=== PATIENT | male | born 1945 | race Caucasian/White ===

== ENCOUNTER 2017-07-09 17:42 | Inpatient (IN) | payer MEDICARE, SELFPAY ==
[2017-07-09] VITALS (11 sets, daily range): BP systolic 90–140; BP diastolic 62–96; PULSE 75–99; RESP 16–24; TEMP 36.6–36.9; O2SAT 88–99; BMI 35.4; BMI 30.4
--- NOTE | 2017-07-09 17:51 | RAD_ITS ---
XR Chest 1 View INDICATION: chest painSOB COMPARISON: November 14, 2016 FINDINGS: The heart size and pulmonary vascularity are within normal limits. The lungs are hyperinflated with flat of the diaphragm. Hazy and patchy air space opacities is seen at the lung bases, right worse then left, improved compared to the prior study. RAD/Chest 1 View (Portable) IMPRESSION: COPD/emphysema. Bibasilar patchy air space opacities, right worse then left. Cannot exclude developing or resolving pneumonic infiltrate in the appropriate clinical setting. at [id number] Reported and signed by: Ashley Mckinnon MD Electronically Signed: Ashley Mckinnon MD at 17:53 EST Tel , Service support ,
--- NOTE | 2017-07-09 17:51 | EKG12_ITS ---
Test Reason : CP Blood Pressure : / mmHG Vent. Rate : 096 BPM Atrial Rate : 096 BPM P-R Int : 170 ms QRS Dur : 082 ms QT Int : 332 ms P-R-T Axes : 064 081 073 degrees QTc Int : 419 ms Normal sinus rhythm Low voltage QRS Nonspecific ST abnormality Abnormal ECG Confirmed by SEVERO SOTO, SREEKANTH ([id number]), non linear editor KAVIN KIRK ([id number] on 07/12/2017 10:37:20 AM Referred By: MITESH Confirmed By:SREEKANTH ELKINS MD
--- NOTE | 2017-07-09 18:15 | ED.DCSUM_ITS ---
- ER Visit Summary Date of Service: 07/09/17 Chief Complaint: [] Harsh cough left sided chest pain History of Present Illness: The patient is a 72 M [] COPD prior OK ?2 reports for a month or 2 he has had a runny nose and a harsh cough the coughing became worse and began having left-sided chest pain family brought him to the hospital. He indicates his cardiac status has been stable his COPD has been worsening as he is not been able to obtain his home O2 because his oxygen machine broke and no one will come and fix it. His cough is occasionally dry sometimes part of a white mucus he did not have a flu vaccination, occasional white mucus no abdominal pain bowel bladder habits have been normal he has chronic left lower extremity weakness that is unchanged Physical Examination: [] His pulse ox on room air is 94% he has a dry harsh cough here his nose seems slightly congested the neck is unremarkable the lungs are diminished bilaterally with wheezing the heart tones are unremarkable abdomen soft nontender he complains of pain to the left chest wall when he coughs this area shows no crepitus subcu air, the abdomen again is soft and nontender upper lower extremities unremarkable neurologically he is awake and alert Test Results: [] Emergency Department Course and Treatment: [] Given all the above comprehensive evaluations pursued, the patient's EKG and labs are generally unremarkable see those results, the x-ray shows what appears to be bibasilar infiltrates given his age the harsh coughing family's inability to manage him I have asked the hospital seen further management Treatment Plan: [] Disposition: [] Admit stable hospitalist evaluation underway Impression: [] Exacerbation of COPD, community-acquired pneumonia This note was generated with [employer] dictation software. It may contain incorrect words, spelling, and punctuation that were not noted in review of the chart prior to signing ED Disposition - Plan for ED Patient: Chief Complaint: Chest Pain Referrals: NOT,DEFINED [NON-STAFF] -
[2017-07-09] MEDS: Ipratropium/Albuterol Sulfate 3 ML AMPUL.NEB INHALATION ×2 (18:29→23:50)
[2017-07-09] MEDS: Aspirin 81 MG TAB.CHEW 324 MG PO (18:30)
[2017-07-09 18:43] LABS: Absolute Lymphocyte Count 1.65 X10^3/ul (0.83-4.51); Absolute Neutrophil Count 5.8 X10^3/uL (2.0-7.7); Basophil# 0.02 X10^3/uL; Basophil% 0.2 % (0-1); Eosinophil# 0.29 X10^3/uL; Eosinophils% 3.4 % (0-5); Hematocrit 43.6 % (40-54); Hemoglobin 13.6 g/dl (13.0-16.5); Lymphocyte # 1.65 X10^3/ul (4.0); Lymphocyte % 19.4 % (19-41); Mean Corp Hgb Conc 31.2 g/gl (32-36); Mean Corpuscular Hgb 29.8 pg (27.0-32.0); Mean Corpuscular Volume 95.4 fL (80-94); Mean Platelet Vol. 10.5 fl (6.2-12.0); Monocyte# 0.73 X10^3/uL; Monocyte% 8.6 % (0-10); Neutrophil # 5.81 X10^3/uL (2.7-7.7); Neutrophil % 68.3 % (47-70); POSITIVE COUNT NO; POSITIVE DIFFERENTIAL NO; POSITIVE MORPHOLOGY NO; Platelet Count 342 K/mm3 (150-450); RBC Distribution Width SD 48.4 fl (35.1-43.9); Red Blood Count 4.57 M/mm3 (4.6-6.2); White Blood Count 8.5 K/mm3 (4.4-11.0)
[2017-07-09 19:07] LABS: BNP,B-Type NATRIURETIC PEPTIDE 39.6 pg/mL (0-100)
[2017-07-09 19:17] LABS: Anion Gap 5 (5-15); BUN 15 mg/dL (7-18); BUN/Creat Ratio 21.4 RATIO (10-20); Chloride 95 mmol/L (98-107); EST Glomerular Filtration Rate 117 mL/min (>60); Est Glom Filt Rate - Afr Amer 142 mL/min (>60); Estimated Creatinine Clearance 65.79 ml/min; Glucose 99 mg/dL (70-110); Potassium 4.8 mmol/L (3.5-5.1); Sodium Level 135 mmol/L (136-145)
--- NOTE | 2017-07-09 20:55 | HP.PCM_ITS ---
Problem List (1) Acute and chronic respiratory failure Status: Acute Qualifiers: (2) COPD with acute exacerbation Status: Acute (3) Community acquired pneumonia Status: Acute Comment: Strep pneumoniae, July 2016 (4) Fecal incontinence Status: Acute (5) Fever and chills Status: Acute (6) Generalized weakness Status: Acute (7) Hilar mass Status: Acute History of Present Illness Date of Admission: 07/09/17 Chief Complaint: Acute on chronic COPD exacerbation The patient is a 72 y/o male w/ h/o COPD, pulmonary HTN, tricuspid regurgitation , and diastolic heart failure admitted for COPD exacerbation. He has been SOB x month. His oxygen tank has been broken for weeks and is in the process of being fixed. His cough has increased intensity and frequency in the last few days. Nothing appeared to make it better or worse. He also complained of left sided chest pain. Pain started last night. Nothing improved or worsened pain. Pain is nonexertional and constant. He went to the ED for further workup. 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 Diastolic CHF (Chronic) Foot drop, left (Chronic) Chronic respiratory failure (Chronic) with hypoxemima and hypercarbia Pulmonary HTN (Chronic) severe Diastolic dysfunction (Chronic) stage 1 Tricuspid regurgitation (Chronic) mild - moderate Decubitus ulcer of hip, stage 2 (Chronic) Decubitus ulcer of hip, stage 1 (Chronic) CAD (coronary artery disease) (Chronic) minimal and nnon-obstructive on cath 08/09/16 Allergies No Known Allergies Allergy (Verified 08/02/16 10:51) Home Medications: Ambulatory Orders Medication Instructions Recorded Finasteride [Proscar] 5 mg PO DAILY 11/10/16 Oxygen, Home [Home Oxygen] 3 lpm NASAL DAILY 11/10/16 Albuterol Inhaler [Ventolin Hfa] 2 puff INHALATION Q4H PRN PRN #1 11/17/16 inhaler Aspirin [Aspirin, Baby] 81 mg PO DAILY@0800 tab.chew 11/17/16 Atorvastatin Calcium [Lipitor] 10 mg PO QHS #30 tablet 11/17/16 Budesonide/Formoterol 160/4.5 2 puff INHALATION BID #1 inhaler 11/17/16 [Symbicort 160/4.5 Mcg Inhaler (SP)] Prednisone 10 mg PO DAILY #21 tablet 11/17/16 Tamsulosin HCl [Flomax] 0.8 mg PO DAILY@1730 #60 capsule 11/17/16 Surgical History: cataract Psychiatric History: No pertinent psych hx Smoking Status: Former smoker - *Family History Maternal History Items: No pertinent history, - - No COPD Paternal History Items: No pertinent history, - - No COPD Review of Systems Constitutional: Denies: Chills, Fever, Weight Change HEENT: Denies: Head Aches, Sinus Congestion, Sinus Drainage Cardiovascular: Denies: Chest Pain, Palpitations Respiratory: Reports: Cough, Shortness of Breath, Sputum production. Denies: Shortness of breath at rest Gastrointestinal: Denies: Abdominal Pain, Nausea, Vomiting Genitourinary: Denies: Dysuria Musculoskeletal: Denies: Joint Pain, Joint Tenderness Skin: Denies: Rash, Wounds Neurological: Denies: Numbness, Tingling, Focal weakness Psychiatric: Denies: Anxiety, Depression, Homicidal Ideations, Suicidal Ideations Hematologic/ Lymphatic: Denies: Easy Bruising, Easy Bleeding VTE Information - Inpt Only VTE Present on Admission: No VTE Mechan Device Prophylaxis: SCD's VTE Pharm Prophylaxis ordered?: Yes - Physical Exam General: Alert, Oriented x3, Cooperative HEENT: Atraumatic, PERRLA, EOMI, Normocephalic Neck: Supple, No JVD, Negative Carotid Bruits Lungs: Short of Breath, Wheezes Cardiovascular: Regular rate, No murmurs Abdomen: Bowel Sounds Present, Soft, Non Tender Extremities: No edema, Capillary Refill Less than 3 Seconds Skin: No rashes, No breakdown Musculoskeletal: No Tenderness to Palpation of Joints or Extremities Neurological: Cranial nerves II-XII grossly intact Psych/Mental Status: Normal Affect, Appropriate Vital Signs Temp Pulse Resp BP Pulse Ox 98.5 F 83 18 120/88 H 94 07/09/17 19:49 07/09/17 20:13 07/09/17 20:13 07/09/17 20:13 07/09/17 20:13 Oxygen Flow Rate 3 Oxygen Delivery Method Room Air Weight: 108.862 kg Body Mass Index (BMI) 35.4 Microbiology Past 72 Hours 07/09/17 19:00 Influenza Types A,B Direct FA (EMIL) - Final Mucosa - Nose Laboratory Tests Past 24 Hrs 07/09/17 07/09/17 07/09/17 18:32 18:32 18:32 WBC 8.5 RBC 4.57 L Hgb 13.6 Hct 43.6 MCV 95.4 H MCH 29.8 MCHC 31.2 L RDW 14.0 RDW Differential 48.4 H Plt Count 342 MPV 10.5 Immature Gran % (Auto) 0.100 Neut % (Auto) 68.3 Lymph % (Auto) 19.4 [place] % (Auto) 8.6 Eos % (Auto) 3.4 Baso % (Auto) 0.2 Absolute Neuts (auto) 5.8 Absolute Lymphs (auto) 1.65 Total Counted Not Reportable Sodium 135 L Potassium 4.8 Chloride 95 L Carbon Dioxide 35.0 H Anion Gap 5 BUN 15 Creatinine 0.70 Estim Creat Clear Calc 65.79 Est GFR (MDRD) Af Amer 142 Est GFR (MDRD) Non-Af 117 BUN/Creatinine Ratio 21.4 H Glucose 99 Calcium 9.0 Troponin I < 0.02 B-Natriuretic Peptide 39.6 Assessment/Plan 72 y/o male w/ h/o COPD, pulmonary HTN, tricuspid regurgitation, and diastolic heart failure admitted for COPD exacerbation. 1) Acute on chronic COPD exacerbation: Likely secondary to noncompliance. Chest xray disclosed bibasilar patchy air space opacities, right worse then left. Cannot exclude developing or resolving pneumonic infiltrate in the appropriate clinical setting. Will start steroid, bronchodilator, oxygen, and ceftriaxone / azithromycin. Will need home oxygen. Cultures pending. Monitor. 2) Chest pain: Appears pleuritic / related to cough. Will get serial trops. Monitor. 3) Chronic issues: Pulmonary HTN, chronic diastolic heart failure, and tricuspid regurgitation: resume home meds. Monitor. 4) Prophylaxis: Heparin
--- NOTE | 2017-07-09 22:06 | NURSING ---
PT DOES NOT HAVE HOME MED LIST, DOES NOT KNOW WHAT MEDS HE TAKES AND HIS DTR-IN-LAW IS ILLITERATE AND CANNOT PROVIDE INFORMATION FROM HIS BOTTLES OF MEDICATION. USES [facility] FOR PRESCRIPTIONS; THEY WILL NEED TO BE CALLED IN AM.
[2017-07-09] MEDS: guaiFENesin 600 MG Tablet PO (22:24)
[2017-07-09] MEDS: Atorvastatin Calcium 10 MG Tablet PO (22:24)
[2017-07-09] MEDS: 0.9% Normal Saline 1,000 ML 100 ML IV (22:27)
[2017-07-10] VITALS (9 sets, daily range): BP systolic 97–135; BP diastolic 67–97; PULSE 72–93; RESP 16–20; TEMP 36.4–36.9; O2SAT 94–98
[2017-07-10 00:44] LABS: Color, Urine Yellow (Yellow); Glucose, Dipstick Normal (Normal); Ketone-Dipstick Negative (Negative); Leukocyte Esterase-Dipstick Negative /ul (Negative); Nitrite-Dipstick Negative (Negative); Occult Blood-Urine 10 /ul (Negative); Protein-Dipstick Negative (Negative); Urine Bilirubin Dipstick Negative (Negative); Urine Clarity Clear (Clear); Urine Urobilinogen Normal (Normal); Urine pH 6.5 (5.0 - 8.0)
--- NOTE | 2017-07-10 05:55 | RAD_ITS ---
STUDY: X-RAY CHEST REASON FOR EXAM: Male, 72 years old. Shortness of breath. COPD. TECHNIQUE: PA and lateral views of the chest. COMPARISON: 07/09/2017 FINDINGS: There is hyperinflation of the lungs consistent with chronic obstructive lung disease (COPD). Again noted pneumonic infiltrates in the lung bases, minimally increased since the yesterday's exam. No substantial pleural effusion is demonstrated. Normal size heart. There is atherosclerotic tortuosity of the aortic arch and descending thoracic aorta. There is demineralization of the osseous structures. There is no demonstrated abnormality of the visualized soft tissue structures of the upper abdomen. RAD/Chest PA and Lateral IMPRESSION: 1. Pulmonary emphysema. 2. Bibasilar patchy infiltrates again demonstrated, minimally increased since the prior exam. Electronically Signed: Deborah Syed MD at 9:11 EST Tel , Service support ,
[2017-07-10] MEDS: Acetaminophen 325 MG Tablet 650 MG PO (06:23)
[2017-07-10 06:33] LABS: Absolute Lymphocyte Count 0.79 X10^3/ul (0.83-4.51); Absolute Neutrophil Count 5.9 X10^3/uL (2.0-7.7); Lymphocyte # 0.79 X10^3/ul (4.0); Lymphocyte % 11.7 % (19-41); Mean Corpuscular Hgb 29.6 pg (27.0-32.0); Mean Corpuscular Volume 95.7 fL (80-94); Monocyte# 0.07 X10^3/uL; Neutrophil # 5.87 X10^3/uL (2.7-7.7); Neutrophil % 87.2 % (47-70); Platelet Count 310 K/mm3 (150-450); RBC Distribution Width CV 13.7 % (11.6-14.6); RBC Distribution Width SD 45.9 fl (35.1-43.9); Red Blood Count 4.39 M/mm3 (4.6-6.2); White Blood Count 6.7 K/mm3 (4.4-11.0)
[2017-07-10 06:42] LABS: POSITIVE COUNT NO; POSITIVE DIFFERENTIAL NO; POSITIVE MORPHOLOGY NO
[2017-07-10 06:50] LABS: ALB/GLOB Ratio 0.7 RATIO (0.9-2.4); AST(SGOT) 10 U/L (15-37); Alanine Aminotransfer ALT/SGPT 14 U/L (12-78); Albumin, Serum 3.2 g/dL (3.4-5.0); Alkaline Phosphatase 81 U/L (45-117); Anion Gap 8 (5-15); BUN 14 mg/dL (7-18); BUN/Creat Ratio 21.1 RATIO (10-20); Calcium,Total 8.9 mg/dL (8.5-10.1); Chloride 100 mmol/L (98-107); Creatinine, Serum 0.66 mg/dL (0.70-1.30); EST Glomerular Filtration Rate 125 mL/min (>60); Est Glom Filt Rate - Afr Amer 151 mL/min (>60); Estimated Creatinine Clearance 65.79 ml/min; Globulin 4.6 g/dL (2.2-4.2); Glucose 136 mg/dL (70-110); Potassium 4.5 mmol/L (3.5-5.1); Protein, Total 7.8 g/dL (6.4-8.2); Sodium Level 139 mmol/L (136-145)
[2017-07-10] MEDS: Ipratropium/Albuterol Sulfate 3 ML AMPUL.NEB INHALATION ×3 (07:36→18:54)
[2017-07-10] MEDS: Aspirin 81 MG TAB.CHEW PO (09:16)
[2017-07-10] MEDS: 0.9% Normal Saline 1,000 ML 100 ML IV ×2 (09:16→20:24)
[2017-07-10] MEDS: Finasteride 5 MG Tablet PO (09:17)
[2017-07-10] MEDS: Ceftriaxone 1 GM/50 ML BAG IV (09:17)
[2017-07-10] MEDS: guaiFENesin 600 MG Tablet PO ×2 (09:17→22:12)
--- NOTE | 2017-07-10 11:45 | PCM.PROGNOTE ---
<Kale Jaimes - Last Filed: 07/10/17 11:45> Patient Problems: Active and Suspected Problems COPD with acute exacerbation (Acute) Subjective: SOB has improved. He continues to have a cough productive of white mucus. No fever or chills overnight. He reports is home concentrator isnt working correctly, it has an unusual smell and he has been fighting with his DME provider to get a new one. He uses 3lpm at all times normally. He is currently comfortable on 3 lpm O2. He continues to have lower midsternal chest pain when coughing. - Physical Exam General: Alert, Oriented x3, Cooperative HEENT: Atraumatic, PERRLA, EOMI, Normocephalic Neck: Supple, No JVD, Negative Carotid Bruits Lungs: Diminished - severely diminished throughout Cardiovascular: Regular rate, No murmurs Abdomen: Bowel Sounds Present, Soft, Non Tender Extremities: No edema, Capillary Refill Less than 3 Seconds Skin: No rashes, No breakdown Musculoskeletal: No Tenderness to Palpation of Joints or Extremities Neurological: Cranial nerves II-XII grossly intact Psych/Mental Status: Normal Affect, Appropriate, Alert and oriented to time, place, person, mood and affect Vital Signs Temp Pulse Resp BP Pulse Ox 98.1 F 84 16 97/67 94 07/10/17 11:06 07/10/17 11:06 07/10/17 11:06 07/10/17 11:10 07/10/17 11:06 Oxygen Flow Rate 3 Oxygen Delivery Method Nasal Cannula Weight: 93.7 kg Body Mass Index (BMI) 30.4 Intake and Output for Last 24 Hours 07/08/17 07/09/17 07/10/17 23:59 23:59 23:59 Intake Total 1984 Balance 1984 Microbiology Past 72 Hours 07/10/17 00:20 Gram Stain - Final Sputum, Expectorated/Coughed 07/09/17 23:45 Legionella Antigen - Final Interface Orders 07/09/17 23:45 Streptococcus pneumoniae Antigen (M - Final Interface Orders Laboratory Tests Past 24 Hrs 07/09/17 07/09/17 07/10/17 22:05 23:45 01:03 WBC RBC Hgb Hct MCV MCH MCHC RDW RDW Differential Plt Count MPV Immature Gran % (Auto) Neut % (Auto) Lymph % (Auto) [place] % (Auto) Eos % (Auto) Baso % (Auto) Absolute Neuts (auto) Absolute Lymphs (auto) Total Counted Sodium Potassium Chloride Carbon Dioxide Anion Gap BUN Creatinine Estim Creat Clear Calc Est GFR (MDRD) Af Amer Est GFR (MDRD) Non-Af BUN/Creatinine Ratio Glucose Calcium Total Bilirubin AST ALT Alkaline Phosphatase Troponin I < 0.02 < 0.02 Total Protein Albumin Globulin Albumin/Globulin Ratio Urine Color Yellow Urine Clarity Clear Urine pH 6.5 Ur Specific [place] 1.010 Urine Protein Negative Urine Glucose (UA) Normal Urine Ketones Negative Urine Occult Blood 10 H Urine Nitrite Negative Urine Bilirubin Negative Urine Urobilinogen Normal Ur Leukocyte Esterase Negative 07/10/17 07/10/17 07/10/17 06:10 06:10 11:00 WBC 6.7 RBC 4.39 L Hgb 13.0 Hct 42.0 MCV 95.7 H MCH 29.6 MCHC 31.0 L RDW 13.7 RDW Differential 45.9 H Plt Count 310 MPV 10.0 Immature Gran % (Auto) 0.100 Neut % (Auto) 87.2 H Lymph % (Auto) 11.7 L [place] % (Auto) 1.0 Eos % (Auto) 0.0 Baso % (Auto) 0.0 Absolute Neuts (auto) 5.9 Absolute Lymphs (auto) 0.79 L Total Counted Not Reportable Sodium 139 Potassium 4.5 Chloride 100 Carbon Dioxide 31.0 Anion Gap 8 BUN 14 Creatinine 0.66 L Estim Creat Clear Calc 65.79 Est GFR (MDRD) Af Amer 151 Est GFR (MDRD) Non-Af 125 BUN/Creatinine Ratio 21.1 H Glucose 136 H Calcium 8.9 Total Bilirubin 0.40 AST 10 L ALT 14 Alkaline Phosphatase 81 Troponin I < 0.02 Pending Total Protein 7.8 Albumin 3.2 L Globulin 4.6 H Albumin/Globulin Ratio 0.7 L Urine Color Urine Clarity Urine pH Ur Specific [place] Urine Protein Urine Glucose (UA) Urine Ketones Urine Occult Blood Urine Nitrite Urine Bilirubin Urine Urobilinogen Ur Leukocyte Esterase Assessment/Plan Active and Suspected Problems COPD with acute exacerbation (Acute) 1. Acute COPD exacerbation - continue aerosols, solumedrol, incentive spirometer. Improved. 2. Chronic hypoxic respiratory failure - stable at baseline 3 lpm. Needs new home concentrator 3. Questionable bilateral pneumonia - bilateral opacities on exam. productive cough with chest pain. No fever or white count. urine antigens negative. sputum culture poor sample but with no growth. Continue empiric rocephin/azithro. Mucinex, PEP therapy 5. Chest pain - likely 2/2 cough / pna. EKG and troponin negative. 6. Hx diastolic CHF - no sign of fluid overload, BNP negative. DVT ppx: heparin DC planning: likely home tomorrow, will attempt to get him a new concentrator This patient was seen by Kale Jaimes PA-C under the supervision of Doctor Taya. <Silvano Bain - Last Filed: 07/10/17 12:42> - Physical Exam General: Alert, Cooperative HEENT: Atraumatic, Normocephalic Lungs: Clear to auscultation, Diminished Cardiovascular: Regular rate Abdomen: Bowel Sounds Present, Soft, Non Tender Extremities: No edema, No Calf Tenderness Skin: No rashes, No breakdown Psych/Mental Status: Normal Affect, Appropriate Vital Signs Temp Pulse Resp BP Pulse Ox 36.7 C 84 16 97/67 94 07/10/17 11:06 07/10/17 11:06 07/10/17 11:06 07/10/17 11:10 07/10/17 11:06 Oxygen Flow Rate 3 Oxygen Delivery Method Nasal Cannula Weight: 93.7 kg Body Mass Index (BMI) 30.4 Intake and Output for Last 24 Hours 07/08/17 07/09/17 07/10/17 23:59 23:59 23:59 Intake Total 1984 Balance 1984 Microbiology Past 72 Hours 07/10/17 00:20 Gram Stain - Final Sputum, Expectorated/Coughed 07/09/17 23:45 Legionella Antigen - Final Interface Orders 07/09/17 23:45 Streptococcus pneumoniae Antigen (M - Final Interface Orders Laboratory Tests Past 24 Hrs 07/09/17 07/09/17 07/10/17 22:05 23:45 01:03 WBC RBC Hgb Hct MCV MCH MCHC RDW RDW Differential Plt Count MPV Immature Gran % (Auto) Neut % (Auto) Lymph % (Auto) [place] % (Auto) Eos % (Auto) Baso % (Auto) Absolute Neuts (auto) Absolute Lymphs (auto) Total Counted Sodium Potassium Chloride Carbon Dioxide Anion Gap BUN Creatinine Estim Creat Clear Calc Est GFR (MDRD) Af Amer Est GFR (MDRD) Non-Af BUN/Creatinine Ratio Glucose Calcium Total Bilirubin AST ALT Alkaline Phosphatase Troponin I < 0.02 < 0.02 Total Protein Albumin Globulin Albumin/Globulin Ratio Urine Color Yellow Urine Clarity Clear Urine pH 6.5 Ur Specific [place] 1.010 Urine Protein Negative Urine Glucose (UA) Normal Urine Ketones Negative Urine Occult Blood 10 H Urine Nitrite Negative Urine Bilirubin Negative Urine Urobilinogen Normal Ur Leukocyte Esterase Negative 07/10/17 07/10/17 07/10/17 06:10 06:10 11:00 WBC 6.7 RBC 4.39 L Hgb 13.0 Hct 42.0 MCV 95.7 H MCH 29.6 MCHC 31.0 L RDW 13.7 RDW Differential 45.9 H Plt Count 310 MPV 10.0 Immature Gran % (Auto) 0.100 Neut % (Auto) 87.2 H Lymph % (Auto) 11.7 L [place] % (Auto) 1.0 Eos % (Auto) 0.0 Baso % (Auto) 0.0 Absolute Neuts (auto) 5.9 Absolute Lymphs (auto) 0.79 L Total Counted Not Reportable Sodium 139 Potassium 4.5 Chloride 100 Carbon Dioxide 31.0 Anion Gap 8 BUN 14 Creatinine 0.66 L Estim Creat Clear Calc 65.79 Est GFR (MDRD) Af Amer 151 Est GFR (MDRD) Non-Af 125 BUN/Creatinine Ratio 21.1 H Glucose 136 H Calcium 8.9 Total Bilirubin 0.40 AST 10 L ALT 14 Alkaline Phosphatase 81 Troponin I < 0.02 < 0.02 Total Protein 7.8 Albumin 3.2 L Globulin 4.6 H Albumin/Globulin Ratio 0.7 L Urine Color Urine Clarity Urine pH Ur Specific [place] Urine Protein Urine Glucose (UA) Urine Ketones Urine Occult Blood Urine Nitrite Urine Bilirubin Urine Urobilinogen Ur Leukocyte Esterase Assessment/Plan Seen and examined in family. I agree with the above note by the physician internal medicine physician assistant. 1. Acute exacerbation of COPD. Likely combination of the fact that the patient has not had his oxygen for 3 weeks. Patient stated that he stop using his oxygen 3 weeks ago due to a smell. Patient states that he has called his insurance company and an unclear patient's called [employer] as well but the issue has not been resolved but patient is otherwise doing well on his same level oxygen he is at home and I really do not appreciate wheezing at this time. Patient will continue with steroids for now. What case management assist in regards to the patient is able to get another condenser because the patient frankly refuses to use what he has now. Unclear if if it has been contaminated was some organism or if it is just failing and possibly burning out but hopefully will build to obtain one for him prior to discharge. We will continue with empiric antibiotics patient does have some increasing infiltrate as compared to prior chest x-rays clinically though patient really does not have pneumonia but follow-up on sputum culture but remains negative would recommend no further antibiotic therapy. Code Visit Inpatient E&M: 19395 Subs Hosp L2
[2017-07-10] MEDS: Tamsulosin HCl 0.4 MG Capsule 0.8 MG PO (16:51)
[2017-07-10] MEDS: Atorvastatin Calcium 10 MG Tablet PO (22:13)
[2017-07-11] VITALS (12 sets, daily range): BP systolic 95–117; BP diastolic 64–75; PULSE 76–94; RESP 16–21; TEMP 36.3–37; O2SAT 89–97
[2017-07-11] MEDS: 0.9% Normal Saline 1,000 ML 100 ML IV (05:40)
--- NOTE | 2017-07-11 07:56 | PCM.PN.HOSP ---
Patient Problems: Active and Suspected Problems COPD with acute exacerbation (Acute) Subjective: Patient without any acute events overnight per self and RN report. He notes breathing with much greater ease but still difficult with any exertion. Patient amenable to possible discharge to home in AM if continued improvement. He denies having an nebulizer at home. Noted issues with oxygen smell which was why he was not using his oxygen as rx prior. Patient denies fevers, chills, nausea, emesis, abdominal pain, chest pain. Objective: Physical Examination: General: awake, alert, oriented x 3 and cooperative, seated upright in bedside chair, in no apparent distress. Skin: normal color, turgor, no icterus, cyanosis. HEENT: AT/NC, EOMI, PERRLA, improved MM. Lungs: Diminished BS diffusely, mildly rhonchorous, > bases, mild effort, occasional end expiratory wheezing, no rales. Heart: Regular rate and rhythm; no gallop, rub audible. Abdomen: soft, obese, NTTP, ND, normal BS. Extremities: no cyanosis, clubbing, or edema. Neurological: patient awake, alert, oriented x 3; cognitive function intact; pupils equally reactive to light and accomodation; cranial nerves II-XII grossly normal, moving all 4 extremities, no focal deficits, strength moderately to severely globally decreased secondary to acute pulmonary presentation. Psychiatric: affect appears mildly fatigued, no acute evidence of depressive or anxiety feelings. Vitals/I&O's: Vital Signs Temp Pulse Resp BP Pulse Ox 97.3 F L 79 20 H 117/74 96 07/11/17 03:00 07/11/17 03:00 07/11/17 03:00 07/11/17 03:00 07/11/17 03:00 Oxygen Flow Rate 3 Oxygen Delivery Method Nasal Cannula Weight: 206 lb 9.17 oz Body Mass Index (BMI) 30.4 Intake and Output for Last 24 Hours 07/09/17 07/10/17 07/11/17 23:59 23:59 23:59 Intake Total 4792 / 4792 894 / 894 Output Total 1500 / 1500 Balance 3292 / 3292 894 / 894 Microbiology Past 72 Hours 07/10/17 00:20 Sputum, Expectorated/Coughed Gram Stain - Final 07/09/17 23:45 Interface Orders Legionella Antigen - Final 07/09/17 23:45 Interface Orders Streptococcus pneumoniae Antigen (M - Final Laboratory Results 07/10/17 11:00: Troponin I < 0.02 Current Medications Acetaminophen (Tylenol) 650 mg PO Q4H PRN PRN PRN Reason: PAIN Last Admin: 07/10/17 06:23 Dose: 650 mg Albuterol Sulfate (Ventolin Aerosols) 2.5 mg INHALATION Q4H PRN PRN PRN Reason: SHORTNESS OF BREATH Albuterol Sulfate (Ventolin Aerosols) 2.5 mg INHALATION Q6HWA.RT GIGI Albuterol/Ipratropium (Duoneb) 3 ml INHALATION Q6H.RT [facility] Last Admin: 07/11/17 01:40 Dose: Not Given Aspirin (Aspirin, Baby) 81 mg PO DAILY@0800 [facility] Last Admin: 07/10/17 09:16 Dose: 81 mg Atorvastatin Calcium (Lipitor) 10 mg PO QHS [facility] Last Admin: 07/10/17 22:13 Dose: 10 mg Finasteride (Proscar) 5 mg PO DAILY [facility] Last Admin: 07/10/17 09:17 Dose: 5 mg Guaifenesin (Mucinex) 600 mg PO BID [facility] Last Admin: 07/10/17 22:12 Dose: 600 mg Heparin Sodium (Porcine) (Heparin Na) 5,000 unit SC Q8 [facility] Last Admin: 07/11/17 05:39 Dose: 5,000 u Sodium Chloride () 1,000 mls @ 0 mls/hr IV .Q0M GIGI PRN Reason: KVO Ceftriaxone Sodium (Rocephin) 1 gm in 50 mls @ 100 mls/hr IV Q24 [facility] Last Admin: 07/10/17 09:17 Dose: 100 mls/hr Sodium Chloride () 1,000 mls @ 100 mls/hr IV .Q10H [facility] Last Admin: 07/11/17 05:40 Dose: 100 mls/hr Azithromycin 500 mg/ Dextrose 255 mls @ 250 mls/hr IV Q24 [facility] Stop: 07/12/17 11:02 Last Admin: 07/10/17 11:00 Dose: 250 mls/hr Methylprednisolone (Solu-Medrol) 40 mg IV Q8 [facility] Last Admin: 07/11/17 05:39 Dose: 40 mg Sodium Chloride () 5 - 30 ml IV UD PRN PRN Reason: SALINE FLUSH Tamsulosin HCl (Flomax) 0.8 mg PO DAILY@1730 [facility] Last Admin: 07/10/17 16:51 Dose: 0.8 mg Assessment/Plan Active and Suspected Problems COPD with acute exacerbation (Acute) The patient is a 72 y/o M w/ PMHx: Chronic Hypoxic Respiratory Failure (3L NC) with Chronic COPD, Obesity, Diastolic CHF, Tobacco use, Pulmonary HTN, Chronic L Foot Drop, CAD, GERD, BPH who presents to the [facility] ED on 07/09/17 with progressively worsened dyspnea with history of not using his home oxygen for several weeks secondary to abnormal smell. (1) Acute on chronic COPD exacerbation w/ Chronic Hypoxic Respiratory Failure and Possible PNA, complicated by Pulmonary HTN Hx: CXR w/ pulmonary emphysema, bibasilar patchy infiltrates R>L, CBC on admission w/ WBC 8.5 without marked shift-->07/11/17 CBC w/ WBC 6.7 with shift, remains afebrile. Admitted to [place], maintain on home oxygen supplementation, continue ATC duonebs, PRN albuterol, IV methylprednisolone-->prednisone transition, HOB, IS parameters, IV Azithromcyin (last dose 07/11/17) and Rocephin (transition omnicef 300 mg BID x 7 days total, first day treatment 07/09/17) since admission given concern for possible PNA with pending sputum cultures, negative urine antigens, negative rapid influenza. Will plan discharge to home possibly in AM w/ continued home oxygen, possible need to increase to 4L NC and assure nebulizer in place for discharge. (2) Chest pain: Likely Pleuritic, secondary to COPD exacerbation and ? PNA, serial enzymes unremarkable, maintain on guaf regimen. (3) Diastolic CHF, Chronic: BNP normal upon ED presentation, maintain on asa, statin, BP low normal, not on BB or ACEI, defer given normal-low BP. (4) Hyperlipidemia: Continue home statin regimen. (5) Obesity: Weight loss and lifestyle changes encouraged. (6) BPH: Maintain on home regimen flomax. (7) CAD: Maintain on asa, statin, not on BB with low normal BP. (8) DVT Prophylaxis: SCDs, heparin. Code Visit Inpatient E&M: 46148 Subs Hosp L2
--- NOTE | 2017-07-11 08:06 | PN_ITS ---
Patient Problems: Active and Suspected Problems COPD with acute exacerbation (Acute) Subjective: Patient without any acute events overnight per self and RN report. He notes breathing with much greater ease but still difficult with any exertion. Patient amenable to possible discharge to home in AM if continued improvement. He denies having an nebulizer at home. Noted issues with oxygen smell which was why he was not using his oxygen as rx prior. Patient denies fevers, chills, nausea, emesis, abdominal pain, chest pain. Objective: Physical Examination: General: awake, alert, oriented x 3 and cooperative, seated upright in bedside chair, in no apparent distress. Skin: normal color, turgor, no icterus, cyanosis. HEENT: AT/NC, EOMI, PERRLA, improved MM. Lungs: Diminished BS diffusely, mildly rhonchorous, > bases, mild effort, occasional end expiratory wheezing, no rales. Heart: Regular rate and rhythm; no gallop, rub audible. Abdomen: soft, obese, NTTP, ND, normal BS. Extremities: no cyanosis, clubbing, or edema. Neurological: patient awake, alert, oriented x 3; cognitive function intact; pupils equally reactive to light and accomodation; cranial nerves II-XII grossly normal, moving all 4 extremities, no focal deficits, strength moderately to severely globally decreased secondary to acute pulmonary presentation. Psychiatric: affect appears mildly fatigued, no acute evidence of depressive or anxiety feelings. Vitals/I&O's: Vital Signs Temp Pulse Resp BP Pulse Ox 97.3 F L 79 20 H 117/74 96 07/11/17 03:00 07/11/17 03:00 07/11/17 03:00 07/11/17 03:00 07/11/17 03:00 Oxygen Flow Rate 3 Oxygen Delivery Method Nasal Cannula Weight: 206 lb 9.17 oz Body Mass Index (BMI) 30.4 Intake and Output for Last 24 Hours 07/09/17 07/10/17 07/11/17 23:59 23:59 23:59 Intake Total 4792 / 4792 894 / 894 Output Total 1500 / 1500 Balance 3292 / 3292 894 / 894 Microbiology Past 72 Hours 07/10/17 00:20 Sputum, Expectorated/Coughed Gram Stain - Final 07/09/17 23:45 Interface Orders Legionella Antigen - Final 07/09/17 23:45 Interface Orders Streptococcus pneumoniae Antigen (M - Final Laboratory Results 07/10/17 11:00: Troponin I < 0.02 Current Medications Acetaminophen (Tylenol) 650 mg PO Q4H PRN PRN PRN Reason: PAIN Last Admin: 07/10/17 06:23 Dose: 650 mg Albuterol Sulfate (Ventolin Aerosols) 2.5 mg INHALATION Q4H PRN PRN PRN Reason: SHORTNESS OF BREATH Albuterol Sulfate (Ventolin Aerosols) 2.5 mg INHALATION Q6HWA.RT GIGI Albuterol/Ipratropium (Duoneb) 3 ml INHALATION Q6H.RT [facility] Last Admin: 07/11/17 01:40 Dose: Not Given Aspirin (Aspirin, Baby) 81 mg PO DAILY@0800 [facility] Last Admin: 07/10/17 09:16 Dose: 81 mg Atorvastatin Calcium (Lipitor) 10 mg PO QHS [facility] Last Admin: 07/10/17 22:13 Dose: 10 mg Finasteride (Proscar) 5 mg PO DAILY [facility] Last Admin: 07/10/17 09:17 Dose: 5 mg Guaifenesin (Mucinex) 600 mg PO BID [facility] Last Admin: 07/10/17 22:12 Dose: 600 mg Heparin Sodium (Porcine) (Heparin Na) 5,000 unit SC Q8 [facility] Last Admin: 07/11/17 05:39 Dose: 5,000 u Sodium Chloride () 1,000 mls @ 0 mls/hr IV .Q0M GIGI PRN Reason: KVO Ceftriaxone Sodium (Rocephin) 1 gm in 50 mls @ 100 mls/hr IV Q24 [facility] Last Admin: 07/10/17 09:17 Dose: 100 mls/hr Sodium Chloride () 1,000 mls @ 100 mls/hr IV .Q10H [facility] Last Admin: 07/11/17 05:40 Dose: 100 mls/hr Azithromycin 500 mg/ Dextrose 255 mls @ 250 mls/hr IV Q24 [facility] Stop: 07/12/17 11:02 Last Admin: 07/10/17 11:00 Dose: 250 mls/hr Methylprednisolone (Solu-Medrol) 40 mg IV Q8 [facility] Last Admin: 07/11/17 05:39 Dose: 40 mg Sodium Chloride () 5 - 30 ml IV UD PRN PRN Reason: SALINE FLUSH Tamsulosin HCl (Flomax) 0.8 mg PO DAILY@1730 [facility] Last Admin: 07/10/17 16:51 Dose: 0.8 mg Assessment/Plan Active and Suspected Problems COPD with acute exacerbation (Acute) The patient is a 72 y/o M w/ PMHx: Chronic Hypoxic Respiratory Failure (3L NC) with Chronic COPD, Obesity, Diastolic CHF, Tobacco use, Pulmonary HTN, Chronic L Foot Drop, CAD, GERD, BPH who presents to the [facility] ED on 07/09/17 with progressively worsened dyspnea with history of not using his home oxygen for several weeks secondary to abnormal smell. (1) Acute on chronic COPD exacerbation w/ Chronic Hypoxic Respiratory Failure and Possible PNA, complicated by Pulmonary HTN Hx: CXR w/ pulmonary emphysema, bibasilar patchy infiltrates R>L, CBC on admission w/ WBC 8.5 without marked shift-->07/11/17 CBC w/ WBC 6.7 with shift, remains afebrile. Admitted to [place], maintain on home oxygen supplementation, continue ATC duonebs, PRN albuterol, IV methylprednisolone-->prednisone transition, HOB, IS parameters, IV Azithromcyin (last dose 07/11/17) and Rocephin (transition omnicef 300 mg BID x 7 days total, first day treatment 07/09/17) since admission given concern for possible PNA with pending sputum cultures, negative urine antigens, negative rapid influenza. Will plan discharge to home possibly in AM w/ continued home oxygen, possible need to increase to 4L NC and assure nebulizer in place for discharge. (2) Chest pain: Likely Pleuritic, secondary to COPD exacerbation and ? PNA, serial enzymes unremarkable, maintain on guaf regimen. (3) Diastolic CHF, Chronic: BNP normal upon ED presentation, maintain on asa, statin, BP low normal, not on BB or ACEI, defer given normal-low BP. (4) Hyperlipidemia: Continue home statin regimen. (5) Obesity: Weight loss and lifestyle changes encouraged. (6) BPH: Maintain on home regimen flomax. (7) CAD: Maintain on asa, statin, not on BB with low normal BP. (8) DVT Prophylaxis: SCDs, heparin. Code Visit Inpatient E&M: 14794 Subs Hosp L2
[2017-07-11] MEDS: Aspirin 81 MG TAB.CHEW PO (09:06)
[2017-07-11] MEDS: Finasteride 5 MG Tablet PO (09:07)
[2017-07-11] MEDS: Ceftriaxone 1 GM/50 ML BAG IV (09:07)
[2017-07-11] MEDS: guaiFENesin 600 MG Tablet PO ×2 (09:07→21:40)
--- NOTE | 2017-07-11 09:36 | CASEMGMT ---
DESTINEE BASSETT Face to Face with patient for initial transition planning/care coordination assessment. DESTINEE BASSETT introduced self and role at [facility]. Patient sitting in chair, alert and oriented. Patient willing to participate in assessment and is able to answer all questions appropriately. Care providers, pharmacy, and demographics verified. See link attached. Pt wishes to discharge home with possible HHC if needed. Patient states that his concentrator at home is making a smell when he uses it. Patient states he receives his oxygen supplies through [employer]. DESTINEE BASSETT called Katharine at [facility] who stated they would have someone come to patients home prior to discharge to service concentrator. DESTINEE BASSETT updated the patient. Patient states he has no further needs or concerns at this time. CM to follow for discharge planning needs that may arise. Disposition Plan: Patient to discharge with family support and follow-up plans in place. Will monitor for need for HHC at discharge.
[2017-07-11] MEDS: Ipratropium/Albuterol Sulfate 3 ML AMPUL.NEB INHALATION ×3 (10:43→19:10)
--- NOTE | 2017-07-11 11:14 | NURSING ---
left message for 's nursing requesting home med list.
[2017-07-11] MEDS: Cefdinir 300 MG Capsule PO ×2 (13:34→21:41)
[2017-07-11] MEDS: Azithromycin 250 MG Tablet PO (13:34)
[2017-07-11] MEDS: Tamsulosin HCl 0.4 MG Capsule 0.8 MG PO (17:44)
[2017-07-11] MEDS: Atorvastatin Calcium 10 MG Tablet PO (21:41)
[2017-07-11] MEDS: Acetaminophen 325 MG Tablet 650 MG PO (21:49)
[2017-07-12 03:15] VITALS: BP 119/79; PULSE 77; RESP 18; TEMP 36.7; O2SAT 95
[2017-07-12] MEDS: Acetaminophen 325 MG Tablet 650 MG PO ×2 (06:25→12:19)
[2017-07-12 07:01] LABS: Absolute Lymphocyte Count 1.54 X10^3/ul (0.83-4.51); Absolute Neutrophil Count 7.8 X10^3/uL (2.0-7.7); Basophil# 0.01 X10^3/uL; Basophil% 0.1 % (0-1); Hematocrit 38.2 % (40-54); Hemoglobin 11.8 g/dl (13.0-16.5); Lymphocyte # 1.54 X10^3/ul (4.0); Mean Corp Hgb Conc 30.9 g/gl (32-36); Mean Corpuscular Hgb 29.6 pg (27.0-32.0); Mean Platelet Vol. 10.3 fl (6.2-12.0); Monocyte# 0.87 X10^3/uL; Monocyte% 8.5 % (0-10); Neutrophil # 7.83 X10^3/uL (2.7-7.7); Neutrophil % 76.2 % (47-70); Platelet Count 282 K/mm3 (150-450); RBC Distribution Width CV 14.2 % (11.6-14.6); RBC Distribution Width SD 47.7 fl (35.1-43.9); Red Blood Count 3.98 M/mm3 (4.6-6.2); White Blood Count 10.3 K/mm3 (4.4-11.0)
[2017-07-12 07:09] LABS: POSITIVE COUNT NO; POSITIVE DIFFERENTIAL NO; POSITIVE MORPHOLOGY NO
[2017-07-12 07:21] VITALS: O2SAT 95
[2017-07-12 07:29] LABS: Anion Gap 4 (5-15); BUN 26 mg/dL (7-18); BUN/Creat Ratio 41.3 RATIO (10-20); Calcium,Total 8.5 mg/dL (8.5-10.1); Chloride 104 mmol/L (98-107); Creatinine, Serum 0.63 mg/dL (0.70-1.30); EST Glomerular Filtration Rate 133 mL/min (>60); Est Glom Filt Rate - Afr Amer 161 mL/min (>60); Estimated Creatinine Clearance 65.79 ml/min; Glucose 91 mg/dL (70-110); Potassium 4.1 mmol/L (3.5-5.1); Sodium Level 141 mmol/L (136-145)
[2017-07-12 09:44] VITALS: BP 138/95; PULSE 75; RESP 18; TEMP 37; O2SAT 97
[2017-07-12] MEDS: guaiFENesin 600 MG Tablet PO (09:55)
[2017-07-12] MEDS: Cefdinir 300 MG Capsule PO (09:55)
[2017-07-12] MEDS: Aspirin 81 MG TAB.CHEW PO (09:56)
[2017-07-12] MEDS: Finasteride 5 MG Tablet PO (09:58)
--- NOTE | 2017-07-12 10:09 | PCM.DC ---
- Discharge Diagnoses Current Active Problems: (1) Acute on chronic COPD exacerbation w/ Chronic Hypoxic Respiratory Failure and Possible PNA, complicated by Pulmonary HTN Hx (2) Chest pain, Likely Pleuritic, secondary to COPD exacerbation and ? PNA (3) Diastolic CHF, Chronic (4) Hyperlipidemia (5) Obesity (6) BPH (7) CAD You will use the following diet at home:: Cardiac Your food should be the consistency of: Regular Your liquids should be the consistency of: Regular/Thin Discharge Activity: - - Avoid aggressive activity until re-assessed per your primary care physician at follow-up. Avoid remaining in the cold weather or severe changes in temperatures as well as other COPD triggers. May resume sexual activity in: 10-14 days Weight Bearing Status: Weight bearing as tolerated Call your doctor if you observe: Fever of 101 or Higher, Inability to urinate, Inability to have a bowel movement, Shortness of breath, Dizziness, Fainting spells, Chest pain, Uncontrolled pain Instructions: What is COPD?, Chronic Lung Disease: Preventing Lung Infections, Airway Clearance: Coughing Techniques, Using a Nebulizer (Adult), Using Oxygen Safely, Using Oxygen at Home, Traveling with Oxygen, Caring for Your Inhaler, Using an Inhaler with a Spacer, Using an Inhaler Without a Spacer, What Is Pneumonia?, Preventing Pneumonia, Pneumonia Treatment Allergies/Adverse Reactions: Allergies No Known Allergies Allergy (Verified 08/02/16 10:51) Medications to take at Discharge Finasteride [Proscar] 5 mg PO DAILY 11/10/16 Oxygen, Home [Home Oxygen] 3 lpm NASAL DAILY 11/10/16 Albuterol Inhaler [Ventolin Hfa] 2 puff INHALATION Q4H PRN PRN #1 inhaler 11/17/16 Aspirin [Aspirin, Baby] 81 mg PO DAILY@0800 tab.chew 11/17/16 Atorvastatin Calcium [Lipitor] 10 mg PO QHS #30 tablet 11/17/16 Budesonide/Formoterol 160/4.5 [Symbicort 160/4.5 Mcg Inhaler (SP)] 2 puff INHALATION BID #1 inhaler 11/17/16 Tamsulosin HCl [Flomax] 0.8 mg PO DAILY@1730 #60 capsule 11/17/16 Albuterol Aerosols [Ventolin Aerosols] 2.5 mg INHALATION Q2H PRN PRN #1 box 07/12/17 Cefdinir [Omnicef [equiv]] 300 mg PO Q12 #10 cap 07/12/17 Guaifenesin [Mucinex] 600 mg PO BID #20 tab 07/12/17 Ipratropium/Albuterol Sulfate [Duoneb] 3 ml INHALATION Q4HWA.RT #1 box 07/12/17 The following prescriptions were given: Albuterol Aerosols [Ventolin Aerosols] 2.5 mg INHALATION Q2H PRN PRN #1 box PRN Reason: dyspnea, wheezing Ipratropium/Albuterol Sulfate [Duoneb] 3 ml INHALATION Q4HWA.RT #1 box Cefdinir [Omnicef [equiv]] 300 mg PO Q12 #10 cap Guaifenesin [Mucinex] 600 mg PO BID #20 tab Primary Care Physician: NOT,DEFINED [NON-STAFF] - Please follow up with your Primary Care Physician in: Please follow-up with PCP within 3-5 days to review admission. Please Follow Up With: Elieser Livingston MD When: Please follow-up to establish w/ Pulmonary Medicine. Proposed Discharge Date: 07/12/17
[2017-07-12] MEDS: Ipratropium/Albuterol Sulfate 3 ML AMPUL.NEB INHALATION (10:20)
[2017-07-12 10:26] VITALS: PULSE 82; RESP 18
--- NOTE | 2017-07-12 10:27 | CPS ---
patient does pep on his own
--- NOTE | 2017-07-12 11:35 | CASEMGMT ---
DESTINEE BASSETT obtained script for nebulizer for at home and faxed to [employer], patient's preferred DME company. DESTINEE BASSETT updated patient regarding script for nebulizer sent to [employer]. Patient is requesting [facility] for jail and has no preference for HHC company. List provided to patient, with first choice [facility] DESTINEE BASSETT sent referral to [facility] with acceptance. DESTINEE BASSETT updated patient and will continue to follow this patient and plan for a safe discharge.
[2017-07-12 12:09] VITALS: BP 98/64; PULSE 90; RESP 18; TEMP 36.7; O2SAT 92
--- NOTE | 2017-07-12 13:44 | PCM.DC.SUM ---
Discharge Date and Diagnosis Date of Admission: 07/09/17 Date of Discharge: 07/12/17 - Primary Discharge Diagnosis (1) Acute on chronic COPD exacerbation w/ Chronic Hypoxic Respiratory Failure and Possible PNA, complicated by Pulmonary HTN Hx (2) Chest pain, Pleuritic, secondary to COPD exacerbation and ? 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 Diastolic CHF (Chronic) Foot drop, left (Chronic) Chronic respiratory failure (Chronic) with hypoxemima and hypercarbia Pulmonary HTN (Chronic) severe Diastolic dysfunction (Chronic) stage 1 Tricuspid regurgitation (Chronic) mild - moderate Decubitus ulcer of hip, stage 2 (Chronic) Decubitus ulcer of hip, stage 1 (Chronic) CAD (coronary artery disease) (Chronic) minimal and nnon-obstructive on cath 08/09/16 Hospital Course and Treatment Operations: None Procedures: EKG Summary of Care Provided: The patient is a 72 y/o M w/ PMHx: Chronic Hypoxic Respiratory Failure (3L NC) with Chronic COPD, Obesity, Diastolic CHF, Tobacco use, Pulmonary HTN, Chronic L Foot Drop, CAD, GERD, BPH who presented to the [facility] ED on 07/09/17 with progressively worsened dyspnea with history of not using his home oxygen for several weeks secondary to abnormal smell. Upon presentation patient ED evaluation notable for Acute on chronic COPD exacerbation w/ Chronic Hypoxic Respiratory Failure and Possible PNA, complicated by Pulmonary HTN Hx w/ ED CXR w/ pulmonary emphysema, bibasilar patchy infiltrates R>L, CBC on admission w/ WBC 8.5 without marked shift-->07/11/17 CBC w/ WBC 6.7 with shift. Admitted to [place], maintained on home oxygen supplementation, continued ATC duonebs, PRN albuterol, IV methylprednisolone-->prednisone transition w/ taper upon discharge, HOB, IS parameters, IV Azithromcyin (last dose 07/11/17) and Rocephin (transitioned omnicef 300 mg BID x 7 days total upon discharge) with pending sputum cultures, negative urine antigens, negative rapid influenza. Patient discharged to home in stable condition with home health discussions w/ SW/CM to assure oxygen appropriate and smell change evaluated prior to discharge. Encouraged PCP and Pulmonary follow-up upon discharge. DAY OF DISCHARGE PROGRESS NOTE: Subjective: Patient without acute event overnight per self and nursing report except ongoing discomfort very focally to the lateral ribs on the L side, worse with coughing. Patient denies fever, chills, nausea, emesis, abdominal pain or worsened dyspnea. Patient agreeable to discharge to home. Patient will be discharged with follow-up with primary care physician within 3-5 days in addition to recommended Pulmonary physician establishment. Objective: T 98, heart rate 90, BP 138/95, respiratory rate 18, 97% on 3 L nasal cannula. Physical Examination: General: awake, alert, oriented x 3 and cooperative, seated upright in bedside chair, in no apparent distress. Skin: normal color, turgor, no icterus, cyanosis. HEENT: AT/NC, EOMI, PERRLA, improved MM. Lungs: Improved BS, still diminished bases, marked improvement in prior rhonchorous BS, improved moderate effort, no wheezing currently. Heart: Regular rate and rhythm; no gallop, rub audible. Abdomen: soft, obese, NTTP, ND, normal BS. Extremities: no cyanosis, clubbing, or edema. Neurological: patient awake, alert, oriented x 3; cognitive function intact; pupils equally reactive to light and accomodation; cranial nerves II-XII grossly normal, moving all 4 extremities, no focal deficits, strength improved, moderately globally decreased secondary to acute pulmonary presentation. Psychiatric: affect appears improved, normal, no acute evidence of depressive or anxiety feelings. Assessment and Plan: Please see hospital summary above. Discharge Activity: - - Avoid aggressive activity until re-assessed per your primary care physician at follow-up. Avoid remaining in the cold weather or severe changes in temperatures as well as other COPD triggers. May resume sexual activity in: 10-14 days Weight Bearing Status: Weight bearing as tolerated Call your doctor if you observe: Fever of 101 or Higher, Inability to urinate, Inability to have a bowel movement, Shortness of breath, Dizziness, Fainting spells, Chest pain, Uncontrolled pain Home Medications: Medications to take at Discharge Finasteride [Proscar] 5 mg PO DAILY 11/10/16 Oxygen, Home [Home Oxygen] 3 lpm NASAL DAILY 11/10/16 Albuterol Inhaler [Ventolin Hfa] 2 puff INHALATION Q4H PRN PRN #1 inhaler 11/17/16 Aspirin [Aspirin, Baby] 81 mg PO DAILY@0800 tab.chew 11/17/16 Atorvastatin Calcium [Lipitor] 10 mg PO QHS #30 tablet 11/17/16 Budesonide/Formoterol 160/4.5 [Symbicort 160/4.5 Mcg Inhaler (SP)] 2 puff INHALATION BID #1 inhaler 11/17/16 Tamsulosin HCl [Flomax] 0.8 mg PO DAILY@1730 #60 capsule 11/17/16 Albuterol Aerosols [Ventolin Aerosols] 2.5 mg INHALATION Q2H PRN PRN #1 box 07/12/17 Cefdinir [Omnicef [equiv]] 300 mg PO Q12 #10 cap 07/12/17 Guaifenesin [Mucinex] 600 mg PO BID #20 tab 07/12/17 Ipratropium/Albuterol Sulfate [Duoneb] 3 ml INHALATION Q4HWA.RT #1 box 07/12/17 Following Prescrptions Were Given to Patient: Albuterol Aerosols [Ventolin Aerosols] 2.5 mg INHALATION Q2H PRN PRN #1 box PRN Reason: dyspnea, wheezing Ipratropium/Albuterol Sulfate [Duoneb] 3 ml INHALATION Q4HWA.RT #1 box Cefdinir [Omnicef [equiv]] 300 mg PO Q12 #10 cap Guaifenesin [Mucinex] 600 mg PO BID #20 tab Primary Care Physician: NOT,DEFINED [NON-STAFF] - Please follow up with your Primary Care Physician in: Please follow-up with PCP within 3-5 days to review admission. Please Follow Up With: Elieser Livingston MD When: Please follow-up to establish w/ Pulmonary Medicine. Please Follow Up With: Donte Lea, DO Patient Instructions: What is COPD?, Chronic Lung Disease: Preventing Lung Infections, Airway Clearance: Coughing Techniques, Caring for Your Inhaler, Using an Inhaler with a Spacer, Using an Inhaler Without a Spacer, Traveling with Oxygen, Using Oxygen Safely, What Is Pneumonia?, Using Oxygen at Home, Preventing Pneumonia, Pneumonia Treatment, Using a Nebulizer (Adult) Disposition: Home with Home Health Minutes spent on discharge:: 35 Patient Condition:: Fair Meaningful Use Info Meaningful Use Diagnoses (Choose all that apply): None applicable Code Visit Inpatient E&M: 50367 Disch Hosp
--- NOTE | 2017-07-12 13:51 | DS.PCM_ITS ---
Discharge Date and Diagnosis Date of Admission: 07/09/17 Date of Discharge: 07/12/17 - Primary Discharge Diagnosis (1) Acute on chronic COPD exacerbation w/ Chronic Hypoxic Respiratory Failure and Possible PNA, complicated by Pulmonary HTN Hx (2) Chest pain, Pleuritic, secondary to COPD exacerbation and ? 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 Diastolic CHF (Chronic) Foot drop, left (Chronic) Chronic respiratory failure (Chronic) with hypoxemima and hypercarbia Pulmonary HTN (Chronic) severe Diastolic dysfunction (Chronic) stage 1 Tricuspid regurgitation (Chronic) mild - moderate Decubitus ulcer of hip, stage 2 (Chronic) Decubitus ulcer of hip, stage 1 (Chronic) CAD (coronary artery disease) (Chronic) minimal and nnon-obstructive on cath 08/09/16 Hospital Course and Treatment Operations: None Procedures: EKG Summary of Care Provided: The patient is a 72 y/o M w/ PMHx: Chronic Hypoxic Respiratory Failure (3L NC) with Chronic COPD, Obesity, Diastolic CHF, Tobacco use, Pulmonary HTN, Chronic L Foot Drop, CAD, GERD, BPH who presented to the [facility] ED on 07/09/17 with progressively worsened dyspnea with history of not using his home oxygen for several weeks secondary to abnormal smell. Upon presentation patient ED evaluation notable for Acute on chronic COPD exacerbation w/ Chronic Hypoxic Respiratory Failure and Possible PNA, complicated by Pulmonary HTN Hx w/ ED CXR w/ pulmonary emphysema, bibasilar patchy infiltrates R>L, CBC on admission w/ WBC 8.5 without marked shift-->07/11/17 CBC w/ WBC 6.7 with shift. Admitted to [place] , maintained on home oxygen supplementation, continued ATC duonebs, PRN albuterol, IV methylprednisolone-->prednisone transition w/ taper upon discharge , HOB, IS parameters, IV Azithromcyin (last dose 07/11/17) and Rocephin ( transitioned omnicef 300 mg BID x 7 days total upon discharge) with pending sputum cultures, negative urine antigens, negative rapid influenza. Patient discharged to home in stable condition with home health discussions w/ SW/CM to assure oxygen appropriate and smell change evaluated prior to discharge. Encouraged PCP and Pulmonary follow-up upon discharge. DAY OF DISCHARGE PROGRESS NOTE: Subjective: Patient without acute event overnight per self and nursing report except ongoing discomfort very focally to the lateral ribs on the L side, worse with coughing. Patient denies fever, chills, nausea, emesis, abdominal pain or worsened dyspnea. Patient agreeable to discharge to home. Patient will be discharged with follow-up with primary care physician within 3-5 days in addition to recommended Pulmonary physician establishment. Objective: T 98, heart rate 90, BP 138/95, respiratory rate 18, 97% on 3 L nasal cannula. Physical Examination: General: awake, alert, oriented x 3 and cooperative, seated upright in bedside chair, in no apparent distress. Skin: normal color, turgor, no icterus, cyanosis. HEENT: AT/NC, EOMI, PERRLA, improved MM. Lungs: Improved BS, still diminished bases, marked improvement in prior rhonchorous BS, improved moderate effort, no wheezing currently. Heart: Regular rate and rhythm; no gallop, rub audible. Abdomen: soft, obese, NTTP, ND, normal BS. Extremities: no cyanosis, clubbing, or edema. Neurological: patient awake, alert, oriented x 3; cognitive function intact; pupils equally reactive to light and accomodation; cranial nerves II-XII grossly normal, moving all 4 extremities, no focal deficits, strength improved, moderately globally decreased secondary to acute pulmonary presentation. Psychiatric: affect appears improved, normal, no acute evidence of depressive or anxiety feelings. Assessment and Plan: Please see hospital summary above. Discharge Activity: - - Avoid aggressive activity until re-assessed per your primary care physician at follow-up. Avoid remaining in the cold weather or severe changes in temperatures as well as other COPD triggers. May resume sexual activity in: 10-14 days Weight Bearing Status: Weight bearing as tolerated Call your doctor if you observe: Fever of 101 or Higher, Inability to urinate, Inability to have a bowel movement, Shortness of breath, Dizziness, Fainting spells, Chest pain, Uncontrolled pain Home Medications: Medications to take at Discharge Finasteride [Proscar] 5 mg PO DAILY 11/10/16 Oxygen, Home [Home Oxygen] 3 lpm NASAL DAILY 11/10/16 Albuterol Inhaler [Ventolin Hfa] 2 puff INHALATION Q4H PRN PRN #1 inhaler Aspirin [Aspirin, Baby] 81 mg PO DAILY@0800 tab.chew 11/17/16 Atorvastatin Calcium [Lipitor] 10 mg PO QHS #30 tablet 11/17/16 Budesonide/Formoterol 160/4.5 [Symbicort 160/4.5 Mcg Inhaler (SP)] 2 puff INHALATION BID #1 inhaler 11/17/16 Tamsulosin HCl [Flomax] 0.8 mg PO DAILY@1730 #60 capsule 11/17/16 Albuterol Aerosols [Ventolin Aerosols] 2.5 mg INHALATION Q2H PRN PRN #1 box Cefdinir [Omnicef [equiv]] 300 mg PO Q12 #10 cap 07/12/17 Guaifenesin [Mucinex] 600 mg PO BID #20 tab 07/12/17 Ipratropium/Albuterol Sulfate [Duoneb] 3 ml INHALATION Q4HWA.RT #1 box 07/12/17 Following Prescrptions Were Given to Patient: Albuterol Aerosols [Ventolin Aerosols] 2.5 mg INHALATION Q2H PRN PRN #1 box PRN Reason: dyspnea, wheezing Ipratropium/Albuterol Sulfate [Duoneb] 3 ml INHALATION Q4HWA.RT #1 box Cefdinir [Omnicef [equiv]] 300 mg PO Q12 #10 cap Guaifenesin [Mucinex] 600 mg PO BID #20 tab Primary Care Physician: NOT,DEFINED [NON-STAFF] - Please follow up with your Primary Care Physician in: Please follow-up with PCP within 3-5 days to review admission. Please Follow Up With: Elieser Livingston MD When: Please follow-up to establish w/ Pulmonary Medicine. Please Follow Up With: Donte Lea, DO Patient Instructions: What is COPD?, Chronic Lung Disease: Preventing Lung Infections, Airway Clearance: Coughing Techniques, Caring for Your Inhaler, Using an Inhaler with a Spacer, Using an Inhaler Without a Spacer, Traveling with Oxygen, Using Oxygen Safely, What Is Pneumonia?, Using Oxygen at Home, Preventing Pneumonia, Pneumonia Treatment, Using a Nebulizer (Adult) Disposition: Home with Home Health Minutes spent on discharge:: 35 Patient Condition:: Fair Meaningful Use Info Meaningful Use Diagnoses (Choose all that apply): None applicable Code Visit Inpatient E&M: 96664 Disch Hosp
== END 2017-07-12 13:30 | disposition home health service (06) | DRG 190 ==
LOC: ED 18:48 → MS3 21:13
PROVIDERS: Admitting Provider Internal Medicine; Emergency Provider Emergency Medicine; Family Provider Family Medicine; PCP Family Medicine; Visit Provider Family Medicine
DX: J44.0 Chronic obstructive pulmonary disease with (acute) lower respiratory infection (principal); J18.9 Pneumonia, unspecified organism; J96.11 Chronic respiratory failure with hypoxia; J96.12 Chronic respiratory failure with hypercapnia; I27.20 Pulmonary hypertension, unspecified; I50.32 Chronic diastolic (congestive) heart failure; Z99.81 Dependence on supplemental oxygen; J44.1 Chronic obstructive pulmonary disease with (acute) exacerbation; I25.10 Atherosclerotic heart disease of native coronary artery without angina pectoris; E78.5 Hyperlipidemia, unspecified; N40.0 Benign prostatic hyperplasia without lower urinary tract symptoms; R15.9 Full incontinence of feces; M21.372 Foot drop, left foot; K21.9 Gastro-esophageal reflux disease without esophagitis; E66.9 Obesity, unspecified; Z68.30 Body mass index [BMI] 30.0-30.9, adult; Z91.19 Patient's noncompliance with other medical treatment and regimen; I25.2 Old myocardial infarction; Z79.82 Long term (current) use of aspirin; Z79.899 Other long term (current) drug therapy; Z87.891 Personal history of nicotine dependence
CPT/HCPCS: 36415; 71045; 71046; 80048; 80053; 81002; 83880; 84484; 85025; 87040; 87070; 87205; 87449; 87804; 93005; 94640; 94668; 97162; 97165; 99285; J7030; A4216; J0696

== ENCOUNTER 2017-10-10 20:38 | Inpatient (IN) | payer MEDICARE, SELFPAY ==
[2017-10-10] VITALS (8 sets, daily range): BP systolic 93–98; BP diastolic 61–75; PULSE 102–119; RESP 20–27; TEMP 36.7–37.1; O2SAT 92–100; BMI 345.7
--- NOTE | 2017-10-10 21:08 | EKG12_ITS ---
Test Reason : SOB Blood Pressure : / mmHG Vent. Rate : 112 BPM Atrial Rate : 112 BPM P-R Int : 156 ms QRS Dur : 094 ms QT Int : 308 ms P-R-T Axes : 082 077 073 degrees QTc Int : 420 ms Sinus tachycardia Right atrial enlargement Borderline ECG Confirmed by COLLINS SOTO, JEANNINE ([id number]), technical writer and editor KAVIN KIRK ([id number] on 10/14/2017 3:16:12 PM Referred By: YOUSUF/RICHARD Confirmed By:JEANNINE GUADALUPE MD
--- NOTE | 2017-10-10 21:10 | RAD_ITS ---
STUDY: X-RAY CHEST REASON FOR EXAM: Male, 72 years old. Shortness of breath TECHNIQUE: Frontal views COMPARISON: July 10, 2017 FINDINGS: The lungs are expanded. There is multiple nodules up to 2.4 cm over the right hemithorax. Mild right basilar infiltrate/atelectasis. Normal size heart. Normal mediastinum and taran. Normal visualized pulmonary arteries. Normal visualized aortic arch and descending thoracic aorta. Degenerative changes of the thoracic spine. Normal visualized ribs, clavicles, and shoulders. There is no demonstrated abnormality of the visualized soft tissue structures of the upper abdomen. RAD/Chest 1 View (Portable) IMPRESSION: Nodular densities are noted over the right hemithorax, not seen on previous study. Mild right basilar infiltrate/atelectasis. Electronically Signed: Shankar Schmidt DO at 21:33 EDT Tel [phone], Service support ,
[2017-10-10] MEDS: Ipratropium/Albuterol Sulfate 3 ML AMPUL.NEB INHALATION (21:24)
[2017-10-10 21:34] LABS: Absolute Lymphocyte Count 2.13 X10^3/ul (0.83-4.51); Basophil# 0.02 X10^3/uL; Basophil% 0.2 % (0-1); Eosinophil# 0.02 X10^3/uL; Eosinophils% 0.2 % (0-5); Hematocrit 29.8 % (40-54); Hemoglobin 8.9 g/dl (13.0-16.5); Lymphocyte # 2.13 X10^3/ul (4.0); Lymphocyte % 21.1 % (19-41); Mean Corp Hgb Conc 29.9 g/gl (32-36); Mean Corpuscular Hgb 28.7 pg (27.0-32.0); Mean Corpuscular Volume 96.1 fL (80-94); Mean Platelet Vol. 10.2 fl (6.2-12.0); Monocyte# 0.95 X10^3/uL; Monocyte% 9.4 % (0-10); Neutrophil # 6.98 X10^3/uL (2.7-7.7); Platelet Count 506 K/mm3 (150-450); RBC Distribution Width CV 14.3 % (11.6-14.6); RBC Distribution Width SD 49.4 fl (35.1-43.9); White Blood Count 10.1 K/mm3 (4.4-11.0)
[2017-10-10 21:44] LABS: ALB/GLOB Ratio 0.6 RATIO (0.9-2.4); AST(SGOT) 34 U/L (15-37); Alanine Aminotransfer ALT/SGPT 30 U/L (16-61); Albumin, Serum 3.1 g/dL (3.2-5.0); Alkaline Phosphatase 153 U/L (45-117); Anion Gap 11 (5-15); BUN 29 mg/dL (7-18); BUN/Creat Ratio 27.1 RATIO (10-20); Calcium,Total 11.1 mg/dL (8.5-10.1); Chloride 101 mmol/L (98-107); Creatinine, Serum 1.07 mg/dL (0.70-1.30); EST Glomerular Filtration Rate 72 mL/min (>60); Est Glom Filt Rate - Afr Amer 87 mL/min (>60); Estimated Creatinine Clearance 63.49 ml/min; Globulin 4.8 g/dL (2.2-4.2); Glucose 164 mg/dL (74-106); Potassium 3.9 mmol/L (3.5-5.1); Protein, Total 7.9 g/dL (6.4-8.2); Sodium Level 138 mmol/L (136-145)
[2017-10-10 21:45] LABS: POSITIVE COUNT NO; POSITIVE DIFFERENTIAL NO; POSITIVE MORPHOLOGY NO
[2017-10-10 21:53] LABS: International Normalized Ratio 1.2; Partial Thromboplast Time 28.2 Seconds (24.1-36.2); Prothrombin Time (Protime)PT. 14.7 SECONDS (11.7-14.9)
[2017-10-10 22:44] LABS: CPK Total, Creatine Kinase 41 U/L (39-308)
[2017-10-10] MEDS: 0.9% Normal Saline 1,000 ML 999 ML IV (22:56)
[2017-10-10] MEDS: Piperacil/Tazobactam 3.375 GM/50 ML ML IV (23:14)
--- NOTE | 2017-10-10 23:59 | PCM.HP.STD ---
Problem List (1) HCAP (healthcare-associated pneumonia) Status: Acute (2) Acute and chronic respiratory failure Status: Acute Qualifiers: (3) Generalized weakness Status: Acute (4) Shortness of breath Status: Acute (5) CAD (coronary artery disease) Status: Chronic Comment: minimal and nnon-obstructive on cath 08/09/16 (6) Diastolic CHF Status: Chronic Qualifiers: (7) Pulmonary HTN Status: Chronic Comment: severe (8) Tobacco use Status: Chronic Comment: in remission - quit in May 2016 (9) Tricuspid regurgitation Status: Chronic Qualifiers: Comment: mild - moderate (10) PVD (peripheral vascular disease) Status: Ruled-out History of Present Illness Date of Admission: 10/11/17 Chief Complaint: shortness of breath, weakness The patient is a 72 year old male patient with a significant past medical history of COPD, CHF and know hilar mass presents to the ER with shortness of breath and weakness. He states he had been coughing up blood two weeks ago. He received medication from and urgent care and this went away about a week ago. He then felt short of breath today and was too weak to get himself up. CT scan done previously shows a hilar mass. Chest x-ray today shows right basilar infiltrates and multiple pulmonary nodules not previously seen on x-ray. Lactate is markedly elevated at 6.0 and hemoglobin is 8.9 that appears to be a chronic level. Blood pressure MAP is >65 but IV hydration has been done carefully due to history of diastolic dysfunction. Vancomycin and Zosyn have been initiated in the ER. He will be admitted to the icu for management of sepsis and HCAP. Past Medical History Past Medical History (Chronic Problems): Chronic Problems (Last Reviewed 08/10/17 @ 08:34 by Nicolette Parham NP-C) COPD (chronic obstructive pulmonary disease) (Chronic) 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 Diastolic CHF (Chronic) Foot drop, left (Chronic) Chronic respiratory failure (Chronic) with hypoxemima and hypercarbia Pulmonary HTN (Chronic) severe Diastolic dysfunction (Chronic) stage 1 Tricuspid regurgitation (Chronic) mild - moderate Decubitus ulcer of hip, stage 2 (Chronic) Decubitus ulcer of hip, stage 1 (Chronic) CAD (coronary artery disease) (Chronic) minimal and nnon-obstructive on cath 08/09/16 Allergies No Known Allergies Allergy (Verified 08/10/17 08:11) Home Medications: Ambulatory Orders Medication Instructions Recorded Oxygen, Home [Home Oxygen] 3 lpm NASAL DAILY 11/10/16 Albuterol Aerosols [Ventolin 2.5 mg INHALATION Q2H PRN PRN #1 07/12/17 Aerosols] box Guaifenesin [Mucinex] 600 mg PO BID #20 tab 07/12/17 Ipratropium/Albuterol Sulfate 3 ml INHALATION Q4HWA.RT #1 box 07/12/17 [Duoneb] budesonide-formoterol HFA 160 2 puff INHALATION BID #1 ea 08/10/17 mcg-4.5 mcg/actuation aerosol inhaler furosemide 20 mg tablet 20 mg PO QPM tab 08/10/17 furosemide 40 mg tablet 40 mg PO QDAY 08/10/17 prednisone 10 mg tablet 10 mg PO QDAY #30 tab 08/10/17 Surgical History: cataract Psychiatric History: No pertinent psych hx Smoking Status: Former smoker - *Family History Maternal History Items: No pertinent history, - - No COPD Paternal History Items: No pertinent history, - - No COPD Review of Systems Constitutional: Reports: Weakness, Fatigue. Denies: Chills, Fever, Weight Change HEENT: Denies: Head Aches, Sinus Congestion, Sinus Drainage Cardiovascular: Denies: Chest Pain, Palpitations Respiratory: Reports: Hemoptysis, Shortness of breath at rest. Denies: Cough, Sputum production Gastrointestinal: Denies: Abdominal Pain, Nausea, Vomiting Genitourinary: Denies: Dysuria Musculoskeletal: Denies: Joint Pain, Joint Tenderness Skin: Denies: Rash, Wounds Neurological: Denies: Numbness, Tingling, Focal weakness Psychiatric: Denies: Anxiety, Depression, Homicidal Ideations, Suicidal Ideations Hematologic/ Lymphatic: Denies: Easy Bruising, Easy Bleeding VTE Information - Inpt Only VTE Present on Admission: No VTE Mechan Device Prophylaxis: SCD's VTE Pharm Prophylaxis ordered?: No Reason prophylaxis not ordered:: Medical Contraindication - anemia Patient Problems: Active and Suspected Problems (Last Reviewed 08/10/17 @ 08:34 by Nicolette Parham NP-C) HCAP (healthcare-associated pneumonia) (Acute) - Physical Exam General: Alert, Oriented x3, Cooperative HEENT: Atraumatic, Normocephalic Neck: Supple Lungs: No wheeze, No rales, Diminished, Rhonchi Cardiovascular: Regular rate, Normal S1, Normal S2, No murmurs Abdomen: Bowel Sounds Present, Soft, Non Tender, Obese Extremities: No edema, Capillary Refill Less than 3 Seconds Skin: No rashes Musculoskeletal: No Tenderness to Palpation of Joints or Extremities Neurological: Cranial nerves II-XII grossly intact Psych/Mental Status: Normal Affect, Appropriate Vital Signs Temp Pulse Resp BP Pulse Ox 98.8 F 102 H 22 H 93/65 95 10/10/17 23:21 10/10/17 23:21 10/10/17 23:21 10/10/17 23:21 10/10/17 23:21 Oxygen Flow Rate (L/min) 3 Oxygen Delivery Method Nasal Cannula Weight: 2410 lb Body Mass Index (BMI) 345.7 Laboratory Tests Past 24 Hrs 10/10/17 10/10/17 10/10/17 20:50 20:50 20:50 WBC 10.1 RBC 3.10 L Hgb 8.9 L Hct 29.8 L MCV 96.1 H MCH 28.7 MCHC 29.9 L RDW 14.3 RDW Differential 49.4 H Plt Count 506 H MPV 10.2 Immature Gran % (Auto) 0.100 Neut % (Auto) 69.0 Lymph % (Auto) 21.1 Mccracken % (Auto) 9.4 Eos % (Auto) 0.2 Baso % (Auto) 0.2 Absolute Neuts (auto) 7.0 Absolute Lymphs (auto) 2.13 Total Counted Not Reportable PT 14.7 INR 1.2 APTT 28.2 Sodium 138 Potassium 3.9 Chloride 101 Carbon Dioxide 26.0 Anion Gap 11 BUN 29 H Creatinine 1.07 Estim Creat Clear Calc 63.49 Est GFR (MDRD) Af Amer 87 Est GFR (MDRD) Non-Af 72 BUN/Creatinine Ratio 27.1 H Glucose 164 H Lactic Acid Calcium 11.1 H Total Bilirubin 0.40 AST 34 ALT 30 Alkaline Phosphatase 153 H Total Creatine Kinase Troponin I < 0.02 B-Natriuretic Peptide Total Protein 7.9 Albumin 3.1 L Globulin 4.8 H Albumin/Globulin Ratio 0.6 L 10/10/17 10/10/17 10/10/17 20:50 20:50 20:50 WBC RBC Hgb Hct MCV MCH MCHC RDW RDW Differential Plt Count MPV Immature Gran % (Auto) Neut % (Auto) Lymph % (Auto) Mccracken % (Auto) Eos % (Auto) Baso % (Auto) Absolute Neuts (auto) Absolute Lymphs (auto) Total Counted PT INR APTT Sodium Potassium Chloride Carbon Dioxide Anion Gap BUN Creatinine Estim Creat Clear Calc Est GFR (MDRD) Af Amer Est GFR (MDRD) Non-Af BUN/Creatinine Ratio Glucose Lactic Acid Cancelled Calcium Total Bilirubin AST ALT Alkaline Phosphatase Total Creatine Kinase 41 Troponin I B-Natriuretic Peptide 50.0 Total Protein Albumin Globulin Albumin/Globulin Ratio 10/10/17 22:00 WBC RBC Hgb Hct MCV MCH MCHC RDW RDW Differential Plt Count MPV Immature Gran % (Auto) Neut % (Auto) Lymph % (Auto) Mccracken % (Auto) Eos % (Auto) Baso % (Auto) Absolute Neuts (auto) Absolute Lymphs (auto) Total Counted PT INR APTT Sodium Potassium Chloride Carbon Dioxide Anion Gap BUN Creatinine Estim Creat Clear Calc Est GFR (MDRD) Af Amer Est GFR (MDRD) Non-Af BUN/Creatinine Ratio Glucose Lactic Acid 6.0 H* Calcium Total Bilirubin AST ALT Alkaline Phosphatase Total Creatine Kinase Troponin I B-Natriuretic Peptide Total Protein Albumin Globulin Albumin/Globulin Ratio Assessment/Plan Active and Suspected Problems (Last Reviewed 08/10/17 @ 08:34 by Nicolette Parham, [employer] MOLDER-C) HCAP (healthcare-associated pneumonia) (Acute) Chronic Problems (Last Reviewed 08/10/17 @ 08:34 by Nicolette Parham, RAHUL-C) COPD (chronic obstructive pulmonary disease) (Chronic) 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 Diastolic CHF (Chronic) Foot drop, left (Chronic) Chronic respiratory failure (Chronic) with hypoxemima and hypercarbia Pulmonary HTN (Chronic) severe Diastolic dysfunction (Chronic) stage 1 Tricuspid regurgitation (Chronic) mild - moderate Decubitus ulcer of hip, stage 2 (Chronic) Decubitus ulcer of hip, stage 1 (Chronic) CAD (coronary artery disease) (Chronic) minimal and nnon-obstructive on cath 08/09/16 Plan - admit to ICU - continue Vancomycin and zosyn - continue IV hydration with normal saline at 125cc/ hr - CT scan of chest stat with contrast - solumedrol 40mg IV q 8hrs - duoneb INH q 4hrs - Oxygen per protocol - SCDs for DVT prophylaxis due to anemia - Continue routine home medications - Dr Livingston notified and consulted for ICU management - repeat cbc,bmp in am - sepsis protocol with modification of fluid rescucitiation due to stable MAP and history of CHF Code Visit Inpatient E&M: 64931 Init Hosp L3
[2017-10-11] VITALS (40 sets, daily range): BP systolic 82–117; BP diastolic 49–88; PULSE 61–97; RESP 15–69; TEMP 36.3–37.1; O2SAT 93–100; BMI 30.4
[2017-10-11] MEDS: 0.9% Normal Saline 1,000 ML 999 ML IV (00:50)
--- NOTE | 2017-10-11 00:50 | ED.RN ---
notified dr. john about pt's bp 86/49. dr. john ordered 1 L bolus of ns.
--- NOTE | 2017-10-11 01:11 | ED.VISSUMM ---
- ER Visit Summary Date of Service: 10/11/17 Chief Complaint: Shortness of breath History of Present Illness: The patient is a 72 M presenting for evaluation secondary to shortness of breath. Patient has an underlying history of coronary artery disease CHF COPD and peripheral vascular disease. He is on chronic home O2. Patient states that today he started to feel significantly short of breath. Associated with dyspnea on exertion and wheezing. He reports cough is productive of white sputum, intermittent chest discomfort with coughing and subjective fevers. Denies any nausea vomiting or diarrhea. Patient does state that he had a single episode of hemoptysis associated with this, it was small, and has not been repeated. Patient's most recent admission to the hospital was within the last 6 weeks. Physical Examination: Vital signs notable for heart rate of 109, blood pressure 96/75, patient was 93% on 3 L. Well-nourished male no acute distress. Dry mucous membranes noted. Heart was tachycardic and regular. Lung sounds showed evidence of both rales and rhonchi throughout the lungs. No respiratory distress noted. Abdomen soft. Extremities nontender. No skin rashes. Patient was alert and oriented. Test Results: Chest x-ray shows right lower lobe infiltrate. EKG shows sinus rate of [address] segments normal T waves. CBC shows hemoglobin of 8, chemistry unremarkable, lactic acid found to be elevated at 6. Emergency Department Course and Treatment: Patient presented for evaluation secondary shortness of breath. Patient's workup shows evidence of pneumonia with severe sepsis. Initially in the emergency department the patient had normal mean arterial pressures, despite his lactic acid of 6. He does have a history of congestive heart failure so judicious fluid resuscitation was performed. After initial 1 L, the patient's developed some worsening hypotension initially, he was given another liter and his blood pressure was found to be 101/54. Patient was given vancomycin and Zosyn. Patient will be admitted to intensive care Disposition: Admission Impression: 1. Severe sepsis 2. Healthcare associated pneumonia 3. Anemia Critical care time 45 minutes This note was generated with [employer] dictation software. It may contain incorrect words, spelling, and punctuation that were not noted in review of the chart prior to signing ED Disposition - Plan for ED Patient: Chief Complaint: Shortness of Breath
[2017-10-11 03:01] LABS: Lactic Acid 2.3 mmol/L (0.4-2.0)
[2017-10-11] MEDS: 0.9% NaCl IVPB Med Flush (250 mL) 15 ML IV (05:30)
[2017-10-11] MEDS: 0.9% NaCl Peripheral Flush Adult/Peds IV ×2 (05:30→21:37)
[2017-10-11 05:31] LABS: M R Staph aureus DNA By PCR Negative (Negative); Probe Check PASS; Specimen Processing Control PASS
[2017-10-11] MEDS: Piperacil/Tazobactam 3.375 GM/50 ML ML IV ×3 (05:32→21:37)
--- NOTE | 2017-10-11 05:47 | PCM.RX.CS ---
Consult Pharmacy has been consulted to manage selected antiobiotic: Vancomycin Type of Consult: New start Suspected Infection: Sepsis, Pneumonia Labs: Sodium 138 mmol/L (136-145) 10/10/17 20:50 Potassium 3.9 mmol/L (3.5-5.1) 10/10/17 20:50 Chloride 101 mmol/L (98-107) 10/10/17 20:50 Carbon Dioxide 26.0 mmol/L (21.0-32.0) 10/10/17 20:50 Anion Gap 11 (5-15) 10/10/17 20:50 BUN 29 mg/dL (7-18) H 10/10/17 20:50 Creatinine 1.07 mg/dL (0.70-1.30) 10/10/17 20:50 Est GFR (MDRD) Af Amer 87 mL/min (>60) 10/10/17 20:50 Est GFR (MDRD) Non-Af 72 mL/min (>60) 10/10/17 20:50 BUN/Creatinine Ratio 27.1 RATIO (10-20) H 10/10/17 20:50 Glucose 164 mg/dL (74-106) H 10/10/17 20:50 Estimated Creatinine Clearance: 63.49 Goal Trough: 15-20 mcg/mL Pharmacy Plan for Drug Dosing: Pharmacy Service will continue to monitor and adjust dosing as required. Medications Vancomycin HCl (Vancomycin) 1,000 mg in 200 mls @ 200 mls/hr IV Q12H GIGI Follow-Up Labs: Trough Vancomycin Labs to be done on [date and time ordered]: 10/12/17 @1200
[2017-10-11 05:52] LABS: Absolute Lymphocyte Count 0.86 X10^3/ul (0.83-4.51); Absolute Neutrophil Count 4.7 X10^3/uL (2.0-7.7); Basophil# 0.01 X10^3/uL; Basophil% 0.2 % (0-1); Hematocrit 22.9 % (40-54); Hemoglobin 6.8 g/dl (13.0-16.5); Lymphocyte # 0.86 X10^3/ul (4.0); Mean Corp Hgb Conc 29.7 g/gl (32-36); Mean Corpuscular Hgb 28.8 pg (27.0-32.0); Mean Platelet Vol. 9.8 fl (6.2-12.0); Monocyte# 0.61 X10^3/uL; Monocyte% 9.9 % (0-10); Neutrophil # 4.67 X10^3/uL (2.7-7.7); Neutrophil % 75.7 % (47-70); Platelet Count 319 K/mm3 (150-450); RBC Distribution Width CV 13.9 % (11.6-14.6); RBC Distribution Width SD 45.3 fl (35.1-43.9); Red Blood Count 2.36 M/mm3 (4.6-6.2); White Blood Count 6.2 K/mm3 (4.4-11.0)
[2017-10-11 06:06] LABS: POSITIVE COUNT NO; POSITIVE DIFFERENTIAL NO; POSITIVE MORPHOLOGY NO
[2017-10-11 06:16] LABS: Anion Gap 3 (5-15); BUN 25 mg/dL (7-18); BUN/Creat Ratio 39.9 RATIO (10-20); Calcium,Total 9.6 mg/dL (8.5-10.1); Chloride 105 mmol/L (98-107); Creatinine, Serum 0.63 mg/dL (0.70-1.30); EST Glomerular Filtration Rate 133 mL/min (>60); Est Glom Filt Rate - Afr Amer 161 mL/min (>60); Estimated Creatinine Clearance 65.79 ml/min; Glucose 101 mg/dL (74-106); Potassium 4.1 mmol/L (3.5-5.1); Sodium Level 141 mmol/L (136-145)
[2017-10-11 06:20] LABS: Reflex Lactate? Y
[2017-10-11] MEDS: 0.9% Normal Saline 1,000 ML 125 ML IV (06:44)
--- NOTE | 2017-10-11 06:53 | CT_ITS ---
STUDY: CT CHEST WITH CONTRAST REASON FOR EXAM: Male, 72 years old. Lung nodule RADIATION DOSAGE (If Supplied By Facility): CTDIvol = ( 16.00 ) mGy, DLP = ( 737.63 ) mGycm TECHNIQUE: Transaxial imaging was performed following intravenous administration of 100 ml of Isovue 300 contrast material. Individualized dose optimization techniques were used for this CT. COMPARISON: None. FINDINGS: There is a mass in the mass inferior to the right hilum measures approximately 4 x 2.9 cm consistent with neoplastic process. Multiple nodules are seen in both lungs the largest is in right lung upper lobe measuring 2.2 cm. These nodules are consistent with metastatic disease. There is no demonstrated pleural abnormality. Normal heart and pericardium. There is enlargement of the mediastinal lymph nodes largest lymph node is in the right paratracheal region measures approximately 3.5 x 2.9 cm are consistent with metastatic lesions. Normal hilar regions. Normal enhanced pulmonary arteries. Normal aorta arch and descending thoracic aorta. There is a lytic lesion in the posterior aspect of the left eighth rib consistent with metastatic lesion measuring 9.8 cm in greatest diameter. There is no demonstrated abnormality of the visualized upper abdomen. 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 Multiple metastatic lesions in both lungs largest measures 2.2 cm is in the right lung upper lobe. Metastatic lesion in the left eighth rib. Metastatic mediastinal lymphadenopathy. Electronically Signed: Gutierrez Curry MD at 9:23 EDT Tel , Service support ,
[2017-10-11] MEDS: Ipratropium/Albuterol Sulfate 3 ML AMPUL.NEB INHALATION ×3 (06:55→18:56)
--- NOTE | 2017-10-11 08:51 | CON.PCM_ITS ---
Problem List (1) HCAP (healthcare-associated pneumonia) Status: Acute (2) Cataracts, bilateral Status: Resolved (3) Hilar mass Status: Acute (4) COPD (chronic obstructive pulmonary disease) Status: Chronic Qualifiers: COPD type: unspecified COPD Qualified Code(s): J44.9 - Chronic obstructive pulmonary disease, unspecified (5) Tobacco use Status: Chronic Comment: in remission - quit in May 2016 (6) Diastolic CHF Status: Chronic Qualifiers: Heart failure chronicity: chronic Qualified Code(s): I50.32 - Chronic diastolic (congestive) heart failure (7) Shortness of breath Status: Acute (8) Generalized weakness Status: Acute (9) COPD with acute exacerbation Status: Acute (10) Foot drop, left Status: Chronic (11) Chronic respiratory failure Status: Chronic Qualifiers: Respiratory failure complication: hypoxia and hypercapnia Qualified Code(s) : J96.11 - Chronic respiratory failure with hypoxia; J96.12 - Chronic respiratory failure with hypercapnia Comment: with hypoxemima and hypercarbia (12) Acute and chronic respiratory failure Status: Acute Qualifiers: (13) PVD (peripheral vascular disease) Status: Ruled-out (14) Incontinence Status: Acute Qualifiers: Incontinence type: fecal (15) Pulmonary HTN Status: Chronic Comment: severe (16) Diastolic dysfunction Status: Chronic Comment: stage 1 (17) Tricuspid regurgitation Status: Chronic Qualifiers: Comment: mild - moderate (18) Decubitus ulcer of hip, stage 2 Status: Chronic Qualifiers: (19) Decubitus ulcer of hip, stage 1 Status: Chronic Qualifiers: (20) CAD (coronary artery disease) Status: Chronic Comment: minimal and nnon-obstructive on cath 08/09/16 Reason for Consult Date of Consultation: 10/11/17 Reason for Consultation: Hemoptysis History of Present Illness: The patient is a 72 year old M, with past medical history listed below and well- known to me from the outpatient office, who presented to [facility] on 10/11/2017 secondary to shortness of breath, weakness and hemoptysis. Patient reportedly had developed hemoptysis 2 weeks ago, but did not bother calling the office as he has an upcoming appointment. Patient reportedly with did go to the urgent care center approximately a week ago and was sent home with an unknown medication. Patient continued to feel short of breath and was too weak to ambulate, so came to the ER for evaluation. In the emergency room, patient was noted have right basilar infiltrates with possible multiple nodules not seen on previous x-ray. Lactate was significantly elevated. Patient did have a decreased hemoglobin of 8.9. Blood pressure was marginal, but IV hydration was attenuated secondary to patient's history of diastolic congestive heart failure. Patient was initiated on vancomycin and Zosyn and admitted to the intensive care unit with diagnosis of severe sepsis and healthcare associated pneumonia. Since being in the intensive care unit, patient reports significant improvement in overall condition. Patient continues to feel extremely weak, but states his breathing is much improved compared to previous. Patient denies any current chest pain, abdominal pain, nausea or vomiting. A CT scan of the chest was ordered for evaluation and does show multiple peripheral nodules. Patient was informed of these findings and states that he is interested in knowing what this is, but is not sure if he is going to proceed with chemo and radiation if indicated for cancer. Patient does report that he had a colonoscopy approximately 2 years ago with no polyps noted. Patient does not have regular prostate exams, but denies any hesitancy or urinary retention symptoms. Patient does have a long smoking history. Review of systems otherwise negative ?10 systems. Past Medical History Past Medical History (Chronic Problems): Chronic Problems (Last Reviewed 08/10/17 @ 08:34 by Nicolette Parham NP-C) COPD (chronic obstructive pulmonary disease) (Chronic) 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 Diastolic CHF (Chronic) Foot drop, left (Chronic) Chronic respiratory failure (Chronic) with hypoxemima and hypercarbia Pulmonary HTN (Chronic) severe Diastolic dysfunction (Chronic) stage 1 Tricuspid regurgitation (Chronic) mild - moderate Decubitus ulcer of hip, stage 2 (Chronic) Decubitus ulcer of hip, stage 1 (Chronic) CAD (coronary artery disease) (Chronic) minimal and nnon-obstructive on cath 08/09/16 Allergies No Known Allergies Allergy (Verified 10/11/17 02:20) Home Medications: Ambulatory Orders Medication Instructions Recorded Oxygen, Home [Home Oxygen] 3 lpm NASAL DAILY 11/10/16 Albuterol Aerosols [Ventolin 2.5 mg INHALATION Q2H PRN PRN #1 07/12/17 Aerosols] box Guaifenesin [Mucinex] 600 mg PO BID #20 tab 07/12/17 Ipratropium/Albuterol Sulfate 3 ml INHALATION Q4HWA.RT #1 box 07/12/17 [Duoneb] budesonide-formoterol HFA 160 2 puff INHALATION BID #1 ea 08/10/17 mcg-4.5 mcg/actuation aerosol inhaler furosemide 20 mg tablet 20 mg PO QPM tab 08/10/17 furosemide 40 mg tablet 40 mg PO QDAY 08/10/17 prednisone 10 mg tablet 10 mg PO QDAY #30 tab 08/10/17 Surgical History: cataract Psychiatric History: No pertinent psych hx Smoking Status: Former smoker - *Family History Maternal History Items: No pertinent history, - - No COPD Paternal History Items: No pertinent history, - - No COPD Review of Systems Comment: See HPI Patient Problems: Active and Suspected Problems (Last Reviewed 08/10/17 @ 08:34 by ROBERT Whitman) HCAP (healthcare-associated pneumonia) (Acute) Objective: Chest x-ray and CT scan of the chest were personally reviewed. CT scan of the chest does show mediastinal lymphadenopathy and multiple peripherally located nodules and masses. Some of these do abut the pleura. Some emphysematous changes are noted, but no infiltrates are appreciated. Formal reading of CT scan is still pending. - Physical Exam General: Alert, Oriented x3, Cooperative, No apparent distress, - - Appears pale and older than stated age. Obese. HEENT: Atraumatic, PERRLA, EOMI, Normocephalic, - - Pale conjunctivae. No scleral icterus or injection noted. Oral: Moist Mucosa, No Gingival or Mucosal Lesions/ Ulcerations Neck: Supple, No JVD, No Nodes, Trachea Midline Lungs: No rhonchi, No wheeze, No rales, Diminished Cardiovascular: Regular rate, Regular Rhythm, Normal S1, Normal S2, No murmurs, No rub noted, No Gallop Abdomen: Bowel Sounds Present, Soft, Non Tender, Non-Distended, Obese Extremities: No cyanosis, No edema, Capillary Refill Less than 3 Seconds, Clubbing Skin: No rashes, No breakdown Musculoskeletal: No Tenderness to Palpation of Joints or Extremities Lymphatic: No Cervical, Supraclavicular, or Inguinal Adenopathy Neurological: Cranial nerves II-XII grossly intact, Neuro grossly intact, Motor Exam 5/5 strength throughout Psych/Mental Status: Alert and oriented to time, place, person, mood and affect Vital Signs Temp Pulse Resp BP Pulse Ox 36.8 C 78 16 82/55 L 100 10/11/17 04:00 10/11/17 06:55 10/11/17 06:55 10/11/17 06:00 10/11/17 06:55 Oxygen Flow Rate (L/min) 3 Oxygen Delivery Method Nasal Cannula Weight: 93.4 kg Body Mass Index (BMI) 30.4 Intake and Output for Last 24 Hours 10/09/17 10/10/17 10/11/17 23:59 23:59 23:59 Intake Total 870 / 870 Balance 870 / 870 Microbiology Past 72 Hours 10/11/17 07:10 Streptococcus pneumoniae Antigen (M - Final Urine, Clean Catch 10/11/17 07:10 Legionella Antigen - Final Urine, Clean Catch Laboratory Tests Past 24 Hrs 10/11/17 10/11/17 10/11/17 02:10 02:15 05:30 WBC RBC Hgb Hct MCV MCH MCHC RDW RDW Differential Plt Count MPV Immature Gran % (Auto) Neut % (Auto) Lymph % (Auto) [place] % (Auto) Eos % (Auto) Baso % (Auto) Absolute Neuts (auto) Absolute Lymphs (auto) Total Counted Sodium Potassium Chloride Carbon Dioxide Anion Gap BUN Creatinine Estim Creat Clear Calc Est GFR (MDRD) Af Amer Est GFR (MDRD) Non-Af BUN/Creatinine Ratio Glucose Lactic Acid 2.3 H 1.0 Calcium MRSA (PCR) Negative Blood Type Antibody Screen Crossmatch 10/11/17 10/11/17 10/11/17 05:30 05:30 06:20 WBC 6.2 RBC 2.36 L Hgb 6.8 L Hct 22.9 L MCV 97.0 H MCH 28.8 MCHC 29.7 L RDW 13.9 RDW Differential 45.3 H Plt Count 319 MPV 9.8 Immature Gran % (Auto) 0.200 Neut % (Auto) 75.7 H Lymph % (Auto) 14.0 L [place] % (Auto) 9.9 Eos % (Auto) 0.0 Baso % (Auto) 0.2 Absolute Neuts (auto) 4.7 Absolute Lymphs (auto) 0.86 Total Counted Not Reportable Sodium 141 Potassium 4.1 Chloride 105 Carbon Dioxide 33.0 H Anion Gap 3 L BUN 25 H Creatinine 0.63 L Estim Creat Clear Calc 65.79 Est GFR (MDRD) Af Amer 161 Est GFR (MDRD) Non-Af 133 BUN/Creatinine Ratio 39.9 H Glucose 101 Lactic Acid Calcium 9.6 MRSA (PCR) Blood Type A POSITIVE Antibody Screen NEGATIVE Crossmatch See Detail Clinical Impression(s) from Imaging Studies Chest X-Ray 10/10/17 21:10 IMPRESSION: Nodular densities are noted over the right hemithorax, not seen on previous study. Mild right basilar infiltrate/atelectasis. Electronically Signed: Shankar Schmidt DO at 21:33 EDT Tel [phone], Service support , Assessment/Plan Active and Suspected Problems (Last Reviewed 08/10/17 @ 08:34 by Nicolette Parham NP-Ravinder) HCAP (healthcare-associated pneumonia) (Acute) RECOMMENDATIONS: 1. Continue empiric antibiotics, discontinue vancomycin 2. Transfuse 2 units of packed red blood cells 3. Probable CT-guided biopsy 4. Possible transition to prednisone therapy with 5 day burst if improves with transfusions IMPRESSIONS: 1. Fatigue secondary to probable anemia Unclear etiology. Patient may have bone marrow suppression secondary to malignancy. Patient has not report hemoptysis significant enough to lead to this level of anemia. Patient may also have a paraneoplastic type syndrome. Patient has had difficulty in the past secondary to finances, so B12/folate would be a consideration given MCV is elevated. 2. Multiple lung masses She has had multiple admissions with infectious etiologies. Peripherally located location could be consistent with septic emboli versus metastatic cancer. Patient does have a long smoking history, but quit smoking in May 2016. Previous mediastinal lymphadenopathy was associated with an acute infiltrate, but no infiltrates are appreciated on my review of the CT scan indicating that this mediastinal lymphadenopathy is likely not reactive to acute infection. This is further supported by a normal white blood cell count. 3. Chronic diastolic congestive heart failure Patient does not appear to be in acute exacerbation at this time. Likely okay to continue with baseline medications. Patient should not be placed on any blood thinners as he will likely require a CT-guided biopsy versus bronchoscopy with EBUS support as an outpatient. 4. Chronic combined respiratory failure secondary to COPD/pulmonary hypertension/peripheral vascular disease She appears to be at his baseline from a respiratory standpoint. CT scan of the chest does show mediastinal lymphadenopathy and peripherally located masses. Clinical suspicion for shortness of breath and fatigue secondary to anemia with probable cancer. Cannot exclude infectious etiology, but patient does not have a significant leukocytosis. Likely transition to prednisone therapy tomorrow to complete a 5 day course. Continue with bronchodilators. Patient will likely need a walking oximetry prior to discharge. Code Visit Inpatient E&M: 51983 Init Hosp L3
[2017-10-11] MEDS: guaiFENesin 600 MG Tablet PO ×2 (09:30→21:37)
--- NOTE | 2017-10-11 09:30 | PN_ITS ---
Patient Problems: Active and Suspected Problems (Last Reviewed 08/10/17 @ 08:34 by ROBERT Whitman) HCAP (healthcare-associated pneumonia) (Acute) Subjective: CC: Shortness of breath Objective: The patient is a 72 M tented to the emergency room due to an shortness of breath. He was diagnosed with pneumonia and possible sepsis and admitted to the ICU. Today he is much improved, he is alert and oriented to time place and person. He does not appear to be in any distress. Vitals/I&O's: Vital Signs Temp Pulse Resp BP Pulse Ox 97.3 F L 80 23 H 90/55 L 100 10/11/17 09:23 10/11/17 09:23 10/11/17 09:23 10/11/17 09:23 10/11/17 09:23 Oxygen Flow Rate (L/min) 3 Oxygen Delivery Method Nasal Cannula Weight: 93.4 kg Body Mass Index (BMI) 30.4 Intake and Output for Last 24 Hours 10/09/17 10/10/17 10/11/17 23:59 23:59 23:59 Intake Total 870 / 870 Balance 870 / 870 General: Alert, Oriented x3 HEENT: Atraumatic Oral: Moist Mucosa Neck: Supple Lungs: Rales, Rhonchi, Wheezes Cardiovascular: Regular rate, Normal S1, Normal S2 Abdomen: Bowel Sounds Present, Soft, Non Tender Extremities: No edema Neurological: Motor Exam 5/5 strength throughout Microbiology Past 72 Hours 10/11/17 07:10 Urine, Clean Catch Streptococcus pneumoniae Antigen (M - Final 10/11/17 07:10 Urine, Clean Catch Legionella Antigen - Final Laboratory Results 10/11/17 02:10: MRSA (PCR) Negative 10/11/17 02:15: Lactic Acid 2.3 H 10/11/17 05:30: Lactic Acid 1.0 10/11/17 05:30: WBC 6.2, RBC 2.36 L, Hgb 6.8 L, Hct 22.9 L, MCV 97.0 H, MCH 28.8 , MCHC 29.7 L, RDW 13.9, RDW Differential 45.3 H, Plt Count 319, MPV 9.8, Immature Gran % (Auto) 0.200, Neut % (Auto) 75.7 H, Lymph % (Auto) 14.0 L, Angelina % (Auto) 9.9, Eos % (Auto) 0.0, Baso % (Auto) 0.2, Absolute Neuts (auto) 4.7, Absolute Lymphs (auto) 0.86, Total Counted Not Reportable 10/11/17 05:30: Sodium 141, Potassium 4.1, Chloride 105, Carbon Dioxide 33.0 H, Anion Gap 3 L, BUN 25 H, Creatinine 0.63 L, Estim Creat Clear Calc 65.79, Est GFR (MDRD) Af Amer 161, Est GFR (MDRD) Non-Af 133, BUN/Creatinine Ratio 39.9 H, Glucose 101, Calcium 9.6 10/11/17 06:20: Blood Type A POSITIVE, Antibody Screen NEGATIVE, Crossmatch See Detail Current Medications Albuterol/Ipratropium (Duoneb) 3 ml INHALATION Q6H.RT GIGI Guaifenesin (Mucinex) 600 mg PO BID [facility] Piperacillin Sod/Tazobactam Sod (Zosyn) 3.375 gm in 50 mls @ 12.5 mls/hr IV Q8 [facility] Last Admin: 10/11/17 05:32 Dose: 12.5 mls/hr Sodium Chloride () 250 mls @ 15 mls/hr IV .[id number] PRN PRN Reason: SALINE FLUSH Last Admin: 10/11/17 05:30 Dose: 15 mls/hr Magnesium Hydroxide (Milk Of Magnesia) 30 ml PO DAILY PRN PRN PRN Reason: Constipation Methylprednisolone (Solu-Medrol) 40 mg IV Q8 [facility] Last Admin: 10/11/17 05:31 Dose: 40 mg Nutritional Formula (Lactose Free) (Ensure Enlive) 120 ml PO 4X/DAY [facility] Sodium Chloride () 5 - 30 ml IV UD PRN PRN Reason: SALINE FLUSH Last Admin: 10/11/17 05:30 Dose: 10 ml Medical Necessity - Tobacco Use Smoking Status: Former smoker Assessment/Plan Active and Suspected Problems (Last Reviewed 08/10/17 @ 08:34 by Nicolette Parham NP-C) HCAP (healthcare-associated pneumonia) (Acute) 1. Acute on chronic respiratory failure due to pneumonia; he is on supplemental oxygen. 2. Healthcare associated pneumonia; will continue on current antibiotic therapy. 3. Multiple Lung Masses; he has long standing history of smoking, malignancy is considered and pulmonary consulted. 4. Acute COPD exacerbation; will continue on bronchodilators and IV steroids. 5. Anemia With macrocytic indices; will obtain B12 and folate level, will monitor hemoglobin and transfuse if need be. 6. CAD; he reports no symptoms of angina or heart failure at this time. Code Visit Inpatient E&M: 51430 Subs Hosp L2
[2017-10-11 11:12] LABS: Vitamin B12 689 pg/mL (211-911)
--- NOTE | 2017-10-11 12:39 | CASEMGMT ---
See RN CM Assessment Link. DC PLAN: home -Pt has home oxygen/nebulizer through [employer]. -Declines needing assistance @ home. PT/OT not ordered yet. Will read recommendations when PT/OT is ordered. Aleshia FOOTEN RN ACM
[2017-10-11] MEDS: CHLORHEXIDINE GLUC 2% CLOTH 1 EACH TOWELETTE TOPICAL (16:30)
[2017-10-12] VITALS (22 sets, daily range): BP systolic 88–118; BP diastolic 55–72; PULSE 60–103; RESP 15–26; TEMP 36.4–36.8; O2SAT 96–100
--- NOTE | 2017-10-12 | IMM_PTH ---
PATIENT: KATELYNN BALL LOC: MS3 U#:[id number] AGE/SX: 72/M ROOM: [facility] [place] RE10/11/[address]: Dr. Radha Neri MD : 1945 BED: 1 DIS: 10/15/2017 SPEC #: [id number] RECD: 10/13/17 10:28 STATUS: SOUT REQ #: [id number] CHRYSTAL: 10/12/17 00:[address]: Elieser Livingston DEPT: IMMUNOHISTOCHEMISTRY RECD BY: Yuki Noyola ENTERED: 10/13/17 10:30 SP TYPE: IMMUNO OTHR DR: MD Dr. Donte Capps DO Kombian Gbaruk, MD Dr. Paul Nielsen, MD Tissues: Lung, NOS Procedures: RCC (add) NAPSIN A (add) CK20 (add) CK5-6 (add) CK8 (add) HEP PAR (add) PSA (add) TTF1 (add) P40 (add) CK7 (initial) Comments: @ Ordering doctor for CK7 edited from to @ by RGOOD at 10/13/17 1030 @ Ordering doctor for RCC. edited from to @ by RGOOD at 10/13/17 1030 @ Ordering doctor for NAP. edited from to @ by RGOOD at 10/13/17 1030 @ Ordering doctor for CK20. edited from to @ by RGOOD at 10/13/17 1030 @ Ordering doctor for CK5-6. edited from to @ by RGOOD at 10/13/17 1030 @ Ordering doctor for CK8. edited from to DR.BARTHU Charles by RGOOD at 10/13/17 1030 @ Ordering doctor for HEPPAR. edited from to DR.BARTHU Charles by RGOOD at 10/13/17 1030 @ Ordering doctor for PSA. edited from to DR.BARTHU Charles by RGOOD at 10/13/17 1030 @ Ordering doctor for TTF1. edited from to DR.BARTHU Charles by RGOOD at 10/13/17 1030 @ Ordering doctor for P40. edited from to DR.BARTHU Charles by RGOOD at 10/13/17 1030 @ Submitting doctor edited from to @ by RGOOD at 10/13/17 1030 PHYSICIAN & [place] [id number] SPECIMEN INFORMATION: Tissue Source: Right lung Clinical Info: Lung mass Specimen Number: [id number] CPT code: 96161, 29297 x9 METHODOLOGY: Deparaffinized sections of prefer/formalin-fixed tissue or PAP/DQ stained slides are incubated with monoclonal/polyclonal antibodies/oligonucleotide probes. Localization is made via biotin free immunoperoxidase method. Appropriate controls are performed and reacted as expected. Results on target cell population are indicated in the following table: RESULTS: ANTIBODY / CLONE RESULT CK7 (OV-TL12/30) negative CK8 (36mkanI26) positive, weak CK20 (KS20.8) negative TTF-1 (8G7G3/1) negative Napsin A (Rabbit Polyclonal) negative HepPar (OCh1E5) negative RCC (PN-15) negative PSA (ER-PR8) negative CK5-6 (D5 & 1684) positive P40 (BC28) positive These tests were developed and their performance characteristics determined by [facility]. They may not have been cleared or approved by the U.S. Food and Drug Administration. The FDA has determined that such clearance or approval is not necessary. INTERPRETATION: Right lung, CT-guided biopsy: Non-small cell carcinoma, favor squamous cell carcinoma. SJ:[email or web address] 10/13/17
--- NOTE | 2017-10-12 | LUNG_PTH ---
PATIENT: KATELYNN BALL LOC: MS3 U#:[id number] AGE/SX: 72/M ROOM: [facility] [place] RE10/11/[address]: Dr. Radha Neri MD : 1945 BED: 1 DIS: 10/15/2017 SPEC #: [id number] RECD: 10/12/17 11:20 STATUS: KIANA REQ #: [id number] CHRYSTAL: 10/12/17 00:[address]: Elieser Livingston DEPT: SURGICAL PATHOLOGY RECD BY: Juancarlos Painting ENTERED: 10/12/17 11:21 SP TYPE: LUNG BX OTHR DR: MD Dr. Donte Capps DO Kombian Gbaruk, MD Dr. Paul Nielsen, MD Tissues: Lung, NOS Procedures: Surgery Specimen Level IV Comments: @ Ordering doctor for SUIV edited from to @ by RGOOD at 10/12/17 1352 @ Submitting doctor edited from to @ by RGOOD at 10/12/17 1352 HEADER OPERATION: CT-guided right lung biopsy PRE-OP DIAGNOSIS: Mass TISSUE SUBMITTED: Right lung 18 gauge core x5 MICROSCOPIC DIAGNOSIS Right lung, CT-guided core biopsy: Non-small cell carcinoma, favor squamous cell carcinoma. See comment. ZENA:[email or web address] 10/13/17 COMMENT Immunohistochemistry ([id number]) supports the above diagnosis. A fragment of cartilage is also noted in the submitted specimen. MICROSCOPIC DESCRIPTION Slides are reviewed. GROSS DESCRIPTION Received is one container labeled with the patient's name and not further designated. The specimen consists of multiple irregular fragments of light petersen soft tissue that in aggregate measure 2 x 0.2 x 0.1 cm. The specimen is totally submitted in one cassette. / ZENA:[email or web address] 10/12/17 TC:0 CPT: 75081
[2017-10-12] MEDS: Ipratropium/Albuterol Sulfate 3 ML AMPUL.NEB INHALATION ×4 (01:14→18:30)
[2017-10-12 04:41] LABS: Absolute Lymphocyte Count 0.22 X10^3/ul (0.83-4.51); Absolute Neutrophil Count 6.4 X10^3/uL (2.0-7.7); Hematocrit 27.8 % (40-54); Hemoglobin 8.7 g/dl (13.0-16.5); Lymphocyte # 0.22 X10^3/ul (4.0); Lymphocyte % 3.3 % (19-41); Mean Corp Hgb Conc 31.3 g/gl (32-36); Mean Corpuscular Volume 92.7 fL (80-94); Mean Platelet Vol. 9.3 fl (6.2-12.0); Monocyte# 0.09 X10^3/uL; Monocyte% 1.3 % (0-10); Neutrophil # 6.39 X10^3/uL (2.7-7.7); Neutrophil % 95.3 % (47-70); Platelet Count 322 K/mm3 (150-450); RBC Distribution Width CV 15.2 % (11.6-14.6); RBC Distribution Width SD 51.1 fl (35.1-43.9); White Blood Count 6.7 K/mm3 (4.4-11.0)
[2017-10-12 04:42] LABS: Differential Indicated SCAN CRITERIA MET; POSITIVE COUNT NO; POSITIVE DIFFERENTIAL YES; POSITIVE MORPHOLOGY NO
[2017-10-12 04:54] LABS: Anion Gap 4 (5-15); BUN 22 mg/dL (7-18); BUN/Creat Ratio 33.2 RATIO (10-20); Chloride 104 mmol/L (98-107); Creatinine, Serum 0.66 mg/dL (0.70-1.30); EST Glomerular Filtration Rate 125 mL/min (>60); Est Glom Filt Rate - Afr Amer 151 mL/min (>60); Estimated Creatinine Clearance 65.79 ml/min; Glucose 162 mg/dL (74-106); Potassium 4.3 mmol/L (3.5-5.1); Sodium Level 141 mmol/L (136-145)
[2017-10-12 05:25] LABS: Anisocytosis 2+; Differential Comment SCANNED; Hypochromasia 2+
[2017-10-12] MEDS: Piperacil/Tazobactam 3.375 GM/50 ML ML IV (06:01)
[2017-10-12] MEDS: 0.9% NaCl Peripheral Flush Adult/Peds IV (06:02)
--- NOTE | 2017-10-12 06:24 | CT_ITS ---
PROCEDURE: CT-guided core biopsy of lung mass Individualized dose optimization techniques were used for this CT. INDICATION: Male, 72 years old. Right lower lobe lung mass. CT guidance RADIATION DOSAGE (If Supplied By Facility): CTDIvol = ( ) mGy, DLP = ( ) mGycm CONSENT: The risks, benefits and alternatives to the procedure were explained to the patient, and the patient agreed to the procedure and signed the consent. SEDATION: Intermittent the intravenous and demonstration of Versed and fentanyl by nursing staff under continuous cardiopulmonary monitoring. Sedation less than approximately 30 minutes STERILE BARRIER TECHNIQUE: The following sterile barrier precautions were used during the procedure: hand hygiene; use of 2% chlorhexidine aseptic; use of a cap, mask, sterile gown, sterile gloves, sterile full body drape, and a large sterile sheet. PROCEDURE/TECHNIQUE: The risks, benefits, and alternatives to the procedure were explained to patient, and the patient agreed to the procedure and signed a consent form for the procedure. A timeout was performed to confirm the patient's identity, the type of procedure, to be performed and the site of entry. Patient was positioned lateral decubitus on the CT scan table. Under CT guidance using sterile technique and after infiltration of the skin and subcutaneous soft tissues with 40 mL of lidocaine 1% an 18-gauge core biopsy was introduced in the lung mass previously described.Multiple core samples were obtained and were placed with in formalin solution and sent to the lab for evaluation. FINDINGS: Successful CT-guided core biopsy of lung mass. 5% pneumothorax is noted at the end of the procedure on the right side. CT/Biopsy/Inj or Needle Placement IMPRESSION: Successful CT-guided core biopsy of lung mass. 5% pneumothorax is noted at the end of the procedure on the right side. Electronically Signed: Gutierrez Curry MD at 15:15 EDT Tel , Service support ,
--- NOTE | 2017-10-12 06:30 | PCM.PN.INT ---
Subjective: Patient did well overnight. No acute issues were reported. Patient received 2 units of packed red blood cells with subjective improvement in overall condition. Microbiology has called and said that blood cultures are preliminary positive for gram-negative rods. Patient denies any hemoptysis. General: Alert, Oriented x3, Cooperative, No apparent distress, - - Speaking in full sentences. HEENT: Atraumatic, PERRLA, EOMI, Normocephalic, - - No scleral icterus or injection noted. Oral: Moist Mucosa, No Gingival or Mucosal Lesions/ Ulcerations Neck: Supple, No JVD, No Nodes, Trachea Midline Lungs: No rhonchi, No rales, Diminished, Wheezes - Sporadic end expiratory, - - Symmetric expansion. No dullness to percussion. Cardiovascular: Regular rate, Regular Rhythm, Normal S1, Normal S2, No murmurs, No rub noted, No Gallop Abdomen: Bowel Sounds Present, Soft, Non Tender, Non-Distended, Obese Extremities: No cyanosis, Capillary Refill Less than 3 Seconds, Clubbing, Edema - Trace lower extremity Skin: No rashes, No breakdown Musculoskeletal: No Tenderness to Palpation of Joints or Extremities, No Muscle Wasting Lymphatic: No Cervical, Supraclavicular, or Inguinal Adenopathy Neurological: Cranial nerves II-XII grossly intact, Neuro grossly intact, Motor Exam 5/5 strength throughout Psych/Mental Status: Alert and oriented to time, place, person, mood and affect Vital Signs Temp Pulse Resp BP Pulse Ox 36.7 C 82 15 115/64 100 10/12/17 04:00 10/12/17 06:00 10/12/17 06:00 10/12/17 06:00 10/12/17 06:00 Oxygen Flow Rate (L/min) 3 Oxygen Delivery Method Nasal Cannula Weight: 96.8 kg Body Mass Index (BMI) 30.4 Intake and Output for Last 24 Hours 10/10/17 10/11/17 10/12/17 23:59 23:59 23:59 Intake Total 3268 / 3268 68 / 68 Output Total 1100 / 1100 400 / 400 Balance 2168 / 2168 -332 / -332 Labs (Last 48 Hours) 10/11/17 10/11/17 10/11/17 02:10 02:15 05:30 WBC RBC Hgb Hct MCV MCH MCHC RDW RDW Differential Plt Count MPV Immature Gran % (Auto) Neut % (Auto) Lymph % (Auto) [place] % (Auto) Eos % (Auto) Baso % (Auto) Absolute Neuts (auto) Absolute Lymphs (auto) Total Counted Differential Comment Hypochromasia Anisocytosis Sodium Potassium Chloride Carbon Dioxide Anion Gap BUN Creatinine Estim Creat Clear Calc Est GFR (MDRD) Af Amer Est GFR (MDRD) Non-Af BUN/Creatinine Ratio Glucose Lactic Acid 2.3 H 1.0 Calcium Vitamin B12 Folate MRSA (PCR) Negative Blood Type Antibody Screen Crossmatch 10/11/17 10/11/17 10/11/17 05:30 05:30 05:30 WBC 6.2 RBC 2.36 L Hgb 6.8 L Hct 22.9 L MCV 97.0 H MCH 28.8 MCHC 29.7 L RDW 13.9 RDW Differential 45.3 H Plt Count 319 MPV 9.8 Immature Gran % (Auto) 0.200 Neut % (Auto) 75.7 H Lymph % (Auto) 14.0 L [place] % (Auto) 9.9 Eos % (Auto) 0.0 Baso % (Auto) 0.2 Absolute Neuts (auto) 4.7 Absolute Lymphs (auto) 0.86 Total Counted Not Reportable Differential Comment Hypochromasia Anisocytosis Sodium 141 Potassium 4.1 Chloride 105 Carbon Dioxide 33.0 H Anion Gap 3 L BUN 25 H Creatinine 0.63 L Estim Creat Clear Calc 65.79 Est GFR (MDRD) Af Amer 161 Est GFR (MDRD) Non-Af 133 BUN/Creatinine Ratio 39.9 H Glucose 101 Lactic Acid Calcium 9.6 Vitamin B12 Folate 9.30 MRSA (PCR) Blood Type Antibody Screen Crossmatch 10/11/17 10/11/17 10/12/17 06:20 10:15 04:20 WBC 6.7 RBC 3.00 L Hgb 8.7 L Hct 27.8 L MCV 92.7 MCH 29.0 MCHC 31.3 L RDW 15.2 H RDW Differential 51.1 H Plt Count 322 MPV 9.3 Immature Gran % (Auto) 0.100 Neut % (Auto) 95.3 H Lymph % (Auto) 3.3 L [place] % (Auto) 1.3 Eos % (Auto) 0.0 Baso % (Auto) 0.0 Absolute Neuts (auto) 6.4 Absolute Lymphs (auto) 0.22 L Total Counted Not Reportable Differential Comment SCANNED Hypochromasia 2+ Anisocytosis 2+ Sodium Potassium Chloride Carbon Dioxide Anion Gap BUN Creatinine Estim Creat Clear Calc Est GFR (MDRD) Af Amer Est GFR (MDRD) Non-Af BUN/Creatinine Ratio Glucose Lactic Acid Calcium Vitamin B12 689 Folate MRSA (PCR) Blood Type A POSITIVE Antibody Screen NEGATIVE Crossmatch See Detail 10/12/17 04:20 WBC RBC Hgb Hct MCV MCH MCHC RDW RDW Differential Plt Count MPV Immature Gran % (Auto) Neut % (Auto) Lymph % (Auto) [place] % (Auto) Eos % (Auto) Baso % (Auto) Absolute Neuts (auto) Absolute Lymphs (auto) Total Counted Differential Comment Hypochromasia Anisocytosis Sodium 141 Potassium 4.3 Chloride 104 Carbon Dioxide 33.0 H Anion Gap 4 L BUN 22 H Creatinine 0.66 L Estim Creat Clear Calc 65.79 Est GFR (MDRD) Af Amer 151 Est GFR (MDRD) Non-Af 125 BUN/Creatinine Ratio 33.2 H Glucose 162 H Lactic Acid Calcium 10.0 Vitamin B12 Folate MRSA (PCR) Blood Type Antibody Screen Crossmatch Microbiology 10/11/17 07:10 Urine, Clean Catch Streptococcus pneumoniae Antigen (M - Final 10/11/17 07:10 Urine, Clean Catch Legionella Antigen - Final Clinical Impression(s) from Imaging Studies Chest CT 10/11/17 06:53 IMPRESSION: Right lower lobe mass inferior to the right hilum measures 4 x 2.9 cm 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 Multiple metastatic lesions in both lungs largest measures 2.2 cm is in the right lung upper lobe. Metastatic lesion in the left eighth rib. Metastatic mediastinal lymphadenopathy. Electronically Signed: Gutierrez Curry MD at 9:23 EDT Tel , Service support , ADDENDUM: 10/11/17 1009 Medical Necessity - Tobacco Use Smoking Status: Former smoker Assessment/Plan Active and Suspected Problems (Last Reviewed 08/10/17 @ 08:34 by ROBERT Whitman) HCAP (healthcare-associated pneumonia) (Acute) RECOMMENDATIONS: 1. Continue empiric antibiotics pending blood culture 2. Recheck CBC tomorrow 3. CT-guided biopsy later today 4. Transition to prednisone therapy tomorrow once procedure completed 5. Okay to leave the intensive care unit from my perspective IMPRESSIONS: 1. Fatigue secondary to probable anemia/gram-negative sepsis Patient has responded appropriately to transfusions with subjective improvement. Low clinical suspicion for acute COPD exacerbation. Patient reportedly has gram-negative growing in the blood. We will continue with antibiotics until species and sensitivities are available. 2. Multiple lung masses Patient has avoided previous procedures looking for biopsy. Patient has been arranged for an EBU S3 times previously and has canceled his procedure. After discussion, patient has agreed to a CT-guided biopsy. Given patient's avoidance as an outpatient, will obtain biopsy as an inpatient. Coagulation studies were normal on presentation. 3. Chronic diastolic congestive heart failure Patient does not appear to be in acute exacerbation at this time. Likely okay to continue with baseline medications. Patient should not be placed on any blood thinners as he will likely require a CT-guided biopsy. 4. Chronic combined respiratory failure secondary to COPD/pulmonary hypertension/peripheral vascular disease Patient appears to be at his baseline from a respiratory standpoint. CT scan of the chest does show mediastinal lymphadenopathy and peripherally located masses. Clinical suspicion for shortness of breath and fatigue secondary to anemia with probable cancer. Likely transition to prednisone therapy tomorrow to complete a 5 day course. Continue with bronchodilators. Patient will likely need a walking oximetry prior to discharge. Code Visit Inpatient E&M: [id number] [facility] Hosp L3
--- NOTE | 2017-10-12 08:48 | PCA ---
called and got a medlist from [facility]
[2017-10-12] MEDS: CHLORHEXIDINE GLUC 2% CLOTH 1 EACH TOWELETTE TOPICAL (09:00)
--- NOTE | 2017-10-12 09:26 | CASEMGMT ---
Referral received from CM for support regarding diagnosis, RN at bedside also asked SW to see pt regarding additional help at home as pt is having difficulty with bathing. SW spoke w/pt initially about diagnosis. Pt explains was told it's cancer, but states he does not know anything else. Pt states he is going for a biopsy today, and states does not understand why this was not done on prior admissions. SW explained that is a good question to ask the doctor, offered support to pt. Pt did then go on to say that Dr. Cabrera wanted to put a tube down his throat to look at his lungs and he refused this. Pt then went on to talk about wanting to switch his PCP to one in [place] from [place], and the SW from [facility] Rober was going to help him w/this. SW offered to assist, pt declined, then states he wants to stay w/his PCP. Pt also states [facility] and needs to make an appointment by December or he will lose his benefits. SW then asked pt about his personal care. Pt states he does not need any help with this, his family can help him. Pt states he stays on the bottom floor and he has a tub on that floor, can get himself cleaned up. SW asked about home health, pt is not interested at this time. SW asked about [facility] benefits, pt has not looked into getting extra assist at home through the [facility], and declined to have SW call the [facility] to look into services for him at home. SW at this time declining any referrals to assist w/personal care at home, stating he does not need the help, he can do it or family can help. SW will continue to follow for support to family, and to offer assist in the home again should pt decide this may be beneficial for him. OLAMIDE Lopez, COOLER ROOM WORKER
--- NOTE | 2017-10-12 09:55 | NURSING ---
to radiology w/ RN in attendance
--- NOTE | 2017-10-12 11:45 | NURSING ---
return from radiology.
--- NOTE | 2017-10-12 12:15 | RAD_ITS ---
STUDY: X-RAY CHEST REASON FOR EXAM: Male, 72 years old. POST LUNG BIOPSY TECHNIQUE: Single AP portable view of the chest. COMPARISON: None. FINDINGS: There is 10% pneumothorax on the right side. Bilateral lung nodules are again noted. Normal size heart. Normal mediastinum and taran. Normal visualized pulmonary arteries. Normal visualized aortic arch and descending thoracic aorta. Normal visualized thoracic spine. Normal visualized ribs, clavicles, and shoulders. There is no demonstrated abnormality of the visualized soft tissue structures of the upper abdomen. RAD/Chest 1 View (Portable) IMPRESSION: 10% pneumothorax on the right side. Follow-up x-ray is recommended at 2:00 PM Electronically Signed: Gutierrez Curry MD at 13:22 EDT Tel , Service support ,
[2017-10-12] MEDS: Cefepime HCl 2 GM in 0.9% NS 100 ML Minibag Q12 IV ×2 (13:31→21:02)
[2017-10-12] MEDS: 0.9% NaCl IVPB Med Flush (250 mL) 15 ML IV (13:44)
--- NOTE | 2017-10-12 14:15 | RAD_ITS ---
STUDY: X-RAY CHEST REASON FOR EXAM: Male, 72 years old. Pneumothorax. TECHNIQUE: Single AP portable view of the chest. COMPARISON: October 12, 2017. FINDINGS: Telemetry wires overlie the chest. The lungs are hyperexpanded. There is persistent density in the right hilum and cardiophrenic angle which appears unchanged from the prior study. There are stable nodular densities within the lungs. There is a stable right apical pneumothorax. There is no demonstrated pleural abnormality. Normal size heart. Normal mediastinum and taran. Normal visualized pulmonary arteries. Normal visualized aortic arch and descending thoracic aorta. The thoracic spine is obscured by the mediastinum. Normal visualized ribs, clavicles, and shoulders. There is no demonstrated abnormality of the visualized soft tissue structures of the upper abdomen. RAD/Chest 1 View (Portable) IMPRESSION: 1. Stable right apical pneumothorax. 2. No interval change. Electronically Signed: Jaquan Martinez DO at 14:50 EDT Tel [phone], Service support ,
--- NOTE | 2017-10-12 15:30 | NURSING ---
to [id number] per chair, ICU staff in attendance
--- NOTE | 2017-10-12 15:31 | NURSING ---
report called to MS 3 RNChing
--- NOTE | 2017-10-12 17:04 | PN_ITS ---
Patient Problems: Active and Suspected Problems (Last Reviewed 08/10/17 @ 08:34 by ROBERT Whitman) HCAP (healthcare-associated pneumonia) (Acute) Subjective: CC: Shortness of breath Objective: The patient presented with shortness of breath and found to pneumonia he is also found to have multiple lung mass and underwent successful CT-guided core biopsy of lung mass. He developed ~5% pneumothorax is noted at the end of the procedure on the right side , he is comfortable and is not in distress. Vitals/I&O's: Vital Signs Temp Pulse Resp BP Pulse Ox 98.0 F 100 20 H 102/71 98 10/12/17 15:00 10/12/17 15:00 10/12/17 15:00 10/12/17 15:00 10/12/17 15:00 Oxygen Flow Rate (L/min) 5 Oxygen Delivery Method Nasal Cannula Weight: 96.8 kg Body Mass Index (BMI) 30.4 Intake and Output for Last 24 Hours 10/10/17 10/11/17 10/12/17 23:59 23:59 23:59 Intake Total 3268 / 3268 238 / 238 Output Total 1100 / 1100 1050 / 1050 Balance 2168 / 2168 -812 / -812 General: Alert, Oriented x3 HEENT: Atraumatic Oral: Moist Mucosa Lungs: Clear to auscultation, No rhonchi Cardiovascular: Regular rate, Regular Rhythm, Normal S1, Normal S2 Abdomen: Bowel Sounds Present, Soft, Non Tender Extremities: No clubbing Neurological: Cranial nerves II-XII grossly intact, Motor Exam 5/5 strength throughout Microbiology Past 72 Hours 10/11/17 07:10 Urine, Clean Catch Urine Culture - Preliminary Culture exhibits no growth. 10/11/17 07:10 Urine, Clean Catch Streptococcus pneumoniae Antigen (M - Final 10/11/17 07:10 Urine, Clean Catch Legionella Antigen - Final Laboratory Results 10/12/17 04:20: WBC 6.7, RBC 3.00 L, Hgb 8.7 L, Hct 27.8 L, MCV 92.7, MCH 29.0, MCHC 31.3 L, RDW 15.2 H, RDW Differential 51.1 H, Plt Count 322, MPV 9.3, Immature Gran % (Auto) 0.100, Neut % (Auto) 95.3 H, Lymph % (Auto) 3.3 L, [place] % (Auto) 1.3, Eos % (Auto) 0.0, Baso % (Auto) 0.0, Absolute Neuts (auto) 6.4, Absolute Lymphs (auto) 0.22 L, Total Counted Not Reportable, Differential Comment SCANNED, Hypochromasia 2+, Anisocytosis 2+ 10/12/17 04:20: Sodium 141, Potassium 4.3, Chloride 104, Carbon Dioxide 33.0 H, Anion Gap 4 L, BUN 22 H, Creatinine 0.66 L, Estim Creat Clear Calc 65.79, Est GFR (MDRD) Af Amer 151, Est GFR (MDRD) Non-Af 125, BUN/Creatinine Ratio 33.2 H, Glucose 162 H, Calcium 10.0 Current Medications Albuterol/Ipratropium (Duoneb) 3 ml INHALATION Q6H.RT [facility] Last Admin: 10/12/17 13:20 Dose: 3 ml Sodium Chloride () 250 mls @ 15 mls/hr IV .[id number] PRN PRN Reason: SALINE FLUSH Last Admin: 10/12/17 13:44 Dose: 15 mls/hr Cefepime HCl 2 gm/ Sodium (Chloride) 100 mls @ 200 mls/hr IV Q12 [facility] Last Admin: 10/12/17 13:31 Dose: 200 mls/hr Magnesium Hydroxide (Milk Of Magnesia) 30 ml PO DAILY PRN PRN PRN Reason: Constipation Nutritional Formula (Lactose Free) (Ensure Enlive) 120 ml PO 4X/DAY [facility] Last Admin: 10/12/17 13:45 Dose: 120 ml Prednisone () 40 mg PO DAILYCM GIIG Sodium Chloride () 5 - 30 ml IV UD PRN PRN Reason: SALINE FLUSH Last Admin: 10/12/17 06:02 Dose: 10 ml Medical Necessity - Tobacco Use Smoking Status: Former smoker Assessment/Plan Active and Suspected Problems (Last Reviewed 08/10/17 @ 08:34 by ROBERT Whitman) HCAP (healthcare-associated pneumonia) (Acute) 1. Acute on chronic respiratory failure due to pneumonia; he is on supplemental oxygen. 2. Healthcare associated pneumonia; will continue on current antibiotic therapy. 3. Multiple Lung Masses; he is status post CT guided biopsy 4. Acute COPD exacerbation; will continue on bronchodilators and IV steroids. 5. Anemia With macrocytic indices; will obtain B12 and folate level, will monitor hemoglobin and transfuse if need be. 6. CAD; he reports no symptoms of angina or heart failure at this time. 7. ~5% pneumothorax on the R following biopsy; we will continue supplemental oxygen and repeat chest x-ray in a.m. Code Visit Inpatient E&M: [id number] Subs Hosp L2
[2017-10-13] VITALS (14 sets, daily range): BP systolic 96–161; BP diastolic 54–72; PULSE 72–111; RESP 17–20; TEMP 36.3–36.9; O2SAT 92–100
--- NOTE | 2017-10-13 02:25 | NURSING ---
pt awake c/o sob. pt has audible wheezes. resp notified for breathing tx. pt given IS and was able to do it 6 times. pt then c/o dodge. notified tylenol given. 02 remains on at 5lnc.
[2017-10-13] MEDS: Ipratropium/Albuterol Sulfate 3 ML AMPUL.NEB INHALATION ×4 (02:31→18:49)
[2017-10-13] MEDS: Acetaminophen 325 MG Tablet 650 MG PO (02:43)
--- NOTE | 2017-10-13 03:10 | NURSING ---
pt resting at time. no distress noted. o2 at 5lnc. cont po 99%
--- NOTE | 2017-10-13 05:00 | RAD_ITS ---
STUDY: X-RAY CHEST REASON FOR EXAM: Male, 72 years old. Pneumothorax. Follow-up. TECHNIQUE: Single AP portable view of the chest. COMPARISON: None. FINDINGS: Bilateral lung nodules are noted. There is 30% pneumothorax on the right side. Normal size heart. Normal mediastinum and taran. Normal visualized pulmonary arteries. Normal visualized aortic arch and descending thoracic aorta. Normal visualized thoracic spine. There is a lytic lesion in the left eighth rib. There is no demonstrated abnormality of the visualized soft tissue structures of the upper abdomen. RAD/Chest 1 View (Portable) IMPRESSION: Right pneumothorax estimated at 30%. N.B. : The above information has been verbally conveyed by Gutierrez Curry MD to Elieser Livingston on 10/13/2017 09:46:06 (ET). Electronically Signed: Gutierrez Curry MD at 10:01 EDT Tel , Service support , N.B. : The above information has been verbally conveyed by Gutierrez Curry MD to Elieser Livingston on 10/13/2017 09:46:06 (ET).
[2017-10-13 07:04] LABS: Absolute Lymphocyte Count 0.24 X10^3/ul (0.83-4.51); Absolute Neutrophil Count 10.5 X10^3/uL (2.0-7.7); Hematocrit 30.9 % (40-54); Hemoglobin 9.3 g/dl (13.0-16.5); Lymphocyte # 0.24 X10^3/ul (4.0); Lymphocyte % 2.2 % (19-41); Mean Corp Hgb Conc 30.1 g/gl (32-36); Mean Corpuscular Hgb 29.3 pg (27.0-32.0); Mean Corpuscular Volume 97.5 fL (80-94); Mean Platelet Vol. 9.8 fl (6.2-12.0); Monocyte# 0.27 X10^3/uL; Monocyte% 2.4 % (0-10); Neutrophil # 10.51 X10^3/uL (2.7-7.7); Neutrophil % 95.3 % (47-70); Platelet Count 374 K/mm3 (150-450); RBC Distribution Width CV 15.2 % (11.6-14.6); Red Blood Count 3.17 M/mm3 (4.6-6.2)
[2017-10-13 07:07] LABS: Differential Indicated SCAN CRITERIA MET; POSITIVE COUNT NO; POSITIVE DIFFERENTIAL YES; POSITIVE MORPHOLOGY NO
[2017-10-13 07:13] LABS: Anion Gap 3 (5-15); BUN 26 mg/dL (7-18); BUN/Creat Ratio 53.5 RATIO (10-20); Calcium,Total 10.1 mg/dL (8.5-10.1); Chloride 102 mmol/L (98-107); Creatinine, Serum 0.49 mg/dL (0.70-1.30); EST Glomerular Filtration Rate 179 mL/min (>60); Est Glom Filt Rate - Afr Amer 216 mL/min (>60); Estimated Creatinine Clearance 65.79 ml/min; Glucose 116 mg/dL (74-106); Sodium Level 141 mmol/L (136-145)
[2017-10-13] MEDS: predniSONE 20 MG Tablet 40 MG PO (08:10)
--- NOTE | 2017-10-13 08:23 | CT_ITS ---
STUDY: CT ABDOMEN AND PELVIS WITH CONTRAST REASON FOR EXAM: Male, 72 years old. Groin pain. COPD. Coronary artery calcifications. Peripheral vascular disease. RADIATION DOSAGE (If Supplied By Facility): CTDIvol = ( 16.61 ) mGy, DLP = ( 1204.95 ) mGycm TECHNIQUE: Transaxial images were obtained from the dome of the diaphragm to the symphysis pubis without oral contrast. 100CC ml of Isovue 300 contrast was administered. Sagittal and coronal images were reconstructed. Individualized dose optimization techniques were used for this CT. COMPARISON: CT of the chest, October 11, 2017. Chest, October 13, 2017 and October 12, 2017.. FINDINGS: There is a large right pneumothorax which appears to have increased from the previous day's study.. There is a large area consolidation in the medial right lung base thought to contain the mass seen in this area on the prior CT multiple other smaller pulmonary masses are noted. The visualized portions of the heart are within normal limits. The liver is normal in size. There are multiple hypodense foci throughout the liver consistent with diffuse metastatic disease. The largest is best seen on image 26 of series 2 and measures approximately 3.1 x 2.9 x 3.4 cm. There is no intrahepatic biliary ductal dilatation. Normal gallbladder and extrahepatic biliary system. Normal spleen. Normal pancreas. There is mild enlargement of the right adrenal gland which appears to enhance similar to the liver suspicious for metastatic disease. Normal left adrenal gland. Normal right kidney. There is a large left upper pole cyst which extends into the upper hilum. 2 other smaller cortical this are seen in the mid kidney and at the lower pole. There is a small type I hiatal hernia. The stomach is otherwise unremarkable. Normal small intestine. There is descending and sigmoid diverticulosis without acute inflammatory change. The appendix is visualized and appears normal. Normal abdominal aorta. There is venous distention of the inferior vena cava (IVC). Normal retroperitoneum. Normal urinary bladder. Normal prostate. There is no pelvic lymphadenopathy. No free air or free fluid is seen within the peritoneal cavity. There is an umbilical artery of omental fat. There are bilateral inguinal hernias of omental fat. The abdominal wall is otherwise unremarkable. There are degenerative changes of the lumbar spine and hips. No lytic or blastic lesions are noted. CT/Abdomen/Pelvis W IV Cont ONLY IMPRESSION: 1. Large right pneumothorax. This appears increased from the previous day's plain film. 2. Multiple pulmonary masses. 3. Diffuse hepatic metastases. 4. Question right adrenal metastasis. 5. Left renal cysts. 6. Sigmoid diverticulosis. 7. Degenerative changes of the lumbar spine and hips. N.B. : The above information has been verbally conveyed by Jaquan Martinez DO to Dr Rashid, Covering Physician, on 10/13/2017 11:31:10 (ET). Electronically Signed: Jaquan Martinez DO at 11:08 EDT Tel [phone], Service support , N.B. : The above information has been verbally conveyed by Jaquan Martinez DO to Dr Rashid, Covering Physician, on 10/13/2017 11:31:10 (ET).
[2017-10-13 08:55] LABS: Hematocrit 30.9 % (40-54); Hemoglobin 9.4 g/dl (13.0-16.5)
--- NOTE | 2017-10-13 09:51 | CT_ITS ---
PROCEDURE: CT-GUIDED CHEST TUBE PLACEMENT ON THE RIGHT SIDE Individualized dose optimization techniques were used for this CT. INDICATION: Male, 72 years old. 30% right Pneumothorax RADIATION DOSAGE (If Supplied By Facility): CTDIvol = ( ) mGy, DLP = ( ) mGycm CONSENT: The risks, benefits and alternatives to the procedure were explained to the patient, and the patient agreed to the procedure and signed the consent. SEDATION: Local anesthesia. STERILE BARRIER TECHNIQUE: The following sterile barrier precautions were used during the procedure: hand hygiene; use of 2% chlorhexidine aseptic; use of a cap, mask, sterile gown, sterile gloves, sterile full body drape, and a large sterile sheet. PROCEDURE/TECHNIQUE: The risks, benefits, and alternatives to the procedure were explained to patient, and the patient agreed to the procedure and signed a consent form for the procedure. A timeout was performed to confirm the patient's identity, the type of procedure, to be performed and the site of entry. Patient was positioned supine position on the CT scan table. Under CT guidance using sterile technique and after infiltration of the skin and subcutaneous soft tissues with 40 mL of lidocaine 1% 20-gauge needle was introduced in the right hemothorax and then 0.018 guidewire was advanced and the needle the needle was removed and a 4 Mos[place]o sheath was advanced over the guidewire then the existing guidewire is removed and a new 0.035 J-tip guidewire was advanced in the 4 Mosotho dilator then the 4 Mosotho guide is removed and the tract is serially dilated up to 14 Mosotho. A 14 Mosotho catheter is advanced over the guidewire and is coiled within the lower part of right hemithorax. The 14 Mosotho catheter is secured to the skin using an adhesive device and is attached to a bag for continuous drainage. There was no immediate complication. FINDINGS: Right hemothorax was successfully drained with an [address]/Abscess/Fistula/Sinus Tract IMPRESSION: Successful right chest tube placement under CT guidance. Electronically Signed: Gutierrez Curry MD at 11:25 EDT Tel , Service support ,
[2017-10-13] MEDS: Cefepime HCl 2 GM in 0.9% NS 100 ML Minibag Q12 IV ×2 (11:24→21:35)
--- NOTE | 2017-10-13 14:47 | CASEMGMT ---
Social Work Note SW met with pt to follow up with pt. OLAMIDE Weiner met with pt yesterday to confirm discharge plans. SW introduced self and role at [facility]. Pt alert and orientated x4. Pt states that he was previously involved with [facility] but states that he is no longer involved as the SW there made him angry. Pt states that the SW at [facility] told him that he was going to get something in 5 weeks and he never got it. This worker utilized active listening skills and listened to pt's concerns and offered support. Pt states that he has supportive family at home to assist him when needed and feels like he can take care of himself at home. Pt denied additional needs or concerns at this time. SW will continue to follow along to assist with discharge planning. Plan: Return home at discharge Kirti Mcghee MANAGER LAW, CORPORATE COUNSEL
--- NOTE | 2017-10-13 14:48 | PCM.PN.INT ---
Subjective: Patient transferred out of the intensive care unit yesterday. CT-guided biopsy was complicated by pneumothorax. Patient reported significant wheezing overnight and morning chest x-ray showed worsening pneumothorax, so a chest tube was replaced. Patient reports subjective improvement in overall condition. General: Alert, Oriented x3, Cooperative, No apparent distress, - - Than stated age. Speaking in full sentences. HEENT: Atraumatic, PERRLA, EOMI, Normocephalic, - - No icterus or injection noted. Oral: Moist Mucosa, No Gingival or Mucosal Lesions/ Ulcerations Neck: Supple, No JVD, No Nodes, Trachea Midline Lungs: No rhonchi, No wheeze, No rales, Diminished, - - Dimension. No dullness to percussion. Cardiovascular: Regular rate, Regular Rhythm, Normal S1, Normal S2, No murmurs, No rub noted, No Gallop Abdomen: Bowel Sounds Present, Soft, Non Tender, Non-Distended Extremities: No cyanosis, No edema, Capillary Refill Less than 3 Seconds, Clubbing Skin: No rashes, No breakdown Musculoskeletal: No Tenderness to Palpation of Joints or Extremities Lymphatic: No Cervical, Supraclavicular, or Inguinal Adenopathy Neurological: Cranial nerves II-XII grossly intact, Neuro grossly intact, Motor Exam 5/5 strength throughout Psych/Mental Status: Alert and oriented to time, place, person, mood and affect Vital Signs Temp Pulse Resp BP Pulse Ox 36.8 C 92 18 106/72 100 10/13/17 11:22 10/13/17 13:30 10/13/17 13:30 10/13/17 11:22 10/13/17 13:30 Oxygen Flow Rate (L/min) 3 Oxygen Delivery Method Nasal Cannula Weight: 96.4 kg Body Mass Index (BMI) 30.4 Intake and Output for Last 24 Hours 10/11/17 10/12/17 10/13/17 23:59 23:59 23:59 Intake Total 3268 / 3268 1103 / 1103 120 / 120 Output Total 1100 / 1100 1500 / 1500 500 / 500 Balance 2168 / 2168 -397 / -397 -380 / -380 Labs (Last 48 Hours) 10/11/17 10/12/17 10/12/17 06:20 04:20 04:20 WBC 6.7 RBC 3.00 L Hgb 8.7 L Hct 27.8 L MCV 92.7 MCH 29.0 MCHC 31.3 L RDW 15.2 H RDW Differential 51.1 H Plt Count 322 MPV 9.3 Immature Gran % (Auto) 0.100 Neut % (Auto) 95.3 H Lymph % (Auto) 3.3 L [place] % (Auto) 1.3 Eos % (Auto) 0.0 Baso % (Auto) 0.0 Absolute Neuts (auto) 6.4 Absolute Lymphs (auto) 0.22 L Total Counted Not Reportable Differential Comment SCANNED Hypochromasia 2+ Anisocytosis 2+ Sodium 141 Potassium 4.3 Chloride 104 Carbon Dioxide 33.0 H Anion Gap 4 L BUN 22 H Creatinine 0.66 L Estim Creat Clear Calc 65.79 Est GFR (MDRD) Af Amer 151 Est GFR (MDRD) Non-Af 125 BUN/Creatinine Ratio 33.2 H Glucose 162 H Calcium 10.0 Carcinoembryonic Ag Crossmatch See Detail 10/13/17 10/13/17 10/13/17 06:50 06:50 08:45 WBC 11.0 RBC 3.17 L Hgb 9.3 L Hct 30.9 L MCV 97.5 H MCH 29.3 MCHC 30.1 L RDW 15.2 H RDW Differential 51.0 H Plt Count 374 MPV 9.8 Immature Gran % (Auto) 0.100 Neut % (Auto) 95.3 H Lymph % (Auto) 2.2 L [place] % (Auto) 2.4 Eos % (Auto) 0.0 Baso % (Auto) 0.0 Absolute Neuts (auto) 10.5 H Absolute Lymphs (auto) 0.24 L Total Counted Not Reportable Differential Comment Hypochromasia Anisocytosis Sodium 141 Potassium 5.0 Chloride 102 Carbon Dioxide 36.0 H Anion Gap 3 L BUN 26 H Creatinine 0.49 L Estim Creat Clear Calc 65.79 Est GFR (MDRD) Af Amer 216 Est GFR (MDRD) Non-Af 179 BUN/Creatinine Ratio 53.5 H Glucose 116 H Calcium 10.1 Carcinoembryonic Ag Pending Crossmatch 10/13/17 08:45 WBC RBC Hgb 9.4 L Hct 30.9 L MCV MCH MCHC RDW RDW Differential Plt Count MPV Immature Gran % (Auto) Neut % (Auto) Lymph % (Auto) [place] % (Auto) Eos % (Auto) Baso % (Auto) Absolute Neuts (auto) Absolute Lymphs (auto) Total Counted Differential Comment Hypochromasia Anisocytosis Sodium Potassium Chloride Carbon Dioxide Anion Gap BUN Creatinine Estim Creat Clear Calc Est GFR (MDRD) Af Amer Est GFR (MDRD) Non-Af BUN/Creatinine Ratio Glucose Calcium Carcinoembryonic Ag Crossmatch Microbiology 10/11/17 07:10 Urine, Clean Catch Urine Culture - Final Culture exhibits no growth. Clinical Impression(s) from Imaging Studies Biopsy CT 10/12/17 06:24 IMPRESSION: Successful CT-guided core biopsy of lung mass. 5% pneumothorax is noted at the end of the procedure on the right side. Electronically Signed: Gutierrez Curry MD at 15:15 EDT Tel , Service support , Chest X-Ray 10/12/17 14:15 IMPRESSION: 1. Stable right apical pneumothorax. 2. No interval change. Electronically Signed: Jaquan Martinez DO at 14:50 EDT Tel [phone], Service support , Chest X-Ray 10/13/17 05:00 IMPRESSION: Right pneumothorax estimated at 30%. N.B. : The above information has been verbally conveyed by Gutierrez Curry MD to Elieser Livingston on 10/13/2017 09:46:06 (ET). Electronically Signed: Gutierrez Curry MD at 10:01 EDT Tel , Service support , N.B. : The above information has been verbally conveyed by Gutierrez Curry MD to Elieser Livingston on 10/13/2017 09:46:06 (ET). Abdomen/Pelvis CT 10/13/17 08:23 IMPRESSION: 1. Large right pneumothorax. This appears increased from the previous day's plain film. 2. Multiple pulmonary masses. 3. Diffuse hepatic metastases. 4. Question right adrenal metastasis. 5. Left renal cysts. 6. Sigmoid diverticulosis. 7. Degenerative changes of the lumbar spine and hips. N.B. : The above information has been verbally conveyed by Jaquan Martinez DO to Dr Rashid, Covering Physician, on 10/13/2017 11:31:10 (ET). Electronically Signed: Jaquan Martinez DO at 11:08 EDT Tel [phone], Service support , N.B. : The above information has been verbally conveyed by Jaquan Martinez DO to Dr Rashid, Covering Physician, on 10/13/2017 11:31:10 (ET). Abscess Drainage 10/13/17 09:51 IMPRESSION: Successful right chest tube placement under CT guidance. Electronically Signed: Gutierrez Curry MD at 11:25 EDT Tel , Service support , Medical Necessity - Tobacco Use Smoking Status: Former smoker Assessment/Plan Active and Suspected Problems (Last Reviewed 08/10/17 @ 08:34 by Nicolette Parham NP-Ravinder) HCAP (healthcare-associated pneumonia) (Acute) RECOMMENDATIONS: 1. Continue empiric antibiotics pending blood culture 2. Continue chest tube with daily chest x-rays 3. Likely okay to transition to prednisone therapy 4. Await biopsy results 5. Repeat blood cultures IMPRESSIONS: 1. Fatigue secondary to probable anemia/gram-negative sepsis Patient has responded appropriately to transfusions with subjective improvement. Low clinical suspicion for acute COPD exacerbation. Patient reportedly has gram-negative growing in the blood. We will continue with antibiotics until species and sensitivities are available. 2. Multiple lung masses/iatrogenic pneumothorax Patient has avoided previous procedures looking for biopsy. Patient has been arranged for an EBU S3 times previously and has canceled his procedure. Chest tube in place. Good subjective response to therapy. Anticipate chest tube for the next 48-72 hours. Await results of biopsy. 3. Chronic diastolic congestive heart failure Patient does not appear to be in acute exacerbation at this time. Likely okay to continue with baseline medications. Patient should not be placed on any blood thinners as he will likely require a CT-guided biopsy. 4. Chronic combined respiratory failure secondary to COPD/pulmonary hypertension/peripheral vascular disease Patient appears to be at his baseline from a respiratory standpoint. CT scan of the chest does show mediastinal lymphadenopathy and peripherally located masses. Clinical suspicion for shortness of breath and fatigue secondary to anemia with probable cancer. Likely transition to prednisone therapy tomorrow to complete a 5 day course. Continue with bronchodilators. Patient will likely need a walking oximetry prior to discharge. Code Visit Inpatient E&M: 29098 Subs Hosp L3
--- NOTE | 2017-10-13 14:56 | PN_ITS ---
Subjective: Patient transferred out of the intensive care unit yesterday. CT-guided biopsy was complicated by pneumothorax. Patient reported significant wheezing overnight and morning chest x-ray showed worsening pneumothorax, so a chest tube was replaced. Patient reports subjective improvement in overall condition. General: Alert, Oriented x3, Cooperative, No apparent distress, - - Than stated age. Speaking in full sentences. HEENT: Atraumatic, PERRLA, EOMI, Normocephalic, - - No icterus or injection noted. Oral: Moist Mucosa, No Gingival or Mucosal Lesions/ Ulcerations Neck: Supple, No JVD, No Nodes, Trachea Midline Lungs: No rhonchi, No wheeze, No rales, Diminished, - - Dimension. No dullness to percussion. Cardiovascular: Regular rate, Regular Rhythm, Normal S1, Normal S2, No murmurs, No rub noted, No Gallop Abdomen: Bowel Sounds Present, Soft, Non Tender, Non-Distended Extremities: No cyanosis, No edema, Capillary Refill Less than 3 Seconds, Clubbing Skin: No rashes, No breakdown Musculoskeletal: No Tenderness to Palpation of Joints or Extremities Lymphatic: No Cervical, Supraclavicular, or Inguinal Adenopathy Neurological: Cranial nerves II-XII grossly intact, Neuro grossly intact, Motor Exam 5/5 strength throughout Psych/Mental Status: Alert and oriented to time, place, person, mood and affect Vital Signs Temp Pulse Resp BP Pulse Ox 36.8 C 92 18 106/72 100 10/13/17 11:22 10/13/17 13:30 10/13/17 13:30 10/13/17 11:22 10/13/17 13:30 Oxygen Flow Rate (L/min) 3 Oxygen Delivery Method Nasal Cannula Weight: 96.4 kg Body Mass Index (BMI) 30.4 Intake and Output for Last 24 Hours 10/11/17 10/12/17 10/13/17 23:59 23:59 23:59 Intake Total 3268 / 3268 1103 / 1103 120 / 120 Output Total 1100 / 1100 1500 / 1500 500 / 500 Balance 2168 / 2168 -397 / -397 -380 / -380 Labs (Last 48 Hours) 10/11/17 10/12/17 10/12/17 06:20 04:20 04:20 WBC 6.7 RBC 3.00 L Hgb 8.7 L Hct 27.8 L MCV 92.7 MCH 29.0 MCHC 31.3 L RDW 15.2 H RDW Differential 51.1 H Plt Count 322 MPV 9.3 Immature Gran % (Auto) 0.100 Neut % (Auto) 95.3 H Lymph % (Auto) 3.3 L [place] % (Auto) 1.3 Eos % (Auto) 0.0 Baso % (Auto) 0.0 Absolute Neuts (auto) 6.4 Absolute Lymphs (auto) 0.22 L Total Counted Not Reportable Differential Comment SCANNED Hypochromasia 2+ Anisocytosis 2+ Sodium 141 Potassium 4.3 Chloride 104 Carbon Dioxide 33.0 H Anion Gap 4 L BUN 22 H Creatinine 0.66 L Estim Creat Clear Calc 65.79 Est GFR (MDRD) Af Amer 151 Est GFR (MDRD) Non-Af 125 BUN/Creatinine Ratio 33.2 H Glucose 162 H Calcium 10.0 Carcinoembryonic Ag Crossmatch See Detail 10/13/17 10/13/17 10/13/17 06:50 06:50 08:45 WBC 11.0 RBC 3.17 L Hgb 9.3 L Hct 30.9 L MCV 97.5 H MCH 29.3 MCHC 30.1 L RDW 15.2 H RDW Differential 51.0 H Plt Count 374 MPV 9.8 Immature Gran % (Auto) 0.100 Neut % (Auto) 95.3 H Lymph % (Auto) 2.2 L [place] % (Auto) 2.4 Eos % (Auto) 0.0 Baso % (Auto) 0.0 Absolute Neuts (auto) 10.5 H Absolute Lymphs (auto) 0.24 L Total Counted Not Reportable Differential Comment Hypochromasia Anisocytosis Sodium 141 Potassium 5.0 Chloride 102 Carbon Dioxide 36.0 H Anion Gap 3 L BUN 26 H Creatinine 0.49 L Estim Creat Clear Calc 65.79 Est GFR (MDRD) Af Amer 216 Est GFR (MDRD) Non-Af 179 BUN/Creatinine Ratio 53.5 H Glucose 116 H Calcium 10.1 Carcinoembryonic Ag Pending Crossmatch 10/13/17 08:45 WBC RBC Hgb 9.4 L Hct 30.9 L MCV MCH MCHC RDW RDW Differential Plt Count MPV Immature Gran % (Auto) Neut % (Auto) Lymph % (Auto) [place] % (Auto) Eos % (Auto) Baso % (Auto) Absolute Neuts (auto) Absolute Lymphs (auto) Total Counted Differential Comment Hypochromasia Anisocytosis Sodium Potassium Chloride Carbon Dioxide Anion Gap BUN Creatinine Estim Creat Clear Calc Est GFR (MDRD) Af Amer Est GFR (MDRD) Non-Af BUN/Creatinine Ratio Glucose Calcium Carcinoembryonic Ag Crossmatch Microbiology 10/11/17 07:10 Urine, Clean Catch Urine Culture - Final Culture exhibits no growth. Clinical Impression(s) from Imaging Studies Biopsy CT 10/12/17 06:24 IMPRESSION: Successful CT-guided core biopsy of lung mass. 5% pneumothorax is noted at the end of the procedure on the right side. Electronically Signed: Gutierrez Curry MD at 15:15 EDT Tel , Service support , Chest X-Ray 10/12/17 14:15 IMPRESSION: 1. Stable right apical pneumothorax. 2. No interval change. Electronically Signed: Jaquan Martinez DO at 14:50 EDT Tel [phone], Service support , Chest X-Ray 10/13/17 05:00 IMPRESSION: Right pneumothorax estimated at 30%. N.B. : The above information has been verbally conveyed by Gutierrez Curry MD to Elieser Livingston on 10/13/2017 09:46:06 (ET). Electronically Signed: Gutierrez Curry MD at 10:01 EDT Tel , Service support , N.B. : The above information has been verbally conveyed by Gutierrez Curry MD to Elieser Livingston on 10/13/2017 09:46:06 (ET). Abdomen/Pelvis CT 10/13/17 08:23 IMPRESSION: 1. Large right pneumothorax. This appears increased from the previous day's plain film. 2. Multiple pulmonary masses. 3. Diffuse hepatic metastases. 4. Question right adrenal metastasis. 5. Left renal cysts. 6. Sigmoid diverticulosis. 7. Degenerative changes of the lumbar spine and hips. N.B. : The above information has been verbally conveyed by Jaquan Martinez DO to Dr Rashid, Covering Physician, on 10/13/2017 11:31:10 (ET). Electronically Signed: Jaquan Martinez DO at 11:08 EDT Tel [phone], Service support , N.B. : The above information has been verbally conveyed by Jaquan Martinez DO to Dr Rashid, Covering Physician, on 10/13/2017 11:31:10 (ET). Abscess Drainage 10/13/17 09:51 IMPRESSION: Successful right chest tube placement under CT guidance. Electronically Signed: Gutierrez Curry MD at 11:25 EDT Tel , Service support , Medical Necessity - Tobacco Use Smoking Status: Former smoker Assessment/Plan Active and Suspected Problems (Last Reviewed 08/10/17 @ 08:34 by Nicolette Parham NP-Ravinder) HCAP (healthcare-associated pneumonia) (Acute) RECOMMENDATIONS: 1. Continue empiric antibiotics pending blood culture 2. Continue chest tube with daily chest x-rays 3. Likely okay to transition to prednisone therapy 4. Await biopsy results 5. Repeat blood cultures IMPRESSIONS: 1. Fatigue secondary to probable anemia/gram-negative sepsis Patient has responded appropriately to transfusions with subjective improvement. Low clinical suspicion for acute COPD exacerbation. Patient reportedly has gram-negative growing in the blood. We will continue with antibiotics until species and sensitivities are available. 2. Multiple lung masses/iatrogenic pneumothorax Patient has avoided previous procedures looking for biopsy. Patient has been arranged for an EBU S3 times previously and has canceled his procedure. Chest tube in place. Good subjective response to therapy. Anticipate chest tube for the next 48-72 hours. Await results of biopsy. 3. Chronic diastolic congestive heart failure Patient does not appear to be in acute exacerbation at this time. Likely okay to continue with baseline medications. Patient should not be placed on any blood thinners as he will likely require a CT-guided biopsy. 4. Chronic combined respiratory failure secondary to COPD/pulmonary hypertension/peripheral vascular disease Patient appears to be at his baseline from a respiratory standpoint. CT scan of the chest does show mediastinal lymphadenopathy and peripherally located masses. Clinical suspicion for shortness of breath and fatigue secondary to anemia with probable cancer. Likely transition to prednisone therapy tomorrow to complete a 5 day course. Continue with bronchodilators. Patient will likely need a walking oximetry prior to discharge. Code Visit Inpatient E&M: 16682 Subs Hosp L3
--- NOTE | 2017-10-13 16:40 | PCM.PN.HOSP ---
Patient Problems: Active and Suspected Problems (Last Reviewed 08/10/17 @ 08:34 by ROBERT Whitman) HCAP (healthcare-associated pneumonia) (Acute) Subjective: CC: Shortness of breath Objective: The patient developed onset of wheezing and shortness of breath last night after his lung biopsy and repeat chest x-ray revealed expanding pneumothorax, he is status post chest tube placement, he appears comfortable. The patient also had an episode of an acute GI lower GI bleed this morning and a CT scan of the abdomen reveals diverticulosis and metastatic disease to the liver. Vitals/I&O's: Vital Signs Temp Pulse Resp BP Pulse Ox 98.3 F 92 18 106/72 100 10/13/17 11:22 10/13/17 13:30 10/13/17 13:30 10/13/17 11:22 10/13/17 13:30 Oxygen Flow Rate (L/min) 3 Oxygen Delivery Method Nasal Cannula Weight: 96.4 kg Body Mass Index (BMI) 30.4 Intake and Output for Last 24 Hours 10/11/17 10/12/17 10/13/17 23:59 23:59 23:59 Intake Total 3268 / 3268 1103 / 1103 570 / 570 Output Total 1100 / 1100 1500 / 1500 700 / 700 Balance 2168 / 2168 -397 / -397 -130 / -130 General: Alert, Oriented x3 HEENT: Atraumatic Oral: Moist Mucosa Neck: Supple, No JVD Lungs: Clear to auscultation Cardiovascular: Regular rate, Normal S1, Normal S2 Abdomen: Bowel Sounds Present, Soft, Non Tender Extremities: No clubbing, No edema Microbiology Past 72 Hours 10/11/17 07:10 Urine, Clean Catch Urine Culture - Final Culture exhibits no growth. 10/11/17 07:10 Urine, Clean Catch Streptococcus pneumoniae Antigen (M - Final 10/11/17 07:10 Urine, Clean Catch Legionella Antigen - Final Laboratory Results 10/13/17 06:50: WBC 11.0, RBC 3.17 L, Hgb 9.3 L, Hct 30.9 L, MCV 97.5 H, MCH 29.3, MCHC 30.1 L, RDW 15.2 H, RDW Differential 51.0 H, Plt Count 374, MPV 9.8, Immature Gran % (Auto) 0.100, Neut % (Auto) 95.3 H, Lymph % (Auto) 2.2 L, [place] % (Auto) 2.4, Eos % (Auto) 0.0, Baso % (Auto) 0.0, Absolute Neuts (auto) 10.5 H, Absolute Lymphs (auto) 0.24 L, Total Counted Not Reportable 10/13/17 06:50: Sodium 141, Potassium 5.0, Chloride 102, Carbon Dioxide 36.0 H, Anion Gap 3 L, BUN 26 H, Creatinine 0.49 L, Estim Creat Clear Calc 65.79, Est GFR (MDRD) Af Amer 216, Est GFR (MDRD) Non-Af 179, BUN/Creatinine Ratio 53.5 H, Glucose 116 H, Calcium 10.1 10/13/17 08:45: Carcinoembryonic Ag Pending 10/13/17 08:45: Hgb 9.4 L, Hct 30.9 L Current Medications Acetaminophen (Tylenol) 650 mg PO Q6H PRN PRN PRN Reason: PAIN Last Admin: 10/13/17 02:43 Dose: 650 mg Albuterol/Ipratropium (Duoneb) 3 ml INHALATION Q6H.RT [facility] Last Admin: 10/13/17 13:32 Dose: 3 ml Sodium Chloride () 250 mls @ 15 mls/hr IV .[id number] PRN PRN Reason: SALINE FLUSH Last Admin: 10/12/17 13:44 Dose: 15 mls/hr Cefepime HCl 2 gm/ Sodium (Chloride) 100 mls @ 200 mls/hr IV Q12 [facility] Last Admin: 10/13/17 11:24 Dose: 200 mls/hr Pantoprazole Sodium 40 mg/ (Sodium Chloride) 110 mls @ 330 mls/hr IV Q12 [facility] Last Admin: 10/13/17 12:05 Dose: 330 mls/hr Magnesium Hydroxide (Milk Of Magnesia) 30 ml PO DAILY PRN PRN PRN Reason: Constipation Nutritional Formula (Lactose Free) (Ensure Enlive) 120 ml PO 4X/DAY [facility] Last Admin: 10/13/17 14:57 Dose: 120 ml Prednisone () 40 mg PO DAILYCM [facility] Last Admin: 10/13/17 08:10 Dose: 40 mg Sodium Chloride () 5 - 30 ml IV UD PRN PRN Reason: SALINE FLUSH Last Admin: 10/12/17 06:02 Dose: 10 ml Medical Necessity - Tobacco Use Smoking Status: Former smoker Assessment/Plan Active and Suspected Problems (Last Reviewed 08/10/17 @ 08:34 by ROBERT Whitman) HCAP (healthcare-associated pneumonia) (Acute) 1. Acute on chronic respiratory failure; continue him on supplemental oxygen.. 2. Iatrogenic pneumothorax on the R , following guided lung biopsy; chest tube placed , we will repeat CT scan of the chest in a.m. 3. Healthcare associated pneumonia; we will continue on current antibiotic therapy. 4. Multiple Lung Masses; he is status post CT guided biopsy lung biopsy. 4. Acute COPD exacerbation; will continue on bronchodilators and IV steroids. 5. Acute Blood loss anemia; will monitor hemoglobin and transfuse as needed. 6. Multiple pulmonary masses associated with diffuse hepatic metastases; status post biopsy, pathology pending, will consult oncologist 7. Questionable right adrenal metastasis noted on CT abdomen. 8. Acute GI bleed; abdominal CT scan showed sigmoid diverticulosis, this may be due source of GI bleed. He denies recent colonoscopy, will check a CEA level 9. CAD; he reports no symptoms of angina or heart failure at this time.
--- NOTE | 2017-10-13 16:43 | PN_ITS ---
Patient Problems: Active and Suspected Problems (Last Reviewed 08/10/17 @ 08:34 by ROBERT Whitman) HCAP (healthcare-associated pneumonia) (Acute) Subjective: CC: Shortness of breath Objective: The patient developed onset of wheezing and shortness of breath last night after his lung biopsy and repeat chest x-ray revealed expanding pneumothorax, he is status post chest tube placement, he appears comfortable. The patient also had an episode of an acute GI lower GI bleed this morning and a CT scan of the abdomen reveals diverticulosis and metastatic disease to the liver. Vitals/I&O's: Vital Signs Temp Pulse Resp BP Pulse Ox 98.3 F 92 18 106/72 100 10/13/17 11:22 10/13/17 13:30 10/13/17 13:30 10/13/17 11:22 10/13/17 13:30 Oxygen Flow Rate (L/min) 3 Oxygen Delivery Method Nasal Cannula Weight: 96.4 kg Body Mass Index (BMI) 30.4 Intake and Output for Last 24 Hours 10/11/17 10/12/17 10/13/17 23:59 23:59 23:59 Intake Total 3268 / 3268 1103 / 1103 570 / 570 Output Total 1100 / 1100 1500 / 1500 700 / 700 Balance 2168 / 2168 -397 / -397 -130 / -130 General: Alert, Oriented x3 HEENT: Atraumatic Oral: Moist Mucosa Neck: Supple, No JVD Lungs: Clear to auscultation Cardiovascular: Regular rate, Normal S1, Normal S2 Abdomen: Bowel Sounds Present, Soft, Non Tender Extremities: No clubbing, No edema Microbiology Past 72 Hours 10/11/17 07:10 Urine, Clean Catch Urine Culture - Final Culture exhibits no growth. 10/11/17 07:10 Urine, Clean Catch Streptococcus pneumoniae Antigen (M - Final 10/11/17 07:10 Urine, Clean Catch Legionella Antigen - Final Laboratory Results 10/13/17 06:50: WBC 11.0, RBC 3.17 L, Hgb 9.3 L, Hct 30.9 L, MCV 97.5 H, MCH 29.3, MCHC 30.1 L, RDW 15.2 H, RDW Differential 51.0 H, Plt Count 374, MPV 9.8, Immature Gran % (Auto) 0.100, Neut % (Auto) 95.3 H, Lymph % (Auto) 2.2 L, Alexander % (Auto) 2.4, Eos % (Auto) 0.0, Baso % (Auto) 0.0, Absolute Neuts (auto) 10.5 H , Absolute Lymphs (auto) 0.24 L, Total Counted Not Reportable 10/13/17 06:50: Sodium 141, Potassium 5.0, Chloride 102, Carbon Dioxide 36.0 H, Anion Gap 3 L, BUN 26 H, Creatinine 0.49 L, Estim Creat Clear Calc 65.79, Est GFR (MDRD) Af Amer 216, Est GFR (MDRD) Non-Af 179, BUN/Creatinine Ratio 53.5 H, Glucose 116 H, Calcium 10.1 10/13/17 08:45: Carcinoembryonic Ag Pending 10/13/17 08:45: Hgb 9.4 L, Hct 30.9 L Current Medications Acetaminophen (Tylenol) 650 mg PO Q6H PRN PRN PRN Reason: PAIN Last Admin: 10/13/17 02:43 Dose: 650 mg Albuterol/Ipratropium (Duoneb) 3 ml INHALATION Q6H.RT [facility] Last Admin: 10/13/17 13:32 Dose: 3 ml Sodium Chloride () 250 mls @ 15 mls/hr IV .[id number] PRN PRN Reason: SALINE FLUSH Last Admin: 10/12/17 13:44 Dose: 15 mls/hr Cefepime HCl 2 gm/ Sodium (Chloride) 100 mls @ 200 mls/hr IV Q12 [facility] Last Admin: 10/13/17 11:24 Dose: 200 mls/hr Pantoprazole Sodium 40 mg/ (Sodium Chloride) 110 mls @ 330 mls/hr IV Q12 [facility] Last Admin: 10/13/17 12:05 Dose: 330 mls/hr Magnesium Hydroxide (Milk Of Magnesia) 30 ml PO DAILY PRN PRN PRN Reason: Constipation Nutritional Formula (Lactose Free) (Ensure Enlive) 120 ml PO 4X/DAY [facility] Last Admin: 10/13/17 14:57 Dose: 120 ml Prednisone () 40 mg PO DAILYCM [facility] Last Admin: 10/13/17 08:10 Dose: 40 mg Sodium Chloride () 5 - 30 ml IV UD PRN PRN Reason: SALINE FLUSH Last Admin: 10/12/17 06:02 Dose: 10 ml Medical Necessity - Tobacco Use Smoking Status: Former smoker Assessment/Plan Active and Suspected Problems (Last Reviewed 08/10/17 @ 08:34 by ROBERT Whitman) HCAP (healthcare-associated pneumonia) (Acute) 1. Acute on chronic respiratory failure; continue him on supplemental oxygen.. 2. Iatrogenic pneumothorax on the R , following guided lung biopsy; chest tube placed , we will repeat CT scan of the chest in a.m. 3. Healthcare associated pneumonia; we will continue on current antibiotic therapy. 4. Multiple Lung Masses; he is status post CT guided biopsy lung biopsy. 4. Acute COPD exacerbation; will continue on bronchodilators and IV steroids. 5. Acute Blood loss anemia; will monitor hemoglobin and transfuse as needed. 6. Multiple pulmonary masses associated with diffuse hepatic metastases; status post biopsy, pathology pending, will consult oncologist 7. Questionable right adrenal metastasis noted on CT abdomen. 8. Acute GI bleed; abdominal CT scan showed sigmoid diverticulosis, this may be due source of GI bleed. He denies recent colonoscopy, will check a CEA level 9. CAD; he reports no symptoms of angina or heart failure at this time.
[2017-10-13 21:03] LABS: Hematocrit 28.3 % (40-54); Hemoglobin 8.6 g/dl (13.0-16.5)
--- NOTE | 2017-10-13 21:47 | NURSING ---
SPO2 100% ON 3L NC. PT HAS COPD. O2 DECREASED TO 2L.
[2017-10-14] VITALS (8 sets, daily range): BP systolic 91–105; BP diastolic 56–64; PULSE 79–105; RESP 16–20; TEMP 36.5–36.7; O2SAT 94–98
--- NOTE | 2017-10-14 05:44 | RAD_ITS ---
STUDY: X-RAY CHEST REASON FOR EXAM: Male, 72 years old. Follow-up of pneumothorax. TECHNIQUE: Frontal and lateral views of the chest. COMPARISON: Oct 13 2017 5:36am FINDINGS: Right chest tube is seen in good position. Bilateral lung nodules are noted. The right pneumothorax have resolved. Normal size heart. Normal mediastinum and taran. Normal visualized pulmonary arteries. Normal visualized aortic arch and descending thoracic aorta. Normal visualized thoracic spine. There is a lytic lesion in the left eighth rib. There is no demonstrated abnormality of the visualized soft tissue structures of the upper abdomen. RAD/Chest PA and Lateral IMPRESSION: Resolved pneumothorax. Chest tube in good position. Electronically Signed: Gutierrez Curry MD at 10:24 EDT Tel , Service support ,
[2017-10-14] MEDS: Ipratropium/Albuterol Sulfate 3 ML AMPUL.NEB INHALATION ×2 (07:08→13:22)
[2017-10-14] MEDS: predniSONE 20 MG Tablet 40 MG PO (08:17)
--- NOTE | 2017-10-14 08:48 | PCM.PROGNOTE ---
Patient Problems: Active and Suspected Problems (Last Reviewed 08/10/17 @ 08:34 by ROBERT Whitman) HCAP (healthcare-associated pneumonia) (Acute) Subjective: The patient was seen and examined. He is up in the chair, does not appear to be in any acute distress. Only complaint is fatigue, denies any shortness of breath, significant wheezing or cough, or sputum production. Does have a little bit of pain in his bilateral chest with a cough or sneeze. Chest tube remains intact. Objective: Recent lab and culture data reviewed. Imaging reviewed, including repeat chest x-ray today. Patient remains afebrile and hemodynamically stable. Blood cultures from 10/10 showing gram-negative bacteroides ovatus. Urine culture and strep/Legionella antigens were negative. Repeat blood cultures from 10/13 are pending. - Physical Exam General: Alert, Oriented x3, Cooperative, No apparent distress, - - no conversational dyspnea HEENT: Atraumatic, Normocephalic Oral: Moist Mucosa, No Gingival or Mucosal Lesions/ Ulcerations Neck: Supple, No Nodes, Trachea Midline Lungs: No rhonchi, No wheeze, No rales, Diminished, - - No dullness to percussion. No crepitus or SC emphysema noted. Chest tube R intact Cardiovascular: Regular rate, Regular Rhythm, Normal S1, Normal S2, No murmurs, No rub noted, No Gallop Abdomen: Bowel Sounds Present, Soft, Non Tender, Non-Distended Extremities: No cyanosis, No edema, Clubbing, Peripheral Pulses Normal Skin: No rashes, - - dressing R chest tube C/D/I Musculoskeletal: No Tenderness to Palpation of Joints or Extremities Lymphatic: No Cervical, Supraclavicular, or Inguinal Adenopathy Neurological: Cranial nerves II-XII grossly intact, Neuro grossly intact, Motor Exam 5/5 strength throughout Psych/Mental Status: Alert and oriented to time, place, person, mood and affect Vital Signs Temp Pulse Resp BP Pulse Ox 97.4 F L 90 20 H 98/64 98 10/13/17 21:46 10/14/17 07:09 10/14/17 07:09 10/13/17 21:46 10/14/17 07:09 Oxygen Flow Rate (L/min) 2 Oxygen Delivery Method Nasal Cannula Weight: 212 lb 8.41 oz Body Mass Index (BMI) 30.4 Intake and Output for Last 24 Hours 10/12/17 10/13/17 10/14/17 23:59 23:59 23:59 Intake Total 1103 / 1103 1130 / 1130 1316 / 1316 Output Total 1500 / 1500 1200 / 1200 1000 / 1000 Balance -397 / -397 -70 / -70 316 / 316 Microbiology Past 72 Hours 10/11/17 07:10 Urine Culture - Final Urine, Clean Catch Culture exhibits no growth. 10/11/17 07:10 Streptococcus pneumoniae Antigen (M - Final Urine, Clean Catch 10/11/17 07:10 Legionella Antigen - Final Urine, Clean Catch Laboratory Tests Past 24 Hrs 10/13/17 10/13/17 10/13/17 08:45 08:45 20:45 Hgb 9.4 L 8.6 L Hct 30.9 L 28.3 L Carcinoembryonic Ag Pending Medical Necessity - Tobacco Use Smoking Status: Former smoker Assessment/Plan Active and Suspected Problems (Last Reviewed 08/10/17 @ 08:34 by Nicolette Parham NP-C) HCAP (healthcare-associated pneumonia) (Acute) RECOMMENDATIONS: 1. Continue empiric antibiotics pending blood cultures 2. Continue chest tube with daily chest x-rays 3. Continue prednisone 4. Await biopsy results 5. Await repeat blood cultures IMPRESSIONS: 1. Fatigue secondary to probable anemia/gram-negative sepsis Patient has responded appropriately to transfusions with subjective improvement. Low clinical suspicion for acute COPD exacerbation. Patient reportedly has gram-negative growing in the blood. We will continue with antibiotics until species and sensitivities are available. 2. Multiple lung masses/iatrogenic pneumothorax Patient has avoided previous procedures looking for biopsy. Patient has been arranged for an EBUS 3 times previously and has canceled his procedure, citing fear as reason. Chest tube in place. Good subjective response to therapy. Anticipate chest tube for the next 24-48 hours. Await results of biopsy. Repeat chest x-ray 10/14 shows resolution of pneumothorax, will leave in CT and reassess in a.m. No ongoing high-flow oxygen supplementation secondary to h/o CO2 retention and COPD. 3. Chronic diastolic congestive heart failure Patient does not appear to be in acute exacerbation at this time. Likely okay to continue with baseline medications. Patient should not be placed on any blood thinners as he will likely require a CT-guided biopsy. 4. Chronic combined respiratory failure secondary to COPD/pulmonary hypertension/peripheral vascular disease Patient appears to be at his baseline from a respiratory standpoint. CT scan of the chest does show mediastinal lymphadenopathy and peripherally located masses. Clinical suspicion for shortness of breath and fatigue secondary to anemia with probable cancer. Continue prednisone to complete a 5 day course. Continue with bronchodilators. Perform a walking oximetry prior to discharge. This note was generated with [facility] dictation software. It may contain incorrect words, spelling, and punctuation that were not noted in checking the note before signing.
[2017-10-14] MEDS: Cefepime HCl 2 GM in 0.9% NS 100 ML Minibag Q12 IV ×2 (10:01→22:33)
[2017-10-14] MEDS: Acetaminophen 325 MG Tablet 650 MG PO ×2 (10:04→16:24)
--- NOTE | 2017-10-14 11:52 | PN_ITS ---
Patient Problems: Active and Suspected Problems (Last Reviewed 08/10/17 @ 08:34 by ROBERT Whitman) HCAP (healthcare-associated pneumonia) (Acute) Subjective: CC: Shortness of breath Objective: This is a 72-year-old male who presented with progressive shortness of breath. Imaging in the emergency room showed possible pneumonia and multiple pulmonary masses. She was admitted to the ICU for about 24 hours and transferred to the floor. He underwent CT guided biopsy of the pulmonary mass and developed a small pneumothorax, imaging the next day showed expansion of the PTX> 30% requiring a chest tube placement. The patient remains clinically stable at this time. He also had an episode of rectal bleed yesterday hemoglobin remains stable. He reports no new symptoms today. Vitals/I&O's: Vital Signs Temp Pulse Resp BP Pulse Ox 98.1 F 88 20 H 105/56 L 94 10/14/17 10:00 10/14/17 10:00 10/14/17 10:00 10/14/17 10:00 10/14/17 10:00 Oxygen Flow Rate (L/min) 3 Oxygen Delivery Method Nasal Cannula Weight: 96.4 kg Body Mass Index (BMI) 30.4 Intake and Output for Last 24 Hours 10/12/17 10/13/17 10/14/17 23:59 23:59 23:59 Intake Total 1103 / 1103 1130 / 1130 1316 / 1316 Output Total 1500 / 1500 1200 / 1200 1000 / 1000 Balance -397 / -397 -70 / -70 316 / 316 General: Alert, Oriented x3 Oral: Moist Mucosa Neck: Supple, No JVD Lungs: Clear to auscultation, No wheeze, No rales Cardiovascular: Regular Rhythm, Normal S1, Normal S2 Abdomen: Bowel Sounds Present, Soft, Non Tender, Non-Distended Extremities: No edema Microbiology Past 72 Hours 10/11/17 07:10 Urine, Clean Catch Urine Culture - Final Culture exhibits no growth. 10/11/17 07:10 Urine, Clean Catch Streptococcus pneumoniae Antigen (M - Final 10/11/17 07:10 Urine, Clean Catch Legionella Antigen - Final Laboratory Results 10/13/17 20:45: Hgb 8.6 L, Hct 28.3 L Current Medications Acetaminophen (Tylenol) 650 mg PO Q6H PRN PRN PRN Reason: PAIN Last Admin: 10/14/17 10:04 Dose: 650 mg Albuterol/Ipratropium (Duoneb) 3 ml INHALATION Q6H.RT [facility] [place] Last Admin: 10/14/17 07:08 Dose: 3 ml Sodium Chloride () 250 mls @ 15 mls/hr IV .[id number] PRN PRN Reason: SALINE FLUSH Last Admin: 10/12/17 13:44 Dose: 15 mls/hr Cefepime HCl 2 gm/ Sodium (Chloride) 100 mls @ 200 mls/hr IV Q12 [facility] [place] Last Admin: 10/14/17 10:01 Dose: 200 mls/hr Pantoprazole Sodium 40 mg/ (Sodium Chloride) 110 mls @ 330 mls/hr IV Q12 [facility] [place] Last Admin: 10/14/17 11:12 Dose: 330 mls/hr Magnesium Hydroxide (Milk Of Magnesia) 30 ml PO DAILY PRN PRN PRN Reason: Constipation Prednisone () 40 mg PO DAILYCM [facility] [place] Last Admin: 10/14/17 08:17 Dose: 40 mg Sodium Chloride () 5 - 30 ml IV UD PRN PRN Reason: SALINE FLUSH Last Admin: 10/12/17 06:02 Dose: 10 ml Medical Necessity - Tobacco Use Smoking Status: Former smoker Assessment/Plan Active and Suspected Problems (Last Reviewed 08/10/17 @ 08:34 by Nicolette Parham NP-Ravinder) HCAP (healthcare-associated pneumonia) (Acute) 1. Acute on chronic respiratory failure; continue him on supplemental oxygen.. 2. Iatrogenic pneumothorax on the R following CT guided lung biopsy; chest tube placed , pulmonary medicine managing chest. 3. Healthcare associated pneumonia; we will continue on current antibiotic therapy. 4. Multiple Lung Masses; he is status post CT guided biopsy lung biopsy, pathology report pending 4. Acute COPD exacerbation; will continue on bronchodilators and steroids. 5. Acute Blood loss anemia; will monitor hemoglobin and transfuse as needed. 6. Multiple pulmonary masses associated with diffuse hepatic metastases; status post biopsy, pathology pending, will consult oncologist 7. Questionable right adrenal metastasis noted on CT abdomen. 8. Acute GI bleed; abdominal CT scan showed sigmoid diverticulosis, this may be due source of GI bleed. He denies recent colonoscopy, he will need colonoscopy at some point soon CEA level pending. 9. CAD; he reports no symptoms of angina or heart failure at this time. Code Visit Inpatient E&M: 56115 Subs Hosp L2
[2017-10-14 12:09] LABS: Carcinoembryonic Antigen 25.6 ng/mL (0.0-4.7)
[2017-10-14 12:30] LABS: Hematocrit 32.3 % (40-54); Hemoglobin 9.6 g/dl (13.0-16.5); Mean Corp Hgb Conc 29.7 g/gl (32-36); Mean Corpuscular Hgb 28.6 pg (27.0-32.0); Mean Corpuscular Volume 96.1 fL (80-94); Mean Platelet Vol. 9.7 fl (6.2-12.0); Platelet Count 389 K/mm3 (150-450); RBC Distribution Width CV 15.3 % (11.6-14.6); RBC Distribution Width SD 52.8 fl (35.1-43.9); Red Blood Count 3.36 M/mm3 (4.6-6.2); White Blood Count 11.2 K/mm3 (4.4-11.0)
[2017-10-14 12:35] LABS: Scan Indicated on CBC? Y/N NO
--- NOTE | 2017-10-14 16:37 | ONC.CONS.INP ---
Consult Referring Physician: Dr. Tammy Rashid. Consult Results: NSCLC Subjective Date of Service:: 10/14/17 Chief Complaint: SOB and lung cancer. History of Present Illness: 72-year-old male who presented with progressive shortness of breath. Imaging in the emergency room showed possible pneumonia and multiple bilateral pulmonary masses. He was admitted to the ICU for about 24 hours and transferred to the floor. He underwent CT guided biopsy of the pulmonary mass and developed a small right pneumothorax, imaging the next day showed expansion of the PTX> 30% requiring a chest tube placement. The patient remains clinically stable at this time. He also had an episode of rectal bleed yesterday hemoglobin remains stable. He feels better now with chest tube in place. Past Medical History: Chronic Problems (Last Reviewed 08/10/17 @ 08:34 by ROBERT Whitman) Non-small cell carcinoma of right lung, stage 4 (Chronic) COPD (chronic obstructive pulmonary disease) (Chronic) 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 Diastolic CHF (Chronic) Foot drop, left (Chronic) Chronic respiratory failure (Chronic) with hypoxemima and hypercarbia Pulmonary HTN (Chronic) severe Diastolic dysfunction (Chronic) stage 1 Tricuspid regurgitation (Chronic) mild - moderate Decubitus ulcer of hip, stage 2 (Chronic) Decubitus ulcer of hip, stage 1 (Chronic) CAD (coronary artery disease) (Chronic) minimal and nnon-obstructive on cath 08/09/16 Past Medical/Surgical History: Past Medical History - Most Recent Inpatient Visit Past Medical History Start: 10/11/17 02:07 Text: Status: Complete Freq: ONCE Protocol: Document 10/11/17 02:07 AW (Rec: 10/11/17 02:18 AW [id number]) BMI Required to complete PMH What is Patient's BMI 30.4 Neurologic Medical History Hx Stroke/TIA Yes Hx Dementia/Alzheimer's No Hx Parkinson's Disease No Hx Seizures No Hx Multiple Sclerosis No Hx Migraines No Cardiac Medical History VTE Present on Admission No Hx of Deep Vein Thrombosis/VTE/PE No Hx Hypertension No Hx Chest Pain/Angina Yes Hx Heart Attack Yes Hx Cardiac Surgery/Stents/Etc. Yes: X1 Hx Heart Failure Yes Hx Pacemaker/AICD No Hx Irregular Heartbeat and/or Afib No Hx Anticoagulant Therapy No Query Text:(Coumadin, Aspirin, Plavix, Xarelto, etc.) Hx Pain in Legs when Walking/Leg Cramps No Respiratory Medical History Hx COPD Yes: SUPPOSED TO BE ON HOME O2 Hx Emphysema Yes Hx Smoking Yes Smoking Status Former smoker Hx Smoking Cessation Counseling Yes Hx Smoking Exposure Yes Hx Tobacco Use in last 12 months No Hx of Pipe Smoking No Hx Sleep Apnea Yes CPAP No BIPAP No STOP Results Positive GI Medical History Hx Ulcer No Hx Hepatitis No Hx Cirrhosis No Hx GI Bleed No Hx Unplanned Weight Loss No Genitourinary Medical History Indwelling Catheter in Place on Arrival/ No Admission Hx Renal Disease No Hx Dialysis No Musculoskeletal History Hx Arthritis Yes: BACK Hx Rheumatoid Arthritis No Endocrine Medical History Hx Diabetes No Hx Thyroid Disease No Hematologic Medical History Hx of Blood Transfusion No Hx of Transfusion in last 3 Months No Ever experience any problems with No transfusion(s)? Hx of Preganancy in last 3 Months N/A Nurse Filling Out Transfusion & AWIERZBIC Questions: Date: 10/11/17 Time: 02:18 Psycho/Social Medical History Hx Depression No Hx Anxiety No Hx Behavior Disorder No Hx Alcohol Use No Hx Substance Use No Other Medical History Hx Blood Disorders No Hx Anemia No Hx Cancer No Hx Drug Resistant Organism No Wound/Pressure Injury Present on Arrival Yes /Admission Query Text:If yes, chart assessment in Shift/Clinical Findings Central Line/PICC/VAD Present on Arrival No /Admission Antibiotics within last 7 days? No Methicillin Resistant Staphylococcus aureus Screening Active MRSA No Risk for Readmission Number of Risk Factors 3 At Risk for Readmission Patient is At Risk For Readmission Patient is eligible for Call Back Y Past Medical History (Last Reviewed 08/10/17 @ 08:34 by Nicolette Parham, HUMAN RESOURCES OFFICER-C) Hilar mass (Acute) COPD (chronic obstructive pulmonary disease) (Chronic) Tobacco use (Chronic) Diastolic CHF (Chronic) Shortness of breath (Acute) Generalized weakness (Acute) Pneumonia (Acute) Hypoxia (Acute) COPD with acute exacerbation (Acute) Foot drop, left (Chronic) Chronic respiratory failure (Chronic) Acute and chronic respiratory failure (Acute) PVD (peripheral vascular disease) (Ruled-out) Incontinence (Acute) Pulmonary HTN (Chronic) Diastolic dysfunction (Chronic) Tricuspid regurgitation (Chronic) Decubitus ulcer of hip, stage 2 (Chronic) Decubitus ulcer of hip, stage 1 (Chronic) Influenza A (Acute) NSTEMI (non-ST elevated myocardial infarction) (Acute) Community acquired pneumonia (Acute) CAD (coronary artery disease) (Chronic) Pneumococcal bronchitis (Acute) Fecal incontinence (Acute) Past Surgical History (Last Reviewed 08/10/17 @ 08:34 by ROBERT Whitman) Cataracts, bilateral (Resolved) Maternal Family History: No pertinent history, - - No COPD Paternal Family History: No pertinent history, - - No COPD - Social History Smoking Status: Former smoker Allergies/Adverse Reactions: Allergy/AdvReac Type Severity Reaction Status Date / Time No Known Allergies Allergy Verified 10/11/17 02:20 Home Medications Medication Instructions Recorded Albuterol Inhaler 2 puff INHALATION PRN PRN 10/12/17 Atorvastatin Calcium [Lipitor] 10 mg PO QHS 10/12/17 Budesonide/Formoterol 160/4.5 2 puff INHALATION BID 10/12/17 [Symbicort 160/4.5 Mcg Inhaler (SP)] Finasteride [Proscar] 5 mg PO DAILY 10/12/17 Furosemide [Lasix] 20 mg PO QHS 10/12/17 Furosemide [Lasix] 40 mg PO BREAKFAST 10/12/17 Tamsulosin HCl [Flomax] 2 capsule PO DAILY 10/12/17 Tiotropium [place] [Spiriva 18 MCG] 2 puff INHALATION DAILY 10/12/17 Review of Systems Constitutional:: Denies: Fever, Sweats, Weight loss, Appetite change, Chills Cardiovascular:: Denies: Chest pain, Palpitations, Dyspnea on exertion, Orthopnea, PND, Shortness of breath Respiratory: Denies: Cough, Hemoptysis, Shortness of Breath, Wheezing Gastrointestinal:: Denies: Abdominal pain, Nausea, Vomiting, Diarrhea, Constipation, Hematochezia Genitourinary: Denies: Dysuria, Hematuria, 15, Flank pain Musculoskeletal:: Denies: Back pain, Myalgia, Arthralgia Skin: Denies: Rash, Skin Changes, Wounds Neurological:: Denies: Headache, Dizziness, Visual changes, Tinnitus, Hearing loss Psychiatric: Denies: Anxiety, Depression, Homicidal Ideations, Suicidal Ideations Vital Signs Height 5 ft 9 in Weight: 96.4 kg Weight in Pounds 212.5 lbs Pulse Ox 95 Temperature 97.7 F Pulse Rate 91 Respiratory Rate 16 Blood Pressure [BP] 106/72 Blood Pressure 100/64 Blood Pressure Position [BP] Semi-Fowlers Blood Pressure Position Sitting - Physical Exam General: Alert, Oriented x3, No apparent distress HEENT: Atraumatic, PERRLA, EOMI, Normocephalic Oropharynx:: - - edentulous Neck:: Supple, Trachea midline. Negative for: JVD, bilateral Cardiac:: Regular rate, Regular rhythm, Normal S1, Normal S2. Negative for: Murmur Lungs: Clear to auscultation, Excusion symmetrical. Negative for: Rhonchi, Wheezes Abdomen:: Bowel sounds x 4, Soft, Non-tender, Non-distended. Negative for: Hepatosplenomegaly Extremities:: Negative for: Cyanosis, Edema Neurological: Neuro grossly intact Skin:: Negative for: Lesions, Rash, Petechiae, Ecchymosis Psychiatric:: Appropriate affect, Euthymic Lymphatics:: Negative for: Cervical lymphadenopathy, Supraclavicular lymphadenopathy, Axillary lymphadenopathy Laboratory Data: Microbiology 10/11/17 07:10 Urine Culture - Final Urine, Clean Catch Culture exhibits no growth. Laboratory Tests 10/14/17 10/13/17 10/13/17 Range/Units 12:15 20:45 08:45 WBC 11.2 H (4.4-11.0) K/mm3 RBC 3.36 L (4.6-6.2) M/mm3 Hgb 9.6 L 8.6 L (13.0-16.5) g/dl Hct 32.3 L 28.3 L (40-54) % MCV 96.1 H (80-94) fL MCH 28.6 (27.0-32.0) pg MCHC 29.7 L (32-36) g/gl RDW 15.3 H (11.6-14.6) % RDW Differential 52.8 H (35.1-43.9) fl Plt Count 389 (150-450) K/mm3 MPV 9.7 (6.2-12.0) fl Carcinoembryonic Ag 25.6 H (0.0-4.7) ng/mL Diagnostic Data: Diagnostic Data Chest CT 10/11/17 06:53 IMPRESSION: Right lower lobe mass inferior to the right hilum measures 4 x 2.9 cm 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 Multiple metastatic lesions in both lungs largest measures 2.2 cm is in the right lung upper lobe. Metastatic lesion in the left eighth rib. Metastatic mediastinal lymphadenopathy. Electronically Signed: Gutierrez Curry MD at 9:23 EDT Tel , Service support , ADDENDUM: 10/11/[address] 10/12/17 06:24 IMPRESSION: Successful CT-guided core biopsy of lung mass. 5% pneumothorax is noted at the end of the procedure on the right side. Electronically Signed: Gutierrez Curry MD at 15:15 EDT Tel , Service support , Abdomen/Pelvis CT 10/13/17 08:23 IMPRESSION: 1. Large right pneumothorax. This appears increased from the previous day's plain film. 2. Multiple pulmonary masses. 3. Diffuse hepatic metastases. 4. Question right adrenal metastasis. 5. Left renal cysts. 6. Sigmoid diverticulosis. 7. Degenerative changes of the lumbar spine and hips. N.B. : The above information has been verbally conveyed by Jaquan Martinez DO to Dr Rashid, Covering Physician, on 10/13/2017 11:31:10 (ET). Electronically Signed: Jaquan Martinez DO at 11:08 EDT Tel [phone], Service support , N.B. : The above information has been verbally conveyed by Jaquan Martinez DO to Dr Rashid, Covering Physician, on 10/13/2017 11:31:10 (ET). Abscess Drainage 10/13/17 09:51 IMPRESSION: Successful right chest tube placement under CT guidance. Electronically Signed: Gutierrez Curry MD at 11:25 EDT Tel , Service support , Chest X-Ray 10/14/17 05:44 IMPRESSION: Resolved pneumothorax. Chest tube in good position. Electronically Signed: Gutierrez Curry MD at 10:24 EDT Tel , Service support , Pathology Data: 10/12/2017 CT guided R lung biopsy report reviewed, shows NSCLC favor squamous cell lung cancer. Assessment and Plan NSCLC squamous cell type, stage IV(T2 N3 M1) dominant mass R lower lobe, mediastinal nodes, bilateral lung nodules, liver masses, Right adrenal mass. Asymptomatic. Developed Pneumothorax after CT guided bx requiring a chest tube. Discussed disease status with pt, needs PET/CT, MRI brain to complete staging work up then decide on therapy. Suggestion is to continue pneumothorax mgmt. Obtain MRI brain to rule out brain metastases. Will obtain PET/CT as outpatient. If stable and discharged, he should follow up in [facility] for further mgmt. Thank you very much. Medications: Prescriptions This Visit Medication Instructions Recorded Albuterol Inhaler 2 puff INHALATION PRN PRN 10/12/17 Atorvastatin Calcium [Lipitor] 10 mg PO QHS 10/12/17 Budesonide/Formoterol 160/4.5 2 puff INHALATION BID 10/12/17 [Symbicort 160/4.5 Mcg Inhaler (SP)] Finasteride [Proscar] 5 mg PO DAILY 10/12/17 Furosemide [Lasix] 20 mg PO QHS 10/12/17 Furosemide [Lasix] 40 mg PO BREAKFAST 10/12/17 Tamsulosin HCl [Flomax] 2 capsule PO DAILY 10/12/17 Tiotropium [place] [Spiriva 18 MCG] 2 puff INHALATION DAILY 10/12/17 Primary Care Provider: Donte Lea DO Referring Provider: - Problem List (1) Non-small cell carcinoma of right lung, stage 4 Status: Chronic Code Visit Office Visits / Consults: [id number] IP Consult L5
--- NOTE | 2017-10-14 16:48 | CON.PCM_ITS ---
Consult Referring Physician: Dr. Tammy Rashid. Consult Results: NSCLC Subjective Date of Service:: 10/14/17 Chief Complaint: SOB and lung cancer. History of Present Illness: 72-year-old male who presented with progressive shortness of breath. Imaging in the emergency room showed possible pneumonia and multiple bilateral pulmonary masses. He was admitted to the ICU for about 24 hours and transferred to the floor. He underwent CT guided biopsy of the pulmonary mass and developed a small right pneumothorax, imaging the next day showed expansion of the PTX> 30% requiring a chest tube placement. The patient remains clinically stable at this time. He also had an episode of rectal bleed yesterday hemoglobin remains stable. He feels better now with chest tube in place. Past Medical History: Chronic Problems (Last Reviewed 08/10/17 @ 08:34 by ROBERT Whitman) Non-small cell carcinoma of right lung, stage 4 (Chronic) COPD (chronic obstructive pulmonary disease) (Chronic) 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 Diastolic CHF (Chronic) Foot drop, left (Chronic) Chronic respiratory failure (Chronic) with hypoxemima and hypercarbia Pulmonary HTN (Chronic) severe Diastolic dysfunction (Chronic) stage 1 Tricuspid regurgitation (Chronic) mild - moderate Decubitus ulcer of hip, stage 2 (Chronic) Decubitus ulcer of hip, stage 1 (Chronic) CAD (coronary artery disease) (Chronic) minimal and nnon-obstructive on cath 08/09/16 Past Medical/Surgical History: Past Medical History - Most Recent Inpatient Visit Past Medical History Start: 10/11/17 02: 07 Text: Status: Complete Freq: ONCE Protocol: Document 10/11/17 02:07 AW (Rec: 10/11/17 02:18 AW [id number]) BMI Required to complete PMH What is Patient's BMI 30.4 Neurologic Medical History Hx Stroke/TIA Yes Hx Dementia/Alzheimer's No Hx Parkinson's Disease No Hx Seizures No Hx Multiple Sclerosis No Hx Migraines No Cardiac Medical History VTE Present on Admission No Hx of Deep Vein Thrombosis/VTE/PE No Hx Hypertension No Hx Chest Pain/Angina Yes Hx Heart Attack Yes Hx Cardiac Surgery/Stents/Etc. Yes: X1 Hx Heart Failure Yes Hx Pacemaker/AICD No Hx Irregular Heartbeat and/or Afib No Hx Anticoagulant Therapy No Query Text:(Coumadin, Aspirin, Plavix, Xarelto, etc.) Hx Pain in Legs when Walking/Leg Cramps No Respiratory Medical History Hx COPD Yes: SUPPOSED TO BE ON HOME O2 Hx Emphysema Yes Hx Smoking Yes Smoking Status Former smoker Hx Smoking Cessation Counseling Yes Hx Smoking Exposure Yes Hx Tobacco Use in last 12 months No Hx of Pipe Smoking No Hx Sleep Apnea Yes CPAP No BIPAP No STOP Results Positive GI Medical History Hx Ulcer No Hx Hepatitis No Hx Cirrhosis No Hx GI Bleed No Hx Unplanned Weight Loss No Genitourinary Medical History Indwelling Catheter in Place on Arrival/ No Admission Hx Renal Disease No Hx Dialysis No Musculoskeletal History Hx Arthritis Yes: BACK Hx Rheumatoid Arthritis No Endocrine Medical History Hx Diabetes No Hx Thyroid Disease No Hematologic Medical History Hx of Blood Transfusion No Hx of Transfusion in last 3 Months No Ever experience any problems with No transfusion(s)? Hx of Preganancy in last 3 Months N/A Nurse Filling Out Transfusion & AWIERZBIC Questions: Date: 10/11/17 Time: 02:18 Psycho/Social Medical History Hx Depression No Hx Anxiety No Hx Behavior Disorder No Hx Alcohol Use No Hx Substance Use No Other Medical History Hx Blood Disorders No Hx Anemia No Hx Cancer No Hx Drug Resistant Organism No Wound/Pressure Injury Present on Arrival Yes /Admission Query Text:If yes, chart assessment in Shift/Clinical Findings Central Line/PICC/VAD Present on Arrival No /Admission Antibiotics within last 7 days? No Methicillin Resistant Staphylococcus aureus Screening Active MRSA No Risk for Readmission Number of Risk Factors 3 At Risk for Readmission Patient is At Risk For Readmission Patient is eligible for Call Back Y Past Medical History (Last Reviewed 08/10/17 @ 08:34 by Nicolette Parham, HISTORIC SITES SUPERVISOR-C) Hilar mass (Acute) COPD (chronic obstructive pulmonary disease) (Chronic) Tobacco use (Chronic) Diastolic CHF (Chronic) Shortness of breath (Acute) Generalized weakness (Acute) Pneumonia (Acute) Hypoxia (Acute) COPD with acute exacerbation (Acute) Foot drop, left (Chronic) Chronic respiratory failure (Chronic) Acute and chronic respiratory failure (Acute) PVD (peripheral vascular disease) (Ruled-out) Incontinence (Acute) Pulmonary HTN (Chronic) Diastolic dysfunction (Chronic) Tricuspid regurgitation (Chronic) Decubitus ulcer of hip, stage 2 (Chronic) Decubitus ulcer of hip, stage 1 (Chronic) Influenza A (Acute) NSTEMI (non-ST elevated myocardial infarction) (Acute) Community acquired pneumonia (Acute) CAD (coronary artery disease) (Chronic) Pneumococcal bronchitis (Acute) Fecal incontinence (Acute) Past Surgical History (Last Reviewed 08/10/17 @ 08:34 by ROBERT Whitman) Cataracts, bilateral (Resolved) Maternal Family History: No pertinent history, - - No COPD Paternal Family History: No pertinent history, - - No COPD - Social History Smoking Status: Former smoker Allergies/Adverse Reactions: Allergy/AdvReac Type Severity Reaction Status Date / Time No Known Allergies Allergy Verified 10/11/17 02:20 Home Medications Medication Instructions Recorded Albuterol Inhaler 2 puff INHALATION PRN PRN 10/12/17 Atorvastatin Calcium [Lipitor] 10 mg PO QHS 10/12/17 Budesonide/Formoterol 160/4.5 2 puff INHALATION BID 10/12/17 [Symbicort 160/4.5 Mcg Inhaler (SP)] Finasteride [Proscar] 5 mg PO DAILY 10/12/17 Furosemide [Lasix] 20 mg PO QHS 10/12/17 Furosemide [Lasix] 40 mg PO BREAKFAST 10/12/17 Tamsulosin HCl [Flomax] 2 capsule PO DAILY 10/12/17 Tiotropium [place] [Spiriva 18 MCG] 2 puff INHALATION DAILY 10/12/17 Review of Systems Constitutional:: Denies: Fever, Sweats, Weight loss, Appetite change, Chills Cardiovascular:: Denies: Chest pain, Palpitations, Dyspnea on exertion, Orthopnea, PND, Shortness of breath Respiratory: Denies: Cough, Hemoptysis, Shortness of Breath, Wheezing Gastrointestinal:: Denies: Abdominal pain, Nausea, Vomiting, Diarrhea, Constipation, Hematochezia Genitourinary: Denies: Dysuria, Hematuria, 15, Flank pain Musculoskeletal:: Denies: Back pain, Myalgia, Arthralgia Skin: Denies: Rash, Skin Changes, Wounds Neurological:: Denies: Headache, Dizziness, Visual changes, Tinnitus, Hearing loss Psychiatric: Denies: Anxiety, Depression, Homicidal Ideations, Suicidal Ideations Vital Signs Height 5 ft 9 in Weight: 96.4 kg Weight in Pounds 212.5 lbs Pulse Ox 95 Temperature 97.7 F Pulse Rate 91 Respiratory Rate 16 Blood Pressure [BP] 106/72 Blood Pressure 100/64 Blood Pressure Position [BP] Semi-Fowlers Blood Pressure Position Sitting - Physical Exam General: Alert, Oriented x3, No apparent distress HEENT: Atraumatic, PERRLA, EOMI, Normocephalic Oropharynx:: - - edentulous Neck:: Supple, Trachea midline. Negative for: JVD, bilateral Cardiac:: Regular rate, Regular rhythm, Normal S1, Normal S2. Negative for: Murmur Lungs: Clear to auscultation, Excusion symmetrical. Negative for: Rhonchi, Wheezes Abdomen:: Bowel sounds x 4, Soft, Non-tender, Non-distended. Negative for: Hepatosplenomegaly Extremities:: Negative for: Cyanosis, Edema Neurological: Neuro grossly intact Skin:: Negative for: Lesions, Rash, Petechiae, Ecchymosis Psychiatric:: Appropriate affect, Euthymic Lymphatics:: Negative for: Cervical lymphadenopathy, Supraclavicular lymphadenopathy, Axillary lymphadenopathy Laboratory Data: Microbiology 10/11/17 07:10 Urine Culture - Final Urine, Clean Catch Culture exhibits no growth. Laboratory Tests 3 10/14/17 10/13/17 10/13/17 Range/Units 12:15 20:45 08:45 WBC 11.2 H (4.4-11.0) K/mm3 RBC 3.36 L (4.6-6.2) M/mm3 Hgb 9.6 L 8.6 L (13.0-16.5) g/dl Hct 32.3 L 28.3 L (40-54) % MCV 96.1 H (80-94) fL MCH 28.6 (27.0-32.0) pg MCHC 29.7 L (32-36) g/gl RDW 15.3 H (11.6-14.6) % RDW Differential 52.8 H (35.1-43.9) fl Plt Count 389 (150-450) K/mm3 MPV 9.7 (6.2-12.0) fl Carcinoembryonic Ag 25.6 H (0.0-4.7) ng/mL Diagnostic Data: Diagnostic Data Chest CT 10/11/17 06:53 IMPRESSION: Right lower lobe mass inferior to the right hilum measures 4 x 2.9 cm 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 Multiple metastatic lesions in both lungs largest measures 2.2 cm is in the right lung upper lobe. Metastatic lesion in the left eighth rib. Metastatic mediastinal lymphadenopathy. Electronically Signed: Gutierrez Curry MD at 9:23 EDT Tel , Service support , ADDENDUM: 10/11/[address] 10/12/17 06:24 IMPRESSION: Successful CT-guided core biopsy of lung mass. 5% pneumothorax is noted at the end of the procedure on the right side. Electronically Signed: Gutierrze Curry MD at 15:15 EDT Tel , Service support , Abdomen/Pelvis CT 10/13/17 08:23 IMPRESSION: 1. Large right pneumothorax. This appears increased from the previous day's plain film. 2. Multiple pulmonary masses. 3. Diffuse hepatic metastases. 4. Question right adrenal metastasis. 5. Left renal cysts. 6. Sigmoid diverticulosis. 7. Degenerative changes of the lumbar spine and hips. N.B. : The above information has been verbally conveyed by Jaquan Martinez DO to Dr Rashid, Covering Physician, on 10/13/2017 11:31:10 (ET). Electronically Signed: Jaquan Martinez DO at 11:08 EDT Tel [phone], Service support , N.B. : The above information has been verbally conveyed by Jaquan Martinez DO to Dr Rashid, Covering Physician, on 10/13/2017 11:31:10 (ET). Abscess Drainage 10/13/17 09:51 IMPRESSION: Successful right chest tube placement under CT guidance. Electronically Signed: Gutierrez Curry MD at 11:25 EDT Tel , Service support , Chest X-Ray 10/14/17 05:44 IMPRESSION: Resolved pneumothorax. Chest tube in good position. Electronically Signed: Gutierrez Curry MD at 10:24 EDT Tel , Service support , Pathology Data: 10/12/2017 CT guided R lung biopsy report reviewed, shows NSCLC favor squamous cell lung cancer. Assessment and Plan NSCLC squamous cell type, stage IV(T2 N3 M1) dominant mass R lower lobe, mediastinal nodes, bilateral lung nodules, liver masses, Right adrenal mass. Asymptomatic. Developed Pneumothorax after CT guided bx requiring a chest tube. Discussed disease status with pt, needs PET/CT, MRI brain to complete staging work up then decide on therapy. Suggestion is to continue pneumothorax mgmt. Obtain MRI brain to rule out brain metastases. Will obtain PET/CT as outpatient. If stable and discharged, he should follow up in [facility] for further mgmt. Thank you very much. Medications: Prescriptions This Visit Medication Instructions Recorded Albuterol Inhaler 2 puff INHALATION PRN PRN 10/12/17 Atorvastatin Calcium [Lipitor] 10 mg PO QHS 10/12/17 Budesonide/Formoterol 160/4.5 2 puff INHALATION BID 10/12/17 [Symbicort 160/4.5 Mcg Inhaler (SP)] Finasteride [Proscar] 5 mg PO DAILY 10/12/17 Furosemide [Lasix] 20 mg PO QHS 10/12/17 Furosemide [Lasix] 40 mg PO BREAKFAST 10/12/17 Tamsulosin HCl [Flomax] 2 capsule PO DAILY 10/12/17 Tiotropium [place] [Spiriva 18 MCG] 2 puff INHALATION DAILY 10/12/17 Primary Care Provider: Donte Lea DO Referring Provider: - Problem List (1) Non-small cell carcinoma of right lung, stage 4 Status: Chronic Code Visit Office Visits / Consults: [id number] IP Consult L5
--- NOTE | 2017-10-14 16:50 | MRI_ITS ---
STUDY: MRI BRAIN WITH AND WITHOUT CONTRAST REASON FOR EXAM: Male, 72 years old. Lung cancer TECHNIQUE: Standardized multiplanar fat and water weighted pulse sequences were obtained. 10 ml of Gadavist contrast material was administered intravenously for the contrast portion of the examination. COMPARISON: None. FINDINGS: Atrophy and periventricular white matter ischemic changes without mass effect or restricted diffusion. There is a thick-walled rim-enhancing multiloculated mass in the right cerebellar hemisphere demonstrating hemorrhage measuring 2.2 x 2 x 2.5 cm with associated edema consistent with metastatic disease. There is a smaller homogeneously enhancing nodule in left cerebellar hemisphere measuring 4.5 mm. There are multiple rim-enhancing and homogeneously enhancing nodules in the right parietal lobe and tiny homogeneously enhancing nodules in the left frontal parietal region. There is enhancing lesion in splenium of corpus callosum on the right . There are lesions within the posterior thalamus bilaterally demonstrating both methemoglobin and hemosiderin consistent with hemorrhage. There are similar findings seen within the basal ganglia bilaterally. There is no extra-axial fluid accumulation. Normal flow voids within the major intracranial circulation suggesting patency by spin echo criteria. Normal venous enhancement. Normal sella turcica, pituitary gland, infundibular stalk, optic chiasm and hypothalamus. Normal tectal plate and pineal gland. Normal midbrain, amy and medulla. . Normal basal cisterns. Normal bilateral temporal bones. Normal bilateral internal auditory canals. There are postsurgical changes of the orbits.. Normal visualized paranasal sinuses. Normal calvarium and skull base. Normal visualized soft tissue structures. Normal visualized upper cervical spine. MRI/Brain W/WO Contrast IMPRESSION: Multiple bilateral supratentorial and bilateral cerebellar enhancing lesions consistent with metastatic disease. There is hemorrhage within the right cerebellar lesion.. Also noted are lesions within the basal ganglia and posterior thalamic nuclei bilaterally demonstrating signal intensity suggesting foci of hemorrhage. Would recommend CT for further assessment Electronically Signed: Abel Temple MD at 20:20 EDT , Service support ,
--- NOTE | 2017-10-14 21:30 | NURSING ---
buckle wire inserter made aware of MRI results and notification of doctor
[2017-10-14] MEDS: 0.9% NaCl Peripheral Flush Adult/Peds IV ×3 (22:06→22:52)
--- NOTE | 2017-10-14 23:24 | NURSING ---
Dr. Gong came to see pt earlier and pt has been informed of his mri results. Pt has chosen to pursue further treatment at a tertiary care center. [facility] has accepted the pt for transfer. auditor internal aware. [facility] will call when bed is available if [facility] call the number is [phone]. Pt declined having his family called by . pt states to wait until morning. auditor internal sent message to to confirm if pt to remain on ms3 while waiting on [facility] bed. Pt resting quietly in bed denies needs.
--- NOTE | 2017-10-15 01:47 | PCM.PN.BLA ---
Progress Note Last night, the nurse called because the MRI resulted in revealed multiple bilateral supratentorial and bilateral cerebellar enhancing lesions consistent with metastatic disease with a right cerebellar hemorrhage as well as small foci of hemorrhage in the basal ganglia and posterior thalamic nuclei bilaterally. 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 Oncology consulted and recommended MRI brain and CT scan of the abdomen and pelvis for staging. CT scan abdomen and pelvis revealed diffuse hepatic metastasis with questionable metastasis to the right and the. MRI brain revealed findings mentioned above. I spoke with the patient on multiple occasions last night about this new findings of the right cerebellar hemorrhage and brain metastasis. I explained to the patient that he has acute bleeding in his brain and because of his new diagnosis of metastatic lung cancer, his prognosis is not that great. I informed the patient that if he wants to proceed for treatment of this cerebellar bleeding, we need to transfer him to a tertiary care center. He agreed to this. I explained to him again that the risk for any type of brain surgery is high and in his case, it is higher and all over prognosis is not favorable because of the new diagnosis of metastatic lung cancer. I called [facility] and requested transfer for evaluation by neurosurgery for right cerebellar hemorrhage. MRI report faxed to [facility] and reportedly by the transfer team at the [facility], stated that the patient is not a candidate for such brain surgery because of his new diagnosis of metastatic lung cancer and poor all over prognosis. I went back and I spoke with the patient again and I tried to explain to him the situation and all over the prognosis of his condition at this time and I offered him to try to transfer him to another hospital and he agreed. Again, I informed the patient that [facility] neurosurgery recommended that this type of surgery would be risky for him. I stressed out to the patient that if he has any questions or if anything is not clear to him so I can clarify that to him and he mentioned that he do understand what is going on and what is the situation at this time. 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
--- NOTE | 2017-10-15 01:55 | PN_ITS ---
Progress Note Last night, the nurse called because the MRI resulted in revealed multiple bilateral supratentorial and bilateral cerebellar enhancing lesions consistent with metastatic disease with a right cerebellar hemorrhage as well as small foci of hemorrhage in the basal ganglia and posterior thalamic nuclei bilaterally. 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 Oncology consulted and recommended MRI brain and CT scan of the abdomen and pelvis for staging. CT scan abdomen and pelvis revealed diffuse hepatic metastasis with questionable metastasis to the right and the. MRI brain revealed findings mentioned above. I spoke with the patient on multiple occasions last night about this new findings of the right cerebellar hemorrhage and brain metastasis. I explained to the patient that he has acute bleeding in his brain and because of his new diagnosis of metastatic lung cancer , his prognosis is not that great. I informed the patient that if he wants to proceed for treatment of this cerebellar bleeding, we need to transfer him to a tertiary care center. He agreed to this. I explained to him again that the risk for any type of brain surgery is high and in his case, it is higher and all over prognosis is not favorable because of the new diagnosis of metastatic lung cancer. I called [facility] and requested transfer for evaluation by neurosurgery for right cerebellar hemorrhage. MRI report faxed to [facility] and reportedly by the transfer team at the [facility], stated that the patient is not a candidate for such brain surgery because of his new diagnosis of metastatic lung cancer and poor all over prognosis. I went back and I spoke with the patient again and I tried to explain to him the situation and all over the prognosis of his condition at this time and I offered him to try to transfer him to another hospital and he agreed. Again, I informed the patient that [facility] neurosurgery recommended that this type of surgery would be risky for him. I stressed out to the patient that if he has any questions or if anything is not clear to him so I can clarify that to him and he mentioned that he do understand what is going on and what is the situation at this time. 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
--- NOTE | 2017-10-15 03:24 | NURSING ---
SONI FROM [facility]ED [facility]NA[facility] CALLED STATES A BED MAY BE AVAILABLE IN THE AM FOR PT & TO CALL IF PT HAS ANY CHANGES. SHANK BREAKER AWARE
[2017-10-15 04:13] VITALS: BP 97/62; PULSE 84; RESP 16; TEMP 36.6; O2SAT 98
--- NOTE | 2017-10-15 06:13 | NURSING ---
KATELYNN FROM TRANSFER CENTER AT [facility] CALLED TO UPDATE ON BED STATUS, NO BED AT THIS TIME BUT POSSIBLY LATER THIS AM. IF CONDITION CHANGES CALL [facility] [phone]. RIBBON SWEATBAND OPERATOR AWARE.
[2017-10-15 06:39] VITALS: PULSE 91; RESP 18; O2SAT 98
[2017-10-15] MEDS: Ipratropium/Albuterol Sulfate 3 ML AMPUL.NEB INHALATION ×2 (06:39→12:46)
--- NOTE | 2017-10-15 07:20 | NURSING ---
PT ASKED THIS RN TO SPEAK WITH HIS EXWIFE REGARDING HIS TRANSFER TO [facility]. PT GAVE PERMISSION FOR EXWIFE TO HAVE MEDICAL INFORMATION. EXPLAINED TO HER WHAT THE DR HAD GONE OVER WITH PT REGARDING HIS MRI FINDINGS & THAT PT IS WAITING ON BED FOR [facility]. EX IS COMING TO SEE PT.
--- NOTE | 2017-10-15 07:48 | NURSING ---
Pt provided number fro son Irving, - stated that he spoken with him regarding his current medical condition, pt stated that his son had some further questions he was unable to answer and asked if nursing could call and update. Pt also stated it was ok to give his medical informations to Irving's Nancy, Both parties notified
[2017-10-15 08:07] LABS: Absolute Neutrophil Count 7.3 X10^3/uL (2.0-7.7); Hematocrit 30.8 % (40-54); Hemoglobin 9.2 g/dl (13.0-16.5); Lymphocyte % 7.3 % (19-41); Mean Corp Hgb Conc 29.9 g/gl (32-36); Mean Corpuscular Volume 97.2 fL (80-94); Mean Platelet Vol. 10.2 fl (6.2-12.0); Monocyte# 0.31 X10^3/uL; Monocyte% 3.8 % (0-10); Neutrophil # 7.32 X10^3/uL (2.7-7.7); Neutrophil % 88.8 % (47-70); Platelet Count 404 K/mm3 (150-450); RBC Distribution Width SD 50.4 fl (35.1-43.9); Red Blood Count 3.17 M/mm3 (4.6-6.2); White Blood Count 8.2 K/mm3 (4.4-11.0)
[2017-10-15 08:08] LABS: POSITIVE COUNT NO; POSITIVE DIFFERENTIAL YES; POSITIVE MORPHOLOGY NO
[2017-10-15 08:09] LABS: Differential Indicated SCAN CRITERIA MET
[2017-10-15 09:23] VITALS: BP 95/58; PULSE 89; RESP 18; TEMP 37; O2SAT 98
--- NOTE | 2017-10-15 09:30 | PCM.PN.HOSP ---
Patient Problems: Active and Suspected Problems (Last Updated 10/14/17 @ 22:27 by Mal Gong MD) HCAP (healthcare-associated pneumonia) (Acute) Subjective: Patient is a 72-year-old male who was admitted with a complaint of shortness of breath. CT scan done in the ED showed possible pneumonia and multiple pulmonary masses and subsequent CT-guided biopsy of the pulmonary mass showed non-small cell lung cancer. CT-guided biopsy of the pulmonary mass was completed by a small pneumothorax which subsequently enlarged to about 30% and he had a chest tube placement for this. Oncology was consulted and MRI of the brain showed multiple metastasis. CT of the abdomen also showed metastasis to the liver. He has had a one one episode of small rectal bleeding but has remained stable. Patient was transferred to [facility] for further workup and management. We are awaiting a bed Pateint seen and examined this morning. He feels very well and has no complaints whatsoever. He expresses surprise that he has been told he has cancer with metastasis because he feels very well. He denies any shortness of breath, any fever or chills, any abdominal pain, any diarrhea vomiting. Review of systems otherwise negative. Vitals/I&O's: Vital Signs Temp Pulse Resp BP Pulse Ox 98.6 F 89 18 95/58 L 98 10/15/17 09:23 10/15/17 09:23 10/15/17 09:23 10/15/17 09:23 10/15/17 09:23 Oxygen Flow Rate (L/min) 2 Oxygen Delivery Method Nasal Cannula Weight: 212 lb 8.41 oz Body Mass Index (BMI) 30.4 Intake and Output for Last 24 Hours 10/13/17 10/14/17 10/15/17 23:59 23:59 23:59 Intake Total 1130 / 1130 2156 / 2156 454 / 454 Output Total 1200 / 1200 1800 / 1800 1050 / 1050 Balance -70 / -70 356 / 356 -596 / -596 General: Alert, Oriented x3, Cooperative, No apparent distress HEENT: Atraumatic, PERRLA, EOMI, Normocephalic Oral: Moist Mucosa Neck: Supple, No JVD, Negative Carotid Bruits, - Lungs: - - Has bilateral rhonchi in all lung li. No crackles or wheezing auscultated. Cardiovascular: Regular rate, Regular Rhythm, Normal S1, Normal S2, No murmurs Abdomen: Bowel Sounds Present, Soft, Non Tender, Non-Distended, No Hepato-splenomegaly Extremities: No clubbing, No cyanosis, No edema, Capillary Refill Less than 3 Seconds Skin: No rashes, No breakdown Musculoskeletal: No Tenderness to Palpation of Joints or Extremities Lymphatic: No Cervical, Supraclavicular, or Inguinal Adenopathy Neurological: Cranial nerves II-XII grossly intact, Motor Exam 5/5 strength throughout Psych/Mental Status: Normal Affect, Appropriate, Alert and oriented to time, place, person, mood and affect Microbiology Past 72 Hours 10/13/17 11:30 Blood Culture (Wb) - Anticubital Right Blood Culture - Preliminary No growth in 48 hours. 10/13/17 11:20 Blood Culture (Wb) - Anticubital Left Blood Culture - Preliminary No growth in 48 hours. 10/11/17 07:10 Urine, Clean Catch Urine Culture - Final Culture exhibits no growth. Laboratory Results 10/13/17 08:45: Carcinoembryonic Ag 25.6 H 10/14/17 12:15: WBC 11.2 H, RBC 3.36 L, Hgb 9.6 L, Hct 32.3 L, MCV 96.1 H, MCH 28.6, MCHC 29.7 L, RDW 15.3 H, RDW Differential 52.8 H, Plt Count 389, MPV 9.7 10/15/17 07:06: Sodium Pending, Potassium Pending, Chloride Pending, Carbon Dioxide Pending, Anion Gap Pending, BUN Pending, Creatinine Pending, Est GFR (MDRD) Af Amer Pending, Est GFR (MDRD) Non-Af Pending, BUN/Creatinine Ratio Pending, Glucose Pending, Calcium Pending 10/15/17 07:26: WBC 8.2, RBC 3.17 L, Hgb 9.2 L, Hct 30.8 L, MCV 97.2 H, MCH 29.0, MCHC 29.9 L, RDW 15.0 H, RDW Differential 50.4 H, Plt Count 404, MPV 10.2, Immature Gran % (Auto) 0.100, Neut % (Auto) 88.8 H, Lymph % (Auto) 7.3 L, King % (Auto) 3.8, Eos % (Auto) 0.0, Baso % (Auto) 0.0, Absolute Neuts (auto) 7.3, Absolute Lymphs (auto) 0.60 L, Total Counted Not Reportable Diagnostic Data Chest CT 10/11/17 06:53 IMPRESSION: Right lower lobe mass inferior to the right hilum measures 4 x 2.9 cm 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 Multiple metastatic lesions in both lungs largest measures 2.2 cm is in the right lung upper lobe. Metastatic lesion in the left eighth rib. Metastatic mediastinal lymphadenopathy. Electronically Signed: Gutierrez Curry MD at 9:23 EDT Tel , Service support , ADDENDUM: 10/11/[address] 10/12/17 06:24 IMPRESSION: Successful CT-guided core biopsy of lung mass. 5% pneumothorax is noted at the end of the procedure on the right side. Electronically Signed: Gutierrez Curry MD at 15:15 EDT Tel , Service support , Abdomen/Pelvis CT 10/13/17 08:23 IMPRESSION: 1. Large right pneumothorax. This appears increased from the previous day's plain film. 2. Multiple pulmonary masses. 3. Diffuse hepatic metastases. 4. Question right adrenal metastasis. 5. Left renal cysts. 6. Sigmoid diverticulosis. 7. Degenerative changes of the lumbar spine and hips. N.B. : The above information has been verbally conveyed by Jaquan Martinez DO to Dr Rashid, Covering Physician, on 10/13/2017 11:31:10 (ET). Electronically Signed: Jaquan Martinez DO at 11:08 EDT Tel [phone], Service support , N.B. : The above information has been verbally conveyed by Jaquan Martinez DO to Dr Rashid, Covering Physician, on 10/13/2017 11:31:10 (ET). Abscess Drainage 10/13/17 09:51 IMPRESSION: Successful right chest tube placement under CT guidance. Electronically Signed: Gutierrez Curry MD at 11:25 EDT Tel , Service support , Chest X-Ray 10/14/17 05:44 IMPRESSION: Resolved pneumothorax. Chest tube in good position. Electronically Signed: Gutierrez Curry MD at 10:24 EDT Tel , Service support , Brain MRI 10/14/17 16:50 IMPRESSION: Multiple bilateral supratentorial and bilateral cerebellar enhancing lesions consistent with metastatic disease. There is hemorrhage within the right cerebellar lesion.. Also noted are lesions within the basal ganglia and posterior thalamic nuclei bilaterally demonstrating signal intensity suggesting foci of hemorrhage. Would recommend CT for further assessment Electronically Signed: Abel Temple MD at 20:20 EDT , Service support , Current Medications Acetaminophen (Tylenol) 650 mg PO Q6H PRN PRN PRN Reason: PAIN Last Admin: 10/14/17 16:24 Dose: 650 mg Albuterol/Ipratropium (Duoneb) 3 ml INHALATION Q6H.RT GIGI Last Admin: 10/15/17 06:39 Dose: 3 ml Dexamethasone Sodium Phosphate (Decadron) 4 mg IV Q6 GIGI Last Admin: 10/15/17 05:59 Dose: 4 mg Sodium Chloride () 250 mls @ 15 mls/hr IV .[id number] PRN PRN Reason: SALINE FLUSH Last Admin: 10/12/17 13:44 Dose: 15 mls/hr Cefepime HCl 2 gm/ Sodium (Chloride) 100 mls @ 200 mls/hr IV Q12 GIGI Last Admin: 10/14/17 22:33 Dose: 200 mls/hr Pantoprazole Sodium 40 mg/ (Sodium Chloride) 110 mls @ 330 mls/hr IV Q12 GIGI Last Admin: 10/14/17 22:06 Dose: 330 mls/hr Magnesium Hydroxide (Milk Of Magnesia) 30 ml PO DAILY PRN PRN PRN Reason: Constipation Sodium Chloride () 5 - 30 ml IV UD PRN PRN Reason: SALINE FLUSH Last Admin: 10/14/17 22:52 Dose: 10 ml Medical Necessity - Tobacco Use Smoking Status: Former smoker Assessment/Plan Active and Suspected Problems (Last Updated 10/14/17 @ 22:27 by Mal Gong MD) HCAP (healthcare-associated pneumonia) (Acute) 72-year-old male who presented with complaint of shortness of breath. He has been newly diagnosed with non-small cell lung cancer after CT of the chest picked up multiple pulmonary nodules and subsequent CT-guided biopsy of the nodules revealed non-small cell lung cancer. Biopsy was complicated by small pneumothorax for which she had a right chest tube placed. 1. Newly diagnosed lung cancer (NSCLC- squamous type) with metastases to liver and brain Has metastatic disease with CT of the abdomen showing evidence of liver metastasis and right adrenal mass and brain MRI also shows supratentorial and cerebellar lesions suspicious for brain metastasis. Kirti Lozano lesions also had a small hemorrhage. Patient was counseled about possible hospice after [facility] refused to accept him as transfer. However patient wants to be transferred to [facility] for further management. [facility] contacted and are willing to accept patient. Currently awaiting bed. started on IV decadrone. WIll continue 2. Health associated pneumonia No shortness of breath. Chest CT showed evidence of bilateral pneumonia as well as the lung mass as described above. Currently stable. Continue current antibiotics. 3. Iatrogenic pneumothorax as a complication of CT-guided lung biopsy Stable. Has right chest tube in place. Pulmonary following. Chest x-ray done on 10/14/2017 showed he had largely resolved. 4. Acute COPD exacerbation: Stable. On bronchodilators and steroids. Will continue. 5. Acute on chronic respiratory failure: stable. on 2L of oxygen by nasal canula. Bicarb is 36. This is likely compensatory due to possible chronic hypercapnia from COPD. Will defer ABG for now as patient is totally stable. Will continue monitoring. 6. GI bleed had one episode of rectal bleeding during admission, which hasnt recurred. Abdominal CT scan showed sigmoid diverticulosis, which may be the cause of bleed. CEA level was 25.6. No history of recent colonoscopy. may benefit from colonoscopy, but it may be futile in light of diagnosis of metastatic lung cancer Hb has remained stable at around 9; is 9.2 today 7. CAD: stable. Disposition: Awaiting transfer to [facility]. This note was generated with [employer]OK[employer] dictation software. It may contain incorrect words, spelling, and punctuation that were not noted in checking the note before signing. Code Visit Inpatient E&M: 51173 Subs Hosp L3
[2017-10-15] MEDS: Cefepime HCl 2 GM in 0.9% NS 100 ML Minibag Q12 IV (09:31)
[2017-10-15 09:38] LABS: Anion Gap 5 (5-15); BUN 20 mg/dL (7-18); BUN/Creat Ratio 38.1 RATIO (10-20); Calcium,Total 9.8 mg/dL (8.5-10.1); Chloride 100 mmol/L (98-107); Creatinine, Serum 0.52 mg/dL (0.70-1.30); EST Glomerular Filtration Rate 163 mL/min (>60); Est Glom Filt Rate - Afr Amer 198 mL/min (>60); Estimated Creatinine Clearance 65.79 ml/min; Glucose 109 mg/dL (74-106); Potassium 4.3 mmol/L (3.5-5.1); Sodium Level 140 mmol/L (136-145)
--- NOTE | 2017-10-15 09:43 | PN_ITS ---
Patient Problems: Active and Suspected Problems (Last Updated 10/14/17 @ 22:27 by Mal Gong MD) HCAP (healthcare-associated pneumonia) (Acute) Subjective: Patient is a 72-year-old male who was admitted with a complaint of shortness of breath. CT scan done in the ED showed possible pneumonia and multiple pulmonary masses and subsequent CT-guided biopsy of the pulmonary mass showed non-small cell lung cancer. CT-guided biopsy of the pulmonary mass was completed by a small pneumothorax which subsequently enlarged to about 30% and he had a chest tube placement for this. Oncology was consulted and MRI of the brain showed multiple metastasis. CT of the abdomen also showed metastasis to the liver. He has had a one one episode of small rectal bleeding but has remained stable. Patient was transferred to [facility] for further workup and management. We are awaiting a bed Pateint seen and examined this morning. He feels very well and has no complaints whatsoever. He expresses surprise that he has been told he has cancer with metastasis because he feels very well. He denies any shortness of breath, any fever or chills, any abdominal pain, any diarrhea vomiting. Review of systems otherwise negative. Vitals/I&O's: Vital Signs Temp Pulse Resp BP Pulse Ox 98.6 F 89 18 95/58 L 98 10/15/17 09:23 10/15/17 09:23 10/15/17 09:23 10/15/17 09:23 10/15/17 09:23 Oxygen Flow Rate (L/min) 2 Oxygen Delivery Method Nasal Cannula Weight: 212 lb 8.41 oz Body Mass Index (BMI) 30.4 Intake and Output for Last 24 Hours 10/13/17 10/14/17 10/15/17 23:59 23:59 23:59 Intake Total 1130 / 1130 2156 / 2156 454 / 454 Output Total 1200 / 1200 1800 / 1800 1050 / 1050 Balance -70 / -70 356 / 356 -596 / -596 General: Alert, Oriented x3, Cooperative, No apparent distress HEENT: Atraumatic, PERRLA, EOMI, Normocephalic Oral: Moist Mucosa Neck: Supple, No JVD, Negative Carotid Bruits, - Lungs: - - Has bilateral rhonchi in all lung li. No crackles or wheezing auscultated. Cardiovascular: Regular rate, Regular Rhythm, Normal S1, Normal S2, No murmurs Abdomen: Bowel Sounds Present, Soft, Non Tender, Non-Distended, No Hepato- splenomegaly Extremities: No clubbing, No cyanosis, No edema, Capillary Refill Less than 3 Seconds Skin: No rashes, No breakdown Musculoskeletal: No Tenderness to Palpation of Joints or Extremities Lymphatic: No Cervical, Supraclavicular, or Inguinal Adenopathy Neurological: Cranial nerves II-XII grossly intact, Motor Exam 5/5 strength throughout Psych/Mental Status: Normal Affect, Appropriate, Alert and oriented to time, place, person, mood and affect Microbiology Past 72 Hours 10/13/17 11:30 Blood Culture (Wb) - Anticubital Right Blood Culture - Preliminary No growth in 48 hours. 10/13/17 11:20 Blood Culture (Wb) - Anticubital Left Blood Culture - Preliminary No growth in 48 hours. 10/11/17 07:10 Urine, Clean Catch Urine Culture - Final Culture exhibits no growth. Laboratory Results 10/13/17 08:45: Carcinoembryonic Ag 25.6 H 10/14/17 12:15: WBC 11.2 H, RBC 3.36 L, Hgb 9.6 L, Hct 32.3 L, MCV 96.1 H, MCH 28.6, MCHC 29.7 L, RDW 15.3 H, RDW Differential 52.8 H, Plt Count 389, MPV 9.7 10/15/17 07:06: Sodium Pending, Potassium Pending, Chloride Pending, Carbon Dioxide Pending, Anion Gap Pending, BUN Pending, Creatinine Pending, Est GFR ( MDRD) Af Amer Pending, Est GFR (MDRD) Non-Af Pending, BUN/Creatinine Ratio Pending, Glucose Pending, Calcium Pending 10/15/17 07:26: WBC 8.2, RBC 3.17 L, Hgb 9.2 L, Hct 30.8 L, MCV 97.2 H, MCH 29.0 , MCHC 29.9 L, RDW 15.0 H, RDW Differential 50.4 H, Plt Count 404, MPV 10.2, Immature Gran % (Auto) 0.100, Neut % (Auto) 88.8 H, Lymph % (Auto) 7.3 L, [place] % (Auto) 3.8, Eos % (Auto) 0.0, Baso % (Auto) 0.0, Absolute Neuts (auto) 7.3, Absolute Lymphs (auto) 0.60 L, Total Counted Not Reportable Diagnostic Data Chest CT 10/11/17 06:53 IMPRESSION: Right lower lobe mass inferior to the right hilum measures 4 x 2.9 cm 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 Multiple metastatic lesions in both lungs largest measures 2.2 cm is in the right lung upper lobe. Metastatic lesion in the left eighth rib. Metastatic mediastinal lymphadenopathy. Electronically Signed: Gutierrez Curry MD at 9:23 EDT Tel , Service support , ADDENDUM: 10/11/[address] 10/12/17 06:24 IMPRESSION: Successful CT-guided core biopsy of lung mass. 5% pneumothorax is noted at the end of the procedure on the right side. Electronically Signed: Gutierrez Curry MD at 15:15 EDT Tel , Service support , Abdomen/Pelvis CT 10/13/17 08:23 IMPRESSION: 1. Large right pneumothorax. This appears increased from the previous day's plain film. 2. Multiple pulmonary masses. 3. Diffuse hepatic metastases. 4. Question right adrenal metastasis. 5. Left renal cysts. 6. Sigmoid diverticulosis. 7. Degenerative changes of the lumbar spine and hips. N.B. : The above information has been verbally conveyed by Jaquan Martinez DO to Dr Rashid, Covering Physician, on 10/13/2017 11:31:10 (ET). Electronically Signed: Jaquan Martinez DO at 11:08 EDT Tel [phone], Service support , N.B. : The above information has been verbally conveyed by Jaquan Martinez DO to Dr Rashid, Covering Physician, on 10/13/2017 11:31:10 (ET). Abscess Drainage 10/13/17 09:51 IMPRESSION: Successful right chest tube placement under CT guidance. Electronically Signed: Gutierrez Curry MD at 11:25 EDT Tel , Service support , Chest X-Ray 10/14/17 05:44 IMPRESSION: Resolved pneumothorax. Chest tube in good position. Electronically Signed: Gutierrez Curry MD at 10:24 EDT Tel , Service support , Brain MRI 10/14/17 16:50 IMPRESSION: Multiple bilateral supratentorial and bilateral cerebellar enhancing lesions consistent with metastatic disease. There is hemorrhage within the right cerebellar lesion.. Also noted are lesions within the basal ganglia and posterior thalamic nuclei bilaterally demonstrating signal intensity suggesting foci of hemorrhage. Would recommend CT for further assessment Electronically Signed: Abel Temple MD at 20:20 EDT , Service support , Current Medications Acetaminophen (Tylenol) 650 mg PO Q6H PRN PRN PRN Reason: PAIN Last Admin: 10/14/17 16:24 Dose: 650 mg Albuterol/Ipratropium (Duoneb) 3 ml INHALATION Q6H.RT GIGI Last Admin: 10/15/17 06:39 Dose: 3 ml Dexamethasone Sodium Phosphate (Decadron) 4 mg IV Q6 GIGI Last Admin: 10/15/17 05:59 Dose: 4 mg Sodium Chloride () 250 mls @ 15 mls/hr IV .[id number] PRN PRN Reason: SALINE FLUSH Last Admin: 10/12/17 13:44 Dose: 15 mls/hr Cefepime HCl 2 gm/ Sodium (Chloride) 100 mls @ 200 mls/hr IV Q12 GIGI Last Admin: 10/14/17 22:33 Dose: 200 mls/hr Pantoprazole Sodium 40 mg/ (Sodium Chloride) 110 mls @ 330 mls/hr IV Q12 GIGI Last Admin: 10/14/17 22:06 Dose: 330 mls/hr Magnesium Hydroxide (Milk Of Magnesia) 30 ml PO DAILY PRN PRN PRN Reason: Constipation Sodium Chloride () 5 - 30 ml IV UD PRN PRN Reason: SALINE FLUSH Last Admin: 10/14/17 22:52 Dose: 10 ml Medical Necessity - Tobacco Use Smoking Status: Former smoker Assessment/Plan Active and Suspected Problems (Last Updated 10/14/17 @ 22:27 by Mal Gong MD) HCAP (healthcare-associated pneumonia) (Acute) 72-year-old male who presented with complaint of shortness of breath. He has been newly diagnosed with non-small cell lung cancer after CT of the chest picked up multiple pulmonary nodules and subsequent CT-guided biopsy of the nodules revealed non-small cell lung cancer. Biopsy was complicated by small pneumothorax for which she had a right chest tube placed. 1. 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 Kirti Lozano lesions also had a small hemorrhage. * Patient was counseled about possible hospice after [facility] refused to accept him as transfer. However patient wants to be transferred to [facility] for further management. * [facility] contacted and are willing to accept patient. Currently awaiting bed. * started on IV decadrone. WIll continue * 2. Health associated pneumonia * No shortness of breath. Chest CT showed evidence of bilateral pneumonia as well as the lung mass as described above. * Currently stable. Continue current antibiotics. * 3. Iatrogenic pneumothorax as a complication of CT-guided lung biopsy * Stable. Has right chest tube in place. Pulmonary following. Chest x-ray done on 10/14/2017 showed he had largely resolved. * 4. Acute COPD exacerbation: Stable. On bronchodilators and steroids. Will continue. 5. Acute on chronic respiratory failure: stable. on 2L of oxygen by nasal canula. Bicarb is 36. This is likely compensatory due to possible chronic hypercapnia from COPD. Will defer ABG for now as patient is totally stable. Will continue monitoring. 6. GI bleed * had one episode of rectal bleeding during admission, which hasnt recurred. * Abdominal CT scan showed sigmoid diverticulosis, which may be the cause of bleed. CEA level was 25.6. No history of recent colonoscopy. * may benefit from colonoscopy, but it may be futile in light of diagnosis of metastatic lung cancer * Hb has remained stable at around 9; is 9.2 today * 7. CAD: stable. Disposition: Awaiting transfer to [facility]. This note was generated with [employer] dictation software. It may contain incorrect words, spelling, and punctuation that were not noted in checking the note before signing. Code Visit Inpatient E&M: 62963 Subs Hosp L3
[2017-10-15 12:46] VITALS: PULSE 94; RESP 18
--- NOTE | 2017-10-15 14:35 | PCM.DC ---
- Discharge Diagnoses Current Active Problems: Current Active and Chronic Problems (Last Updated 10/14/17 @ 22:27 by Mal Gong MD) HCAP (healthcare-associated pneumonia) (Acute) Non-small cell carcinoma of right lung, stage 4 (Chronic) You will use the following diet at home:: Cardiac Your food should be the consistency of: Regular Your liquids should be the consistency of: Regular/Thin Discharge Activity: Return to Normal Activity May resume sexual activity in: No Restrictions Weight Bearing Status: Weight bearing as tolerated Instructions: What Is Lung Cancer?, Discharge Instructions for Cancer of the Lung, Lung Cancer: Planning for the Future, Living with Lung Cancer Allergies/Adverse Reactions: Allergies No Known Allergies Allergy (Verified 10/11/17 02:20) Medications to take at Discharge Albuterol Inhaler 2 puff INHALATION PRN PRN 10/12/17 Atorvastatin Calcium [Lipitor] 10 mg PO QHS 10/12/17 Budesonide/Formoterol 160/4.5 [Symbicort 160/4.5 Mcg Inhaler (SP)] 2 puff INHALATION BID 10/12/17 Finasteride [Proscar] 5 mg PO DAILY 10/12/17 Furosemide [Lasix] 20 mg PO QHS 10/12/17 Furosemide [Lasix] 40 mg PO BREAKFAST 10/12/17 Tamsulosin HCl [Flomax] 2 capsule PO DAILY 10/12/17 Tiotropium [place] [Spiriva 18 MCG] 2 puff INHALATION DAILY 10/12/17 Please follow up with your Primary Care Physician in: 2 weeks Proposed Discharge Date: 10/15/17 - Transfer to [facility]
[2017-10-15 14:36] VITALS: BP 113/73; PULSE 99; RESP 18; TEMP 36.2; O2SAT 98
--- NOTE | 2017-10-15 14:40 | PCM.DC.SUM ---
Discharge Date and Diagnosis - Problem List Patient Problems: Active and Suspected Problems (Last Updated 10/14/17 @ 22:27 by Mal Gong MD) HCAP (healthcare-associated pneumonia) (Acute) Date of Admission: 10/11/17 Date of Discharge: 10/15/17 - Primary Discharge Diagnosis Active and Suspected Problems (Last Updated 10/14/17 @ 22:27 by Mal Gong MD) HCAP (healthcare-associated pneumonia) (Acute) Newly diagnosed NSCLC - Secondary Discharge Diagnosis Chronic Problems (Last Updated 10/14/17 @ 22:27 by Mal Gong MD) Non-small cell carcinoma of right lung, stage 4 (Chronic) COPD (chronic obstructive pulmonary disease) (Chronic) 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 Diastolic CHF (Chronic) Foot drop, left (Chronic) Chronic respiratory failure (Chronic) with hypoxemima and hypercarbia Pulmonary HTN (Chronic) severe Diastolic dysfunction (Chronic) stage 1 Tricuspid regurgitation (Chronic) mild - moderate Decubitus ulcer of hip, stage 2 (Chronic) Decubitus ulcer of hip, stage 1 (Chronic) NSTEMI (non-ST elevated myocardial infarction) (Chronic) CAD (coronary artery disease) (Chronic) minimal and nnon-obstructive on cath 08/09/16 Hospital Course and Treatment Imaging Results: Diagnostic Data Chest CT 10/11/17 06:53 IMPRESSION: Right lower lobe mass inferior to the right hilum measures 4 x 2.9 cm 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 Multiple metastatic lesions in both lungs largest measures 2.2 cm is in the right lung upper lobe. Metastatic lesion in the left eighth rib. Metastatic mediastinal lymphadenopathy. Electronically Signed: Gutierrez Curry MD at 9:23 EDT Tel , Service support , ADDENDUM: 10/11/[address] 10/12/17 06:24 IMPRESSION: Successful CT-guided core biopsy of lung mass. 5% pneumothorax is noted at the end of the procedure on the right side. Electronically Signed: Gutierrez Curry MD at 15:15 EDT Tel , Service support , Abdomen/Pelvis CT 10/13/17 08:23 IMPRESSION: 1. Large right pneumothorax. This appears increased from the previous day's plain film. 2. Multiple pulmonary masses. 3. Diffuse hepatic metastases. 4. Question right adrenal metastasis. 5. Left renal cysts. 6. Sigmoid diverticulosis. 7. Degenerative changes of the lumbar spine and hips. N.B. : The above information has been verbally conveyed by Jaquan Martinez DO to Dr Rashid, Covering Physician, on 10/13/2017 11:31:10 (ET). Electronically Signed: Jaquan Martinez DO at 11:08 EDT Tel [phone], Service support , N.B. : The above information has been verbally conveyed by Jaquan Martinez DO to Dr Rashid, Covering Physician, on 10/13/2017 11:31:10 (ET). Abscess Drainage 10/13/17 09:51 IMPRESSION: Successful right chest tube placement under CT guidance. Electronically Signed: Gutierrez Curry MD at 11:25 EDT Tel , Service support , Chest X-Ray 10/14/17 05:44 IMPRESSION: Resolved pneumothorax. Chest tube in good position. Electronically Signed: Gutierrez Curry MD at 10:24 EDT Tel , Service support , Brain MRI 10/14/17 16:50 IMPRESSION: Multiple bilateral supratentorial and bilateral cerebellar enhancing lesions consistent with metastatic disease. There is hemorrhage within the right cerebellar lesion.. Also noted are lesions within the basal ganglia and posterior thalamic nuclei bilaterally demonstrating signal intensity suggesting foci of hemorrhage. Would recommend CT for further assessment Electronically Signed: Abel Temple MD at 20:20 EDT , Service support , oncology, pulmonology Operations: None Procedures: - - CT guided right lung biopsy, right chest tube placement Summary of Care Provided: Patient is a 72-year-old male who was admitted with a complaint of shortness of breath. CT scan done in the ED showed possible pneumonia and multiple pulmonary masses (right lower lobe infrahilar mass, and multiple metastatic lesions in both lungs) and subsequent CT-guided biopsy of the pulmonary mass showed non-small cell lung cancer. CT-guided biopsy of the pulmonary mass was completed by a small pneumothorax which subsequently enlarged to about 30% and he had a right chest tube placement for this. Oncology was consulted and MRI of the brain showed multiple bilateral supratentorial and cerebellar enhancing lesions, consistent with metastases, as well as hemorrhage in the right cerebellar lesion and possible foci of hemorrhage in the basal ganglia and posterior thalamic nuclei. CT of the abdomen also showed diffuse metastasis to the liver and questionable right adrenal metastases. He has had one episode of a small rectal bleeding but has remained stable. Patient was counseled extensively about the poor prognosis of the disease, and hospice and palliative care was recommended. Patient however wanted to be transferred to a tertiary center for further management. Patient was therefore transferred to [facility] for further workup and management. Discharge Diet: Low fat/ Low Cholesterol Discharge Activity: Return to Normal Activity May resume sexual activity in: No Restrictions Weight Bearing Status: Weight bearing as tolerated Home Medications: Medications to take at Discharge Albuterol Inhaler 2 puff INHALATION PRN PRN 10/12/17 Atorvastatin Calcium [Lipitor] 10 mg PO QHS 10/12/17 Budesonide/Formoterol 160/4.5 [Symbicort 160/4.5 Mcg Inhaler (SP)] 2 puff INHALATION BID 10/12/17 Finasteride [Proscar] 5 mg PO DAILY 10/12/17 Furosemide [Lasix] 20 mg PO QHS 10/12/17 Furosemide [Lasix] 40 mg PO BREAKFAST 10/12/17 Tamsulosin HCl [Flomax] 2 capsule PO DAILY 10/12/17 Tiotropium [place] [Spiriva 18 MCG] 2 puff INHALATION DAILY 10/12/17 Please follow up with your Primary Care Physician in: 2 weeks Patient Instructions: What Is Lung Cancer?, Discharge Instructions for Cancer of the Lung, Lung Cancer: Planning for the Future, Living with Lung Cancer Disposition: [facility] Minutes spent on discharge:: 40 Patient Condition:: Good Medical Necessity - Tobacco Use Smoking Status: Former smoker Meaningful Use Info Meaningful Use Diagnoses (Choose all that apply): None applicable Code Visit Inpatient E&M: 53943 Disch Hosp
--- NOTE | 2017-10-15 14:50 | DS.PCM_ITS ---
Discharge Date and Diagnosis - Problem List Patient Problems: Active and Suspected Problems (Last Updated 10/14/17 @ 22:27 by Mal Gong MD) HCAP (healthcare-associated pneumonia) (Acute) Date of Admission: 10/11/17 Date of Discharge: 10/15/17 - Primary Discharge Diagnosis Active and Suspected Problems (Last Updated 10/14/17 @ 22:27 by Mal Gong MD) HCAP (healthcare-associated pneumonia) (Acute) Newly diagnosed NSCLC - Secondary Discharge Diagnosis Chronic Problems (Last Updated 10/14/17 @ 22:27 by Mal Gong MD) Non-small cell carcinoma of right lung, stage 4 (Chronic) COPD (chronic obstructive pulmonary disease) (Chronic) 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 Diastolic CHF (Chronic) Foot drop, left (Chronic) Chronic respiratory failure (Chronic) with hypoxemima and hypercarbia Pulmonary HTN (Chronic) severe Diastolic dysfunction (Chronic) stage 1 Tricuspid regurgitation (Chronic) mild - moderate Decubitus ulcer of hip, stage 2 (Chronic) Decubitus ulcer of hip, stage 1 (Chronic) NSTEMI (non-ST elevated myocardial infarction) (Chronic) CAD (coronary artery disease) (Chronic) minimal and nnon-obstructive on cath 08/09/16 Hospital Course and Treatment Imaging Results: Diagnostic Data Chest CT 10/11/17 06:53 IMPRESSION: Right lower lobe mass inferior to the right hilum measures 4 x 2.9 cm 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 Multiple metastatic lesions in both lungs largest measures 2.2 cm is in the right lung upper lobe. Metastatic lesion in the left eighth rib. Metastatic mediastinal lymphadenopathy. Electronically Signed: Gutierrez Curry MD at 9:23 EDT Tel , Service support , ADDENDUM: 10/11/[address] 10/12/17 06:24 IMPRESSION: Successful CT-guided core biopsy of lung mass. 5% pneumothorax is noted at the end of the procedure on the right side. Electronically Signed: Gutierrez Curry MD at 15:15 EDT Tel , Service support , Abdomen/Pelvis CT 10/13/17 08:23 IMPRESSION: 1. Large right pneumothorax. This appears increased from the previous day's plain film. 2. Multiple pulmonary masses. 3. Diffuse hepatic metastases. 4. Question right adrenal metastasis. 5. Left renal cysts. 6. Sigmoid diverticulosis. 7. Degenerative changes of the lumbar spine and hips. N.B. : The above information has been verbally conveyed by Jaquan Martinez DO to Dr Rashid, Covering Physician, on 10/13/2017 11:31:10 (ET). Electronically Signed: Jaquan Martinez DO at 11:08 EDT Tel [phone], Service support , N.B. : The above information has been verbally conveyed by Jaquan Martinez DO to Dr Rashid, Covering Physician, on 10/13/2017 11:31:10 (ET). Abscess Drainage 10/13/17 09:51 IMPRESSION: Successful right chest tube placement under CT guidance. Electronically Signed: Gutierrez Curry MD at 11:25 EDT Tel , Service support , Chest X-Ray 10/14/17 05:44 IMPRESSION: Resolved pneumothorax. Chest tube in good position. Electronically Signed: Gutierrez Curry MD at 10:24 EDT Tel , Service support , Brain MRI 10/14/17 16:50 IMPRESSION: Multiple bilateral supratentorial and bilateral cerebellar enhancing lesions consistent with metastatic disease. There is hemorrhage within the right cerebellar lesion.. Also noted are lesions within the basal ganglia and posterior thalamic nuclei bilaterally demonstrating signal intensity suggesting foci of hemorrhage. Would recommend CT for further assessment Electronically Signed: Abel Temple MD at 20:20 EDT , Service support , oncology, pulmonology Operations: None Procedures: - - CT guided right lung biopsy, right chest tube placement Summary of Care Provided: Patient is a 72-year-old male who was admitted with a complaint of shortness of breath. CT scan done in the ED showed possible pneumonia and multiple pulmonary masses (right lower lobe infrahilar mass, and multiple metastatic lesions in both lungs) and subsequent CT-guided biopsy of the pulmonary mass showed non-small cell lung cancer. CT-guided biopsy of the pulmonary mass was completed by a small pneumothorax which subsequently enlarged to about 30% and he had a right chest tube placement for this. Oncology was consulted and MRI of the brain showed multiple bilateral supratentorial and cerebellar enhancing lesions, consistent with metastases, as well as hemorrhage in the right cerebellar lesion and possible foci of hemorrhage in the basal ganglia and posterior thalamic nuclei. CT of the abdomen also showed diffuse metastasis to the liver and questionable right adrenal metastases. He has had one episode of a small rectal bleeding but has remained stable. Patient was counseled extensively about the poor prognosis of the disease, and hospice and palliative care was recommended. Patient however wanted to be transferred to a tertiary center for further management. Patient was therefore transferred to [facility] for further workup and management. Discharge Diet: Low fat/ Low Cholesterol Discharge Activity: Return to Normal Activity May resume sexual activity in: No Restrictions Weight Bearing Status: Weight bearing as tolerated Home Medications: Medications to take at Discharge Albuterol Inhaler 2 puff INHALATION PRN PRN 10/12/17 Atorvastatin Calcium [Lipitor] 10 mg PO QHS 10/12/17 Budesonide/Formoterol 160/4.5 [Symbicort 160/4.5 Mcg Inhaler (SP)] 2 puff INHALATION BID 10/12/17 Finasteride [Proscar] 5 mg PO DAILY 10/12/17 Furosemide [Lasix] 20 mg PO QHS 10/12/17 Furosemide [Lasix] 40 mg PO BREAKFAST 10/12/17 Tamsulosin HCl [Flomax] 2 capsule PO DAILY 10/12/17 Tiotropium [place] [Spiriva 18 MCG] 2 puff INHALATION DAILY 10/12/17 Please follow up with your Primary Care Physician in: 2 weeks Patient Instructions: What Is Lung Cancer?, Discharge Instructions for Cancer of the Lung, Lung Cancer: Planning for the Future, Living with Lung Cancer Disposition: [facility] Minutes spent on discharge:: 40 Patient Condition:: Good Medical Necessity - Tobacco Use Smoking Status: Former smoker Meaningful Use Info Meaningful Use Diagnoses (Choose all that apply): None applicable Code Visit Inpatient E&M: 43215 Disch Hosp
--- NOTE | 2017-10-15 14:57 | NURSING ---
call placed to [facility]- report given to DESTINEE Lomas
== END 2017-10-15 15:48 | disposition short-term general hospital (02) | DRG 871 ==
LOC: ED 21:30 → ICU 10-11 00:37 → MS3 10-13 10:44
PROVIDERS: Internal Medicine; Internal Medicine Critical Care Medicine; Admitting Provider Family Medicine; Emergency Provider Emergency Medicine; Family Provider Family Medicine; PCP Family Medicine; Visit Provider Student in an Organized Health Care Education/Training Program
DX: A41.9 Sepsis, unspecified organism (principal); J96.21 Acute and chronic respiratory failure with hypoxia; J96.22 Acute and chronic respiratory failure with hypercapnia; K57.31 Diverticulosis of large intestine without perforation or abscess with bleeding; I61.4 Nontraumatic intracerebral hemorrhage in cerebellum; J18.9 Pneumonia, unspecified organism; J44.0 Chronic obstructive pulmonary disease with (acute) lower respiratory infection; I50.32 Chronic diastolic (congestive) heart failure; J95.811 Postprocedural pneumothorax; C78.7 Secondary malignant neoplasm of liver and intrahepatic bile duct; D62 Acute posthemorrhagic anemia; C79.71 Secondary malignant neoplasm of right adrenal gland; C34.91 Malignant neoplasm of unspecified part of right bronchus or lung; C79.31 Secondary malignant neoplasm of brain; R04.2 Hemoptysis; C34.92 Malignant neoplasm of unspecified part of left bronchus or lung; Y95 Nosocomial condition; I25.10 Atherosclerotic heart disease of native coronary artery without angina pectoris; D64.9 Anemia, unspecified; I27.20 Pulmonary hypertension, unspecified; M21.372 Foot drop, left foot; R15.9 Full incontinence of feces; Y84.8 Other medical procedures as the cause of abnormal reaction of the patient, or of later complication, without mention of misadventure at the time of the procedure; Z99.81 Dependence on supplemental oxygen; Z79.899 Other long term (current) drug therapy; Z87.891 Personal history of nicotine dependence
CPT/HCPCS: 20501; 36415; 70553; 71045; 71046; 71260; 74177; 77012; 80048; 80053; 82378; 82550; 82607; 82746; 83605; 83880; 84484; 85014; 85018; 85025; 85027; 85610; 85730; 86850; 86900; 86920; 86922; 87040; 87077; 87086; 87449; 87641; 88305; 88341; 88342; 93005; 94640; 97110; 97162; 97165; 97530; 97535; 97802; 99156; 99157; 99285; A9585; J7030; J7040; J7050; P9016; Q9967; A4216

== ENCOUNTER 2017-10-20 15:03 | Inpatient (IN) | payer MEDICARE, SELFPAY ==
[2017-10-20] VITALS (15 sets, daily range): BP systolic 87–152; BP diastolic 53–88; PULSE 84–115; RESP 14–26; TEMP 36.9–37.1; O2SAT 90–99; BMI 32.8; BMI 31.0
--- NOTE | 2017-10-20 15:20 | EKG12_ITS ---
Test Reason : CP Blood Pressure : / mmHG Vent. Rate : 108 BPM Atrial Rate : 108 BPM P-R Int : 144 ms QRS Dur : 090 ms QT Int : 322 ms P-R-T Axes : 082 079 078 degrees QTc Int : 431 ms Sinus tachycardia with Premature atrial complexes Otherwise normal ECG Confirmed by COLLINS SOTO, JEANNINE ([id number]), editorial director KAVIN KIRK ([id number]) on 10/25/2017 1:55:45 PM Referred By: Confirmed By:JEANNINE GUADALUPE MD
--- NOTE | 2017-10-20 15:21 | RAD_ITS ---
STUDY: X-RAY CHEST REASON FOR EXAM: Male, 72 years old. Chest pain and dizziness TECHNIQUE: PA and lateral COMPARISON: October 14, 2017 FINDINGS: There is generalized hyperinflation. There is elevation right hemidiaphragm and mild basilar atelectasis. Bilateral noncalcified nodules are again demonstrated.. There is no demonstrated pleural abnormality. Normal size heart. Normal mediastinum and taran. Normal visualized pulmonary arteries. Normal visualized aortic arch and descending thoracic aorta. Dorsal spine demonstrates moderate spondylosis. Normal visualized ribs, clavicles, and shoulders. There is no demonstrated abnormality of the visualized soft tissue structures of the upper abdomen. There is improved aeration at the right lung base since prior study. Previously noted right chest tube has been removed and there is no evidence for pneumothorax at this time RAD/Chest PA and Lateral IMPRESSION: COPD with mild basilar atelectasis but improved aeration since prior study. Bilateral pulmonary nodules Electronically Signed: Abel Temple MD at 16:19 EDT , Service support ,
[2017-10-20] MEDS: 0.9% Normal Saline 1,000 ML 1000 ML IV (15:26)
[2017-10-20 15:37] LABS: Absolute Lymphocyte Count 0.53 X10^3/ul (0.83-4.51); Absolute Neutrophil Count 12.2 X10^3/uL (2.0-7.7); Basophil# 0.01 X10^3/uL; Basophil% 0.1 % (0-1); Eosinophil# 0.01 X10^3/uL; Eosinophils% 0.1 % (0-5); Hematocrit 30.4 % (40-54); Hemoglobin 9.4 g/dl (13.0-16.5); Lymphocyte # 0.53 X10^3/ul (4.0); Lymphocyte % 3.6 % (19-41); Mean Corp Hgb Conc 30.9 g/gl (32-36); Mean Corpuscular Hgb 29.6 pg (27.0-32.0); Mean Corpuscular Volume 95.6 fL (80-94); Mean Platelet Vol. 9.8 fl (6.2-12.0); Monocyte# 2.18 X10^3/uL; Monocyte% 14.6 % (0-10); Neutrophil # 12.15 X10^3/uL (2.7-7.7); Neutrophil % 81.3 % (47-70); Platelet Count 495 K/mm3 (150-450); RBC Distribution Width CV 15.5 % (11.6-14.6); RBC Distribution Width SD 51.4 fl (35.1-43.9); Red Blood Count 3.18 M/mm3 (4.6-6.2); White Blood Count 14.9 K/mm3 (4.4-11.0)
[2017-10-20 15:41] LABS: Anion Gap 7 (5-15); BUN 35 mg/dL (7-18); BUN/Creat Ratio 33.3 RATIO (10-20); Calcium,Total 9.9 mg/dL (8.5-10.1); Chloride 96 mmol/L (98-107); Creatinine, Serum 1.05 mg/dL (0.70-1.30); EST Glomerular Filtration Rate 73 mL/min (>60); Est Glom Filt Rate - Afr Amer 89 mL/min (>60); Estimated Creatinine Clearance 62.66 ml/min; Glucose 106 mg/dL (74-106); Potassium 4.2 mmol/L (3.5-5.1); Sodium Level 134 mmol/L (136-145)
[2017-10-20 15:45] LABS: Differential Indicated SCAN CRITERIA MET; POSITIVE COUNT NO; POSITIVE DIFFERENTIAL YES; POSITIVE MORPHOLOGY NO
[2017-10-20 15:56] LABS: Platelet Estimate SLT INC (ADEQ)
[2017-10-20 16:12] LABS: Lactic Acid 1.7 mmol/L (0.4-2.0)
[2017-10-20 17:25] LABS: Mucous, Urine 0 SEEN /hpf (<or=2+)
[2017-10-20 17:30] LABS: Color, Urine Yellow (Yellow); Glucose, Dipstick Normal (Normal); Ketone-Dipstick 5 mg/dl (Negative); Leukocyte Esterase-Dipstick 25 /ul (Negative); Nitrite-Dipstick Positive (Negative); Occult Blood-Urine 25 /ul (Negative); Protein-Dipstick 30 mg/dl (Negative); Urine Clarity Sl. Cloudy (Clear); Urine Urobilinogen Normal (Normal); Urine pH 6.5 (5.0 - 8.0)
[2017-10-20 17:43] LABS: Urine Bilirubin Dipstick 3 mg/dL (Negative)
[2017-10-20 17:48] LABS: Red Blood Cells-Urine 0-5 SEEN /hpf (0-5); Squamous Epithelial Cells - UA 0-5 SEEN /hpf (0-5); White Blood Cells 0-5 SEEN /hpf (0-5)
[2017-10-20 17:49] LABS: Bacteria RARE /hpf (None Seen)
--- NOTE | 2017-10-20 19:07 | PCM.HP.STD ---
Problem List (1) Non-small cell carcinoma of right lung, stage 4 Status: Chronic (2) COPD (chronic obstructive pulmonary disease) Status: Chronic Qualifiers: COPD type: unspecified COPD Qualified Code(s): J44.9 - Chronic obstructive pulmonary disease, unspecified (3) Tobacco use Status: Chronic Comment: in remission - quit in May 2016 (4) Diastolic CHF Status: Chronic Qualifiers: Heart failure chronicity: chronic Qualified Code(s): I50.32 - Chronic diastolic (congestive) heart failure (5) Foot drop, left Status: Chronic (6) Chronic respiratory failure Status: Chronic Qualifiers: Respiratory failure complication: hypoxia and hypercapnia Qualified Code(s): J96.11 - Chronic respiratory failure with hypoxia; J96.12 - Chronic respiratory failure with hypercapnia Comment: with hypoxemima and hypercarbia (7) Pulmonary HTN Status: Chronic Comment: severe (8) Diastolic dysfunction Status: Chronic Comment: stage 1 (9) Tricuspid regurgitation Status: Chronic Qualifiers: Cardiac valve disease etiology: nonrheumatic Qualified Code(s): I36.1 - Nonrheumatic tricuspid (valve) insufficiency Comment: mild - moderate (10) Decubitus ulcer of hip, stage 2 Status: Chronic Qualifiers: Laterality: left Qualified Code(s): L89.222 - Pressure ulcer of left hip, stage 2 (11) CAD (coronary artery disease) Status: Chronic Qualifiers: Coronary Disease-Associated Artery/Lesion type: unspecified vessel or lesion type [place] vs. transplanted heart: unspecified whether [place] or transplanted heart Associated angina: angina presence unspecified Qualified Code(s): I25.10 - Atherosclerotic heart disease of [place] coronary artery without angina pectoris Comment: minimal and non-obstructive on cath 08/09/16 (12) Syncope and collapse Status: Acute (13) Hypotension Status: Acute Qualifiers: Hypotension type: unspecified hypotension type Qualified Code(s): I95.9 - Hypotension, unspecified History of Present Illness Date of Admission: 10/20/17 Chief Complaint: Dizziness, hypotension The patient is a 72 y/o M w/ PMHx: Chronic Hypoxic Respiratory Failure (3L NC) with Chronic COPD, Obesity, Diastolic CHF, Tobacco use, Pulmonary HTN, Chronic L Foot Drop, CAD, GERD, BPH who was recently discharged following 10/11/17-10/15/17 admission for HCAP and newly diagnosed NSCL CA w/ CT scan demonstrating possible pneumonia and multiple pulmonary masses (right lower lobe infrahilar mass, and multiple metastatic lesions in both lungs) and subsequent CT-guided biopsy of the pulmonary mass showed non-small cell lung cancer w/ resultant small pneumothorax which subsequently enlarged to about 30% w/ R Chest Tube placement w/ Onc consultation w/ follow-up MRI Brain w/ multiple bilateral supratentorial and cerebellar enhancing lesions consistent with metastases as well as hemorrhage in the right cerebellar lesion and possible foci of hemorrhage in the basal ganglia and posterior thalamic nuclei as well as CT of the abdomen w/ diffuse metastasis to the liver and questionable right adrenal metastases who now re-presents to the [facility] ED on 10/20/17 with dizziness, lightheadedness w/ syncopal event while at the physicians office with no LOC with initial BP at Clinic SBP 70s, initial ED BP 89/64. He notes he has been taking adequate po but admits to mild water intake. He notes that he was discharged from [facility] with intention for radiation and chemotherapy. Also unclear if patient taking home medications including Decadron therapy. In the ED work-up included afebrile, heart rate 94, BP 102/88, respiratory rate 23, 96% on 2 L, CBC with WBC 14.9, hemoglobin 9.4, platelet 495 with left shift, BMP with sodium 134, chloride 96, BUN/creatinine 35/1.05, lactic acid 1.7, troponin less than 0.015, urinalysis with positive nitrite, leukocyte esterase 25, no WBCs or RBCs nor urine bacteria with pending blood culture ?2 per ED. In the ED patient administered normal saline. 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 Diastolic CHF (Chronic) Foot drop, left (Chronic) Chronic respiratory failure (Chronic) with hypoxemima and hypercarbia Pulmonary HTN (Chronic) severe Diastolic dysfunction (Chronic) stage 1 Tricuspid regurgitation (Chronic) mild - moderate Decubitus ulcer of hip, stage 2 (Chronic) Decubitus ulcer of hip, stage 1 (Chronic) NSTEMI (non-ST elevated myocardial infarction) (Chronic) CAD (coronary artery disease) (Chronic) minimal and non-obstructive on cath 08/09/16 Allergies No Known Allergies Allergy (Verified 10/20/17 15:08) Home Medications: Ambulatory Orders Medication Instructions Recorded Albuterol IH (ProAir) [Proair Hfa 2 puff INHALATION Q4H PRN PRN #0 10/12/17 (SP)Vent Pts] Furosemide [Lasix] 40 mg PO DAILY 10/12/17 Tiotropium Panther [Spiriva 18 MCG] 1 puff INHALATION DAILY 10/12/17 Dexamethasone 4 mg PO BID 10/20/17 Fluticasone/Salmeterol [Advair 1 each IH BID 10/20/17 250-50 Diskus] Magnesium Oxide [Magnesium] 400 mg PO DAILY 10/20/17 Metronidazole [Flagyl] 500 mg PO Q8H 10/20/17 Nicotine [Nicotine Patch] 1 each TD DAILY 10/20/17 Pantoprazole Sodium [Protonix] 40 mg PO DAILY 10/20/17 Potassium Chloride 20 meq PO DAILY 10/20/17 Sulfamethoxazole/Trimethoprim 1 each PO QWEEK 10/20/17 [Sulfamethoxazole-Tmp Ds Tablet] Surgical History: cataract Psychiatric History: No pertinent psych hx Lives: Alone Smoking Status: Former smoker Tobacco Use: Non-smoker Alcohol: None Drugs: None - *Family History Maternal History Items: No pertinent history - Denies any marked paternal or maternal family history of HD, DM, Lung Disease. Paternal History Items: No pertinent history - Denies any marked paternal or maternal family history of HD, DM, Lung Disease. Review of Systems Constitutional: Reports: Anorexia, Malaise, Weakness, Fatigue. Denies: Chills, Fever, Weight Change HEENT: Denies: Head Aches, Sinus Congestion, Sinus Drainage Cardiovascular: Reports: Syncope. Denies: Chest Pain, Palpitations Respiratory: Reports: Shortness of breath upon exertion. Denies: Cough, Shortness of breath at rest, Sputum production Gastrointestinal: Denies: Abdominal Pain, Nausea, Vomiting Genitourinary: Denies: Dysuria Musculoskeletal: Reports: Back Pain. Denies: Joint Pain, Joint Tenderness Skin: Denies: Rash, Wounds Neurological: Reports: Confusion. Denies: Focal weakness, Numbness, Tingling Psychiatric: Denies: Anxiety, Depression, Homicidal Ideations, Suicidal Ideations Hematologic/ Lymphatic: Reports: Anemia. Denies: Easy Bruising, Easy Bleeding VTE Information - Inpt Only VTE Present on Admission: No VTE Mechan Device Prophylaxis: SCD's VTE Pharm Prophylaxis ordered?: No Reason prophylaxis not ordered:: Medical Contraindication Patient Problems: Active and Suspected Problems (Last Updated 10/14/17 @ 22:27 by Mal Gong MD) Syncope and collapse (Acute) Hypotension (Acute) Subjective: Seated upright in the ED bed, fatigued appearance, NAD, asking for meal. Objective: Physical Examination: General: awake, alert, oriented to self, place, some recent events, does seem occasional confused, cooperative, seated upright in the ED bed in no apparent distress. Skin: normal color, turgor, no icterus, cyanosis. HEENT: AT/NC, EOMI, PERRLA, mildly dry MM, no carotid bruits or JVD noted. Lungs: Diminished BL, > bases, occasional expiratory wheezing, mildly coarse, resolved w/ harsh cough. Heart: Regular rate and rhythm; no gallop, rub audible. Abdomen: soft, obese, NTTP, ND, normal BS, no HSM. Extremities: no cyanosis, clubbing, BL LE chronic edema. Neurological: patient awake, alert, oriented as noted; cognitive function not baseline intact, suspect secondary to metastatic brain disease; pupils equally reactive to light and accomodation; cranial nerves II-XII grossly normal, moving all 4 extremities, no focal deficits, strength moderately globally decreased. Psychiatric: affect appears normal, no acute evidence of depressive or anxiety feelings. - Physical Exam Vital Signs Temp Pulse Resp BP Pulse Ox 98.4 F 86 20 H 152/69 H 96 10/20/17 15:05 10/20/17 18:45 10/20/17 18:45 10/20/17 18:45 10/20/17 18:45 Oxygen Flow Rate (L/min) 2 Oxygen Delivery Method Nasal Cannula Weight: 222 lb 3.615 oz Body Mass Index (BMI) 32.8 Laboratory Tests Past 24 Hrs 10/20/17 10/20/17 10/20/17 15:15 15:15 15:33 WBC 14.9 H RBC 3.18 L Hgb 9.4 L Hct 30.4 L MCV 95.6 H MCH 29.6 MCHC 30.9 L RDW 15.5 H RDW Differential 51.4 H Plt Count 495 H MPV 9.8 Immature Gran % (Auto) 0.300 Neut % (Auto) 81.3 H Lymph % (Auto) 3.6 L [place] % (Auto) 14.6 H Eos % (Auto) 0.1 Baso % (Auto) 0.1 Absolute Neuts (auto) 12.2 H Absolute Lymphs (auto) 0.53 L Total Counted Not Reportable Differential Comment Diff Path Review May foll Platelet Estimate SLT INC Sodium 134 L Potassium 4.2 Chloride 96 L Carbon Dioxide 31.0 Anion Gap 7 BUN 35 H Creatinine 1.05 Estim Creat Clear Calc 62.66 Est GFR (MDRD) Af Amer 89 Est GFR (MDRD) Non-Af 73 BUN/Creatinine Ratio 33.3 H Glucose 106 Lactic Acid 1.7 Calcium 9.9 Troponin I < 0.015 Urine Color Urine Clarity Urine pH Ur Specific [place] Urine Protein Urine Glucose (UA) Urine Ketones Urine Occult Blood Urine Nitrite Urine Bilirubin Urine Urobilinogen Ur Leukocyte Esterase Urine RBC Urine WBC Ur Squamous Epith Cells Urine Bacteria Urine Mucus 10/20/17 17:19 WBC RBC Hgb Hct MCV MCH MCHC RDW RDW Differential Plt Count MPV Immature Gran % (Auto) Neut % (Auto) Lymph % (Auto) [place] % (Auto) Eos % (Auto) Baso % (Auto) Absolute Neuts (auto) Absolute Lymphs (auto) Total Counted Differential Comment Diff Path Review Platelet Estimate Sodium Potassium Chloride Carbon Dioxide Anion Gap BUN Creatinine Estim Creat Clear Calc Est GFR (MDRD) Af Amer Est GFR (MDRD) Non-Af BUN/Creatinine Ratio Glucose Lactic Acid Calcium Troponin I Urine Color Yellow Urine Clarity Sl. Cloudy Urine pH 6.5 Ur Specific [place] 1.010 Urine Protein 30 H Urine Glucose (UA) Normal Urine Ketones 5 H Urine Occult Blood 25 H Urine Nitrite Positive H Urine Bilirubin 3 H Urine Urobilinogen Normal Ur Leukocyte Esterase 25 H Urine RBC 0-5 SEEN Urine WBC 0-5 SEEN Ur Squamous Epith Cells 0-5 SEEN Urine Bacteria RARE Urine Mucus 0 SEEN Assessment/Plan Active and Suspected Problems (Last Updated 10/14/17 @ 22:27 by Mal Gong MD) Syncope and collapse (Acute) Hypotension (Acute) The patient is a 72 y/o M w/ PMHx: Chronic Hypoxic Respiratory Failure (3L NC) with Chronic COPD, Obesity, Diastolic CHF, Tobacco use, Pulmonary HTN, Chronic L Foot Drop, CAD, GERD, BPH, recently Dx Metastatic including brain NSCL CA who presents to the [facility] ED on 10/20/17 with dizziness, lightheadedness w/ syncopal event while at the physicians office with no LOC with initial BP at Clinic SBP 70s, initial ED BP 89/64. (1) Syncopal Event: Unclear etiology, possible secondary to incorrect medication intake and poor oral intake w/ hypotension, EKG in ED w/ sinus rhythm without evidence of acute ischemia, CXR w/ no acute cardiopulmonary findings w/ chronic changes, initial trop normal. Will admit to PCU, place on a monitored bed to assure no acute myocardial infarction with serial cardiac enzymes and EKGs. Will maintain on fall precautions, obtain admission orthostatic and AM orthostatic VS and increase hydration if appropriate. Will obtain ECHO. PT/OT consultation to ascertain stability and discharge needs. Given recent MRI findings will obtain CT Brain. (2) Metastatic lung carcinoma, non-small cell: Patient with recent hemolytic evaluation following transfer to [facility] with no plan for gamma knife by neurosurgery with planned radical junk arranged outpatient radiation therapy with continued Decadron 4 mg p.o. every 6 hours. (3) Chronic Hypoxic Respiratory Failure (3L NC) with Chronic COPD: Will maintain on home oxygen supplementation, continue ATC duonebs, PRN albuterol, HOB, IS parameters. (4) Chronic Macrocytic Anemia: Admission Hgb 9.4, baseline 8-9, stable, trend. (5) Diastolic CHF: Not on asa as noted, not on statin, holding BP regimen. (6) Tobacco Abuse: Encouraged continued cessation, inpatient consultation per RT, NR if desired. (7) CAD: No longer on ASA secondary to recent findings, hold lasix given possible dehydration, not on statin. (8) GERD: Maintain on home PPI regimen. (9) BPH: Not on regimen, add flomax if necessary. (10) Obesity: Weight loss and lifestyle changes encouraged. (11) DVT Prophylaxis: SCDs, defer chemoprophylaxis given recently noted hemorrhagic findings. (12) CODE status: Discussed CODE status at length including difference between FULL code, DNR-CCA and DNR-CC status. Following discussions about the differences in these status, requested continuation DNR-CCA, no intubation status, notes LW in place. Advanced Care Planning Face to Face Time: 18 minutes. Code Visit OBSV E&M: 48634 Initial observation care L3 Procedures: 50991 Advncd Care Plan 30 Min
--- NOTE | 2017-10-20 19:17 | HP.PCM_ITS ---
Problem List (1) Non-small cell carcinoma of right lung, stage 4 Status: Chronic (2) COPD (chronic obstructive pulmonary disease) Status: Chronic Qualifiers: COPD type: unspecified COPD Qualified Code(s): J44.9 - Chronic obstructive pulmonary disease, unspecified (3) Tobacco use Status: Chronic Comment: in remission - quit in May 2016 (4) Diastolic CHF Status: Chronic Qualifiers: Heart failure chronicity: chronic Qualified Code(s): I50.32 - Chronic diastolic (congestive) heart failure (5) Foot drop, left Status: Chronic (6) Chronic respiratory failure Status: Chronic Qualifiers: Respiratory failure complication: hypoxia and hypercapnia Qualified Code(s) : J96.11 - Chronic respiratory failure with hypoxia; J96.12 - Chronic respiratory failure with hypercapnia Comment: with hypoxemima and hypercarbia (7) Pulmonary HTN Status: Chronic Comment: severe (8) Diastolic dysfunction Status: Chronic Comment: stage 1 (9) Tricuspid regurgitation Status: Chronic Qualifiers: Cardiac valve disease etiology: nonrheumatic Qualified Code(s): I36.1 - Nonrheumatic tricuspid (valve) insufficiency Comment: mild - moderate (10) Decubitus ulcer of hip, stage 2 Status: Chronic Qualifiers: Laterality: left Qualified Code(s): L89.222 - Pressure ulcer of left hip, stage 2 (11) CAD (coronary artery disease) Status: Chronic Qualifiers: Coronary Disease-Associated Artery/Lesion type: unspecified vessel or lesion type [place] vs. transplanted heart: unspecified whether [place] or transplanted heart Associated angina: angina presence unspecified Qualified Code(s): I25.10 - Atherosclerotic heart disease of [place] coronary artery without angina pectoris Comment: minimal and non-obstructive on cath 08/09/16 (12) Syncope and collapse Status: Acute (13) Hypotension Status: Acute Qualifiers: Hypotension type: unspecified hypotension type Qualified Code(s): I95.9 - Hypotension, unspecified History of Present Illness Date of Admission: 10/20/17 Chief Complaint: Dizziness, hypotension The patient is a 72 y/o M w/ PMHx: Chronic Hypoxic Respiratory Failure (3L NC) with Chronic COPD, Obesity, Diastolic CHF, Tobacco use, Pulmonary HTN, Chronic L Foot Drop, CAD, GERD, BPH who was recently discharged following 10/11/17-10/15/17 admission for HCAP and newly diagnosed NSCL CA w/ CT scan demonstrating possible pneumonia and multiple pulmonary masses (right lower lobe infrahilar mass, and multiple metastatic lesions in both lungs) and subsequent CT-guided biopsy of the pulmonary mass showed non-small cell lung cancer w/ resultant small pneumothorax which subsequently enlarged to about 30% w/ R Chest Tube placement w/ Onc consultation w/ follow-up MRI Brain w/ multiple bilateral supratentorial and cerebellar enhancing lesions consistent with metastases as well as hemorrhage in the right cerebellar lesion and possible foci of hemorrhage in the basal ganglia and posterior thalamic nuclei as well as CT of the abdomen w/ diffuse metastasis to the liver and questionable right adrenal metastases who now re-presents to the [facility] ED on 10/20/17 with dizziness, lightheadedness w/ syncopal event while at the physicians office with no LOC with initial BP at Clinic SBP 70s, initial ED BP 89/64. He notes he has been taking adequate po but admits to mild water intake. He notes that he was discharged from [facility] with intention for radiation and chemotherapy. Also unclear if patient taking home medications including Decadron therapy. In the ED work-up included afebrile, heart rate 94, BP 102/88, respiratory rate 23, 96 % on 2 L, CBC with WBC 14.9, hemoglobin 9.4, platelet 495 with left shift, BMP with sodium 134, chloride 96, BUN/creatinine 35/1.05, lactic acid 1.7, troponin less than 0.015, urinalysis with positive nitrite, leukocyte esterase 25, no WBCs or RBCs nor urine bacteria with pending blood culture ?2 per ED. In the ED patient administered normal saline. 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 Diastolic CHF (Chronic) Foot drop, left (Chronic) Chronic respiratory failure (Chronic) with hypoxemima and hypercarbia Pulmonary HTN (Chronic) severe Diastolic dysfunction (Chronic) stage 1 Tricuspid regurgitation (Chronic) mild - moderate Decubitus ulcer of hip, stage 2 (Chronic) Decubitus ulcer of hip, stage 1 (Chronic) NSTEMI (non-ST elevated myocardial infarction) (Chronic) CAD (coronary artery disease) (Chronic) minimal and non-obstructive on cath 08/09/16 Allergies No Known Allergies Allergy (Verified 10/20/17 15:08) Home Medications: Ambulatory Orders Medication Instructions Recorded Albuterol IH (ProAir) [Proair Hfa 2 puff INHALATION Q4H PRN PRN #0 10/12/17 (SP)Vent Pts] Furosemide [Lasix] 40 mg PO DAILY 10/12/17 Tiotropium [place] [Spiriva 18 MCG] 1 puff INHALATION DAILY 10/12/17 Dexamethasone 4 mg PO BID 10/20/17 Fluticasone/Salmeterol [Advair 1 each IH BID 10/20/17 250-50 Diskus] Magnesium Oxide [Magnesium] 400 mg PO DAILY 10/20/17 Metronidazole [Flagyl] 500 mg PO Q8H 10/20/17 Nicotine [Nicotine Patch] 1 each TD DAILY 10/20/17 Pantoprazole Sodium [Protonix] 40 mg PO DAILY 10/20/17 Potassium Chloride 20 meq PO DAILY 10/20/17 Sulfamethoxazole/Trimethoprim 1 each PO QWEEK 10/20/17 [Sulfamethoxazole-Tmp Ds Tablet] Surgical History: cataract Psychiatric History: No pertinent psych hx Lives: Alone Smoking Status: Former smoker Tobacco Use: Non-smoker Alcohol: None Drugs: None - *Family History Maternal History Items: No pertinent history - Denies any marked paternal or maternal family history of HD, DM, Lung Disease. Paternal History Items: No pertinent history - Denies any marked paternal or maternal family history of HD, DM, Lung Disease. Review of Systems Constitutional: Reports: Anorexia, Malaise, Weakness, Fatigue. Denies: Chills, Fever, Weight Change HEENT: Denies: Head Aches, Sinus Congestion, Sinus Drainage Cardiovascular: Reports: Syncope. Denies: Chest Pain, Palpitations Respiratory: Reports: Shortness of breath upon exertion. Denies: Cough, Shortness of breath at rest, Sputum production Gastrointestinal: Denies: Abdominal Pain, Nausea, Vomiting Genitourinary: Denies: Dysuria Musculoskeletal: Reports: Back Pain. Denies: Joint Pain, Joint Tenderness Skin: Denies: Rash, Wounds Neurological: Reports: Confusion. Denies: Focal weakness, Numbness, Tingling Psychiatric: Denies: Anxiety, Depression, Homicidal Ideations, Suicidal Ideations Hematologic/ Lymphatic: Reports: Anemia. Denies: Easy Bruising, Easy Bleeding VTE Information - Inpt Only VTE Present on Admission: No VTE Mechan Device Prophylaxis: SCD's VTE Pharm Prophylaxis ordered?: No Reason prophylaxis not ordered:: Medical Contraindication Patient Problems: Active and Suspected Problems (Last Updated 10/14/17 @ 22:27 by Mal Gong MD) Syncope and collapse (Acute) Hypotension (Acute) Subjective: Seated upright in the ED bed, fatigued appearance, NAD, asking for meal. Objective: Physical Examination: General: awake, alert, oriented to self, place, some recent events, does seem occasional confused, cooperative, seated upright in the ED bed in no apparent distress. Skin: normal color, turgor, no icterus, cyanosis. HEENT: AT/NC, EOMI, PERRLA, mildly dry MM, no carotid bruits or JVD noted. Lungs: Diminished BL, > bases, occasional expiratory wheezing, mildly coarse, resolved w/ harsh cough. Heart: Regular rate and rhythm; no gallop, rub audible. Abdomen: soft, obese, NTTP, ND, normal BS, no HSM. Extremities: no cyanosis, clubbing, BL LE chronic edema. Neurological: patient awake, alert, oriented as noted; cognitive function not baseline intact, suspect secondary to metastatic brain disease; pupils equally reactive to light and accomodation; cranial nerves II-XII grossly normal, moving all 4 extremities, no focal deficits, strength moderately globally decreased. Psychiatric: affect appears normal, no acute evidence of depressive or anxiety feelings. - Physical Exam Vital Signs Temp Pulse Resp BP Pulse Ox 98.4 F 86 20 H 152/69 H 96 10/20/17 15:05 10/20/17 18:45 10/20/17 18:45 10/20/17 18:45 10/20/17 18:45 Oxygen Flow Rate (L/min) 2 Oxygen Delivery Method Nasal Cannula Weight: 222 lb 3.615 oz Body Mass Index (BMI) 32.8 Laboratory Tests Past 24 Hrs 10/20/17 10/20/17 10/20/17 15:15 15:15 15:33 WBC 14.9 H RBC 3.18 L Hgb 9.4 L Hct 30.4 L MCV 95.6 H MCH 29.6 MCHC 30.9 L RDW 15.5 H RDW Differential 51.4 H Plt Count 495 H MPV 9.8 Immature Gran % (Auto) 0.300 Neut % (Auto) 81.3 H Lymph % (Auto) 3.6 L [place] % (Auto) 14.6 H Eos % (Auto) 0.1 Baso % (Auto) 0.1 Absolute Neuts (auto) 12.2 H Absolute Lymphs (auto) 0.53 L Total Counted Not Reportable Differential Comment Diff Path Review May foll Platelet Estimate SLT INC Sodium 134 L Potassium 4.2 Chloride 96 L Carbon Dioxide 31.0 Anion Gap 7 BUN 35 H Creatinine 1.05 Estim Creat Clear Calc 62.66 Est GFR (MDRD) Af Amer 89 Est GFR (MDRD) Non-Af 73 BUN/Creatinine Ratio 33.3 H Glucose 106 Lactic Acid 1.7 Calcium 9.9 Troponin I < 0.015 Urine Color Urine Clarity Urine pH Ur Specific [place] Urine Protein Urine Glucose (UA) Urine Ketones Urine Occult Blood Urine Nitrite Urine Bilirubin Urine Urobilinogen Ur Leukocyte Esterase Urine RBC Urine WBC Ur Squamous Epith Cells Urine Bacteria Urine Mucus 10/20/17 17:19 WBC RBC Hgb Hct MCV MCH MCHC RDW RDW Differential Plt Count MPV Immature Gran % (Auto) Neut % (Auto) Lymph % (Auto) [place] % (Auto) Eos % (Auto) Baso % (Auto) Absolute Neuts (auto) Absolute Lymphs (auto) Total Counted Differential Comment Diff Path Review Platelet Estimate Sodium Potassium Chloride Carbon Dioxide Anion Gap BUN Creatinine Estim Creat Clear Calc Est GFR (MDRD) Af Amer Est GFR (MDRD) Non-Af BUN/Creatinine Ratio Glucose Lactic Acid Calcium Troponin I Urine Color Yellow Urine Clarity Sl. Cloudy Urine pH 6.5 Ur Specific [place] 1.010 Urine Protein 30 H Urine Glucose (UA) Normal Urine Ketones 5 H Urine Occult Blood 25 H Urine Nitrite Positive H Urine Bilirubin 3 H Urine Urobilinogen Normal Ur Leukocyte Esterase 25 H Urine RBC 0-5 SEEN Urine WBC 0-5 SEEN Ur Squamous Epith Cells 0-5 SEEN Urine Bacteria RARE Urine Mucus 0 SEEN Assessment/Plan Active and Suspected Problems (Last Updated 10/14/17 @ 22:27 by Mal Gong MD) Syncope and collapse (Acute) Hypotension (Acute) The patient is a 72 y/o M w/ PMHx: Chronic Hypoxic Respiratory Failure (3L NC) with Chronic COPD, Obesity, Diastolic CHF, Tobacco use, Pulmonary HTN, Chronic L Foot Drop, CAD, GERD, BPH, recently Dx Metastatic including brain NSCL CA who presents to the [facility] ED on 10/20/17 with dizziness, lightheadedness w/ syncopal event while at the physicians office with no LOC with initial BP at Clinic SBP 70s, initial ED BP 89/64. (1) Syncopal Event: Unclear etiology, possible secondary to incorrect medication intake and poor oral intake w/ hypotension, EKG in ED w/ sinus rhythm without evidence of acute ischemia, CXR w/ no acute cardiopulmonary findings w/ chronic changes, initial trop normal. Will admit to PCU, place on a monitored bed to assure no acute myocardial infarction with serial cardiac enzymes and EKGs. Will maintain on fall precautions, obtain admission orthostatic and AM orthostatic VS and increase hydration if appropriate. Will obtain ECHO. PT/OT consultation to ascertain stability and discharge needs. Given recent MRI findings will obtain CT Brain. (2) Metastatic lung carcinoma, non-small cell: Patient with recent hemolytic evaluation following transfer to [facility] with no plan for gamma knife by neurosurgery with planned radical junk arranged outpatient radiation therapy with continued Decadron 4 mg p.o. every 6 hours. (3) Chronic Hypoxic Respiratory Failure (3L NC) with Chronic COPD: Will maintain on home oxygen supplementation, continue ATC duonebs, PRN albuterol, HOB, IS parameters. (4) Chronic Macrocytic Anemia: Admission Hgb 9.4, baseline 8-9, stable, trend. (5) Diastolic CHF: Not on asa as noted, not on statin, holding BP regimen. (6) Tobacco Abuse: Encouraged continued cessation, inpatient consultation per RT , NR if desired. (7) CAD: No longer on ASA secondary to recent findings, hold lasix given possible dehydration, not on statin. (8) GERD: Maintain on home PPI regimen. (9) BPH: Not on regimen, add flomax if necessary. (10) Obesity: Weight loss and lifestyle changes encouraged. (11) DVT Prophylaxis: SCDs, defer chemoprophylaxis given recently noted hemorrhagic findings. (12) CODE status: Discussed CODE status at length including difference between FULL code, DNR-CCA and DNR-CC status. Following discussions about the differences in these status, requested continuation DNR-CCA, no intubation status, notes LW in place. Advanced Care Planning Face to Face Time: 18 minutes. Code Visit OBSV E&M: 73844 Initial observation care L3 Procedures: 73708 Advncd Care Plan 30 Min
--- NOTE | 2017-10-20 19:42 | ED.RN ---
CALLED [facility], SPOKE TO FER IN THE TRANSFER CENTER, TO ADVISE OF THE NEED TO ADMIT THIS PT, SHE STATED THEY WILL FOLLOW UP TOMORROW
--- NOTE | 2017-10-20 20:01 | ED.RN ---
pt unsure of last dose of meds
--- NOTE | 2017-10-20 20:16 | CT_ITS ---
STUDY: CT BRAIN WITHOUT CONTRAST REASON FOR EXAM: Male, 72 years old. Metastasis RADIATION DOSAGE (If Supplied By Facility): CTDIvol = ( 44.99 ) mGy, DLP = ( 818.61 ) mGycm TECHNIQUE: Transaxial CT imaging of the brain was performed without administration of intravenous contrast material. Individualized dose optimization techniques were used for this CT. COMPARISON: MRI of the brain FINDINGS: Normal soft tissue structures. Normal calvarium. Mild age-appropriate atrophy is noted. 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 . This also could be due to other metabolic disorders related to calcium or phosphate metabolism however clinical correlation is recommended Normal brainstem. There is no intracranial hemorrhage. There are no findings of an acute ischemic infarction. There are postsurgical changes of the orbits Normal visualized paranasal sinuses. Correlation with prior MRI of the brain reveals that the lesions thought to represent hemorrhagic lesions on the gradient echo weighted imaging sequence actually represent densely calcified lesions which have a similar appearance.. 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 No definitive evidence for acute bleed or focal mass Electronically Signed: Abel Temple MD at 22:43 EDT , Service support ,
--- NOTE | 2017-10-20 20:16 | ECHOD_ITS ---
Reason For Study: CHF Procedure This was a 2D Doppler, Color Flow transthoracic echocardiogram. The study was technically limited. The exam was of poor technical quality due to poor acoustic windows / lung disease. Exam performed portable in patient room. Left Ventricle Normal size and thickness. The estimated ejection fraction is 65 %. No regional wall motion abnormalities noted. Right Ventricle Severely dilated right ventricle. Mild global right ventricular systolic dysfunction. Atria Normal left atrium. Normal right atrium. Mitral Valve The mitral valve is structurally normal. No prolapse or stenosis seen. Tricuspid Valve Normal tricuspid valve. Trivial tricuspid valve insufficiency. Right ventricular systolic pressure estimated to be 38 mmHg. Aortic Valve Normal aortic valve. Trisinus/trileaflet aortic valve. Pulmonic Valve The pulmonic valve is not well visualized. Great Vessels Normal aortic root. Normal arch. Normal inferior vena cava. Inferior vena cava collapse with sniff. Pericardium/Pleural No pericardial effusion. MMode/2D Measurements & Calculations LVIDd: 4.5 cm IVSd: 0.83 cm LVIDs: 2.8 cm LVPWd: 0.96 cm FS: 37.6 % Interpretation Summary The estimated ejection fraction is 65 %. Severely dilated right ventricle. Trivial tricuspid valve insufficiency. Right ventricular systolic pressure estimated to be 38 mmHg. Compared to echo report dated 08/09/2016, LV function has normalized,. Pt had severe RVE at that time. RVSP has decreased from 68 to 38 mm Hg, but may be underestimated due to poor and limitied echo windows. The study was technically limited. The study was technically difficult. Ordering Physician: Gabriella Artis Referring Physician: LANDON ALFARO DO Performed By: Hiral Moreland, BIJUCS, RVT
[2017-10-20 21:17] LABS: Magnesium 2.1 mg/dL (1.6-2.6)
[2017-10-20] MEDS: 0.9% Normal Saline 1,000 ML 125 ML IV (21:26)
[2017-10-20] MEDS: metroNIDAZOLE 500 MG Tablet PO (21:30)
[2017-10-20] MEDS: Ipratropium/Albuterol Sulfate 3 ML AMPUL.NEB INHALATION (21:56)
[2017-10-21] VITALS (18 sets, daily range): BP systolic 82–110; BP diastolic 45–69; PULSE 63–116; RESP 16–22; TEMP 36.6–37.3; O2SAT 93–98
[2017-10-21 02:12] LABS: Absolute Lymphocyte Count 1.04 X10^3/ul (0.83-4.51); Absolute Neutrophil Count 8.2 X10^3/uL (2.0-7.7); Eosinophil# 0.02 X10^3/uL; Eosinophils% 0.2 % (0-5); Hematocrit 27.8 % (40-54); Hemoglobin 8.6 g/dl (13.0-16.5); Lymphocyte # 1.04 X10^3/ul (4.0); Lymphocyte % 10.1 % (19-41); Mean Corp Hgb Conc 30.9 g/gl (32-36); Mean Corpuscular Hgb 29.5 pg (27.0-32.0); Mean Corpuscular Volume 95.2 fL (80-94); Mean Platelet Vol. 9.7 fl (6.2-12.0); Monocyte# 1.04 X10^3/uL; Monocyte% 10.1 % (0-10); Neutrophil # 8.18 X10^3/uL (2.7-7.7); Neutrophil % 79.4 % (47-70); Platelet Count 414 K/mm3 (150-450); RBC Distribution Width CV 15.5 % (11.6-14.6); RBC Distribution Width SD 50.8 fl (35.1-43.9); Red Blood Count 2.92 M/mm3 (4.6-6.2); White Blood Count 10.3 K/mm3 (4.4-11.0)
[2017-10-21 02:13] LABS: POSITIVE COUNT NO; POSITIVE DIFFERENTIAL NO; POSITIVE MORPHOLOGY NO
[2017-10-21 03:38] LABS: ALB/GLOB Ratio 0.6 RATIO (0.9-2.4); AST(SGOT) 39 U/L (15-37); Alanine Aminotransfer ALT/SGPT 60 U/L (16-61); Albumin, Serum 2.3 g/dL (3.2-5.0); Alkaline Phosphatase 224 U/L (45-117); Anion Gap 6 (5-15); BUN 26 mg/dL (7-18); BUN/Creat Ratio 34.7 RATIO (10-20); Calcium,Total 9.3 mg/dL (8.5-10.1); Chloride 102 mmol/L (98-107); Creatinine, Serum 0.75 mg/dL (0.70-1.30); EST Glomerular Filtration Rate 108 mL/min (>60); Est Glom Filt Rate - Afr Amer 131 mL/min (>60); Estimated Creatinine Clearance 65.79 ml/min; Globulin 3.6 g/dL (2.2-4.2); Glucose 116 mg/dL (74-106); Potassium 4.2 mmol/L (3.5-5.1); Protein, Total 5.9 g/dL (6.4-8.2); Sodium Level 138 mmol/L (136-145)
[2017-10-21] MEDS: metroNIDAZOLE 500 MG Tablet PO ×3 (05:13→21:26)
[2017-10-21] MEDS: 0.9% Normal Saline 1,000 ML 125 ML IV ×3 (05:13→21:22)
[2017-10-21 09:51] LABS: Pathologist Review Reviewed
[2017-10-21] MEDS: Magnesium Oxide 400 MG Tablet PO (10:22)
[2017-10-21] MEDS: Pantoprazole Sodium 40 MG Tablet PO (10:22)
[2017-10-21] MEDS: Ipratropium/Albuterol Sulfate 3 ML AMPUL.NEB INHALATION ×2 (10:30→18:45)
--- NOTE | 2017-10-21 12:27 | PN_ITS ---
Patient Problems: Active and Suspected Problems (Last Updated 10/14/17 @ 22:27 by Mal Gong MD) Syncope and collapse (Acute) Hypotension (Acute) Subjective: Patient seen and examined. States he had a very bad night. Complains of headache overnight and dizziness. Dizziness increased with any movement. Denies changes in vision. Denies chest pain, shortness of breath. Denies other current complaints. - Physical Exam General: Alert, Oriented x3, Cooperative, No apparent distress HEENT: Atraumatic, PERRLA, EOMI, Normocephalic Neck: Supple, No JVD, Negative Carotid Bruits Lungs: Diminished, Rhonchi, Wheezes Cardiovascular: Regular rate, No murmurs Abdomen: Bowel Sounds Present, Soft, Non Tender, Non-Distended Extremities: No clubbing, No cyanosis, No edema, Capillary Refill Less than 3 Seconds Skin: No rashes, No breakdown Musculoskeletal: No Tenderness to Palpation of Joints or Extremities Neurological: Cranial nerves II-XII grossly intact, Neuro grossly intact Psych/Mental Status: Normal Affect, Appropriate Vital Signs Temp Pulse Resp BP Pulse Ox 98.0 F 81 19 H 105/59 L 96 10/21/17 10:00 10/21/17 10:50 10/21/17 10:50 10/21/17 10:12 10/21/17 10:00 Oxygen Flow Rate (L/min) 2 Oxygen Delivery Method Nasal Cannula Weight: 95.4 kg Body Mass Index (BMI) 31.0 Orthostatic Vital Signs Start: 10/20/17 21:16 Freq: q24h Status: Active Protocol: Activity Type Activity Date Activity User E-Sign Co-Sign Detail Recorded Client Recorded Date Recorded By Document 10/21/17 10:12 AEL [id number] 10/21/17 10:19 AEL 10/21/17 10:12 Orthostatic Vitals Standing -Blood Pressure (90/60-120/80) 91/45 L -Extremity Use Left Arm -Pulse Rate (60-100) 116 H Sitting -Blood Pressure (90/60-120/80) 95/47 L -Extremity Use Left Arm -Pulse Rate (60-100) 100 Lying -Blood Pressure (90/60-120/80) 105/59 L -Extremity Use Left Arm -Pulse Rate (60-100) 97 Intake and Output for Last 24 Hours 10/19/17 10/20/17 10/21/17 23:59 23:59 23:59 Intake Total 276 / 276 695 / 695 Output Total 975 / 975 Balance 276 / 276 -280 / -280 Laboratory Tests Past 24 Hrs 10/20/17 10/20/17 10/21/17 20:34 23:01 01:55 WBC 10.3 RBC 2.92 L Hgb 8.6 L Hct 27.8 L MCV 95.2 H MCH 29.5 MCHC 30.9 L RDW 15.5 H RDW Differential 50.8 H Plt Count 414 MPV 9.7 Immature Gran % (Auto) 0.200 Neut % (Auto) 79.4 H Lymph % (Auto) 10.1 L [place] % (Auto) 10.1 H Eos % (Auto) 0.2 Baso % (Auto) 0.0 Absolute Neuts (auto) 8.2 H Absolute Lymphs (auto) 1.04 Total Counted Not Reportable Sodium Potassium Chloride Carbon Dioxide Anion Gap BUN Creatinine Estim Creat Clear Calc Est GFR (MDRD) Af Amer Est GFR (MDRD) Non-Af BUN/Creatinine Ratio Glucose Calcium Magnesium 2.1 Total Bilirubin AST ALT Alkaline Phosphatase Troponin I < 0.015 < 0.015 Total Protein Albumin Globulin Albumin/Globulin Ratio Cortisol 10/21/17 10/21/17 10/21/17 01:55 01:55 08:22 WBC RBC Hgb Hct MCV MCH MCHC RDW RDW Differential Plt Count MPV Immature Gran % (Auto) Neut % (Auto) Lymph % (Auto) [place] % (Auto) Eos % (Auto) Baso % (Auto) Absolute Neuts (auto) Absolute Lymphs (auto) Total Counted Sodium 138 Potassium 4.2 Chloride 102 Carbon Dioxide 30.0 Anion Gap 6 BUN 26 H Creatinine 0.75 Estim Creat Clear Calc 65.79 Est GFR (MDRD) Af Amer 131 Est GFR (MDRD) Non-Af 108 BUN/Creatinine Ratio 34.7 H Glucose 116 H Calcium 9.3 Magnesium Total Bilirubin 0.30 AST 39 H ALT 60 Alkaline Phosphatase 224 H Troponin I < 0.015 Total Protein 5.9 L Albumin 2.3 L Globulin 3.6 Albumin/Globulin Ratio 0.6 L Cortisol 15.60 Medical Necessity - Tobacco Use Smoking Status: Former smoker Tobacco Use: Non-smoker Assessment/Plan Active and Suspected Problems (Last Updated 10/14/17 @ 22:27 by Mal Gong MD) Syncope and collapse (Acute) Hypotension (Acute) Patient is a 72-year-old male admitted 10/20/2017 due to dizziness, hypotension. He has a past medical history of chronic hypoxic respiratory failure, chronic COPD, obesity, diastolic CHF, tobacco dependence, pulmonary hypertension, chronic left foot drop, CAD, GERD, BPH. Recent diagnosis non-small cell lung cancer with metastasis. 1. Syncopal event, ongoing dizziness-suspect secondary to orthostatic hypotension. Orthostatic vitals positive. Continue gentle IV fluids. Repeat ortho in a.m. Echocardiogram shows an EF of 65%, severely dilated right ventricle, RVSP estimated to be 38 mmHg. Troponin negative. Cortisol 15. Brain CT showed no acute bleed or focal mass. Patient had recent MRI 10/14/17 which showed multiple bilateral supratentorial and bilateral cerebral enhancing lesions consistent with metastatic disease. Hemorrhage within the right cerebral lesion. Also noted are lesions within the basal ganglia and posterior thalamic nuclei bilateral. Urinalysis with 25 leukocytes, positive nitrites. Urine culture pending. 2. Non-small cell metastatic lung cancer-recently diagnosed. Following with oncology. To undergo outpatient radiation therapy. Continue home Decadron regimen. 3. Chronic hypoxic respiratory failure with chronic COPD-on baseline oxygen. Continue albuterol DuoNeb aerosols. 4. Chronic macrocytic anemia-stable, monitor CBC. 5. Chronic diastolic CHF-no acute exacerbation. Home Lasix regimen on hold secondary to dehydration. 6. CAD-not on aspirin, statin. 7. GERD-continue PPI. 8. BPH-not on home regimen. 9. Obesity-encouraged diet and lifestyle modifications. DVT prophylaxis-SCDs. Pharmacologic prophylaxis contraindicated given recent hemorrhagic finding. This patient was seen by ROBERT Cameron under the supervision of Dr. Pope.
--- NOTE | 2017-10-21 12:32 | CHAPLAIN ---
Type of Pastoral Visit _x__ Initial Visit ___ Follow-up Visit ___ On-call Visit ___ General Patient Visit ___ Spiritual Assessment ___ Family Conference ___ Bereavement ___ Rapid Response ___ Code Blue ___ Other (describe below) Pastoral Care Referral From _x__ Patient ___ Family ___ Nurse ___ Physician ___ Tender Coordinator ___ Purifying Plant Operator ___ Other (describe below) Sacrament/Intervention _x__ Active listening ___ Anointing ___ Mormon ___ Bereavement ___ Communion _x__ Naomi exploration ___ ___ Life review _x__ Prayer ___ Reconciliation ___ Sacrament of Sick ___ Supportive presence ___ Wedding ___ Other (describe below) Pastoral Comments patient says that when the Lord above decides it is my time, there is nothing anyone can do about it; pt takes this attitude about his future and his healthcare needs; pt says his goal is that he will not have to suffer; pt says he has turned his decisions over to his Ex ; pt says his son is in intermediate
--- NOTE | 2017-10-21 12:56 | CASEMGMT ---
Jackie at the [place] transfer center updated on pt via phone at this time, voices understanding. Jackie voices no further questions/concerns/needs at this time. Rafia FELIPE CM
[2017-10-22] VITALS (20 sets, daily range): BP systolic 84–104; BP diastolic 53–72; PULSE 62–91; RESP 17–20; TEMP 36.5–36.9; O2SAT 95–98
[2017-10-22] MEDS: 0.9% Normal Saline 1,000 ML 125 ML IV ×3 (03:08→23:40)
[2017-10-22] MEDS: metroNIDAZOLE 500 MG Tablet PO ×3 (05:24→21:54)
[2017-10-22 05:57] LABS: Hematocrit 25.7 % (40-54); Hemoglobin 7.8 g/dl (13.0-16.5); Mean Corp Hgb Conc 30.4 g/gl (32-36); Mean Corpuscular Hgb 29.7 pg (27.0-32.0); Mean Corpuscular Volume 97.7 fL (80-94); Mean Platelet Vol. 9.9 fl (6.2-12.0); Platelet Count 350 K/mm3 (150-450); RBC Distribution Width CV 15.7 % (11.6-14.6); RBC Distribution Width SD 53.4 fl (35.1-43.9); Red Blood Count 2.63 M/mm3 (4.6-6.2); White Blood Count 8.3 K/mm3 (4.4-11.0)
[2017-10-22 06:12] LABS: Scan Indicated on CBC? Y/N NO
[2017-10-22 06:15] LABS: Anion Gap 5 (5-15); BUN 18 mg/dL (7-18); BUN/Creat Ratio 37.6 RATIO (10-20); Chloride 106 mmol/L (98-107); Creatinine, Serum 0.48 mg/dL (0.70-1.30); EST Glomerular Filtration Rate 182 mL/min (>60); Est Glom Filt Rate - Afr Amer 220 mL/min (>60); Estimated Creatinine Clearance 65.79 ml/min; Glucose 141 mg/dL (74-106); Potassium 4.9 mmol/L (3.5-5.1); Sodium Level 141 mmol/L (136-145)
[2017-10-22] MEDS: Acetaminophen 325 MG Tablet 650 MG PO (08:53)
[2017-10-22] MEDS: Magnesium Oxide 400 MG Tablet PO (08:54)
[2017-10-22] MEDS: Pantoprazole Sodium 40 MG Tablet PO (08:54)
[2017-10-22] MEDS: Midodrine HCl 5 MG Tablet 10 MG PO ×2 (13:12→21:54)
--- NOTE | 2017-10-22 13:15 | PCM.PROGNOTE ---
<Carlotta Rodrigez - Last Filed: 10/22/17 13:27> Patient Problems: Active and Suspected Problems (Last Updated 10/14/17 @ 22:27 by Mal Gong MD) Syncope and collapse (Acute) Hypotension (Acute) Subjective: Patient seen and examined. Continues to complain of dizziness with movement and intermittent headache. Denies other current complaints. - Physical Exam General: Alert, Oriented x3, Cooperative, No apparent distress HEENT: Atraumatic, PERRLA, EOMI, Normocephalic Neck: Supple, No JVD, Negative Carotid Bruits Lungs: Diminished, Rhonchi Cardiovascular: Regular rate, Regular Rhythm, Normal S1, Normal S2, No murmurs Abdomen: Bowel Sounds Present, Soft, Non Tender, Non-Distended Extremities: No clubbing, No cyanosis, No edema, Capillary Refill Less than 3 Seconds Skin: No rashes, No breakdown Musculoskeletal: No Tenderness to Palpation of Joints or Extremities Neurological: Cranial nerves II-XII grossly intact, Neuro grossly intact Psych/Mental Status: Normal Affect, Appropriate Vital Signs Temp Pulse Resp BP Pulse Ox 97.9 F 66 18 91/57 L 96 10/22/17 08:51 10/22/17 11:12 10/22/17 08:51 10/22/17 08:51 10/22/17 08:51 Oxygen Flow Rate (L/min) 2 Oxygen Delivery Method Nasal Cannula Weight: 95.4 kg Body Mass Index (BMI) 31.0 Orthostatic Vital Signs Start: 10/20/17 21:16 Freq: q24h Status: Active Protocol: Activity Type Activity Date Activity User E-Sign Co-Sign Detail Recorded Client Recorded Date Recorded By Document 10/22/17 05:17 [facility] [id number] 10/22/17 05:17 BAM 10/22/17 05:17 Orthostatic Vitals Standing -Blood Pressure (90/60-120/80) 84/58 L -Extremity Use Left Arm -Pulse Rate (60-100) 85 Sitting -Blood Pressure (90/60-120/80) 99/53 L -Extremity Use Left Arm -Pulse Rate (60-100) 79 Lying -Blood Pressure (90/60-120/80) 95/65 -Extremity Use Left Arm -Pulse Rate (60-100) 70 Intake and Output for Last 24 Hours 0510/21/17 10/22/17 23:59 23:59 23:59 Intake Total 276 / 276 3849 / 3849 1823 / 1823 Output Total 2315 / 2315 1650 / 1650 Balance 276 / 276 1534 / 1534 173 / 173 Microbiology Past 72 Hours 10/21/17 04:10 Urine Culture - Preliminary Urine, Clean Catch Culture exhibits no growth. Laboratory Tests Past 24 Hrs 10/22/17 10/22/17 10/22/17 05:10 05:10 12:05 WBC 8.3 RBC 2.63 L Hgb 7.8 L Hct 25.7 L MCV 97.7 H MCH 29.7 MCHC 30.4 L RDW 15.7 H RDW Differential 53.4 H Plt Count 350 MPV 9.9 Sodium 141 Potassium 4.9 Chloride 106 Carbon Dioxide 30.0 Anion Gap 5 BUN 18 Creatinine 0.48 L Estim Creat Clear Calc 65.79 Est GFR (MDRD) Af Amer 220 Est GFR (MDRD) Non-Af 182 BUN/Creatinine Ratio 37.6 H Glucose 141 H Calcium 9.0 Blood Type Pending Antibody Screen Pending Crossmatch See Detail Medical Necessity - Tobacco Use Smoking Status: Former smoker Tobacco Use: Non-smoker Assessment/Plan Active and Suspected Problems (Last Updated 10/14/17 @ 22:27 by Mal Gong MD) Syncope and collapse (Acute) Hypotension (Acute) Patient is a 72-year-old male admitted 10/20/2017 due to dizziness, hypotension. He has a past medical history of chronic hypoxic respiratory failure, chronic COPD, obesity, diastolic CHF, tobacco dependence, pulmonary hypertension, chronic left foot drop, CAD, GERD, BPH. Recent diagnosis non-small cell lung cancer with metastasis. 1. Syncopal event, ongoing dizziness-suspect secondary to orthostatic hypotension. Continue gentle IV fluids. Repeat orthos this morning negative. Repeat ortho in a.m. Echocardiogram shows an EF of 65%, severely dilated right ventricle, RVSP estimated to be 38 mmHg. Troponin negative. Cortisol 15. Brain CT showed no acute bleed or focal mass. Patient had recent MRI 10/14/17 which showed multiple bilateral supratentorial and bilateral cerebral enhancing lesions consistent with metastatic disease. Hemorrhage within the right cerebral lesion. Also noted are lesions within the basal ganglia and posterior thalamic nuclei bilateral. Urinalysis with 25 leukocytes, positive nitrites. Urine culture shows no growth. Add midodrine 10 mg 3 times daily for hypotension. 2. Non-small cell metastatic lung cancer-recently diagnosed. Following with oncology. To undergo outpatient radiation therapy. Continue home Decadron regimen. 3. Chronic hypoxic respiratory failure with chronic COPD-on baseline oxygen. Continue albuterol DuoNeb aerosols. 4. Acute on chronic macrocytic anemia-hemoglobin dropped to 7.8. Transfuse 1 unit packed red blood cell. 5. Chronic diastolic CHF-no acute exacerbation. Home Lasix regimen on hold secondary to dehydration. 6. CAD-not on aspirin, statin. 7. GERD-continue PPI. 8. BPH-not on home regimen. 9. Obesity-encouraged diet and lifestyle modifications. DVT prophylaxis-SCDs. Pharmacologic prophylaxis contraindicated given recent hemorrhagic finding. This patient was seen by ROBERT Cameron under the supervision of Dr. Gong. <Mal Gong E - Last Filed: 10/22/17 14:00> - Physical Exam Vital Signs Temp Pulse Resp BP Pulse Ox 97.9 F 78 20 H 91/57 L 96 10/22/17 08:51 10/22/17 13:44 10/22/17 13:44 10/22/17 08:51 10/22/17 08:51 Oxygen Flow Rate (L/min) 2 Oxygen Delivery Method Nasal Cannula Weight: 210 lb 5.136 oz Body Mass Index (BMI) 31.0 Orthostatic Vital Signs Start: 10/20/17 21:16 Freq: q24h Status: Active Protocol: Activity Type Activity Date Activity User E-Sign Co-Sign Detail Recorded Client Recorded Date Recorded By Document 10/22/17 05:17 [facility] [id number] 10/22/17 05:17 BAM 10/22/17 05:17 Orthostatic Vitals Standing -Blood Pressure (90/60-120/80) 84/58 L -Extremity Use Left Arm -Pulse Rate (60-100) 85 Sitting -Blood Pressure (90/60-120/80) 99/53 L -Extremity Use Left Arm -Pulse Rate (60-100) 79 Lying -Blood Pressure (90/60-120/80) 95/65 -Extremity Use Left Arm -Pulse Rate (60-100) 70 Intake and Output for Last 24 Hours 10/20/17 10/21/17 10/22/17 23:59 23:59 23:59 Intake Total 276 / 276 3849 / 3849 1823 / 1823 Output Total 2315 / 2315 1650 / 1650 Balance 276 / 276 1534 / 1534 173 / 173 Microbiology Past 72 Hours 10/21/17 04:10 Urine Culture - Preliminary Urine, Clean Catch Culture exhibits no growth. Laboratory Tests Past 24 Hrs 10/22/17 10/22/17 10/22/17 05:10 05:10 12:05 WBC 8.3 RBC 2.63 L Hgb 7.8 L Hct 25.7 L MCV 97.7 H MCH 29.7 MCHC 30.4 L RDW 15.7 H RDW Differential 53.4 H Plt Count 350 MPV 9.9 Sodium 141 Potassium 4.9 Chloride 106 Carbon Dioxide 30.0 Anion Gap 5 BUN 18 Creatinine 0.48 L Estim Creat Clear Calc 65.79 Est GFR (MDRD) Af Amer 220 Est GFR (MDRD) Non-Af 182 BUN/Creatinine Ratio 37.6 H Glucose 141 H Calcium 9.0 Blood Type Pending Antibody Screen Pending Crossmatch See Detail Assessment/Plan Hospitalist note: I am seeing this patient in conjunction with Carlotta Rodrigez. I independently seen and examined the patient. Progress note above, laboratory data and imaging studies reviewed and I agree with above treatment plan. Patient was readmitted for syncopal episode, dizziness and hypotension. He was discharged from the hospital 1 week ago and he was admitted for the same problem. He has been complaining of dizziness upon sitting on the bed edge. He denied chest pain shortness of breath. EKG without evidence of acute ischemic changes or cardiac arrhythmias. 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 His blood pressure has been fluctuating, systolic has been around 80s-90s. Orthostatic vitals was not significantly dropped upon standing. Routine blood work from today revealed hemoglobin 7.8 g/dL. - Physical Exam General: Alert, Oriented x3, Cooperative, No apparent distress. HEENT: Atraumatic, PERRLA, EOMI. Neck: Supple, No JVD, Negative Carotid Bruits, Trachea Midline, Thyroid Normal. Lungs: Clear to auscultation, Normal air movement, No rhonchi, No wheeze, No rales. Cardiovascular: Regular rate, Regular Rhythm, Normal S1, Normal S2, PMI Normal. Abdomen: Bowel Sounds Present, Soft, Non Tender, Non-Distended, No Hepato-splenomegaly. Extremities: No clubbing, No cyanosis, No edema Skin: No rashes, No breakdown Neurological: Neuro grossly intact Assessment and plan: #1 syncopal episode/dizziness: Presumed to be due to orthostatic hypotension. Blood pressure has been low, has been in the 80s-90s systolic. He is on IV fluids. EKG reviewed as above, unremarkable. Troponin is negative. CT scan brain done on October 20, 2012 and was unremarkable for acute changes. 2D echocardiogram also done yesterday and revealed normal ejection fraction, severely dilated right ventricle, RVSP of 38. Plan: Continue IV fluids, start midodrine as above. #2 acute on chronic anemia: Probably due to anemia of chronic disease secondary to cancer. Hemoglobin today is 7.8 g/dL. No evidence of active bleeding. Plan to transfuse 1 unit of packed RBCs. #3 recent diagnosis of metastatic non-small cell lung cancer with metastases to the brain and liver, plan for outpatient radiation therapy. Patient was transferred recently to [facility]. #4 other chronic medical problems: Stable, continue current medications as above. This note was generated with [employer] dictation software. It may contain incorrect words, spelling, and punctuation that were not noted in checking the note before signing. Code Visit OBSV E&M: 02259 Subsequent observation care L2
--- NOTE | 2017-10-22 13:27 | PN_ITS ---
<Carlotta Rodrigez - Last Filed: 10/22/17 13:27> Patient Problems: Active and Suspected Problems (Last Updated 10/14/17 @ 22:27 by Mal Gong MD) Syncope and collapse (Acute) Hypotension (Acute) Subjective: Patient seen and examined. Continues to complain of dizziness with movement and intermittent headache. Denies other current complaints. - Physical Exam General: Alert, Oriented x3, Cooperative, No apparent distress HEENT: Atraumatic, PERRLA, EOMI, Normocephalic Neck: Supple, No JVD, Negative Carotid Bruits Lungs: Diminished, Rhonchi Cardiovascular: Regular rate, Regular Rhythm, Normal S1, Normal S2, No murmurs Abdomen: Bowel Sounds Present, Soft, Non Tender, Non-Distended Extremities: No clubbing, No cyanosis, No edema, Capillary Refill Less than 3 Seconds Skin: No rashes, No breakdown Musculoskeletal: No Tenderness to Palpation of Joints or Extremities Neurological: Cranial nerves II-XII grossly intact, Neuro grossly intact Psych/Mental Status: Normal Affect, Appropriate Vital Signs Temp Pulse Resp BP Pulse Ox 97.9 F 66 18 91/57 L 96 10/22/17 08:51 10/22/17 11:12 10/22/17 08:51 10/22/17 08:51 10/22/17 08:51 Oxygen Flow Rate (L/min) 2 Oxygen Delivery Method Nasal Cannula Weight: 95.4 kg Body Mass Index (BMI) 31.0 Orthostatic Vital Signs Start: 10/20/17 21:16 Freq: q24h Status: Active Protocol: Activity Type Activity Date Activity User E-Sign Co-Sign Detail Recorded Client Recorded Date Recorded By Document 10/22/17 05:17 [facility] [id number] 10/22/17 05:17 BAM 10/22/17 05:17 Orthostatic Vitals Standing -Blood Pressure (90/60-120/80) 84/58 L -Extremity Use Left Arm -Pulse Rate (60-100) 85 Sitting -Blood Pressure (90/60-120/80) 99/53 L -Extremity Use Left Arm -Pulse Rate (60-100) 79 Lying -Blood Pressure (90/60-120/80) 95/65 -Extremity Use Left Arm -Pulse Rate (60-100) 70 Intake and Output for Last 24 Hours 0510/21/17 10/22/17 23:59 23:59 23:59 Intake Total 276 / 276 3849 / 3849 1823 / 1823 Output Total 2315 / 2315 1650 / 1650 Balance 276 / 276 1534 / 1534 173 / 173 Microbiology Past 72 Hours 10/21/17 04:10 Urine Culture - Preliminary Urine, Clean Catch Culture exhibits no growth. Laboratory Tests Past 24 Hrs 10/22/17 10/22/17 10/22/17 05:10 05:10 12:05 WBC 8.3 RBC 2.63 L Hgb 7.8 L Hct 25.7 L MCV 97.7 H MCH 29.7 MCHC 30.4 L RDW 15.7 H RDW Differential 53.4 H Plt Count 350 MPV 9.9 Sodium 141 Potassium 4.9 Chloride 106 Carbon Dioxide 30.0 Anion Gap 5 BUN 18 Creatinine 0.48 L Estim Creat Clear Calc 65.79 Est GFR (MDRD) Af Amer 220 Est GFR (MDRD) Non-Af 182 BUN/Creatinine Ratio 37.6 H Glucose 141 H Calcium 9.0 Blood Type Pending Antibody Screen Pending Crossmatch See Detail Medical Necessity - Tobacco Use Smoking Status: Former smoker Tobacco Use: Non-smoker Assessment/Plan Active and Suspected Problems (Last Updated 10/14/17 @ 22:27 by Mal Gong MD) Syncope and collapse (Acute) Hypotension (Acute) Patient is a 72-year-old male admitted 10/20/2017 due to dizziness, hypotension. He has a past medical history of chronic hypoxic respiratory failure, chronic COPD, obesity, diastolic CHF, tobacco dependence, pulmonary hypertension, chronic left foot drop, CAD, GERD, BPH. Recent diagnosis non-small cell lung cancer with metastasis. 1. Syncopal event, ongoing dizziness-suspect secondary to orthostatic hypotension. Continue gentle IV fluids. Repeat orthos this morning negative. Repeat ortho in a.m. Echocardiogram shows an EF of 65%, severely dilated right ventricle, RVSP estimated to be 38 mmHg. Troponin negative. Cortisol 15. Brain CT showed no acute bleed or focal mass. Patient had recent MRI 10/14/17 which showed multiple bilateral supratentorial and bilateral cerebral enhancing lesions consistent with metastatic disease. Hemorrhage within the right cerebral lesion. Also noted are lesions within the basal ganglia and posterior thalamic nuclei bilateral. Urinalysis with 25 leukocytes, positive nitrites. Urine culture shows no growth. Add midodrine 10 mg 3 times daily for hypotension. 2. Non-small cell metastatic lung cancer-recently diagnosed. Following with oncology. To undergo outpatient radiation therapy. Continue home Decadron regimen. 3. Chronic hypoxic respiratory failure with chronic COPD-on baseline oxygen. Continue albuterol DuoNeb aerosols. 4. Acute on chronic macrocytic anemia-hemoglobin dropped to 7.8. Transfuse 1 unit packed red blood cell. 5. Chronic diastolic CHF-no acute exacerbation. Home Lasix regimen on hold secondary to dehydration. 6. CAD-not on aspirin, statin. 7. GERD-continue PPI. 8. BPH-not on home regimen. 9. Obesity-encouraged diet and lifestyle modifications. DVT prophylaxis-SCDs. Pharmacologic prophylaxis contraindicated given recent hemorrhagic finding. This patient was seen by ROBERT Cameron under the supervision of Dr. Gong. <Mal Gong E - Last Filed: 10/22/17 14:00> - Physical Exam Vital Signs Temp Pulse Resp BP Pulse Ox 97.9 F 78 20 H 91/57 L 96 10/22/17 08:51 10/22/17 13:44 10/22/17 13:44 10/22/17 08:51 10/22/17 08:51 Oxygen Flow Rate (L/min) 2 Oxygen Delivery Method Nasal Cannula Weight: 210 lb 5.136 oz Body Mass Index (BMI) 31.0 Orthostatic Vital Signs Start: 10/20/17 21:16 Freq: q24h Status: Active Protocol: Activity Type Activity Date Activity User E-Sign Co-Sign Detail Recorded Client Recorded Date Recorded By Document 10/22/17 05:17 [facility] [id number] 10/22/17 05:17 BAM 10/22/17 05:17 Orthostatic Vitals Standing -Blood Pressure (90/60-120/80) 84/58 L -Extremity Use Left Arm -Pulse Rate (60-100) 85 Sitting -Blood Pressure (90/60-120/80) 99/53 L -Extremity Use Left Arm -Pulse Rate (60-100) 79 Lying -Blood Pressure (90/60-120/80) 95/65 -Extremity Use Left Arm -Pulse Rate (60-100) 70 Intake and Output for Last 24 Hours 10/20/17 10/21/17 10/22/17 23:59 23:59 23:59 Intake Total 276 / 276 3849 / 3849 1823 / 1823 Output Total 2315 / 2315 1650 / 1650 Balance 276 / 276 1534 / 1534 173 / 173 Microbiology Past 72 Hours 10/21/17 04:10 Urine Culture - Preliminary Urine, Clean Catch Culture exhibits no growth. Laboratory Tests Past 24 Hrs 10/22/17 10/22/17 10/22/17 05:10 05:10 12:05 WBC 8.3 RBC 2.63 L Hgb 7.8 L Hct 25.7 L MCV 97.7 H MCH 29.7 MCHC 30.4 L RDW 15.7 H RDW Differential 53.4 H Plt Count 350 MPV 9.9 Sodium 141 Potassium 4.9 Chloride 106 Carbon Dioxide 30.0 Anion Gap 5 BUN 18 Creatinine 0.48 L Estim Creat Clear Calc 65.79 Est GFR (MDRD) Af Amer 220 Est GFR (MDRD) Non-Af 182 BUN/Creatinine Ratio 37.6 H Glucose 141 H Calcium 9.0 Blood Type Pending Antibody Screen Pending Crossmatch See Detail Assessment/Plan Hospitalist note: I am seeing this patient in conjunction with Carlotta Rodrigez. I independently seen and examined the patient. Progress note above, laboratory data and imaging studies reviewed and I agree with above treatment plan. Patient was readmitted for syncopal episode, dizziness and hypotension. He was discharged from the hospital 1 week ago and he was admitted for the same problem. He has been complaining of dizziness upon sitting on the bed edge. He denied chest pain shortness of breath. EKG without evidence of acute ischemic changes or cardiac arrhythmias. Recently, he was diagnosed with metastatic non-small cell lung cancer with brain and liver metastasis, was transferred to [place] [facility] and he had a plan to go for radiation therapy as outpatient. His blood pressure has been fluctuating, systolic has been around 80s-90s. Orthostatic vitals was not significantly dropped upon standing. Routine blood work from today revealed hemoglobin 7.8 g/dL. - Physical Exam General: Alert, Oriented x3, Cooperative, No apparent distress. HEENT: Atraumatic, PERRLA, EOMI. Neck: Supple, No JVD, Negative Carotid Bruits, Trachea Midline, Thyroid Normal. Lungs: Clear to auscultation, Normal air movement, No rhonchi, No wheeze, No rales. Cardiovascular: Regular rate, Regular Rhythm, Normal S1, Normal S2, PMI Normal. Abdomen: Bowel Sounds Present, Soft, Non Tender, Non-Distended, No Hepato- splenomegaly. Extremities: No clubbing, No cyanosis, No edema Skin: No rashes, No breakdown Neurological: Neuro grossly intact Assessment and plan: #1 syncopal episode/dizziness: Presumed to be due to orthostatic hypotension. Blood pressure has been low, has been in the 80s-90s systolic. He is on IV fluids. EKG reviewed as above, unremarkable. Troponin is negative. CT scan brain done on October 20, 2012 and was unremarkable for acute changes. 2D echocardiogram also done yesterday and revealed normal ejection fraction, severely dilated right ventricle, RVSP of 38. Plan: Continue IV fluids, start midodrine as above. #2 acute on chronic anemia: Probably due to anemia of chronic disease secondary to cancer. Hemoglobin today is 7.8 g/dL. No evidence of active bleeding. Plan to transfuse 1 unit of packed RBCs. #3 recent diagnosis of metastatic non-small cell lung cancer with metastases to the brain and liver, plan for outpatient radiation therapy. Patient was transferred recently to [place] [facility]. #4 other chronic medical problems: Stable, continue current medications as above. This note was generated with [email or web address] dictation software. It may contain incorrect words, spelling, and punctuation that were not noted in checking the note before signing. Code Visit OBSV E&M: [id number] Subsequent observation care L2
[2017-10-22] MEDS: Ipratropium/Albuterol Sulfate 3 ML AMPUL.NEB INHALATION ×2 (13:33→18:48)
[2017-10-22] MEDS: 0.9% NaCl Peripheral Flush Adult/Peds IV (17:50)
[2017-10-23] VITALS (12 sets, daily range): BP systolic 101–108; BP diastolic 59–74; PULSE 62–86; RESP 16–20; TEMP 36.5–36.9; O2SAT 94–97
[2017-10-23] MEDS: metroNIDAZOLE 500 MG Tablet PO ×3 (05:38→21:43)
[2017-10-23] MEDS: Midodrine HCl 5 MG Tablet 10 MG PO ×3 (05:38→21:43)
[2017-10-23 06:20] LABS: Hematocrit 29.6 % (40-54); Hemoglobin 9.1 g/dl (13.0-16.5); Mean Corp Hgb Conc 30.7 g/gl (32-36); Mean Corpuscular Hgb 29.2 pg (27.0-32.0); Mean Corpuscular Volume 94.9 fL (80-94); Mean Platelet Vol. 9.5 fl (6.2-12.0); Platelet Count 387 K/mm3 (150-450); RBC Distribution Width CV 16.7 % (11.6-14.6); RBC Distribution Width SD 57.4 fl (35.1-43.9); Red Blood Count 3.12 M/mm3 (4.6-6.2); White Blood Count 12.3 K/mm3 (4.4-11.0)
[2017-10-23 06:28] LABS: Scan Indicated on CBC? Y/N NO
[2017-10-23 06:38] LABS: Anion Gap 6 (5-15); BUN 18 mg/dL (7-18); BUN/Creat Ratio 38.6 RATIO (10-20); Calcium,Total 9.2 mg/dL (8.5-10.1); Chloride 105 mmol/L (98-107); Creatinine, Serum 0.47 mg/dL (0.70-1.30); EST Glomerular Filtration Rate 188 mL/min (>60); Est Glom Filt Rate - Afr Amer 227 mL/min (>60); Estimated Creatinine Clearance 65.79 ml/min; Glucose 116 mg/dL (74-106); Potassium 4.5 mmol/L (3.5-5.1); Sodium Level 140 mmol/L (136-145)
[2017-10-23] MEDS: 0.9% Normal Saline 1,000 ML 125 ML IV (07:35)
[2017-10-23] MEDS: Pantoprazole Sodium 40 MG Tablet PO (09:09)
[2017-10-23] MEDS: Magnesium Oxide 400 MG Tablet PO (09:09)
--- NOTE | 2017-10-23 09:58 | PN_ITS ---
<Carlotta Rodrigez - Last Filed: 10/23/17 09:58> Patient Problems: Active and Suspected Problems (Last Updated 10/14/17 @ 22:27 by Mal Gong MD) Syncope and collapse (Acute) Hypotension (Acute) Subjective: Patient seen and examined. Dizziness and headache somewhat improved. Patient states if he is lying still he has no symptoms. He continues to complain of significant dizziness with sitting up on side of bed and standing. Denies other complaints. - Physical Exam General: Alert, Oriented x3, Cooperative, No apparent distress HEENT: Atraumatic, PERRLA, EOMI, Normocephalic Neck: Supple, No JVD, Negative Carotid Bruits Lungs: Diminished, - - Few scattered rhonchi Cardiovascular: Regular rate, Regular Rhythm, Normal S1, Normal S2, No murmurs Abdomen: Bowel Sounds Present, Soft, Non Tender, Non-Distended Extremities: No clubbing, No cyanosis, No edema, Capillary Refill Less than 3 Seconds Skin: No rashes, No breakdown Musculoskeletal: No Tenderness to Palpation of Joints or Extremities Neurological: Cranial nerves II-XII grossly intact, Neuro grossly intact Psych/Mental Status: Normal Affect, Appropriate Vital Signs Temp Pulse Resp BP Pulse Ox 97.7 F L 62 18 107/70 94 10/23/17 03:50 10/23/17 07:27 10/23/17 03:50 10/23/17 03:50 10/23/17 03:50 Oxygen Flow Rate (L/min) 2 Oxygen Delivery Method Nasal Cannula Weight: 95.4 kg Body Mass Index (BMI) 31.0 Orthostatic Vital Signs Start: 10/20/17 21:16 Freq: q24h Status: Active Protocol: Activity Type Activity Date Activity User E-Sign Co-Sign Detail Recorded Client Recorded Date Recorded By Document 10/23/17 03:49 [facility] [id number] 10/23/17 03:54 [facility] 10/23/17 03:49 Orthostatic Vitals Standing -Blood Pressure (90/60-120/80) 103/64 -Extremity Use Left Arm -Pulse Rate (60-100) 86 Sitting -Blood Pressure (90/60-120/80) 104/68 -Extremity Use Left Arm -Pulse Rate (60-100) 85 Lying -Blood Pressure (90/60-120/80) 107/70 -Extremity Use Left Arm -Pulse Rate (60-100) 70 Intake and Output for Last 24 Hours 10/21/17 10/22/17 10/23/17 23:59 23:59 23:59 Intake Total 3849 / 3849 4473 / 4473 868 / 868 Output Total 2315 / 2315 3050 / 3050 950 / 950 Balance 1534 / 1534 1423 / 1423 -82 / -82 Microbiology Past 72 Hours 10/21/17 04:10 Urine Culture - Preliminary Urine, Clean Catch Culture exhibits no growth. Laboratory Tests Past 24 Hrs 10/22/17 10/23/17 10/23/17 12:05 05:45 05:45 WBC 12.3 H RBC 3.12 L Hgb 9.1 L Hct 29.6 L MCV 94.9 H MCH 29.2 MCHC 30.7 L RDW 16.7 H RDW Differential 57.4 H Plt Count 387 MPV 9.5 Sodium 140 Potassium 4.5 Chloride 105 Carbon Dioxide 29.0 Anion Gap 6 BUN 18 Creatinine 0.47 L Estim Creat Clear Calc 65.79 Est GFR (MDRD) Af Amer 227 Est GFR (MDRD) Non-Af 188 BUN/Creatinine Ratio 38.6 H Glucose 116 H Calcium 9.2 Blood Type A POSITIVE Antibody Screen NEGATIVE Crossmatch See Detail Medical Necessity - Tobacco Use Smoking Status: Former smoker Tobacco Use: Non-smoker Assessment/Plan Active and Suspected Problems (Last Updated 10/14/17 @ 22:27 by Mal Gong MD) Syncope and collapse (Acute) Hypotension (Acute) Patient is a 72-year-old male admitted 10/20/2017 due to dizziness, hypotension. He has a past medical history of chronic hypoxic respiratory failure, chronic COPD, obesity, diastolic CHF, tobacco dependence, pulmonary hypertension, chronic left foot drop, CAD, GERD, BPH. Recent diagnosis non-small cell lung cancer with metastasis. 1. Syncopal event, ongoing dizziness-suspect secondary to orthostatic hypotension. Discontinue IV fluids. Repeat orthos this morning negative. Echocardiogram shows an EF of 65%, severely dilated right ventricle, RVSP estimated to be 38 mmHg. Troponin negative. Cortisol 15. Brain CT showed no acute bleed or focal mass. Patient had recent MRI 10/14/17 which showed multiple bilateral supratentorial and bilateral cerebral enhancing lesions consistent with metastatic disease. Hemorrhage within the right cerebral lesion. Also noted are lesions within the basal ganglia and posterior thalamic nuclei bilateral. Urinalysis with 25 leukocytes, positive nitrites. Urine culture shows no growth. Continue midodrine 10 mg 3 times daily. Hypotension improving. 2. Non-small cell metastatic lung cancer-recently diagnosed. Following with oncology. To undergo outpatient radiation therapy. Continue home Decadron regimen. 3. Chronic hypoxic respiratory failure with chronic COPD-on baseline oxygen. Continue albuterol DuoNeb aerosols. 4. Acute on chronic macrocytic anemia-patient received 1 unit packed red blood cells for hemoglobin of 7.8. Hemoglobin stable. Monitor CBC. Hemoglobin dropped to 7.8. 5. Chronic diastolic CHF-no acute exacerbation. Home Lasix regimen on hold secondary to dehydration. 6. CAD-not on aspirin, statin. 7. GERD-continue PPI. 8. BPH-not on home regimen. 9. Obesity-encouraged diet and lifestyle modifications. DVT prophylaxis-SCDs. Pharmacologic prophylaxis contraindicated given recent hemorrhagic finding. This patient was seen by ROBERT Cameron under the supervision of Dr. Gong. <Mal Gong E - Last Filed: 10/23/17 14:47> - Physical Exam Vital Signs Temp Pulse Resp BP Pulse Ox 98.4 F 82 16 102/68 96 10/23/17 09:50 10/23/17 11:51 10/23/17 09:50 10/23/17 09:50 10/23/17 09:50 Oxygen Flow Rate (L/min) 2 Oxygen Delivery Method Nasal Cannula Weight: 210 lb 5.136 oz Body Mass Index (BMI) 31.0 Orthostatic Vital Signs Start: 10/20/17 21:16 Freq: q24h Status: Active Protocol: Activity Type Activity Date Activity User E-Sign Co-Sign Detail Recorded Client Recorded Date Recorded By Document 10/23/17 03:49 [facility] [id number] 10/23/17 03:54 [facility] 10/23/17 03:49 Orthostatic Vitals Standing -Blood Pressure (90/60-120/80) 103/64 -Extremity Use Left Arm -Pulse Rate (60-100) 86 Sitting -Blood Pressure (90/60-120/80) 104/68 -Extremity Use Left Arm -Pulse Rate (60-100) 85 Lying -Blood Pressure (90/60-120/80) 107/70 -Extremity Use Left Arm -Pulse Rate (60-100) 70 Intake and Output for Last 24 Hours 10/21/17 10/22/17 10/23/17 23:59 23:59 23:59 Intake Total 3849 / 3849 4473 / 4473 1543 / 1543 Output Total 2315 / 2315 3050 / 3050 1750 / 1750 Balance 1534 / 1534 1423 / 1423 -207 / -207 Microbiology Past 72 Hours 10/21/17 04:10 Urine Culture - Final Urine, Clean Catch Culture exhibits no growth. Laboratory Tests Past 24 Hrs 10/22/17 10/23/17 10/23/17 12:05 05:45 05:45 WBC 12.3 H RBC 3.12 L Hgb 9.1 L Hct 29.6 L MCV 94.9 H MCH 29.2 MCHC 30.7 L RDW 16.7 H RDW Differential 57.4 H Plt Count 387 MPV 9.5 Sodium 140 Potassium 4.5 Chloride 105 Carbon Dioxide 29.0 Anion Gap 6 BUN 18 Creatinine 0.47 L Estim Creat Clear Calc 65.79 Est GFR (MDRD) Af Amer 227 Est GFR (MDRD) Non-Af 188 BUN/Creatinine Ratio 38.6 H Glucose 116 H Calcium 9.2 Blood Type A POSITIVE Antibody Screen NEGATIVE Crossmatch See Detail Assessment/Plan Hospitalist note: I am seeing this patient in conjunction with Carlotta Rodrigez. I independently seen and examined the patient. Progress note above reviewed and I agree with above treatment plan. Patient seen and examined today. He did mention that when he is laying flat, he has no more dizziness but still complaining of this upon standing or sitting. Denied chest pain shortness of breath. His blood pressure improved, has been around 100 systolic after starting midodrine. - Physical Exam General: Alert, Oriented x3, Cooperative, No apparent distress. HEENT: Atraumatic, PERRLA, EOMI. Neck: Supple, No JVD, Negative Carotid Bruits, Trachea Midline, Thyroid Normal. Lungs: Clear to auscultation, Normal air movement, No rhonchi, No wheeze, No rales. Cardiovascular: Regular rate, Regular Rhythm, Normal S1, Normal S2, PMI Normal. Abdomen: Bowel Sounds Present, Soft, Non Tender, Non-Distended, No Hepato- splenomegaly. Extremities: No clubbing, No cyanosis, No edema Skin: No rashes, No breakdown Neurological: Neuro grossly intact Assessment and plan: #1 syncopal episode/dizziness: Presumed to be due to orthostatic hypotension. Started on midodrine, blood pressure started to improve. Still symptomatic upon standing or sitting, no more dizziness when lying flat. EKG reviewed as above, unremarkable. Troponin is negative. CT scan brain done on October 20, 2012 and was unremarkable for acute changes. 2D echocardiogram also done yesterday and revealed normal ejection fraction, severely dilated right ventricle, RVSP of 38. Plan: Continue monitoring, DC IV fluids, possible DC home tomorrow morning. #2 acute on chronic anemia: Probably due to anemia of chronic disease secondary to cancer. Hemoglobin today is 9.1 g/dL after he received 1 unit of packed RBCs.. No evidence of active bleeding. #3 recent diagnosis of metastatic non-small cell lung cancer with metastases to the brain and liver, plan for outpatient radiation therapy. Patient was transferred recently to [facility]. #4 other chronic medical problems: Stable, continue current medications as above. This note was generated with [employer] dictation software. It may contain incorrect words, spelling, and punctuation that were not noted in checking the note before signing. Code Visit Inpatient E&M: 29397 Subs Hosp L2
[2017-10-23] MEDS: HYDROcodone Bitartrate/Apap 5/325 Tablet PO (21:43)
[2017-10-24] VITALS (19 sets, daily range): BP systolic 85–105; BP diastolic 54–78; PULSE 55–91; RESP 16–23; TEMP 36.5–37.2; O2SAT 89–99
[2017-10-24] MEDS: metroNIDAZOLE 500 MG Tablet PO ×3 (05:33→21:06)
[2017-10-24] MEDS: Midodrine HCl 5 MG Tablet 10 MG PO ×3 (05:35→21:06)
[2017-10-24] MEDS: HYDROcodone Bitartrate/Apap 5/325 Tablet PO (05:39)
[2017-10-24 06:21] LABS: Hematocrit 33.3 % (40-54); Hemoglobin 10.3 g/dl (13.0-16.5); Mean Corp Hgb Conc 30.9 g/gl (32-36); Mean Corpuscular Hgb 29.5 pg (27.0-32.0); Mean Corpuscular Volume 95.4 fL (80-94); Mean Platelet Vol. 9.2 fl (6.2-12.0); Platelet Count 455 K/mm3 (150-450); RBC Distribution Width CV 16.7 % (11.6-14.6); Red Blood Count 3.49 M/mm3 (4.6-6.2); White Blood Count 14.4 K/mm3 (4.4-11.0)
[2017-10-24 06:22] LABS: Scan Indicated on CBC? Y/N NO
[2017-10-24] MEDS: Ipratropium/Albuterol Sulfate 3 ML AMPUL.NEB INHALATION ×3 (07:01→19:32)
[2017-10-24] MEDS: Magnesium Oxide 400 MG Tablet PO (09:11)
[2017-10-24] MEDS: Pantoprazole Sodium 40 MG Tablet PO (09:11)
[2017-10-24] MEDS: 0.9% NaCl Peripheral Flush Adult/Peds IV (09:29)
[2017-10-24] MEDS: Meclizine 12.5 MG Tablet PO ×4 (09:29→21:05)
--- NOTE | 2017-10-24 10:12 | CASEMGMT ---
Addendum entered by Arabella Garnica 10/24/17 14:20: [facility] called and said they cannot accept patient. JUDY then called [facility] with referral and faxed over information. JUDY also called [facility] to ask about plan for patient. Dr Hutchison was still planning on starting radiation as soon as possible. [facility] is aware of this information. Plan: SNF pending accepting facility and insurance approval. Arabella BELLO Original Note: Addendum entered by Arabella Garnica 10/24/17 12:16: SW spoke with patient and his family member was present. SW told them [facility] has no beds. They said the next choices would ge [facility] and then [facility]. SW told them will work on this. SW called [facility] with referral and then faxed over information. Arabella BELLO Original Note: JUDY spoke with patient as he is agreeing to a nursing facility. He said they mentioned [facility] to him. JUDY told him will check to see if they have any beds available if not he will need to consider other places. JUDY also let him know he will need to participate in therapy as insurance will not approve a [place] [facility]. He said he did today. JUDY spoke with [facility] in TCU, but they do not have any beds for patient. SW will talk with patient. Plan: Placement pending accepting facility and insurance approval. Arabella BELLO
--- NOTE | 2017-10-24 11:44 | PCM.PROGNOTE ---
<Carlotta Rodrigez - Last Filed: 10/24/17 11:48> Patient Problems: Active and Suspected Problems (Last Updated 10/14/17 @ 22:27 by Mal Gong MD) Syncope and collapse (Acute) Hypotension (Acute) Subjective: Patient seen and examined. Headaches resolved. Continues to complain of dizziness with standing. States he has to hold onto something when he stands due to significant dizziness which causes him to feel off balance. Denies other associated complaints. Expresses interest in temporary longterm facility. - Physical Exam General: Alert, Oriented x3, Cooperative, No apparent distress HEENT: Atraumatic, PERRLA, EOMI, Normocephalic Neck: Supple, No JVD, Negative Carotid Bruits Lungs: Clear to auscultation, Diminished Cardiovascular: Regular rate, Regular Rhythm, Normal S1, Normal S2, No murmurs Abdomen: Bowel Sounds Present, Soft, Non Tender, Non-Distended Extremities: No clubbing, No cyanosis, No edema, Capillary Refill Less than 3 Seconds Skin: No rashes, No breakdown Musculoskeletal: No Tenderness to Palpation of Joints or Extremities Neurological: Cranial nerves II-XII grossly intact, Neuro grossly intact Psych/Mental Status: Normal Affect, Appropriate Vital Signs Temp Pulse Resp BP Pulse Ox 98.1 F 84 18 85/54 L 97 10/24/17 10:16 10/24/17 11:09 10/24/17 10:16 10/24/17 10:16 10/24/17 10:16 Oxygen Flow Rate (L/min) 2 Oxygen Delivery Method Room Air Orthostatic Vital Signs Start: 10/20/17 21:16 Freq: q24h Status: Active Protocol: Activity Type Activity Date Activity User E-Sign Co-Sign Detail Recorded Client Recorded Date Recorded By Document 10/24/17 05:28 [facility] [id number] 10/24/17 05:33 [facility] 10/24/17 05:28 Orthostatic Vitals Standing -Blood Pressure (90/60-120/80) 101/54 L -Extremity Use Left Arm -Pulse Rate (60-100) 91 Sitting -Blood Pressure (90/60-120/80) 97/70 -Extremity Use Left Arm -Pulse Rate (60-100) 85 Lying -Blood Pressure (90/60-120/80) 105/78 -Extremity Use Left Arm -Pulse Rate (60-100) 73 Intake and Output for Last 24 Hours 10/22/17 10/23/17 10/24/17 23:59 23:59 23:59 Intake Total 2650 / 4473 2022 200 / 200 Output Total 1400 / 3050 2400 / 2400 1100 / 1100 Balance 1250 / 1423 -377 / -377 -900 / -900 Laboratory Tests Past 24 Hrs 10/24/17 05:50 WBC 14.4 H RBC 3.49 L Hgb 10.3 L Hct 33.3 L MCV 95.4 H MCH 29.5 MCHC 30.9 L RDW 16.7 H RDW Differential 57.0 H Plt Count 455 H MPV 9.2 Medical Necessity - Tobacco Use Smoking Status: Former smoker Tobacco Use: Non-smoker Assessment/Plan Active and Suspected Problems (Last Updated 10/14/17 @ 22:27 by Mal Gong MD) Syncope and collapse (Acute) Hypotension (Acute) Patient is a 72-year-old male admitted 10/20/2017 due to dizziness, hypotension. He has a past medical history of chronic hypoxic respiratory failure, chronic COPD, obesity, diastolic CHF, tobacco dependence, pulmonary hypertension, chronic left foot drop, CAD, GERD, BPH. Recent diagnosis non-small cell lung cancer with metastasis. 1. Syncopal event, ongoing dizziness-suspect secondary to orthostatic hypotension as well as recent finding of hemorrhage within the right cerebral. Discontinue IV fluids. Repeat orthos negative. Echocardiogram shows an EF of 65%, severely dilated right ventricle, RVSP estimated to be 38 mmHg. Troponin negative. Cortisol 15. Brain CT showed no acute bleed or focal mass. Patient had recent MRI 10/14/17 which showed multiple bilateral supratentorial and bilateral cerebral enhancing lesions consistent with metastatic disease. Hemorrhage within the right cerebral lesion. Also noted are lesions within the basal ganglia and posterior thalamic nuclei bilateral. Urinalysis with 25 leukocytes, positive nitrites. Urine culture shows no growth. Continue midodrine 10 mg 3 times daily. Hypotension improving. Start Antivert 4 times daily. Case management involved in SNF placement. PT/OT. 2. Non-small cell metastatic lung cancer-recently diagnosed. Following with oncology. To undergo outpatient radiation therapy. Continue home Decadron regimen. 3. Chronic hypoxic respiratory failure with chronic COPD-on baseline oxygen. Continue albuterol DuoNeb aerosols. 4. Acute on chronic macrocytic anemia-patient received 1 unit packed red blood cells for hemoglobin of 7.8. Hemoglobin stable. Monitor CBC. Hemoglobin dropped to 7.8. 5. Chronic diastolic CHF-no acute exacerbation. Home Lasix regimen on hold secondary to dehydration. 6. CAD-not on aspirin, statin. 7. GERD-continue PPI. 8. BPH-not on home regimen. 9. Obesity-encouraged diet and lifestyle modifications. DVT prophylaxis-SCDs. Pharmacologic prophylaxis contraindicated given recent hemorrhagic finding. Discharge planning: SNF pending pre-CERT. This patient was seen by ROBERT Cameron under the supervision of Dr. Gong. <Mal Gong E - Last Filed: 10/24/17 13:03> - Physical Exam Vital Signs Temp Pulse Resp BP Pulse Ox 97.9 F 66 18 105/73 94 10/24/17 11:56 10/24/17 11:56 10/24/17 11:56 10/24/17 11:56 10/24/17 11:56 Oxygen Flow Rate (L/min) 2 Oxygen Delivery Method Room Air Weight: 210 lb 5.136 oz Orthostatic Vital Signs Start: 10/20/17 21:16 Freq: q24h Status: Active Protocol: Activity Type Activity Date Activity User E-Sign Co-Sign Detail Recorded Client Recorded Date Recorded By Document 10/24/17 05:28 [facility] [id number] 10/24/17 05:33 [facility] 10/24/17 05:28 Orthostatic Vitals Standing -Blood Pressure (90/60-120/80) 101/54 L -Extremity Use Left Arm -Pulse Rate (60-100) 91 Sitting -Blood Pressure (90/60-120/80) 97/70 -Extremity Use Left Arm -Pulse Rate (60-100) 85 Lying -Blood Pressure (90/60-120/80) 105/78 -Extremity Use Left Arm -Pulse Rate (60-100) 73 Intake and Output for Last 24 Hours 10/22/17 10/23/17 10/24/17 23:59 23:59 23:59 Intake Total 2650 / 4473 2022 / 2022 1060 / 1060 Output Total 1400 / 3050 2400 / 2400 1900 / 1900 Balance 1250 / 1423 -377 / -377 -840 / -840 Laboratory Tests Past 24 Hrs 10/24/17 05:50 WBC 14.4 H RBC 3.49 L Hgb 10.3 L Hct 33.3 L MCV 95.4 H MCH 29.5 MCHC 30.9 L RDW 16.7 H RDW Differential 57.0 H Plt Count 455 H MPV 9.2 Assessment/Plan Hospitalist note: I am seeing this patient in conjunction with Carlotta Rodrigez. I independently seen and examined the patient. Progress note above reviewed and I agree with above treatment plan. Patient seen and examined today. He is still symptomatic with dizziness and spinning sensation upon sitting or standing. Blood pressure started to improve but even though, patient remained symptomatic. Recently, he was found to have metastatic brain lesions with a right cerebellar bleed which could be the reason for his spinning sensation and dizziness. His vital signs are stable. - Physical Exam General: Alert, Oriented x3, Cooperative, No apparent distress. HEENT: Atraumatic, PERRLA, EOMI. Neck: Supple, No JVD, Negative Carotid Bruits, Trachea Midline, Thyroid Normal. Lungs: Clear to auscultation, Normal air movement, No rhonchi, No wheeze, No rales. Cardiovascular: Regular rate, Regular Rhythm, Normal S1, Normal S2, PMI Normal. Abdomen: Bowel Sounds Present, Soft, Non Tender, Non-Distended, No Hepato-splenomegaly. Extremities: No clubbing, No cyanosis, No edema Skin: No rashes, No breakdown Neurological: Neuro grossly intact Assessment and plan: #1 syncopal episode/dizziness: Presumed to be due to orthostatic hypotension. His dizziness/spinning likely due to vertigo secondary to recent cerebellar hemorrhage. He is on midodrine, blood pressure started to improve, he is off IV fluids. Still symptomatic upon standing or sitting, no more dizziness when lying flat. Plan to start him on Antivert, PT OT evaluation and treatment. #2 acute on chronic anemia: Probably due to anemia of chronic disease secondary to cancer. Hemoglobin today is 10.3 g/dL after he received 1 unit of packed RBCs.. No evidence of active bleeding. #3 recent diagnosis of metastatic non-small cell lung cancer with metastases to the brain and liver, plan for outpatient radiation therapy. Patient was transferred recently to [facility]. #4 other chronic medical problems: Stable, continue current medications as above. This note was generated with [employer] dictation software. It may contain incorrect words, spelling, and punctuation that were not noted in checking the note before signing. Code Visit Inpatient E&M: 85501 Subs Hosp L2
--- NOTE | 2017-10-24 11:47 | PN_ITS ---
<Carlotta Rodrigez - Last Filed: 10/24/17 11:48> Patient Problems: Active and Suspected Problems (Last Updated 10/14/17 @ 22:27 by Mal Gong MD) Syncope and collapse (Acute) Hypotension (Acute) Subjective: Patient seen and examined. Headaches resolved. Continues to complain of dizziness with standing. States he has to hold onto something when he stands due to significant dizziness which causes him to feel off balance. Denies other associated complaints. Expresses interest in temporary detention facility. - Physical Exam General: Alert, Oriented x3, Cooperative, No apparent distress HEENT: Atraumatic, PERRLA, EOMI, Normocephalic Neck: Supple, No JVD, Negative Carotid Bruits Lungs: Clear to auscultation, Diminished Cardiovascular: Regular rate, Regular Rhythm, Normal S1, Normal S2, No murmurs Abdomen: Bowel Sounds Present, Soft, Non Tender, Non-Distended Extremities: No clubbing, No cyanosis, No edema, Capillary Refill Less than 3 Seconds Skin: No rashes, No breakdown Musculoskeletal: No Tenderness to Palpation of Joints or Extremities Neurological: Cranial nerves II-XII grossly intact, Neuro grossly intact Psych/Mental Status: Normal Affect, Appropriate Vital Signs Temp Pulse Resp BP Pulse Ox 98.1 F 84 18 85/54 L 97 10/24/17 10:16 10/24/17 11:09 10/24/17 10:16 10/24/17 10:16 10/24/17 10:16 Oxygen Flow Rate (L/min) 2 Oxygen Delivery Method Room Air Orthostatic Vital Signs Start: 10/20/17 21:16 Freq: q24h Status: Active Protocol: Activity Type Activity Date Activity User E-Sign Co-Sign Detail Recorded Client Recorded Date Recorded By Document 10/24/17 05:28 LFF [id number] 10/24/17 05:33 LFF 10/24/17 05:28 Orthostatic Vitals Standing -Blood Pressure (90/60-120/80) 101/54 L -Extremity Use Left Arm -Pulse Rate (60-100) 91 Sitting -Blood Pressure (90/60-120/80) 97/70 -Extremity Use Left Arm -Pulse Rate (60-100) 85 Lying -Blood Pressure (90/60-120/80) 105/78 -Extremity Use Left Arm -Pulse Rate (60-100) 73 Intake and Output for Last 24 Hours 10/22/17 10/23/17 10/24/17 23:59 23:59 23:59 Intake Total 2650 / 4473 2022 200 / 200 Output Total 1400 / 3050 2400 / 2400 1100 / 1100 Balance 1250 / 1423 -377 / -377 -900 / -900 Laboratory Tests Past 24 Hrs 10/24/17 05:50 WBC 14.4 H RBC 3.49 L Hgb 10.3 L Hct 33.3 L MCV 95.4 H MCH 29.5 MCHC 30.9 L RDW 16.7 H RDW Differential 57.0 H Plt Count 455 H MPV 9.2 Medical Necessity - Tobacco Use Smoking Status: Former smoker Tobacco Use: Non-smoker Assessment/Plan Active and Suspected Problems (Last Updated 10/14/17 @ 22:27 by Mal Gong MD) Syncope and collapse (Acute) Hypotension (Acute) Patient is a 72-year-old male admitted 10/20/2017 due to dizziness, hypotension. He has a past medical history of chronic hypoxic respiratory failure, chronic COPD, obesity, diastolic CHF, tobacco dependence, pulmonary hypertension, chronic left foot drop, CAD, GERD, BPH. Recent diagnosis non-small cell lung cancer with metastasis. 1. Syncopal event, ongoing dizziness-suspect secondary to orthostatic hypotension as well as recent finding of hemorrhage within the right cerebral. Discontinue IV fluids. Repeat orthos negative. Echocardiogram shows an EF of 65% , severely dilated right ventricle, RVSP estimated to be 38 mmHg. Troponin negative. Cortisol 15. Brain CT showed no acute bleed or focal mass. Patient had recent MRI 10/14/17 which showed multiple bilateral supratentorial and bilateral cerebral enhancing lesions consistent with metastatic disease. Hemorrhage within the right cerebral lesion. Also noted are lesions within the basal ganglia and posterior thalamic nuclei bilateral. Urinalysis with 25 leukocytes, positive nitrites. Urine culture shows no growth. Continue midodrine 10 mg 3 times daily. Hypotension improving. Start Antivert 4 times daily. Case management involved in SNF placement. PT/OT. 2. Non-small cell metastatic lung cancer-recently diagnosed. Following with oncology. To undergo outpatient radiation therapy. Continue home Decadron regimen. 3. Chronic hypoxic respiratory failure with chronic COPD-on baseline oxygen. Continue albuterol DuoNeb aerosols. 4. Acute on chronic macrocytic anemia-patient received 1 unit packed red blood cells for hemoglobin of 7.8. Hemoglobin stable. Monitor CBC. Hemoglobin dropped to 7.8. 5. Chronic diastolic CHF-no acute exacerbation. Home Lasix regimen on hold secondary to dehydration. 6. CAD-not on aspirin, statin. 7. GERD-continue PPI. 8. BPH-not on home regimen. 9. Obesity-encouraged diet and lifestyle modifications. DVT prophylaxis-SCDs. Pharmacologic prophylaxis contraindicated given recent hemorrhagic finding. Discharge planning: SNF pending pre-CERT. This patient was seen by ROBERT Camreon under the supervision of Dr. Gong. <Mal Gong E - Last Filed: 10/24/17 13:03> - Physical Exam Vital Signs Temp Pulse Resp BP Pulse Ox 97.9 F 66 18 105/73 94 10/24/17 11:56 10/24/17 11:56 10/24/17 11:56 10/24/17 11:56 10/24/17 11:56 Oxygen Flow Rate (L/min) 2 Oxygen Delivery Method Room Air Weight: 210 lb 5.136 oz Orthostatic Vital Signs Start: 10/20/17 21:16 Freq: q24h Status: Active Protocol: Activity Type Activity Date Activity User E-Sign Co-Sign Detail Recorded Client Recorded Date Recorded By Document 10/24/17 05:28 LFF [id number] 10/24/17 05:33 LFF 10/24/17 05:28 Orthostatic Vitals Standing -Blood Pressure (90/60-120/80) 101/54 L -Extremity Use Left Arm -Pulse Rate (60-100) 91 Sitting -Blood Pressure (90/60-120/80) 97/70 -Extremity Use Left Arm -Pulse Rate (60-100) 85 Lying -Blood Pressure (90/60-120/80) 105/78 -Extremity Use Left Arm -Pulse Rate (60-100) 73 Intake and Output for Last 24 Hours 10/22/17 10/23/17 10/24/17 23:59 23:59 23:59 Intake Total 2650 / 4473 2022 / 2022 1060 / 1060 Output Total 1400 / 3050 2400 / 2400 1900 / 1900 Balance 1250 / 1423 -377 / -377 -840 / -840 Laboratory Tests Past 24 Hrs 10/24/17 05:50 WBC 14.4 H RBC 3.49 L Hgb 10.3 L Hct 33.3 L MCV 95.4 H MCH 29.5 MCHC 30.9 L RDW 16.7 H RDW Differential 57.0 H Plt Count 455 H MPV 9.2 Assessment/Plan Hospitalist note: I am seeing this patient in conjunction with Carlotta Rodrigez. I independently seen and examined the patient. Progress note above reviewed and I agree with above treatment plan. Patient seen and examined today. He is still symptomatic with dizziness and spinning sensation upon sitting or standing. Blood pressure started to improve but even though, patient remained symptomatic. Recently, he was found to have metastatic brain lesions with a right cerebellar bleed which could be the reason for his spinning sensation and dizziness. His vital signs are stable. - Physical Exam General: Alert, Oriented x3, Cooperative, No apparent distress. HEENT: Atraumatic, PERRLA, EOMI. Neck: Supple, No JVD, Negative Carotid Bruits, Trachea Midline, Thyroid Normal. Lungs: Clear to auscultation, Normal air movement, No rhonchi, No wheeze, No rales. Cardiovascular: Regular rate, Regular Rhythm, Normal S1, Normal S2, PMI Normal. Abdomen: Bowel Sounds Present, Soft, Non Tender, Non-Distended, No Hepato- splenomegaly. Extremities: No clubbing, No cyanosis, No edema Skin: No rashes, No breakdown Neurological: Neuro grossly intact Assessment and plan: #1 syncopal episode/dizziness: Presumed to be due to orthostatic hypotension. His dizziness/spinning likely due to vertigo secondary to recent cerebellar hemorrhage. He is on midodrine, blood pressure started to improve, he is off IV fluids. Still symptomatic upon standing or sitting, no more dizziness when lying flat. Plan to start him on Antivert, PT OT evaluation and treatment. #2 acute on chronic anemia: Probably due to anemia of chronic disease secondary to cancer. Hemoglobin today is 10.3 g/dL after he received 1 unit of packed RBCs.. No evidence of active bleeding. #3 recent diagnosis of metastatic non-small cell lung cancer with metastases to the brain and liver, plan for outpatient radiation therapy. Patient was transferred recently to [facility]. #4 other chronic medical problems: Stable, continue current medications as above. This note was generated with Mob[employer] dictation software. It may contain incorrect words, spelling, and punctuation that were not noted in checking the note before signing. Code Visit Inpatient E&M: 29064 Subs Hosp L2
--- NOTE | 2017-10-24 15:37 | CASEMGMT ---
JUDY called [facility] to see if they have decided on patient. They had some questions and SW answered. SW will have to see if family can transport patient to radiation. Await return call from [facility]. Plan: SNF pending accepting facility and insurance approval.
[2017-10-25] VITALS (14 sets, daily range): BP systolic 92–106; BP diastolic 51–72; PULSE 69–112; RESP 15–20; TEMP 36.4–36.9; O2SAT 93–98
[2017-10-25] MEDS: Midodrine HCl 5 MG Tablet 10 MG PO ×3 (05:42→22:25)
[2017-10-25] MEDS: metroNIDAZOLE 500 MG Tablet PO ×3 (05:42→22:25)
[2017-10-25] MEDS: 0.9% Normal Saline 1,000 ML 100 ML IV ×2 (06:14→16:12)
[2017-10-25] MEDS: 0.9% NaCl Peripheral Flush Adult/Peds IV (06:14)
--- NOTE | 2017-10-25 06:41 | NURSING ---
RN called pt son (Leonel) at this time to give update on pt as requested. No answer. Will notify dayshift that Leonel wants update.
[2017-10-25 06:48] LABS: Anion Gap 6 (5-15); BUN 22 mg/dL (7-18); BUN/Creat Ratio 37.4 RATIO (10-20); Calcium,Total 9.4 mg/dL (8.5-10.1); Chloride 100 mmol/L (98-107); Creatinine, Serum 0.59 mg/dL (0.70-1.30); EST Glomerular Filtration Rate 143 mL/min (>60); Est Glom Filt Rate - Afr Amer 173 mL/min (>60); Estimated Creatinine Clearance 65.79 ml/min; Glucose 127 mg/dL (74-106); Magnesium 2.1 mg/dL (1.6-2.6); Potassium 4.4 mmol/L (3.5-5.1); Sodium Level 139 mmol/L (136-145)
[2017-10-25] MEDS: Ipratropium/Albuterol Sulfate 3 ML AMPUL.NEB INHALATION ×3 (06:58→19:35)
[2017-10-25] MEDS: HYDROcodone Bitartrate/Apap 5/325 Tablet PO (08:17)
[2017-10-25] MEDS: Magnesium Oxide 400 MG Tablet PO (10:15)
[2017-10-25] MEDS: Pantoprazole Sodium 40 MG Tablet PO (10:18)
[2017-10-25] MEDS: Meclizine 12.5 MG Tablet PO ×4 (10:18→22:25)
[2017-10-25] MEDS: Acetaminophen 325 MG Tablet 650 MG PO (10:23)
--- NOTE | 2017-10-25 11:13 | CASEMGMT ---
JUDY received a voice mail from [facility] and they are not able to accept patient. JUDY faxed referrals to [facility] and [facility]. Await response. Arabella BANUELOS MSW
--- NOTE | 2017-10-25 14:04 | PCM.PROGNOTE ---
<Carlotta Rodrigez - Last Filed: 10/25/17 14:06> Patient Problems: Active and Suspected Problems (Last Updated 10/14/17 @ 22:27 by Mal Gong MD) Syncope and collapse (Acute) Hypotension (Acute) Subjective: Patient seen and examined. Notes minimal improvement and dizziness. Denies further headache. Awaiting pre-CERT to prison facility. - Physical Exam General: Alert, Oriented x3, Cooperative, No apparent distress HEENT: Atraumatic, PERRLA, EOMI, Normocephalic Neck: Supple, No JVD, Negative Carotid Bruits Lungs: Clear to auscultation, Normal air movement Cardiovascular: Regular rate, Regular Rhythm, Normal S1, Normal S2, No murmurs Abdomen: Bowel Sounds Present, Soft, Non Tender, Non-Distended Extremities: No clubbing, No cyanosis, No edema, Capillary Refill Less than 3 Seconds Skin: No rashes, No breakdown Musculoskeletal: No Tenderness to Palpation of Joints or Extremities Neurological: Cranial nerves II-XII grossly intact, Neuro grossly intact Psych/Mental Status: Normal Affect, Appropriate Vital Signs Temp Pulse Resp BP Pulse Ox 97.9 F 88 20 H 101/51 L 94 10/25/17 11:43 10/25/17 13:12 10/25/17 13:12 10/25/17 11:43 10/25/17 11:43 Oxygen Flow Rate (L/min) 2 Oxygen Delivery Method Nasal Cannula Weight: 95.4 kg Orthostatic Vital Signs Start: 10/20/17 21:16 Freq: q24h Status: Active Protocol: Activity Type Activity Date Activity User E-Sign Co-Sign Detail Recorded Client Recorded Date Recorded By Document 10/25/17 05:35 [facility] [id number] 10/25/17 05:41 [facility] 10/25/17 05:35 Orthostatic Vitals Standing -Blood Pressure (90/60-120/80) 96/67 -Extremity Use Left Arm -Pulse Rate (60-100) 93 Sitting -Blood Pressure (90/60-120/80) 106/72 -Extremity Use Left Arm -Pulse Rate (60-100) 83 Lying -Blood Pressure (90/60-120/80) 97/63 -Extremity Use Left Arm -Pulse Rate (60-100) 76 Intake and Output for Last 24 Hours 0510/24/17 10/25/17 23:59 23:59 23:59 Intake Total 2022 1420 / 1420 1278 / 1278 Output Total 2400 / 2400 2825 / 2825 1850 / 1850 Balance -377 / -377 -1405 / -1405 -572 / -572 Laboratory Tests Past 24 Hrs 10/25/17 06:25 Sodium 139 Potassium 4.4 Chloride 100 Carbon Dioxide 33.0 H Anion Gap 6 BUN 22 H Creatinine 0.59 L Estim Creat Clear Calc 65.79 Est GFR (MDRD) Af Amer 173 Est GFR (MDRD) Non-Af 143 BUN/Creatinine Ratio 37.4 H Glucose 127 H Calcium 9.4 Magnesium 2.1 Medical Necessity - Tobacco Use Smoking Status: Former smoker Tobacco Use: Non-smoker Assessment/Plan Active and Suspected Problems (Last Updated 10/14/17 @ 22:27 by Mal Gong MD) Syncope and collapse (Acute) Hypotension (Acute) Patient is a 72-year-old male admitted 10/20/2017 due to dizziness, hypotension. He has a past medical history of chronic hypoxic respiratory failure, chronic COPD, obesity, diastolic CHF, tobacco dependence, pulmonary hypertension, chronic left foot drop, CAD, GERD, BPH. Recent diagnosis non-small cell lung cancer with metastasis. 1. Syncopal event, ongoing dizziness-suspect secondary to orthostatic hypotension as well as recent finding of hemorrhage within the right cerebral. Discontinue IV fluids. Repeat orthos negative. Echocardiogram shows an EF of 65%, severely dilated right ventricle, RVSP estimated to be 38 mmHg. Troponin negative. Cortisol 15. Brain CT showed no acute bleed or focal mass. Patient had recent MRI 10/14/17 which showed multiple bilateral supratentorial and bilateral cerebral enhancing lesions consistent with metastatic disease. Hemorrhage within the right cerebral lesion. Also noted are lesions within the basal ganglia and posterior thalamic nuclei bilateral. Urinalysis with 25 leukocytes, positive nitrites. Urine culture shows no growth. Continue midodrine 10 mg 3 times daily. Hypotension improving. Continue Antivert 4 times daily. Case management involved in SNF placement. PT/OT. 2. Non-small cell metastatic lung cancer-recently diagnosed. Following with oncology. To undergo outpatient radiation therapy. Continue home Decadron regimen. 3. Chronic hypoxic respiratory failure with chronic COPD-on baseline oxygen. Continue albuterol DuoNeb aerosols. 4. Acute on chronic macrocytic anemia-patient received 1 unit packed red blood cells for hemoglobin of 7.8. Hemoglobin stable. Monitor CBC. 5. Chronic diastolic CHF-no acute exacerbation. Home Lasix regimen on hold secondary to dehydration. 6. CAD-not on aspirin, statin. 7. GERD-continue PPI. 8. BPH-not on home regimen. 9. Obesity-encouraged diet and lifestyle modifications. DVT prophylaxis-SCDs. Pharmacologic prophylaxis contraindicated given recent hemorrhagic finding. Discharge planning: SNF pending pre-CERT. This patient was seen by ROBERT Cameron under the supervision of Dr. Gong. <Mal Gong E - Last Filed: 10/25/17 15:06> - Physical Exam Vital Signs Temp Pulse Resp BP Pulse Ox 98.5 F 100 15 97/58 L 93 10/25/17 14:43 10/25/17 14:43 10/25/17 14:43 10/25/17 14:43 10/25/17 14:43 Oxygen Flow Rate (L/min) 2 Oxygen Delivery Method Nasal Cannula Weight: 210 lb 5.136 oz Orthostatic Vital Signs Start: 10/20/17 21:16 Freq: q24h Status: Active Protocol: Activity Type Activity Date Activity User E-Sign Co-Sign Detail Recorded Client Recorded Date Recorded By Document 10/25/17 05:35 [facility] [id number] 10/25/17 05:41 [facility] 10/25/17 05:35 Orthostatic Vitals Standing -Blood Pressure (90/60-120/80) 96/67 -Extremity Use Left Arm -Pulse Rate (60-100) 93 Sitting -Blood Pressure (90/60-120/80) 106/72 -Extremity Use Left Arm -Pulse Rate (60-100) 83 Lying -Blood Pressure (90/60-120/80) 97/63 -Extremity Use Left Arm -Pulse Rate (60-100) 76 Intake and Output for Last 24 Hours 10/23/17 10/24/17 10/25/17 23:59 23:59 23:59 Intake Total 2022 1420 / 1420 1278 / 1278 Output Total 2400 / 2400 2825 / 2825 1850 / 1850 Balance -377 / -377 -1405 / -1405 -572 / -572 Laboratory Tests Past 24 Hrs 10/25/17 06:25 Sodium 139 Potassium 4.4 Chloride 100 Carbon Dioxide 33.0 H Anion Gap 6 BUN 22 H Creatinine 0.59 L Estim Creat Clear Calc 65.79 Est GFR (MDRD) Af Amer 173 Est GFR (MDRD) Non-Af 143 BUN/Creatinine Ratio 37.4 H Glucose 127 H Calcium 9.4 Magnesium 2.1 Assessment/Plan Hospitalist note: I am seeing this patient in conjunction with Carlotta Rodrigez. I independently seen and examined the patient. Progress note above reviewed and I agree with above treatment plan. Patient seen and examined today. He is still symptomatic with dizziness and spinning sensation upon sitting or standing. Blood pressure started to improve but even though, patient remained symptomatic. Recently, he was found to have metastatic brain lesions with a right cerebellar bleed which could be the reason for his spinning sensation and dizziness. His vital signs are stable. - Physical Exam General: Alert, Oriented x3, Cooperative, No apparent distress. HEENT: Atraumatic, PERRLA, EOMI. Neck: Supple, No JVD, Negative Carotid Bruits, Trachea Midline, Thyroid Normal. Lungs: Clear to auscultation, Normal air movement, No rhonchi, No wheeze, No rales. Cardiovascular: Regular rate, Regular Rhythm, Normal S1, Normal S2, PMI Normal. Abdomen: Bowel Sounds Present, Soft, Non Tender, Non-Distended, No Hepato-splenomegaly. Extremities: No clubbing, No cyanosis, No edema Skin: No rashes, No breakdown Neurological: Neuro grossly intact Assessment and plan: #1 syncopal episode/dizziness/vertigo: Attributed to both hypotension and recent right cerebellar hemorrhage. He is on midodrine and Antivert. He reported relative improvement but still symptomatically dizziness and spinning upon standing. Plan to continue same treatment, awaiting insurance approval for placement to prison facility. #2 acute on chronic anemia: Probably due to anemia of chronic disease secondary to cancer. Yesterday his hemoglobin is 10.3 g/dL after he received 1 unit of packed RBCs.. No evidence of active bleeding. #3 recent diagnosis of metastatic non-small cell lung cancer with metastases to the brain and liver, plan for outpatient radiation therapy. Patient was transferred recently to [facility]. #4 other chronic medical problems: Stable, continue current medications as above. This note was generated with [employer] dictation software. It may contain incorrect words, spelling, and punctuation that were not noted in checking the note before signing. Code Visit Inpatient E&M: 59861 Subs Hosp L2
--- NOTE | 2017-10-25 15:16 | CASEMGMT ---
Addendum entered by Arabella Garnica 10/25/17 15:28: JUDY called the SW at the [facility]. [facility] as he is not service connected. Arabella Garnica [employer] CHERRY CUTTER Original Note: JUDY has been talking with [facility] regarding patient. They are looking into cost of radiation as this will determine whether or not they can accept patient. Transportation is also a factor. JUDY called Dr Hutchison at [facility]'s office and spoke with Daxa and RN at the office. She will work on getting the cost of radiation. Dena from [facility] was also doing this. DESTINEE BASSETT called [facility] about transportation and she obtained some prices. SW also spoke with patient about transportation and he told SW to call Sherrell at [phone]. SW called Sherrell and she said they live an hour away. SW asked for someone else that may be able to help. They did not know. She told SW to call back if SW cannot get anyone else. SW called patient's son's girlfriend as this is where patient lives. She does not drive. She said [facility] has said they will transport him. She suggested SW try patient's ex-, Alma Rosa. JUDY called Alma Rosa and she said she cannot as she lives in [place]. She also said [facility] has been planning on transporting patient. JUDY then reviewed patient's therapy notes and he refused to walk or even stand up today. SW went back into the room. SW asked patient why he would like to go to a assisted. He said he feels he would get better care. He said if he falls at home, [facility] would not be able to help him and he would have to wait on the squad. He said if he goes to a assisted there are more nurses and people around to help him. JUDY told him that SW spoke with him about this yesterday and SW is going to remind him again today. He needs to do therapy and that includes trying to get up and walk even if it is only a few steps. Otherwise insurance is not going to approve him. They see he isn't doing therapy at the hospital so why would they pay for him to go to a assisted for rehab and then refuse rehab. He verbalized understanding. JUDY told him JUDY is aware he does not feel well and it makes him dizzy to stand, but we need him to try. Plan: SW to continue to work on finding a facility to accept patient and then get insurance approval. Arabella BANUELOS MSW
--- NOTE | 2017-10-25 15:29 | CASEMGMT ---
[facility] is out of network with patient's insurance. SW checked his out of network benefits and he would be responsible for 50% of his SNF stay. Arabella BANUELOS THERAPIST
[2017-10-26] VITALS (16 sets, daily range): BP systolic 97–111; BP diastolic 62–76; PULSE 67–105; RESP 16–18; TEMP 36.2–36.7; O2SAT 94–98
[2017-10-26] MEDS: 0.9% Normal Saline 1,000 ML 100 ML IV (01:46)
[2017-10-26] MEDS: metroNIDAZOLE 500 MG Tablet PO ×3 (06:29→21:09)
[2017-10-26] MEDS: Midodrine HCl 5 MG Tablet 10 MG PO ×3 (06:29→21:09)
[2017-10-26] MEDS: Ipratropium/Albuterol Sulfate 3 ML AMPUL.NEB INHALATION ×3 (06:59→19:20)
--- NOTE | 2017-10-26 09:11 | CASEMGMT ---
Addendum entered by Arabella Garnica 10/26/17 11:04: Cancer care was switched to [facility]. Dr Decker will see him in hospital and he will possibly have first treatment tomorrow. JUDY spoke with Avril and she will start the request for pre-cert with insurance. JUDY called [facility] and let Dena know the plan. Plan: [facility] pending insurance approval. Arabella BELLO Original Note: JUDY spoke with Nona in TCU and they many have a bed. SW will have to get his radiation treatment switched to [facility] due to transportation issues. JUDY spoke with patient and he said he would prefer to switch to [facility]. JUDY told him TCU may have a bed and SW will try and switch his care as this is the only way TCU could take him. JUDY called Daxa at Dr Hutchison's office and left her a voice mail requesting a return call. JUDY also spoke with Rebecca at [facility] and they would need any imaging from [facility] on disc and records from Hematology Oncology at [facility]. Plan: Possible TCU. JUDY has to switch radiation care to [facility] from [facility]. JUDY is working on this. We will also need a pre-cert. Arabella BELLO
[2017-10-26] MEDS: Meclizine 12.5 MG Tablet PO ×4 (09:35→21:09)
[2017-10-26] MEDS: Pantoprazole Sodium 40 MG Tablet PO (09:36)
[2017-10-26] MEDS: Magnesium Oxide 400 MG Tablet PO (09:36)
--- NOTE | 2017-10-26 11:16 | PCM.PROGNOTE ---
<Carlotta Rodrigez - Last Filed: 10/26/17 11:21> Patient Problems: Active and Suspected Problems (Last Updated 10/14/17 @ 22:27 by Mal Gong MD) Syncope and collapse (Acute) Hypotension (Acute) Subjective: Patient seen and examined. Informed by social work this morning that transitional care is able to accept patient if he transfers his oncology/radiology care from [facility] to [facility]. Patient is agreeable. Patient states his dizziness is stable with no significant improvement. Denies other complaints. - Physical Exam General: Alert, Oriented x3, Cooperative HEENT: Atraumatic, PERRLA, EOMI, Normocephalic Neck: Supple, No JVD, Negative Carotid Bruits Lungs: Clear to auscultation, Normal air movement Cardiovascular: Regular rate, Regular Rhythm, Normal S1, Normal S2, No murmurs Abdomen: Bowel Sounds Present, Soft, Non Tender Extremities: No clubbing, No cyanosis, No edema, Capillary Refill Less than 3 Seconds Skin: No rashes, No breakdown Musculoskeletal: No Tenderness to Palpation of Joints or Extremities Neurological: Cranial nerves II-XII grossly intact, Neuro grossly intact Psych/Mental Status: Normal Affect, Appropriate Vital Signs Temp Pulse Resp BP Pulse Ox 97.2 F L 89 18 97/62 96 10/26/17 09:27 10/26/17 09:27 10/26/17 09:27 10/26/17 09:27 10/26/17 09:27 Oxygen Flow Rate (L/min) 2 Oxygen Delivery Method Nasal Cannula Weight: 95.4 kg Orthostatic Vital Signs Start: 10/20/17 21:16 Freq: q24h Status: Active Protocol: Activity Type Activity Date Activity User E-Sign Co-Sign Detail Recorded Client Recorded Date Recorded By Document 10/26/17 06:21 [facility] [id number] 10/26/17 06:22 BAM 10/26/17 06:21 Orthostatic Vitals Standing -Blood Pressure (90/60-120/80) 104/67 -Extremity Use Left Arm -Pulse Rate (60-100) 96 Sitting -Blood Pressure (90/60-120/80) 110/70 -Extremity Use Left Arm -Pulse Rate (60-100) 89 Lying -Blood Pressure (90/60-120/80) 108/76 -Extremity Use Left Arm -Pulse Rate (60-100) 78 Intake and Output for Last 24 Hours 10/24/17 10/25/17 10/26/17 23:59 23:59 23:59 Intake Total 1420 / 1420 2745 / 2745 673 / 673 Output Total 2825 / 2825 2750 / 2750 1550 / 1550 Balance -1405 / -1405 -5 / -5 -877 / -877 Medical Necessity - Tobacco Use Smoking Status: Former smoker Tobacco Use: Non-smoker Assessment/Plan Active and Suspected Problems (Last Updated 10/14/17 @ 22:27 by Mal Gong MD) Syncope and collapse (Acute) Hypotension (Acute) Patient is a 72-year-old male admitted 10/20/2017 due to dizziness, hypotension. He has a past medical history of chronic hypoxic respiratory failure, chronic COPD, obesity, diastolic CHF, tobacco dependence, pulmonary hypertension, chronic left foot drop, CAD, GERD, BPH. Recent diagnosis non-small cell lung cancer with metastasis. 1. Syncopal event, ongoing dizziness-suspect secondary to orthostatic hypotension as well as recent finding of hemorrhage within the right cerebral. Discontinue IV fluids. Repeat orthos negative. Echocardiogram shows an EF of 65%, severely dilated right ventricle, RVSP estimated to be 38 mmHg. Troponin negative. Cortisol 15. Brain CT showed no acute bleed or focal mass. Patient had recent MRI 10/14/17 which showed multiple bilateral supratentorial and bilateral cerebral enhancing lesions consistent with metastatic disease. Hemorrhage within the right cerebral lesion. Also noted are lesions within the basal ganglia and posterior thalamic nuclei bilateral. Urinalysis with 25 leukocytes, positive nitrites. Urine culture shows no growth. Continue midodrine 10 mg 3 times daily. Hypotension improving. Continue Antivert 4 times daily. Case management involved in SNF placement. PT/OT. 2. Non-small cell metastatic lung cancer-recently diagnosed. Following with oncology. To undergo outpatient radiation therapy. Continue home Decadron regimen. Dr. Decker consulted for further oncology/radiation evaluation. Patient previously followed with [facility]. 3. Chronic hypoxic respiratory failure with chronic COPD-on baseline oxygen. Continue albuterol DuoNeb aerosols. 4. Acute on chronic macrocytic anemia-patient received 1 unit packed red blood cells for hemoglobin of 7.8. Hemoglobin stable. Monitor CBC. 5. Chronic diastolic CHF-no acute exacerbation. Home Lasix regimen on hold secondary to dehydration/hypotension. 6. CAD-not on aspirin, statin. 7. GERD-continue PPI. 8. BPH-not on home regimen. 9. Obesity-encouraged diet and lifestyle modifications. DVT prophylaxis-SCDs. Pharmacologic prophylaxis contraindicated given recent hemorrhagic finding. Discharge planning: TCU pending pre-CERT. This patient was seen by ROBERT Cameron under the supervision of Dr. Gong. <Mal Gong E - Last Filed: 10/26/17 13:40> - Physical Exam Vital Signs Temp Pulse Resp BP Pulse Ox 97.2 F L 83 18 97/62 96 10/26/17 09:27 10/26/17 11:38 10/26/17 09:27 10/26/17 09:27 10/26/17 09:27 Oxygen Flow Rate (L/min) 2 Oxygen Delivery Method Nasal Cannula Weight: 210 lb 5.136 oz Orthostatic Vital Signs Start: 10/20/17 21:16 Freq: q24h Status: Active Protocol: Activity Type Activity Date Activity User E-Sign Co-Sign Detail Recorded Client Recorded Date Recorded By Document 10/26/17 06:21 [facility] [id number] 10/26/17 06:22 BAM 10/26/17 06:21 Orthostatic Vitals Standing -Blood Pressure (90/60-120/80) 104/67 -Extremity Use Left Arm -Pulse Rate (60-100) 96 Sitting -Blood Pressure (90/60-120/80) 110/70 -Extremity Use Left Arm -Pulse Rate (60-100) 89 Lying -Blood Pressure (90/60-120/80) 108/76 -Extremity Use Left Arm -Pulse Rate (60-100) 78 Intake and Output for Last 24 Hours 10/24/17 10/25/17 10/26/17 23:59 23:59 23:59 Intake Total 1420 / 1420 2745 / 2745 1370 / 1370 Output Total 2825 / 2825 2750 / 2750 2024 / 2024 Balance -1405 / -1405 -5 / -5 -655 / -655 Assessment/Plan Hospitalist note: I am seeing this patient in conjunction with Carlotta Rodrigez. I independently seen and examined the patient. Progress note above reviewed and I agree with above treatment plan. Patient seen and examined today. He mentioned that his symptoms is getting better every day, he has been able to ambulate with some dizziness but improved. - Physical Exam General: Alert, Oriented x3, Cooperative, No apparent distress. HEENT: Atraumatic, PERRLA, EOMI. Neck: Supple, No JVD, Negative Carotid Bruits, Trachea Midline, Thyroid Normal. Lungs: Clear to auscultation, Normal air movement, No rhonchi, No wheeze, No rales. Cardiovascular: Regular rate, Regular Rhythm, Normal S1, Normal S2, PMI Normal. Abdomen: Bowel Sounds Present, Soft, Non Tender, Non-Distended, No Hepato-splenomegaly. Extremities: No clubbing, No cyanosis, No edema Skin: No rashes, No breakdown Neurological: Neuro grossly intact Assessment and plan: #1 syncopal episode/dizziness/vertigo: Attributed to both hypotension and recent right cerebellar hemorrhage. He is on midodrine and Antivert. He reported continued slow improvement of his symptoms. Plan to continue same treatment, awaiting insurance approval for placement to residential facility. #2 acute on chronic anemia: Probably due to anemia of chronic disease secondary to cancer. Most recent hemoglobin is 10.3 g/dL after he received 1 unit of packed RBCs.. No evidence of active bleeding. #3 recent diagnosis of metastatic non-small cell lung cancer with metastases to the brain and liver, plan for outpatient radiation therapy. Patient was transferred recently to [facility]. #4 other chronic medical problems: Stable, continue current medications as above. This note was generated with [employer] dictation software. It may contain incorrect words, spelling, and punctuation that were not noted in checking the note before signing. Code Visit Inpatient E&M: 97881 Subs Hosp L2
--- NOTE | 2017-10-26 11:21 | PN_ITS ---
<Carlotta Rodrigez - Last Filed: 10/26/17 11:21> Patient Problems: Active and Suspected Problems (Last Updated 10/14/17 @ 22:27 by Mal Gong MD) Syncope and collapse (Acute) Hypotension (Acute) Subjective: Patient seen and examined. Informed by social work this morning that transitional care is able to accept patient if he transfers his oncology/ radiology care from [facility] to [facility]. Patient is agreeable. Patient states his dizziness is stable with no significant improvement. Denies other complaints. - Physical Exam General: Alert, Oriented x3, Cooperative HEENT: Atraumatic, PERRLA, EOMI, Normocephalic Neck: Supple, No JVD, Negative Carotid Bruits Lungs: Clear to auscultation, Normal air movement Cardiovascular: Regular rate, Regular Rhythm, Normal S1, Normal S2, No murmurs Abdomen: Bowel Sounds Present, Soft, Non Tender Extremities: No clubbing, No cyanosis, No edema, Capillary Refill Less than 3 Seconds Skin: No rashes, No breakdown Musculoskeletal: No Tenderness to Palpation of Joints or Extremities Neurological: Cranial nerves II-XII grossly intact, Neuro grossly intact Psych/Mental Status: Normal Affect, Appropriate Vital Signs Temp Pulse Resp BP Pulse Ox 97.2 F L 89 18 97/62 96 10/26/17 09:27 10/26/17 09:27 10/26/17 09:27 10/26/17 09:27 10/26/17 09:27 Oxygen Flow Rate (L/min) 2 Oxygen Delivery Method Nasal Cannula Weight: 95.4 kg Orthostatic Vital Signs Start: 10/20/17 21:16 Freq: q24h Status: Active Protocol: Activity Type Activity Date Activity User E-Sign Co-Sign Detail Recorded Client Recorded Date Recorded By Document 10/26/17 06:21 [facility] [id number] 10/26/17 06:22 BAM 10/26/17 06:21 Orthostatic Vitals Standing -Blood Pressure (90/60-120/80) 104/67 -Extremity Use Left Arm -Pulse Rate (60-100) 96 Sitting -Blood Pressure (90/60-120/80) 110/70 -Extremity Use Left Arm -Pulse Rate (60-100) 89 Lying -Blood Pressure (90/60-120/80) 108/76 -Extremity Use Left Arm -Pulse Rate (60-100) 78 Intake and Output for Last 24 Hours 10/24/17 10/25/17 10/26/17 23:59 23:59 23:59 Intake Total 1420 / 1420 2745 / 2745 673 / 673 Output Total 2825 / 2825 2750 / 2750 1550 / 1550 Balance -1405 / -1405 -5 / -5 -877 / -877 Medical Necessity - Tobacco Use Smoking Status: Former smoker Tobacco Use: Non-smoker Assessment/Plan Active and Suspected Problems (Last Updated 10/14/17 @ 22:27 by Mal Gong MD) Syncope and collapse (Acute) Hypotension (Acute) Patient is a 72-year-old male admitted 10/20/2017 due to dizziness, hypotension. He has a past medical history of chronic hypoxic respiratory failure, chronic COPD, obesity, diastolic CHF, tobacco dependence, pulmonary hypertension, chronic left foot drop, CAD, GERD, BPH. Recent diagnosis non-small cell lung cancer with metastasis. 1. Syncopal event, ongoing dizziness-suspect secondary to orthostatic hypotension as well as recent finding of hemorrhage within the right cerebral. Discontinue IV fluids. Repeat orthos negative. Echocardiogram shows an EF of 65% , severely dilated right ventricle, RVSP estimated to be 38 mmHg. Troponin negative. Cortisol 15. Brain CT showed no acute bleed or focal mass. Patient had recent MRI 10/14/17 which showed multiple bilateral supratentorial and bilateral cerebral enhancing lesions consistent with metastatic disease. Hemorrhage within the right cerebral lesion. Also noted are lesions within the basal ganglia and posterior thalamic nuclei bilateral. Urinalysis with 25 leukocytes, positive nitrites. Urine culture shows no growth. Continue midodrine 10 mg 3 times daily. Hypotension improving. Continue Antivert 4 times daily. Case management involved in SNF placement. PT/OT. 2. Non-small cell metastatic lung cancer-recently diagnosed. Following with oncology. To undergo outpatient radiation therapy. Continue home Decadron regimen. Dr. Decker consulted for further oncology/radiation evaluation. Patient previously followed with [facility]. 3. Chronic hypoxic respiratory failure with chronic COPD-on baseline oxygen. Continue albuterol DuoNeb aerosols. 4. Acute on chronic macrocytic anemia-patient received 1 unit packed red blood cells for hemoglobin of 7.8. Hemoglobin stable. Monitor CBC. 5. Chronic diastolic CHF-no acute exacerbation. Home Lasix regimen on hold secondary to dehydration/hypotension. 6. CAD-not on aspirin, statin. 7. GERD-continue PPI. 8. BPH-not on home regimen. 9. Obesity-encouraged diet and lifestyle modifications. DVT prophylaxis-SCDs. Pharmacologic prophylaxis contraindicated given recent hemorrhagic finding. Discharge planning: TCU pending pre-CERT. This patient was seen by ROBERT Cameron under the supervision of Dr. Gong. <Mal Gong E - Last Filed: 10/26/17 13:40> - Physical Exam Vital Signs Temp Pulse Resp BP Pulse Ox 97.2 F L 83 18 97/62 96 10/26/17 09:27 10/26/17 11:38 10/26/17 09:27 10/26/17 09:27 10/26/17 09:27 Oxygen Flow Rate (L/min) 2 Oxygen Delivery Method Nasal Cannula Weight: 210 lb 5.136 oz Orthostatic Vital Signs Start: 10/20/17 21:16 Freq: q24h Status: Active Protocol: Activity Type Activity Date Activity User E-Sign Co-Sign Detail Recorded Client Recorded Date Recorded By Document 10/26/17 06:21 [facility] [id number] 10/26/17 06:22 BAM 10/26/17 06:21 Orthostatic Vitals Standing -Blood Pressure (90/60-120/80) 104/67 -Extremity Use Left Arm -Pulse Rate (60-100) 96 Sitting -Blood Pressure (90/60-120/80) 110/70 -Extremity Use Left Arm -Pulse Rate (60-100) 89 Lying -Blood Pressure (90/60-120/80) 108/76 -Extremity Use Left Arm -Pulse Rate (60-100) 78 Intake and Output for Last 24 Hours 10/24/17 10/25/17 10/26/17 23:59 23:59 23:59 Intake Total 1420 / 1420 2745 / 2745 1370 / 1370 Output Total 2825 / 2825 2750 / 2750 2024 / 2024 Balance -1405 / -1405 -5 / -5 -655 / -655 Assessment/Plan Hospitalist note: I am seeing this patient in conjunction with Carlotta Rodrigez. I independently seen and examined the patient. Progress note above reviewed and I agree with above treatment plan. Patient seen and examined today. He mentioned that his symptoms is getting better every day, he has been able to ambulate with some dizziness but improved. - Physical Exam General: Alert, Oriented x3, Cooperative, No apparent distress. HEENT: Atraumatic, PERRLA, EOMI. Neck: Supple, No JVD, Negative Carotid Bruits, Trachea Midline, Thyroid Normal. Lungs: Clear to auscultation, Normal air movement, No rhonchi, No wheeze, No rales. Cardiovascular: Regular rate, Regular Rhythm, Normal S1, Normal S2, PMI Normal. Abdomen: Bowel Sounds Present, Soft, Non Tender, Non-Distended, No Hepato- splenomegaly. Extremities: No clubbing, No cyanosis, No edema Skin: No rashes, No breakdown Neurological: Neuro grossly intact Assessment and plan: #1 syncopal episode/dizziness/vertigo: Attributed to both hypotension and recent right cerebellar hemorrhage. He is on midodrine and Antivert. He reported continued slow improvement of his symptoms. Plan to continue same treatment, awaiting insurance approval for placement to senior care facility. #2 acute on chronic anemia: Probably due to anemia of chronic disease secondary to cancer. Most recent hemoglobin is 10.3 g/dL after he received 1 unit of packed RBCs.. No evidence of active bleeding. #3 recent diagnosis of metastatic non-small cell lung cancer with metastases to the brain and liver, plan for outpatient radiation therapy. Patient was transferred recently to [facility]. #4 other chronic medical problems: Stable, continue current medications as above. This note was generated with [employer] dictation software. It may contain incorrect words, spelling, and punctuation that were not noted in checking the note before signing. Code Visit Inpatient E&M: 16874 Subs Hosp L2
--- NOTE | 2017-10-26 14:01 | CASEMGMT ---
SW called patient's per patient's request and let her know d/c plan. Arabella BANUELOS MSW
--- NOTE | 2017-10-26 15:25 | RAO.INPT.CON ---
Date of Service: 10/22/17 Diagnosis: Anil Iyer is a 72-year-old male with multiple medical comorbidities who was recently diagnosed with stage IV non-small cell lung cancer (SCC) involving the bilateral lungs, mediastinum, liver, right adrenal gland, and brain. History of Present Illness: 11/12/16: CT chest with contrast was performed due to right lower lobe pneumonia. This exam demonstrated hyperinflation, diffuse emphysematous changes worse in the upper lobes, evidence of consolidation in the right lower lobe with a right infrahilar mass suspected with evidence of postobstructive pneumonitis. There is evidence of enlarged mediastinal lymphadenopathy worse in the subcarinal space and evidence of pathologically enlarged right hilar adenopathy with the largest lymph node measuring 3.1 x 1.6 cm extending into the right infrahilar region. 10/11/2017: Patient presented to the [facility] emergency room due to shortness of breath, productive cough with white sputum, intermittent chest discomfort with coughing and subjective fevers. In the emergency room he was diagnosed with sepsis and healthcare associated pneumonia. 10/11/2017: CT chest with contrast was performed which demonstrated a mass in the right hilum measuring 4 x 2.9 cm, multiple nodules are seen in both lungs with the largest in the right upper lobe measuring 2.2 cm, enlargement of the mediastinal lymph nodes with the largest measuring 3.5 x 2.9 cm, a lytic lesion is noted in the posterior aspect of the eighth rib on the left consistent with a metastatic lesion measuring 9.8 cm, multiple lesions are seen within the liver with the largest measuring 2.5 cm. There is also noted to be a lesion in the right adrenal gland. 10/12/17: CT-guided biopsy of the right lung mass was performed and pathology demonstrated evidence for non-small cell carcinoma favoring squamous cell carcinoma. 10/13/2017: Small pneumothorax in the right had expanded and required chest tube placement. 10/14/2017: Brain MRI was performed which demonstrated a thick-walled rim-enhancing multiloculated mass in the right cerebellar hemisphere measuring 2.2 x 2 x 2.5 cm with associated edema. There is a 4.5 mm lesion in the left cerebellar hemisphere, there are multiple rim-enhancing and homogeneously enhancing nodules in the right parietal lobe and tiny enhancing nodules in the left frontoparietal region, there is a lesion enhancing in the splenium of the corpus callosum on the right. There are bilateral posterior thalamic and also bilateral basal ganglia lesions consistent with small areas of hemorrhage. 10/15/2017: Patient was transferred to [facility] at personal request for a second opinion. 10/16/2017: Patient had consultation with radiation oncology at [facility]. Recommendation was to pursue radiation therapy to the brain as well as to the very large right lower lobe mass to improve shortness of breath. Due to location of home residence and transportation issues patient was transferred to [facility] and plan is to have any radiation completed locally. 10/20/17: Patient had an episode of syncope when getting his mask made at the [facility] radiation oncology site and was transferred to the [facility] and admitted. 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 There is also evidence of metastatic disease particular in the right cerebellar hemisphere and the bilateral parietal lobes. Radiation Treatment History: Patient denies having any previous radiation therapy, diagnosis of collagen vascular disease, or pacemaker/ICD. Interval History: Patient was seen is in his hospital room for consultation. He is a relatively poor historian but I was able to corroborate with his ex- on the phone as well. Patient reports that he has had chronic shortness of breath for over a year and has been on oxygen about 2-3 L at night for about that amount of time. He denies having a recent cough, hemoptysis, or chest pain. He also denies having a recent fevers or chills. He complains of dizziness that was present for about the last 3 weeks, he is unable to explain if this is better worse at certain times. He also noted having occasional lightheadedness and did have at least one episode of syncope which occurred on 10/20/2017 prior to him being admitted to the [facility]. He denies having any syncope since being admitted really does not think he has had any lightheadedness. He also believes his dizziness is improved. He ambulates with a walker and has been doing this for about 2 years. He denies having any trouble with coordination of his hands or feet and denies dropping things, he does report chronic left foot drop. He reports having headaches especially in the right frontal parietal region for at least the last 2-3 weeks, these are improved as of today. He denies having ataxia, dysphasia, vision changes, changes in hearing, cognitive changes or memory dysfunction, seizures, or nausea/vomiting. Prior to all this starting he was living with his [id number] but reports being able to ambulate with a walker and completely take care of his activities of daily living without much difficulty. He believes he can still probably take care of his ADLs but his recent dizziness over the last few weeks has been interfering with his ability to do that. 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 Diastolic CHF (Chronic) Foot drop, left (Chronic) Chronic respiratory failure (Chronic) with hypoxemima and hypercarbia Pulmonary HTN (Chronic) severe Diastolic dysfunction (Chronic) stage 1 Tricuspid regurgitation (Chronic) mild - moderate Decubitus ulcer of hip, stage 2 (Chronic) Decubitus ulcer of hip, stage 1 (Chronic) NSTEMI (non-ST elevated myocardial infarction) (Chronic) CAD (coronary artery disease) (Chronic) minimal and non-obstructive on cath 08/09/16 Social History - Tobacco Smoking Status Former smoker Social History - Living Arrangements Patients Living Arrangements With Family Home Medications Medication Instructions Recorded Albuterol IH (ProAir) [Proair Hfa 2 puff INHALATION Q4H PRN PRN #0 10/12/17 (SP)Vent Pts] Furosemide [Lasix] 40 mg PO DAILY 10/12/17 Tiotropium Morenci [Spiriva 18 MCG] 1 puff INHALATION DAILY 10/12/17 Dexamethasone 4 mg PO BID 10/20/17 Fluticasone/Salmeterol [Advair 1 each IH BID 10/20/17 250-50 Diskus] Magnesium Oxide [Magnesium] 400 mg PO DAILY 10/20/17 Metronidazole [Flagyl] 500 mg PO Q8H 10/20/17 Nicotine [Nicotine Patch] 1 each TD DAILY 10/20/17 Pantoprazole Sodium [Protonix] 40 mg PO DAILY 10/20/17 Potassium Chloride 20 meq PO DAILY 10/20/17 Sulfamethoxazole/Trimethoprim 1 each PO QWEEK 10/20/17 [Sulfamethoxazole-Tmp Ds Tablet] Allergy/AdvReac Type Severity Reaction Status Date / Time No Known Allergies Allergy Verified 10/20/17 15:08 I have reviewed the medical, surgical, and other pertinent history in details and have updated medication and allergy information in the electronic medical record. Review of Systems: A 12-point review of systems was completed and was negative except for what is noted in the HPI/Interval History and by the nurse. Height/Weight/BMI: Height: 5 ft 9 in Weight: 95.4 kg BMI: Vital Signs Temperature 97.8 F 10/26/17 15:11 Temperature Source Temporal Artery 10/26/17 15:11 Pulse Rate 100 10/26/17 15:11 Pulse Strength Normal (2+) 10/26/17 09:40 Respiratory Rate 18 10/26/17 15:11 Respiratory Effort Non-Labored 10/26/17 13:37 Respiratory Depth Normal 10/26/17 13:37 Respiratory Pattern Normal 10/26/17 13:37 Blood Pressure 100/69 10/26/17 15:11 Blood Pressure Mean 79 10/26/17 15:11 Blood Pressure Source Monitor 10/26/17 15:11 Blood Pressure Position Sitting 10/26/17 15:11 Blood Pressure Location Right Arm 10/26/17 15:11 Pulse Ox 94 10/26/17 15:11 Oxygen Delivery Method Nasal Cannula 10/26/17 15:11 Oxygen Flow Rate (L/min) 2 10/26/17 15:11 Physical Exam: ECO KARNOFSKY SCORE: 50% CONSTITUTIONAL: Well-developed, overweight male with no apparent distress. HEENT: Nasal cannula in place. Pupils are equal, round, and reactive to light and accommodation. Extraocular movements are intact. Sclerae are anicteric. NECK: Supple,with no cervical or supraclavicular adenopathy noted. CARDIAC: Regular rate and rhythm. Normal S1, S2. No murmurs, rubs, or gallops. PULMONARY/CHEST: Lungs are clear to auscultation. Diffuse coarse breath sounds with rhonchi noted, no wheezes or crackles are appreciated on exam. No increased work of breathing on 2 L of oxygen. ABDOMINAL: Abdomen soft, non-tender, non-distended. No hepatomegaly. Normoactive bowel sounds in all four quadrants. No guarding, rebound. BACK: Axial skeleton non-tender to percussion. EXTREMITIES: Full range of motion in all four extremities, with normal strength equally and symmetrically. No evidence of edema. No clubbing. NEUROLOGICAL EXAM: Alert and oriented x 3. Cranial nerves II through XII are grossly intact. No focal neurological deficit. Speech is fluent. There is no upper or lower extremity sensory deficit or motor deficit, left foot drop noted. Muscle strength is 5/5 in all muscle groups. Gait and posture are steady. Normal finger to nose with no dysmetria. Imaging: As per HPI Laboratory Data: Laboratory Tests 10/21/17 10/24/17 10/25/17 01:55 05:50 06:25 WBC 14.4 H Hgb 10.3 L Plt Count 455 H BUN 22 H Creatinine 0.59 L AST 39 H ALT 60 Alkaline Phosphatase 224 H Assessment/Plan: Anil Iyer is a 72-year-old male with multiple medical comorbidities who was recently diagnosed with stage IV non-small cell lung cancer (SCC) involving the bilateral lungs, mediastinum, liver, right adrenal gland, and brain. I had a detailed discussion with the patient regarding the imaging findings would suggest widely metastatic non-small cell lung cancer with disease including the bilateral lungs, mediastinum, liver, right adrenal gland, and brain. He seemed to have relatively poor insight to his disease in general. I explained that his dizziness and headaches are potentially related to the metastatic disease noted on the brain MRI but also that his dizziness could be related to the dense calcification involving the cerebellum, basal ganglia, and posterior thalami. Given that this dizziness or started within the last 3 weeks I believe it is likely related to the metastatic disease mostly, and this has palliated some with steroids (Decadron 4 mg bid). I explained he is stage IV disease. I discussed options of active treatment for the metastatic non-small cell lung cancer including whole brain radiation followed by systemic therapy to try to address the widespread extracranial metastatic disease. I also explained that it would be reasonable to consider hospice care for supportive care given the severity and extent of his current disease and his recently declined KPS. Following our discussion about these options the patient decided that he would prefer to attempt active treatment. I discussed the risks, benefits, and alternatives to radiation therapy and answered all questions. Specifically I explained that although he has a dominant right cerebellar lesion that could be contributing to dizziness that I would not recommend surgery given his current performance status as well as the widespread disease and need to start chemotherapy sooner, furthermore he has mostly palliated on steroids. I discussed the need to consider whole brain radiation therapy initially given that there are about 10 lesions noted on the non-volumetric MRI and that systemic therapy generally does not penetrate the brain well to treat WASTE EXAMINER disease. I explained goals of radiation which would include WASTE EXAMINER disease control and palliation of WASTE EXAMINER symptoms thought to be related to brain metastasis but that unless he has a good response to systemic therapy radiation to the brain would not improve overall survival and could potentially have a decremental effect on his quality of life. The logistics of radiation therapy were discussed including CT simulation, treatment planning, and daily fractionated radiation consisting of 10 treatments with weekly physician visits. I discussed the potential acute and chronic toxicities related to whole brain radiation therapy which include but are not limited to fatigue, alopecia which could be permanent, scalp irritation, otitis media/change in hearing, nausea/vomiting, headache, worsening WASTE EXAMINER symptoms, neurocognitive decline (decreased short-term memory and/or cognition), and radiation necrosis. Following our discussion I also discussed the same information on the phone with his ex- who is his power of securities attorney. After reviewing the different treatment options the patient desired to pursue whole brain radiation therapy in an effort to control the WASTE EXAMINER disease and informed consent was obtained. CT simulation will be completed today in an effort to initiate radiation therapy tomorrow 10/27/2017. During radiation therapy he is scheduled to stay in the inpatient rehabilitation center and will be transported daily for his treatments. Thank you for allowing me to participate in the management and care of your patient. If I may answer any questions in the interim, please do not hesitate to contact me at any time. Francisco Javier Decker DO, MS Medical Affairs Manager, Department of Radiation Oncology [facility] Code Visit Office Visits / Consults: [id number] IP Consult L4
--- NOTE | 2017-10-26 15:52 | CON.PCM_ITS ---
Date of Service: 10/22/17 Diagnosis: Anil Iyer is a 72-year-old male with multiple medical comorbidities who was recently diagnosed with stage IV non-small cell lung cancer (SCC) involving the bilateral lungs, mediastinum, liver, right adrenal gland, and brain. History of Present Illness: 11/12/16: CT chest with contrast was performed due to right lower lobe pneumonia. This exam demonstrated hyperinflation, diffuse emphysematous changes worse in the upper lobes, evidence of consolidation in the right lower lobe with a right infrahilar mass suspected with evidence of postobstructive pneumonitis. There is evidence of enlarged mediastinal lymphadenopathy worse in the subcarinal space and evidence of pathologically enlarged right hilar adenopathy with the largest lymph node measuring 3.1 x 1.6 cm extending into the right infrahilar region. 10/11/2017: Patient presented to the [facility] emergency room due to shortness of breath, productive cough with white sputum, intermittent chest discomfort with coughing and subjective fevers. In the emergency room he was diagnosed with sepsis and healthcare associated pneumonia. 10/11/2017: CT chest with contrast was performed which demonstrated a mass in the right hilum measuring 4 x 2.9 cm, multiple nodules are seen in both lungs with the largest in the right upper lobe measuring 2.2 cm, enlargement of the mediastinal lymph nodes with the largest measuring 3.5 x 2.9 cm, a lytic lesion is noted in the posterior aspect of the eighth rib on the left consistent with a metastatic lesion measuring 9.8 cm, multiple lesions are seen within the liver with the largest measuring 2.5 cm. There is also noted to be a lesion in the right adrenal gland. 10/12/17: CT-guided biopsy of the right lung mass was performed and pathology demonstrated evidence for non-small cell carcinoma favoring squamous cell carcinoma. 10/13/2017: Small pneumothorax in the right had expanded and required chest tube placement. 10/14/2017: Brain MRI was performed which demonstrated a thick-walled rim- enhancing multiloculated mass in the right cerebellar hemisphere measuring 2.2 x 2 x 2.5 cm with associated edema. There is a 4.5 mm lesion in the left cerebellar hemisphere, there are multiple rim-enhancing and homogeneously enhancing nodules in the right parietal lobe and tiny enhancing nodules in the left frontoparietal region, there is a lesion enhancing in the splenium of the corpus callosum on the right. There are bilateral posterior thalamic and also bilateral basal ganglia lesions consistent with small areas of hemorrhage. 10/15/2017: Patient was transferred to [facility] at personal request for a second opinion. 10/16/2017: Patient had consultation with radiation oncology at [facility]. Recommendation was to pursue radiation therapy to the brain as well as to the very large right lower lobe mass to improve shortness of breath. Due to location of home residence and transportation issues patient was transferred to [facility] and plan is to have any radiation completed locally. 10/20/17: Patient had an episode of syncope when getting his mask made at the [facility] radiation oncology site and was transferred to the [place] ED and admitted. 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 There is also evidence of metastatic disease particular in the right cerebellar hemisphere and the bilateral parietal lobes. Radiation Treatment History: Patient denies having any previous radiation therapy, diagnosis of collagen vascular disease, or pacemaker/ICD. Interval History: Patient was seen is in his hospital room for consultation. He is a relatively poor historian but I was able to corroborate with his ex- on the phone as well. Patient reports that he has had chronic shortness of breath for over a year and has been on oxygen about 2-3 L at night for about that amount of time. He denies having a recent cough, hemoptysis, or chest pain. He also denies having a recent fevers or chills. He complains of dizziness that was present for about the last 3 weeks, he is unable to explain if this is better worse at certain times. He also noted having occasional lightheadedness and did have at least one episode of syncope which occurred on 10/20/2017 prior to him being admitted to the [facility]. He denies having any syncope since being admitted really does not think he has had any lightheadedness. He also believes his dizziness is improved. He ambulates with a walker and has been doing this for about 2 years. He denies having any trouble with coordination of his hands or feet and denies dropping things, he does report chronic left foot drop. He reports having headaches especially in the right frontal parietal region for at least the last 2-3 weeks, these are improved as of today. He denies having ataxia, dysphasia, vision changes, changes in hearing, cognitive changes or memory dysfunction, seizures, or nausea/vomiting. Prior to all this starting he was living with his [id number] but reports being able to ambulate with a walker and completely take care of his activities of daily living without much difficulty. He believes he can still probably take care of his ADLs but his recent dizziness over the last few weeks has been interfering with his ability to do that. 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 Diastolic CHF (Chronic) Foot drop, left (Chronic) Chronic respiratory failure (Chronic) with hypoxemima and hypercarbia Pulmonary HTN (Chronic) severe Diastolic dysfunction (Chronic) stage 1 Tricuspid regurgitation (Chronic) mild - moderate Decubitus ulcer of hip, stage 2 (Chronic) Decubitus ulcer of hip, stage 1 (Chronic) NSTEMI (non-ST elevated myocardial infarction) (Chronic) CAD (coronary artery disease) (Chronic) minimal and non-obstructive on cath 08/09/16 Social History - Tobacco Smoking Status Former smoker Social History - Living Arrangements Patients Living Arrangements With Family Home Medications Medication Instructions Recorded Albuterol IH (ProAir) [Proair Hfa 2 puff INHALATION Q4H PRN PRN #0 10/12/17 (SP)Vent Pts] Furosemide [Lasix] 40 mg PO DAILY 10/12/17 Tiotropium [place] [Spiriva 18 MCG] 1 puff INHALATION DAILY 10/12/17 Dexamethasone 4 mg PO BID 10/20/17 Fluticasone/Salmeterol [Advair 1 each IH BID 10/20/17 250-50 Diskus] Magnesium Oxide [Magnesium] 400 mg PO DAILY 10/20/17 Metronidazole [Flagyl] 500 mg PO Q8H 10/20/17 Nicotine [Nicotine Patch] 1 each TD DAILY 10/20/17 Pantoprazole Sodium [Protonix] 40 mg PO DAILY 10/20/17 Potassium Chloride 20 meq PO DAILY 10/20/17 Sulfamethoxazole/Trimethoprim 1 each PO QWEEK 10/20/17 [Sulfamethoxazole-Tmp Ds Tablet] 3 Allergy/AdvReac Type Severity Reaction Status Date / Time No Known Allergies Allergy Verified 10/20/17 15:08 I have reviewed the medical, surgical, and other pertinent history in details and have updated medication and allergy information in the electronic medical record. Review of Systems: A 12-point review of systems was completed and was negative except for what is noted in the HPI/Interval History and by the nurse. Height/Weight/BMI: Height: 5 ft 9 in Weight: 95.4 kg BMI: Vital Signs 3 Temperature 97.8 F 10/26/17 15:11 Temperature Source Temporal Artery 10/26/17 15:11 Pulse Rate 100 10/26/17 15:11 Pulse Strength Normal (2+) 10/26/17 09:40 Respiratory Rate 18 10/26/17 15:11 Respiratory Effort Non-Labored 10/26/17 13:37 Respiratory Depth Normal 10/26/17 13:37 Respiratory Pattern Normal 10/26/17 13:37 Blood Pressure 100/69 10/26/17 15:11 Blood Pressure Mean 79 10/26/17 15:11 Blood Pressure Source Monitor 10/26/17 15:11 Blood Pressure Position Sitting 10/26/17 15:11 Blood Pressure Location Right Arm 10/26/17 15:11 Pulse Ox 94 10/26/17 15:11 Oxygen Delivery Method Nasal Cannula 10/26/17 15:11 Oxygen Flow Rate (L/min) 2 10/26/17 15:11 Physical Exam: ECO KARNOFSKY SCORE: 50% CONSTITUTIONAL: Well-developed, overweight male with no apparent distress. HEENT: Nasal cannula in place. Pupils are equal, round, and reactive to light and accommodation. Extraocular movements are intact. Sclerae are anicteric. NECK: Supple,with no cervical or supraclavicular adenopathy noted. CARDIAC: Regular rate and rhythm. Normal S1, S2. No murmurs, rubs, or gallops. PULMONARY/CHEST: Lungs are clear to auscultation. Diffuse coarse breath sounds with rhonchi noted, no wheezes or crackles are appreciated on exam. No increased work of breathing on 2 L of oxygen. ABDOMINAL: Abdomen soft, non-tender, non-distended. No hepatomegaly. Normoactive bowel sounds in all four quadrants. No guarding, rebound. BACK: Axial skeleton non-tender to percussion. EXTREMITIES: Full range of motion in all four extremities, with normal strength equally and symmetrically. No evidence of edema. No clubbing. NEUROLOGICAL EXAM: Alert and oriented x 3. Cranial nerves II through XII are grossly intact. No focal neurological deficit. Speech is fluent. There is no upper or lower extremity sensory deficit or motor deficit, left foot drop noted. Muscle strength is 5/5 in all muscle groups. Gait and posture are steady. Normal finger to nose with no dysmetria. Imaging: As per HPI Laboratory Data: Laboratory Tests 10/21/17 10/24/17 10/25/17 01:55 05:50 06:25 WBC 14.4 H Hgb 10.3 L Plt Count 455 H BUN 22 H Creatinine 0.59 L AST 39 H ALT 60 Alkaline Phosphatase 224 H Assessment/Plan: Anil Iyer is a 72-year-old male with multiple medical comorbidities who was recently diagnosed with stage IV non-small cell lung cancer (SCC) involving the bilateral lungs, mediastinum, liver, right adrenal gland, and brain. I had a detailed discussion with the patient regarding the imaging findings would suggest widely metastatic non-small cell lung cancer with disease including the bilateral lungs, mediastinum, liver, right adrenal gland, and brain. He seemed to have relatively poor insight to his disease in general. I explained that his dizziness and headaches are potentially related to the metastatic disease noted on the brain MRI but also that his dizziness could be related to the dense calcification involving the cerebellum, basal ganglia, and posterior thalami. Given that this dizziness or started within the last 3 weeks I believe it is likely related to the metastatic disease mostly, and this has palliated some with steroids (Decadron 4 mg bid). I explained he is stage IV disease. I discussed options of active treatment for the metastatic non- small cell lung cancer including whole brain radiation followed by systemic therapy to try to address the widespread extracranial metastatic disease. I also explained that it would be reasonable to consider hospice care for supportive care given the severity and extent of his current disease and his recently declined KPS. Following our discussion about these options the patient decided that he would prefer to attempt active treatment. I discussed the risks, benefits, and alternatives to radiation therapy and answered all questions. Specifically I explained that although he has a dominant right cerebellar lesion that could be contributing to dizziness that I would not recommend surgery given his current performance status as well as the widespread disease and need to start chemotherapy sooner, furthermore he has mostly palliated on steroids. I discussed the need to consider whole brain radiation therapy initially given that there are about 10 lesions noted on the non-volumetric MRI and that systemic therapy generally does not penetrate the brain well to treat SCREW DRIVER OPERATOR disease. I explained goals of radiation which would include SCREW DRIVER OPERATOR disease control and palliation of SCREW DRIVER OPERATOR symptoms thought to be related to brain metastasis but that unless he has a good response to systemic therapy radiation to the brain would not improve overall survival and could potentially have a decremental effect on his quality of life. The logistics of radiation therapy were discussed including CT simulation, treatment planning, and daily fractionated radiation consisting of 10 treatments with weekly physician visits. I discussed the potential acute and chronic toxicities related to whole brain radiation therapy which include but are not limited to fatigue, alopecia which could be permanent, scalp irritation, otitis media/ change in hearing, nausea/vomiting, headache, worsening SCREW DRIVER OPERATOR symptoms, neurocognitive decline (decreased short-term memory and/or cognition), and radiation necrosis. Following our discussion I also discussed the same information on the phone with his ex- who is his power of general operations agent. After reviewing the different treatment options the patient desired to pursue whole brain radiation therapy in an effort to control the SCREW DRIVER OPERATOR disease and informed consent was obtained. CT simulation will be completed today in an effort to initiate radiation therapy tomorrow 10/27/2017. During radiation therapy he is scheduled to stay in the inpatient rehabilitation center and will be transported daily for his treatments. Thank you for allowing me to participate in the management and care of your patient. If I may answer any questions in the interim, please do not hesitate to contact me at any time. Francisco Javier Decker DO, MS [employer]ing [employer] Operator, Department of Radiation Oncology [facility] Code Visit Office Visits / Consults: [id number] IP Consult L4
[2017-10-27] VITALS (13 sets, daily range): BP systolic 96–115; BP diastolic 62–70; PULSE 68–90; RESP 16–18; TEMP 36.4–36.9; O2SAT 95–99
[2017-10-27] MEDS: metroNIDAZOLE 500 MG Tablet PO ×3 (05:00→21:00)
[2017-10-27] MEDS: Midodrine HCl 5 MG Tablet 10 MG PO ×3 (05:00→21:00)
[2017-10-27] MEDS: Ipratropium/Albuterol Sulfate 3 ML AMPUL.NEB INHALATION ×3 (07:13→18:58)
[2017-10-27] MEDS: Pantoprazole Sodium 40 MG Tablet PO (09:38)
[2017-10-27] MEDS: Meclizine 12.5 MG Tablet PO ×4 (09:39→21:00)
[2017-10-27] MEDS: Magnesium Oxide 400 MG Tablet PO (09:39)
--- NOTE | 2017-10-27 12:11 | PCM.PROGNOTE ---
<Kale Jaimes - Last Filed: 10/27/17 12:11> Patient Problems: Active and Suspected Problems (Last Updated 10/14/17 @ 22:27 by Mal Gong MD) Syncope and collapse (Acute) Hypotension (Acute) Subjective: Patient resting comfortably in bed in no acute distress, he is waiting for precertification for going to prison. He has had no fevers or chills overnight, no cough, no worsening shortness of breath, is comfortable on his home oxygen level. He does appear to be slightly distended his abdomen however he does not feel it distended, has no nausea or vomiting, has no abdominal pain, had a normal bowel movement this morning without any problems. - Physical Exam General: Alert, Oriented x3, Cooperative HEENT: Atraumatic, PERRLA, EOMI, Normocephalic Neck: Supple, No JVD, Negative Carotid Bruits Lungs: Clear to auscultation, Diminished Cardiovascular: Regular rate, No murmurs Abdomen: Bowel Sounds Present, Soft, Non Tender Extremities: No edema, Capillary Refill Less than 3 Seconds Skin: No rashes, No breakdown Musculoskeletal: No Tenderness to Palpation of Joints or Extremities Neurological: Cranial nerves II-XII grossly intact Psych/Mental Status: Normal Affect, Appropriate, Alert and oriented to time, place, person, mood and affect Vital Signs Temp Pulse Resp BP Pulse Ox 98.5 F 78 18 115/65 97 10/27/17 09:37 10/27/17 11:01 10/27/17 09:37 10/27/17 09:37 10/27/17 09:37 Oxygen Flow Rate (L/min) 2 Oxygen Delivery Method Nasal Cannula Weight: 95.4 kg Orthostatic Vital Signs Start: 10/20/17 21:16 Freq: q24h Status: Active Protocol: Activity Type Activity Date Activity User E-Sign Co-Sign Detail Recorded Client Recorded Date Recorded By Document 10/26/17 06:21 [facility] [id number] 10/26/17 06:22 [facility] 10/26/17 06:21 Orthostatic Vitals Standing -Blood Pressure (90/60-120/80) 104/67 -Extremity Use Left Arm -Pulse Rate (60-100) 96 Sitting -Blood Pressure (90/60-120/80) 110/70 -Extremity Use Left Arm -Pulse Rate (60-100) 89 Lying -Blood Pressure (90/60-120/80) 108/76 -Extremity Use Left Arm -Pulse Rate (60-100) 78 Intake and Output for Last 24 Hours 10/25/17 10/26/17 10/27/17 23:59 23:59 23:59 Intake Total 2745 / 2745 1790 / 1790 840 / 840 Output Total 2750 / 2750 3125 / 3125 1050 / 1050 Balance -5 / -5 -1335 / -1335 -210 / -210 Medical Necessity - Tobacco Use Smoking Status: Former smoker Tobacco Use: Non-smoker Assessment/Plan Active and Suspected Problems (Last Updated 10/14/17 @ 22:27 by Mal Gong MD) Syncope and collapse (Acute) Hypotension (Acute) 1. Syncope-secondary to orthostatic hypotension. No stable. Echo with EF of 65%, severely dilated right ventricle, RVSP 30 mmHg. Troponin negative. Cortisol was 15. 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 He has had a hemorrhage to the right cerebral lesion. Also lesions in the posterior thalamic nuclei bilaterally and within the basal ganglia. Urine is negative. Continue midodrine. He will need further PT OT with vestibular therapy. 2. Non-small cell metastatic lung cancer-stage IV-he plans to continue palliative radiation as an outpatient with Dr. Decker. 3. Debility-waiting for placement prison 4. Chronic hypoxic respiratory failure with chronic COPD-at baseline oxygen level. Continue aerosols. 5. Chronic macrocytic anemia-stable due to of packed red blood cells 6. Chronic diastolic CHF-restart Lasix when appropriate. Currently no exacerbation. No change in respiratory status no swelling of the lower extremities. 7. CAD not on aspirin, statin 8. GERD-PPI DVT prophylaxis: SCDs, no chemoprophylaxis with prior brain hemorrhage DC planning [facility] pending for TCU This patient was seen by Kale Jaimes PA-C under the supervision of Doctor Farideh. <Mal Gong - Last Filed: 10/27/17 13:39> - Physical Exam Vital Signs Temp Pulse Resp BP Pulse Ox 98.5 F 78 18 115/65 97 10/27/17 09:37 10/27/17 11:01 10/27/17 09:37 10/27/17 09:37 10/27/17 09:37 Oxygen Flow Rate (L/min) 2 Oxygen Delivery Method Nasal Cannula Weight: 210 lb 5.136 oz Orthostatic Vital Signs Start: 10/20/17 21:16 Freq: q24h Status: Active Protocol: Activity Type Activity Date Activity User E-Sign Co-Sign Detail Recorded Client Recorded Date Recorded By Document 10/26/17 06:21 [facility] [id number] 10/26/17 06:22 [facility] 10/26/17 06:21 Orthostatic Vitals Standing -Blood Pressure (90/60-120/80) 104/67 -Extremity Use Left Arm -Pulse Rate (60-100) 96 Sitting -Blood Pressure (90/60-120/80) 110/70 -Extremity Use Left Arm -Pulse Rate (60-100) 89 Lying -Blood Pressure (90/60-120/80) 108/76 -Extremity Use Left Arm -Pulse Rate (60-100) 78 Intake and Output for Last 24 Hours 10/25/17 10/26/17 10/27/17 23:59 23:59 23:59 Intake Total 2745 / 2745 1790 / 1790 840 / 840 Output Total 2750 / 2750 3125 / 3125 1050 / 1050 Balance -5 / -5 -1335 / -1335 -210 / -210 Assessment/Plan Hospitalist note: I am seeing this patient in conjunction with Kale Jaimes. I independently seen and examined the patient. Progress note above reviewed and I agree with above treatment plan. Patient seen and examined today. He mentioned that his symptoms is getting better every day, he has been able to ambulate with some dizziness but improved. - Physical Exam General: Alert, Oriented x3, Cooperative, No apparent distress. HEENT: Atraumatic, PERRLA, EOMI. Neck: Supple, No JVD, Negative Carotid Bruits, Trachea Midline, Thyroid Normal. Lungs: Clear to auscultation, Normal air movement, No rhonchi, No wheeze, No rales. Cardiovascular: Regular rate, Regular Rhythm, Normal S1, Normal S2, PMI Normal. Abdomen: Bowel Sounds Present, Soft, Non Tender, Non-Distended, No Hepato-splenomegaly. Extremities: No clubbing, No cyanosis, No edema Skin: No rashes, No breakdown Neurological: Neuro grossly intact Assessment and plan: #1 syncopal episode/dizziness/vertigo: Attributed to both hypotension and recent right cerebellar hemorrhage. He is on midodrine and Antivert. He reported continued slow improvement of his symptoms. Plan to continue same treatment, awaiting insurance approval for placement to prison facility. #2 acute on chronic anemia: Probably due to anemia of chronic disease secondary to cancer. Most recent hemoglobin is 10.3 g/dL after he received 1 unit of packed RBCs.. No evidence of active bleeding. #3 recent diagnosis of metastatic non-small cell lung cancer with metastases to the brain and liver, plan for outpatient radiation therapy. He was seen by our radiation oncologist and plan to start him on radiation therapy today. #4 other chronic medical problems: Stable, continue current medications as above. This note was generated with [employer] dictation software. It may contain incorrect words, spelling, and punctuation that were not noted in checking the note before signing. Code Visit Inpatient E&M: [id number] Subs Hosp L2
--- NOTE | 2017-10-27 12:16 | PN_ITS ---
<Kale Jaimes - Last Filed: 10/27/17 12:11> Patient Problems: Active and Suspected Problems (Last Updated 10/14/17 @ 22:27 by Mal Gong MD) Syncope and collapse (Acute) Hypotension (Acute) Subjective: Patient resting comfortably in bed in no acute distress, he is waiting for precertification for going to group home. He has had no fevers or chills overnight, no cough, no worsening shortness of breath, is comfortable on his home oxygen level. He does appear to be slightly distended his abdomen however he does not feel it distended, has no nausea or vomiting, has no abdominal pain , had a normal bowel movement this morning without any problems. - Physical Exam General: Alert, Oriented x3, Cooperative HEENT: Atraumatic, PERRLA, EOMI, Normocephalic Neck: Supple, No JVD, Negative Carotid Bruits Lungs: Clear to auscultation, Diminished Cardiovascular: Regular rate, No murmurs Abdomen: Bowel Sounds Present, Soft, Non Tender Extremities: No edema, Capillary Refill Less than 3 Seconds Skin: No rashes, No breakdown Musculoskeletal: No Tenderness to Palpation of Joints or Extremities Neurological: Cranial nerves II-XII grossly intact Psych/Mental Status: Normal Affect, Appropriate, Alert and oriented to time, place, person, mood and affect Vital Signs Temp Pulse Resp BP Pulse Ox 98.5 F 78 18 115/65 97 10/27/17 09:37 10/27/17 11:01 10/27/17 09:37 10/27/17 09:37 10/27/17 09:37 Oxygen Flow Rate (L/min) 2 Oxygen Delivery Method Nasal Cannula Weight: 95.4 kg Orthostatic Vital Signs Start: 10/20/17 21:16 Freq: q24h Status: Active Protocol: Activity Type Activity Date Activity User E-Sign Co-Sign Detail Recorded Client Recorded Date Recorded By Document 10/26/17 06:21 [facility] [id number] 10/26/17 06:22 [facility] 10/26/17 06:21 Orthostatic Vitals Standing -Blood Pressure (90/60-120/80) 104/67 -Extremity Use Left Arm -Pulse Rate (60-100) 96 Sitting -Blood Pressure (90/60-120/80) 110/70 -Extremity Use Left Arm -Pulse Rate (60-100) 89 Lying -Blood Pressure (90/60-120/80) 108/76 -Extremity Use Left Arm -Pulse Rate (60-100) 78 Intake and Output for Last 24 Hours 10/25/17 10/26/17 10/27/17 23:59 23:59 23:59 Intake Total 2745 / 2745 1790 / 1790 840 / 840 Output Total 2750 / 2750 3125 / 3125 1050 / 1050 Balance -5 / -5 -1335 / -1335 -210 / -210 Medical Necessity - Tobacco Use Smoking Status: Former smoker Tobacco Use: Non-smoker Assessment/Plan Active and Suspected Problems (Last Updated 10/14/17 @ 22:27 by Mla Gong MD) Syncope and collapse (Acute) Hypotension (Acute) 1. Syncope-secondary to orthostatic hypotension. No stable. Echo with EF of 65%, severely dilated right ventricle, RVSP 30 mmHg. Troponin negative. Cortisol was 15. 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 He has had a hemorrhage to the right cerebral lesion. Also lesions in the posterior thalamic nuclei bilaterally and within the basal ganglia. Urine is negative. Continue midodrine. He will need further PT OT with vestibular therapy. 2. Non-small cell metastatic lung cancer-stage IV-he plans to continue palliative radiation as an outpatient with Dr. Decker. 3. Debility-waiting for placement group home 4. Chronic hypoxic respiratory failure with chronic COPD-at baseline oxygen level. Continue aerosols. 5. Chronic macrocytic anemia-stable due to of packed red blood cells 6. Chronic diastolic CHF-restart Lasix when appropriate. Currently no exacerbation. No change in respiratory status no swelling of the lower extremities. 7. CAD not on aspirin, statin 8. GERD-PPI DVT prophylaxis: SCDs, no chemoprophylaxis with prior brain hemorrhage DC planning [facility] pending for TCU This patient was seen by Kale Jaimes PA-C under the supervision of Doctor Farideh. <Mal Gong - Last Filed: 10/27/17 13:39> - Physical Exam Vital Signs Temp Pulse Resp BP Pulse Ox 98.5 F 78 18 115/65 97 10/27/17 09:37 10/27/17 11:01 10/27/17 09:37 10/27/17 09:37 10/27/17 09:37 Oxygen Flow Rate (L/min) 2 Oxygen Delivery Method Nasal Cannula Weight: 210 lb 5.136 oz Orthostatic Vital Signs Start: 10/20/17 21:16 Freq: q24h Status: Active Protocol: Activity Type Activity Date Activity User E-Sign Co-Sign Detail Recorded Client Recorded Date Recorded By Document 10/26/17 06:21 [facility] [id number] 10/26/17 06:22 [facility] 10/26/17 06:21 Orthostatic Vitals Standing -Blood Pressure (90/60-120/80) 104/67 -Extremity Use Left Arm -Pulse Rate (60-100) 96 Sitting -Blood Pressure (90/60-120/80) 110/70 -Extremity Use Left Arm -Pulse Rate (60-100) 89 Lying -Blood Pressure (90/60-120/80) 108/76 -Extremity Use Left Arm -Pulse Rate (60-100) 78 Intake and Output for Last 24 Hours 10/25/17 10/26/17 10/27/17 23:59 23:59 23:59 Intake Total 2745 / 2745 1790 / 1790 840 / 840 Output Total 2750 / 2750 3125 / 3125 1050 / 1050 Balance -5 / -5 -1335 / -1335 -210 / -210 Assessment/Plan Hospitalist note: I am seeing this patient in conjunction with Kale Jaimes. I independently seen and examined the patient. Progress note above reviewed and I agree with above treatment plan. Patient seen and examined today. He mentioned that his symptoms is getting better every day, he has been able to ambulate with some dizziness but improved. - Physical Exam General: Alert, Oriented x3, Cooperative, No apparent distress. HEENT: Atraumatic, PERRLA, EOMI. Neck: Supple, No JVD, Negative Carotid Bruits, Trachea Midline, Thyroid Normal. Lungs: Clear to auscultation, Normal air movement, No rhonchi, No wheeze, No rales. Cardiovascular: Regular rate, Regular Rhythm, Normal S1, Normal S2, PMI Normal. Abdomen: Bowel Sounds Present, Soft, Non Tender, Non-Distended, No Hepato- splenomegaly. Extremities: No clubbing, No cyanosis, No edema Skin: No rashes, No breakdown Neurological: Neuro grossly intact Assessment and plan: #1 syncopal episode/dizziness/vertigo: Attributed to both hypotension and recent right cerebellar hemorrhage. He is on midodrine and Antivert. He reported continued slow improvement of his symptoms. Plan to continue same treatment, awaiting insurance approval for placement to group home facility. #2 acute on chronic anemia: Probably due to anemia of chronic disease secondary to cancer. Most recent hemoglobin is 10.3 g/dL after he received 1 unit of packed RBCs.. No evidence of active bleeding. #3 recent diagnosis of metastatic non-small cell lung cancer with metastases to the brain and liver, plan for outpatient radiation therapy. He was seen by our radiation oncologist and plan to start him on radiation therapy today. #4 other chronic medical problems: Stable, continue current medications as above. This note was generated with [employer] dictation software. It may contain incorrect words, spelling, and punctuation that were not noted in checking the note before signing. Code Visit Inpatient E&M: 86604 Subs Hosp L2
--- NOTE | 2017-10-27 12:40 | CASEMGMT ---
SW received a phone call from Dilcia, nurse reviewer and she is sending patient's case to their medical office receptionist for review. Await [employer]'s decision. Arabella BANUELOS MSW
--- NOTE | 2017-10-27 15:05 | CASEMGMT ---
Patient was denied by insurance to go to TCU. SW received a call from Radha, Patient Navigator. She was told about patient needing transportation to radiation. SW told her that is accurate now as his insurance denied him going to TCU. She was going to make some phone calls. JUDY let patient know this information. He asked how he was going to get back and forth to his radiation treatments. JUDY asked him if [facility] would be able to do this. He was not sure. SW will check with them. JUDY let ARYAN Henley and Physician know the plan. JUDY called [facility] ([phone] and [phone]) and made a referral for longterm, PT, OT, and an aide. SW to work on transportation. Arabella BANUELOS MSW
--- NOTE | 2017-10-27 16:00 | CASEMGMT ---
JUDY called patient's friend, Sherrell. JUDY explained situation and told her that patient's insurance denied him going to the TCU so he will now have to go home with home health. JUDY told her he will need transportation to his radiation. She said if they have to they could transport him. They were concerned about gas and JUDY told them SW will see what SW can do. JUDY spoke with Radha and she was able to get transportation set up for all of the days except for 2. JUDY typed up the schedule for patient as it is different times every day. JUDY told this to patient and also gave patient the list. SW called patient's friend, Sherrell and let her know. They will transport patient the 2 days that were not already covered. (TueNovember 09 and November 10). They would not be able to transport patient to radiation tomorrow, but they can pick him up and take him home from the hospital. Plan: Home with home health m[facility], PT, OT, and aide. Radiation transportation set up through [facility] van except 2 days friend will transport. Arabella BANUELOS CANOPY INSPECTOR
[2017-10-28] VITALS (8 sets, daily range): BP systolic 91–100; BP diastolic 50–62; PULSE 67–104; RESP 14–20; TEMP 36.6–36.8; O2SAT 96
[2017-10-28] MEDS: metroNIDAZOLE 500 MG Tablet PO ×2 (05:25→13:43)
[2017-10-28] MEDS: Midodrine HCl 5 MG Tablet 10 MG PO ×2 (05:25→13:43)
[2017-10-28] MEDS: Ipratropium/Albuterol Sulfate 3 ML AMPUL.NEB INHALATION ×2 (07:10→13:14)
[2017-10-28] MEDS: Meclizine 12.5 MG Tablet PO ×2 (08:43→13:45)
[2017-10-28] MEDS: Pantoprazole Sodium 40 MG Tablet PO (08:44)
[2017-10-28] MEDS: Magnesium Oxide 400 MG Tablet PO (08:47)
[2017-10-28] MEDS: 0.9% NaCl Peripheral Flush Adult/Peds IV (08:47)
--- NOTE | 2017-10-28 10:36 | CASEMGMT ---
This RN CM received call from pt's tzyrnqwh-ar-ior, Hiral Iyer, at this time and she asks to be updated on discharge plan at this time. This RN CM to room to get permission from pt to disclose information to daughter in law. Pt is A/O x4 at this time and states that this RN CM can disclose any info to daughter in law at this time. Daughter in law contact info, home phone [phone] and cell phone [phone]. Daughter in law updated on insurance denial for SNF and that [facility] set up with [facility] for RN, PT/OT and aide, voices understanding. Daughter in law states that pt is interested in information on Palliative/Hospice care and asks that someone speak with him regarding and also leave pamphlets. Daughter in law also asks that someone discuss HPOA paperwork with pt. Jaci KIM updated on all and voices understanding. Jaci SW into speak with pt at this time. Contact info for [facility] and [facility] added to pt d/c f/u paperwork. Rafia FELIPE CM
--- NOTE | 2017-10-28 11:20 | CASEMGMT ---
SW spoke w/CM, she spoke w/pt's daughter in law who asked about POA forms, palliative care, and wanted the number for home health. SW spoke w/pt in room, inquired about POA forms. Pt states he has filled out POA forms, and his ex-old lady is his POA. Pt is not sure if she is POA for financial or medical or both. Pt states he did do the papers here, though they are not in [facility] or in the chart. SW did give pt the blank forms in the event the forms he has are just for financial. SW also spoke w/pt about palliative care, pt is in agreement to meet w/palliative care. He would like to speak w/them meet w/him at home on Tuesday, he states his daughter in law can be there on Tuesday in the morning, before radiation. SW called palliative care w/[facility], faxed referral, spoke w/Tata. She will call pt Tuesday to set up a time. SW also asked if they can speak to pt again about the POA/LW forms, she will do this. SW gave pt the blank LW/POA forms, information on palliative care and gave pt the phone and fax for [facility]. Once pt is discharged, SW will fax discharge instructions. OLAMIDE Lopez, PREPARATION ROOM WORKER
--- NOTE | 2017-10-28 11:58 | PCM.DC ---
- Discharge Diagnoses Current Active Problems: Current Active and Chronic Problems (Last Updated 10/14/17 @ 22:27 by Mal Gong MD) Syncope and collapse (Acute) Hypotension (Acute) You will use the following diet at home:: No restrictions Your food should be the consistency of: Regular Your liquids should be the consistency of: Regular/Thin Discharge Activity: Return to Normal Activity Allergies/Adverse Reactions: Allergies No Known Allergies Allergy (Verified 10/20/17 15:08) Medications to take at Discharge Albuterol IH (ProAir) [Proair Hfa] 2 puff INHALATION Q4H PRN PRN #0 10/12/17 Tiotropium [place] [Spiriva 18 MCG] 1 puff INHALATION DAILY 10/12/17 Dexamethasone 4 mg PO BID 10/20/17 Fluticasone/Salmeterol [Advair 250-50 Diskus] 1 each IH BID 10/20/17 Magnesium Oxide [Magnesium] 400 mg PO DAILY 10/20/17 Metronidazole [Flagyl] 500 mg PO Q8H 10/20/17 Nicotine [Nicotine Patch] 1 each TD DAILY 10/20/17 Pantoprazole Sodium [Protonix] 40 mg PO DAILY 10/20/17 Hydrocodone Bitart/Apap 5-325 [[place] 5/325] 1 tablet PO Q6H PRN PRN #16 tablet 10/28/17 Mag Hydrox/Al Hydrox/Simeth [Mylanta II] 30 ml PO Q6H PRN PRN udc 10/28/17 Magnesium Oxide [Mag-Ox 400] 400 mg PO DAILY tablet 10/28/17 Meclizine HCl [Antivert] 12.5 mg PO 4X/DAY tablet 10/28/17 Midodrine HCl [Proamatine] 10 mg PO TID tablet 10/28/17 Nitroglycerin [Nitrostat] 0.4 mg SUBLINGUAL Q5M PRN tablet 10/28/17 Temazepam [Restoril] 15 mg PO QHS PRN PRN #3 capsule 10/28/17 The following prescriptions were given: Hydrocodone Bitart/Apap 5-325 [S[place]y 5/325] 1 tablet PO Q6H PRN PRN #16 tablet PRN Reason: Moderate-severe pain Temazepam [Restoril] 15 mg PO QHS PRN PRN #3 capsule PRN Reason: insomnia Please follow up with your Primary Care Physician in: 1-2 weeks Please Follow Up With: Francisco Javier Decker DO - Radiation, next session today When: As directed Please Follow Up With: Palliative care When: as directed Proposed Discharge Date: 10/28/17
--- NOTE | 2017-10-28 13:58 | DS.PCM_ITS ---
<Kale Jaimes - Last Filed: 10/28/17 13:41> Discharge Date and Diagnosis Date of Admission: 10/20/17 Date of Discharge: 10/28/17 - Primary Discharge Diagnosis Active and Suspected Problems (Last Updated 10/14/17 @ 22:27 by Mal Gong MD) Syncope and collapse secondary to orthostatic hypotension Vertigo likely secondary to brain metastasis Non-small cell lung cancer with metastases to liver and brain Chronic hypoxic respiratory failure with COPD Chronic macrocytic anemia Chronic diastolic congestive heart failure CAD GERD - Secondary Discharge Diagnosis Chronic Problems (Last Updated 10/14/17 @ 22:27 by Mal Gong MD) Non-small cell carcinoma of right lung, stage 4 (Chronic) COPD (chronic obstructive pulmonary disease) (Chronic) 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 Diastolic CHF (Chronic) Foot drop, left (Chronic) Chronic respiratory failure (Chronic) with hypoxemima and hypercarbia Pulmonary HTN (Chronic) severe Diastolic dysfunction (Chronic) stage 1 Tricuspid regurgitation (Chronic) mild - moderate Decubitus ulcer of hip, stage 2 (Chronic) Decubitus ulcer of hip, stage 1 (Chronic) NSTEMI (non-ST elevated myocardial infarction) (Chronic) CAD (coronary artery disease) (Chronic) minimal and non-obstructive on cath 08/09/16 Hospital Course and Treatment Imaging Results: RAD/Chest PA and Lateral IMPRESSION: COPD with mild basilar atelectasis but improved aeration since prior study. 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 No definitive evidence for acute bleed or focal mass Echo:Interpretation Summary The estimated ejection fraction is 65 %. Severely dilated right ventricle. Trivial tricuspid valve insufficiency. Right ventricular systolic pressure estimated to be 38 mmHg. Compared to echo report dated 08/09/2016, LV function has normalized,. Pt had severe RVE at that time. RVSP has decreased from 68 to 38 mm Hg, but may be underestimated due to poor and limitied echo windows. The study was technically limited. The study was technically difficult. Operations: None Procedures: 2-D Echocardiogram, - - Palliative radiation Summary of Care Provided: Physical exam on day of discharge: General: Resting comfortably NAD Psych: A/Ox3 normal affect HEENT: SHARRLA AT NC Neck: Supple NT CV: RRR no m/t/r/g/h Resp: Diminished throughout, faint wheezing on expiration. Abd: [id number] Soft NT no guarding or rigidity, obesity Ext: DP2+= no edema Skin: W/D normal turgor Lymph/Heme: No active bleeding or adenopathy Neuro: CN2-12 intact Hospital course: The patient is a 72 year old M with a history of non-small cell lung cancer with known metastases to the brain and liver, with recent hemorrhage in the right cerebellar lesion and possible foci of hemorrhage in the basal ganglia and posterior thalamic nuclei pulmonary hypertension, CAD, GERD, BPH, chronic hypoxic respiratory failure dependent on 3 L of oxygen at home, COPD, diastolic congestive heart failure, tobacco abuse, who presented to the emergency room with dizziness and hypotension. He is admitted to the progressive care unit for syncope secondary to polypharmacy combined with orthostatic hypotension. Medications were adjusted. He was started on midodrine, meclizine. He was seen by physical therapy and Occupational Therapy. Diuretics were discontinued. Cortisol level was normal. Decadron was continued. He did have a small decline in hemoglobin and received 1 unit PRBC. Oncology was consulted and he was agreeable to begin radiation of his brain mets which he started while here. He also was interested in palliative and an outpatient referral was made. He was not interested in hospice. He was fairly weak, so he worked with PTOT while here who suggested SNF. He was however denied by his insurance. He was arranged for home health care services. He was discharged home with home health in stable condition. He will continue radiation per oncology, follow up with PCP in 1-2 weeks, follow-up with palliative as outpatient. This patient was seen by Kale Jaimes PA-C under the supervision of Doctor Gong. [] Discharge Diet: No Restrictions Discharge Activity: Return to Normal Activity Home Medications: Medications to take at Discharge Albuterol IH (ProAir) [Proair Hfa] 2 puff INHALATION Q4H PRN PRN #0 10/12/17 Tiotropium [place] [Spiriva 18 MCG] 1 puff INHALATION DAILY 10/12/17 Dexamethasone 4 mg PO BID 10/20/17 Fluticasone/Salmeterol [Advair 250-50 Diskus] 1 each IH BID 10/20/17 Metronidazole [Flagyl] 500 mg PO Q8H 10/20/17 Nicotine [Nicotine Patch] 1 each TD DAILY 10/20/17 Pantoprazole Sodium [Protonix] 40 mg PO DAILY 10/20/17 Hydrocodone Bitart/Apap 5-325 [[place] 5/325] 1 tablet PO Q6H PRN PRN #16 tablet 10/28/17 Mag Hydrox/Al Hydrox/Simeth [Mylanta II] 30 ml PO Q6H PRN PRN udc 10/28/17 Magnesium Oxide [Magnesium] 400 mg PO DAILY #30 tab 10/28/17 Meclizine HCl [Antivert] 12.5 mg PO 4X/DAY PRN #28 tab 10/28/17 Midodrine HCl [Proamatine] 10 mg PO TID #90 tab 10/28/17 Following Prescrptions Were Given to Patient: Hydrocodone Bitart/Apap 5-325 [[place] 5/325] 1 tablet PO Q6H PRN PRN #16 tablet PRN Reason: Moderate-severe pain Magnesium Oxide [Magnesium] 400 mg PO DAILY #30 tab Midodrine HCl [Proamatine] 10 mg PO TID #90 tab Meclizine HCl [Antivert] 12.5 mg PO 4X/DAY PRN #28 tab PRN Reason: Vertigo Primary Care Physician: Donte Lae DO [Primary Care Provider] - Please follow up with your Primary Care Physician in: 1-2 weeks Please Follow Up With: Francisco Javier Decker DO - Radiation, next session today When: As directed Please Follow Up With: Palliative care When: as directed Disposition: Home with Home Health Minutes spent on discharge:: 40 Patient Condition:: Stable Medical Necessity - Tobacco Use Smoking Status: Former smoker Tobacco Use: Non-smoker Meaningful Use Info Meaningful Use Diagnoses (Choose all that apply): None applicable <Mal Gong - Last Filed: 10/28/17 15:47> Discharge Date and Diagnosis - Secondary Discharge Diagnosis Chronic Problems (Last Updated 10/14/17 @ 22:27 by Mal Gong MD) Non-small cell carcinoma of right lung, stage 4 (Chronic) COPD (chronic obstructive pulmonary disease) (Chronic) 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 Diastolic CHF (Chronic) Foot drop, left (Chronic) Chronic respiratory failure (Chronic) with hypoxemima and hypercarbia Pulmonary HTN (Chronic) severe Diastolic dysfunction (Chronic) stage 1 Tricuspid regurgitation (Chronic) mild - moderate Decubitus ulcer of hip, stage 2 (Chronic) Decubitus ulcer of hip, stage 1 (Chronic) NSTEMI (non-ST elevated myocardial infarction) (Chronic) CAD (coronary artery disease) (Chronic) minimal and non-obstructive on cath 08/09/16 Hospital Course and Treatment Summary of Care Provided: Hospitalist note: Discharge summary above reviewed and I agree with above discharge plan and treatment. Patient was admitted for intractable dizziness and lightheadedness as well as vertigo. He was found to have hypotension without obvious etiology, was treated with IV fluids but his blood pressure did not significantly improve. He was started on midodrine and his blood pressure did improve. Patient continued to complain of dizziness with spinning sensation/vertigo. This is attributed to recent history of right cerebellar hemorrhage secondary to metastatic non-small cell lung carcinoma. He was started on Antivert and his symptoms did improve but he remained symptomatic with gradual improvement. Radiation oncology evaluated the patient during this hospital stay and he was started on radiation to the brain for metastatic lung cancer. Also, he was found to have acute on chronic anemia that required blood transfusion. He received 1 unit of packed RBCs and hemoglobin remained stable since then. There was no evidence of active bleeding. With midodrine and Antivert, patient symptoms improved gradually but he remained intermittently symptomatic especially upon ambulation. I explained to the patient that this dizziness and vertigo likely to be chronic secondary to the right cerebellar hemorrhage that he had recently and it might take some time to improve but definitely, he reported gradual improvement of his symptoms since admission. Patient discharged to home in a stable medical condition, discharged on midodrine and Antivert, continue with on his chronic home medication without any changes, recommended follow-up with PCP in 1-2 weeks, follow-up with Dr. Decker for radiation therapy and next session will be today. - Physical Exam General: Alert, Oriented x3, Cooperative, No apparent distress. HEENT: Atraumatic, PERRLA, EOMI. Neck: Supple, No JVD, Negative Carotid Bruits, Trachea Midline, Thyroid Normal. Lungs: Clear to auscultation, Normal air movement, No rhonchi, No wheeze, No rales. Cardiovascular: Regular rate, Regular Rhythm, Normal S1, Normal S2, PMI Normal. Abdomen: Bowel Sounds Present, Soft, Non Tender, Non-Distended, No Hepato- splenomegaly. Extremities: No clubbing, No cyanosis, No edema Skin: No rashes, No breakdown Neurological: Neuro grossly intact . Minutes spent on discharge:: 32 Code Visit Inpatient E&M: 33741 Disch Hosp
--- NOTE | 2017-10-28 14:14 | CASEMGMT ---
SW faxed d/c instructions to [facility]. Plan: d/c home with Care through [facility] half-way, PT, OT, and aide. Palliative Care will also follow up with patient. Transportation to radiation has been arranged with [facility] for all but the last 2 treatments. His friend Sherrell will be transporting him to those appts. Arabella BANUELOS SUMMER LAW ASSOCIATE
--- NOTE | 2017-10-28 14:22 | CASEMGMT ---
Per Amirah FELIPE, pt states he does not have prescription coverage. Pt [facility] and it was difficult for [facility] to [facility]. Call to [facility] to verify prescription coverage and they verify that pt does not have prescription coverage. Per [facility], Midodrine script will be $94.39 and the rest of scripts will be about $20. Pt states cannot afford more than $30-40 out of pocket. Call to [facility] retail pharmacy and they state they will be able to fill Midodrine for pt through the [facility] RX assist program at this time. Pt, family and Amirah FELIPE updated on all at this time and all voice understanding. Pt will mushroom picker Midodrine on way out of hospital and then mushroom picker rest of scripts at [facility], pt and family voice understanding. Rafia FELIPE CM
== END 2017-10-28 15:08 | disposition home health service (06) | DRG 312 ==
LOC: ED 19:34 → PCU 19:35
PROVIDERS: Family Medicine; Internal Medicine; Nurse Practitioner Family; Admitting Provider Family Medicine; Emergency Provider Emergency Medicine; Family Provider Family Medicine; PCP Family Medicine; Visit Provider Hospitalist
DX: I95.1 Orthostatic hypotension (principal); J96.11 Chronic respiratory failure with hypoxia; I50.32 Chronic diastolic (congestive) heart failure; C79.31 Secondary malignant neoplasm of brain; C78.7 Secondary malignant neoplasm of liver and intrahepatic bile duct; C34.91 Malignant neoplasm of unspecified part of right bronchus or lung; R42 Dizziness and giddiness; Z99.81 Dependence on supplemental oxygen; M21.372 Foot drop, left foot; Z87.891 Personal history of nicotine dependence; Z66 Do not resuscitate; I25.10 Atherosclerotic heart disease of native coronary artery without angina pectoris; D53.9 Nutritional anemia, unspecified; K21.9 Gastro-esophageal reflux disease without esophagitis; I27.20 Pulmonary hypertension, unspecified; I07.1 Rheumatic tricuspid insufficiency; I69.198 Other sequelae of nontraumatic intracerebral hemorrhage; E66.9 Obesity, unspecified; Z68.31 Body mass index [BMI] 31.0-31.9, adult
CPT/HCPCS: 36415; 70450; 71046; 77014; 77280; 77290; 77300; 77307; 77334; 77412; 80048; 80053; 81001; 82533; 83605; 83735; 84484; 85025; 85027; 86850; 86900; 86920; 86922; 87040; 87086; 93005; 93306; 94640; 97110; 97116; 97162; 97166; 97530; 97802; 99283; J7030; J7040; P9016; A4216

== ENCOUNTER 2017-10-29 16:50 | Inpatient (IN) | payer MEDICARE, SELFPAY ==
[2017-10-29 16:51] VITALS: BP 96/75; PULSE 110; RESP 19; TEMP 36.9; O2SAT 92; BMI 32.0
--- NOTE | 2017-10-29 17:09 | EKG12_ITS ---
Test Reason : GEN ILLNESS Blood Pressure : / mmHG Vent. Rate : 108 BPM Atrial Rate : 108 BPM P-R Int : 144 ms QRS Dur : 092 ms QT Int : 338 ms P-R-T Axes : 086 072 081 degrees QTc Int : 452 ms Sinus tachycardia with Premature atrial complexes Low voltage QRS Confirmed by SEVERO SOTO, SREEKANTH ([id number]), editor farm journal KAVIN KIRK ([id number]) on 11/01/2017 2:43:01 PM Referred By: Francisco Javier Decker Confirmed By:SREEKANTH ELKINS MD
[2017-10-29 17:26] LABS: Absolute Lymphocyte Count 1.19 X10^3/ul (0.83-4.51); Eosinophil# 0.03 X10^3/uL; Eosinophils% 0.2 % (0-5); Hematocrit 32.8 % (40-54); Lymphocyte # 1.19 X10^3/ul (4.0); Lymphocyte % 7.6 % (19-41); Mean Corp Hgb Conc 30.5 g/gl (32-36); Mean Corpuscular Hgb 28.7 pg (27.0-32.0); Mean Platelet Vol. 9.5 fl (6.2-12.0); Monocyte% 3.2 % (0-10); Neutrophil % 88.9 % (47-70); Platelet Count 366 K/mm3 (150-450); RBC Distribution Width CV 16.4 % (11.6-14.6); Red Blood Count 3.49 M/mm3 (4.6-6.2); White Blood Count 15.7 K/mm3 (4.4-11.0)
[2017-10-29 17:28] LABS: POSITIVE COUNT NO; POSITIVE DIFFERENTIAL NO; POSITIVE MORPHOLOGY NO
--- NOTE | 2017-10-29 17:32 | NURSING ---
NO LW OR POA
[2017-10-29 17:36] LABS: International Normalized Ratio 1.2; Partial Thromboplast Time 25.6 Seconds (24.1-36.2); Prothrombin Time (Protime)PT. 15.2 SECONDS (11.7-14.9)
[2017-10-29 17:48] LABS: AST(SGOT) 42 U/L (15-37); Alanine Aminotransfer ALT/SGPT 45 U/L (16-61); Albumin, Serum 2.4 g/dL (3.2-5.0); Alkaline Phosphatase 316 U/L (45-117); Anion Gap 8 (5-15); BUN 36 mg/dL (7-18); BUN/Creat Ratio 40.2 RATIO (10-20); Bilirubin, Direct 0.29 mg/dL (0.00-0.30); Chloride 97 mmol/L (98-107); EST Glomerular Filtration Rate 88 mL/min (>60); Est Glom Filt Rate - Afr Amer 107 mL/min (>60); Globulin 3.9 g/dL (2.2-4.2); Glucose 175 mg/dL (74-106); Potassium 4.5 mmol/L (3.5-5.1); Protein, Total 6.3 g/dL (6.4-8.2); Sodium Level 137 mmol/L (136-145)
--- NOTE | 2017-10-29 19:05 | ED.VISSUMM ---
- ER Visit Summary Date of Service: 10/29/17 Chief Complaint: Weakness History of Present Illness: The patient is a 72 M who was discharged from the PCU yesterday. Was admitted with hypotension and syncope. During his stay he started on Midrin. He also has metastatic lung cancer with lesions to the brain and liver. He was started on radiation for brain metastases while in the hospital. Today he felt very lightheaded and sweaty. He had a near syncope. Blood pressure and squad was reportedly 80/50. Review of records it appears that rehab or snf was recommended by PT and OT, but was declined by insurance. He went home with plans for home health but was not able to function at home. Physical Examination: Vital signs include blood pressure 96/75, temperature 98.5, heart rate 110, respiratory rate 19, pulse ox 92% on 2 L. Patient sitting upright in bed. He is in no acute distress and is talkative. Heart is regular rate and rhythm. Lung sounds are slightly diminished at the bases. Abdomen is soft and distended. There is no focal tenderness. Lower extremity examination was 2+ edema of the lower legs that is symmetric. His skin appears somewhat pale. Test Results: EKG is sinus tach at 108. No sign of acute ischemia. CBC was a white count of 15.7 with 89% neutrophils. Hemoglobin is 10.0. This appears that his white blood cell count has been climbing over the last 3 blood draws. Chemistry studies are significant for a glucose of 175 and a BUN of 36. LFTs are significant for an alk phos of 316 and AST of 42. Emergency Department Course and Treatment: Patient was given very mild IV fluids here. His blood pressure has maintained in the upper 90s to low 100s systolic range. On review of records this was his blood pressure when he was in the hospital as well. At this time patient clearly is not safe to be home alone. He will require readmission and social work consult for placement. Family is present with him and is agreeable. Treatment Plan: [] Disposition: Admit Impression: 1. Generalized weakness 2. History of metastatic lung cancer 3. Leukocytosis 4. Hypotension, improved This note was generated with [employer] dictation software. It may contain incorrect words, spelling, and punctuation that were not noted in review of the chart prior to signing ED Disposition - Plan for ED Patient: Disposition: Acute Care Hospital [facility] Chief Complaint: General Illness
[2017-10-29 19:06] VITALS: BP 98/64; PULSE 116; RESP 18; O2SAT 98
--- NOTE | 2017-10-29 19:08 | ED.DCSUM_ITS ---
- ER Visit Summary Date of Service: 10/29/17 Chief Complaint: Weakness History of Present Illness: The patient is a 72 M who was discharged from the PCU yesterday. Was admitted with hypotension and syncope. During his stay he started on Midrin. He also has metastatic lung cancer with lesions to the brain and liver. He was started on radiation for brain metastases while in the hospital. Today he felt very lightheaded and sweaty. He had a near syncope. Blood pressure and squad was reportedly 80/50. Review of records it appears that rehab or prison was recommended by PT and OT, but was declined by insurance. He went home with plans for home health but was not able to function at home. Physical Examination: Vital signs include blood pressure 96/75, temperature 98.5 , heart rate 110, respiratory rate 19, pulse ox 92% on 2 L. Patient sitting upright in bed. He is in no acute distress and is talkative. Heart is regular rate and rhythm. Lung sounds are slightly diminished at the bases. Abdomen is soft and distended. There is no focal tenderness. Lower extremity examination was 2+ edema of the lower legs that is symmetric. His skin appears somewhat pale. Test Results: EKG is sinus tach at 108. No sign of acute ischemia. CBC was a white count of 15.7 with 89% neutrophils. Hemoglobin is 10.0. This appears that his white blood cell count has been climbing over the last 3 blood draws. Chemistry studies are significant for a glucose of 175 and a BUN of 36. LFTs are significant for an alk phos of 316 and AST of 42. Emergency Department Course and Treatment: Patient was given very mild IV fluids here. His blood pressure has maintained in the upper 90s to low 100s systolic range. On review of records this was his blood pressure when he was in the hospital as well. At this time patient clearly is not safe to be home alone. He will require readmission and social work consult for placement. Family is present with him and is agreeable. Treatment Plan: [] Disposition: Admit Impression: 1. Generalized weakness 2. History of metastatic lung cancer 3. Leukocytosis 4. Hypotension, improved This note was generated with [employer] dictation software. It may contain incorrect words, spelling, and punctuation that were not noted in review of the chart prior to signing ED Disposition - Plan for ED Patient: Disposition: Acute Care Hospital [facility] Chief Complaint: General Illness
[2017-10-29] MEDS: 0.9% Normal Saline 1,000 ML 75 ML IV (19:34)
[2017-10-29 20:43] VITALS: BP 98/68; PULSE 108; RESP 22; O2SAT 96
[2017-10-29 20:45] LABS: Bacteria 0 SEEN /hpf (None Seen); Mucous, Urine 0 SEEN /hpf (<or=2+)
[2017-10-29 20:47] LABS: Color, Urine Yellow (Yellow); Glucose, Dipstick Normal (Normal); Ketone-Dipstick Negative (Negative); Leukocyte Esterase-Dipstick 25 /ul (Negative); Nitrite-Dipstick Negative (Negative); Occult Blood-Urine 50 /ul (Negative); Protein-Dipstick 15 mg/dl (Negative); Urine Bilirubin Dipstick Negative (Negative); Urine Clarity Sl. Cloudy (Clear); Urine Urobilinogen Normal (Normal)
[2017-10-29 20:53] LABS: Red Blood Cells-Urine 5-10 SEEN /hpf (0-5); Squamous Epithelial Cells - UA 0-5 SEEN /hpf (0-5); White Blood Cells 0-5 SEEN /hpf (0-5)
[2017-10-29 20:56] VITALS: BP 98/68; PULSE 105; RESP 22; O2SAT 96
[2017-10-29 21:22] VITALS: BMI 29.9
[2017-10-29 21:24] VITALS: BP 100/62; PULSE 91; RESP 16
--- NOTE | 2017-10-29 21:32 | RAD_ITS ---
STUDY: X-RAY CHEST REASON FOR EXAM: Male, 72 years old. Shortness of breath TECHNIQUE: Frontal views of the chest were obtained. COMPARISON: October 20, 2017 FINDINGS: The lungs are adequately aerated. Minimal asymmetric opacities are again seen in the right lung base. Lung nodules are again seen in the right lung. There is no demonstrated pleural abnormality. The cardiac silhouette is normal in size. The mediastinum and hilar regions are unremarkable. Normal visualized pulmonary arteries. There is atherosclerotic calcification of the thoracic aorta. There are diffuse degenerative changes of the visualized spine. There are degenerative changes in both shoulders. A lytic lesion is again seen in the posterior left eighth rib. There is no demonstrated abnormality of the visualized upper abdomen. RAD/Chest 1 View (Portable) IMPRESSION: There are no significant changes. Lung nodules are again seen in the right lung and there is minimal right basilar atelectasis or scarring. Electronically Signed: Kiera Walker MD at 22:40 EDT Tel Direct: [phone], Service support ,
[2017-10-29] MEDS: Midodrine HCl 5 MG Tablet 10 MG PO (22:37)
--- NOTE | 2017-10-29 23:36 | PCM.HP.STD ---
Problem List (1) Hilar mass Status: Acute (2) Hypotension Status: Acute Qualifiers: Hypotension type: unspecified hypotension type Qualified Code(s): I95.9 - Hypotension, unspecified (3) Syncope and collapse Status: Acute (4) CAD (coronary artery disease) Status: Chronic Qualifiers: Coronary Disease-Associated Artery/Lesion type: unspecified vessel or lesion type [place] vs. transplanted heart: unspecified whether [place] or transplanted heart Associated angina: angina presence unspecified Qualified Code(s): I25.10 - Atherosclerotic heart disease of [place] coronary artery without angina pectoris Comment: minimal and non-obstructive on cath 08/09/16 (5) COPD (chronic obstructive pulmonary disease) Status: Chronic Qualifiers: COPD type: unspecified COPD Qualified Code(s): J44.9 - Chronic obstructive pulmonary disease, unspecified (6) Chronic respiratory failure Status: Chronic Qualifiers: Respiratory failure complication: hypoxia and hypercapnia Qualified Code(s): J96.11 - Chronic respiratory failure with hypoxia; J96.12 - Chronic respiratory failure with hypercapnia Comment: with hypoxemima and hypercarbia (7) Decubitus ulcer of hip, stage 1 Status: Chronic Qualifiers: (8) Diastolic CHF Status: Chronic Qualifiers: Heart failure chronicity: chronic Qualified Code(s): I50.32 - Chronic diastolic (congestive) heart failure (9) Non-small cell carcinoma of right lung, stage 4 Status: Chronic (10) Pulmonary HTN Status: Chronic Comment: severe (11) Failure to thrive Status: Acute History of Present Illness Date of Admission: 10/29/17 Chief Complaint: Failure to thrive The patient is a 72 year old male w/ h/o non-small cell metastatic lung cancer, stage IV, on palliative radiation, COPD on home oxygen, CAD, chronic diastolic heart failure, and decondition was discharged from PCU yesterday because he did not qualified for SNF. He was unable to care for himself at home. He was not able to care for his ADLs when he was in the hospital. He had minimum help at night and he had to exert himself with simple task as getting out of bed to the restroom. He felt lightheaded and sweaty. He was so weak that he cannot care for his ADLs. He went back to the ED for further workup. 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 Diastolic CHF (Chronic) Foot drop, left (Chronic) Chronic respiratory failure (Chronic) with hypoxemima and hypercarbia Pulmonary HTN (Chronic) severe Diastolic dysfunction (Chronic) stage 1 Tricuspid regurgitation (Chronic) mild - moderate Decubitus ulcer of hip, stage 2 (Chronic) Decubitus ulcer of hip, stage 1 (Chronic) NSTEMI (non-ST elevated myocardial infarction) (Chronic) CAD (coronary artery disease) (Chronic) minimal and non-obstructive on cath 08/09/16 Allergies No Known Allergies Allergy (Verified 10/29/17 16:55) Home Medications: Ambulatory Orders Medication Instructions Recorded Albuterol IH (ProAir) [Proair Hfa] 2 puff INHALATION Q4H PRN PRN #0 10/12/17 Tiotropium [place] [Spiriva 18 MCG] 1 puff INHALATION DAILY 10/12/17 Fluticasone/Salmeterol [Advair 1 each IH BID 10/20/17 250-50 Diskus] Hydrocodone Bitart/Apap 5-325 1 tablet PO Q6H PRN PRN #16 tablet 10/28/17 [[place] 5/325] Magnesium Oxide [Magnesium] 400 mg PO DAILY #30 tab 10/28/17 Meclizine HCl [Antivert] 12.5 mg PO 4X/DAY PRN #28 tab 10/28/17 Midodrine HCl [Proamatine] 10 mg PO TID #90 tab 10/28/17 Dexamethasone 4 mg PO BID 10/30/17 Mag Hydrox/Al Hydrox/Simeth 30 ml PO Q6H PRN PRN 10/30/17 [Mylanta II] Metronidazole [Flagyl] 500 mg PO Q8H 10/30/17 Nicotine [Nicotine Patch] 1 patch TD DAILY 10/30/17 Pantoprazole Sodium [Protonix] 40 mg PO DAILY 10/30/17 Surgical History: cataract Psychiatric History: No pertinent psych hx Smoking Status: Former smoker - *Family History Maternal History Items: No pertinent history - Denies any marked paternal or maternal family history of HD, DM, Lung Disease. Paternal History Items: No pertinent history - Denies any marked paternal or maternal family history of HD, DM, Lung Disease. Review of Systems Constitutional: Denies: Chills, Fever, Weight Change HEENT: Denies: Head Aches, Sinus Congestion, Sinus Drainage Cardiovascular: Denies: Chest Pain, Palpitations Respiratory: Denies: Cough, Shortness of breath at rest, Sputum production Gastrointestinal: Denies: Abdominal Pain, Nausea, Vomiting Genitourinary: Denies: Dysuria Musculoskeletal: Denies: Joint Pain, Joint Tenderness Skin: Denies: Rash, Wounds Neurological: Denies: Numbness, Tingling, Focal weakness Psychiatric: Denies: Anxiety, Depression, Homicidal Ideations, Suicidal Ideations Hematologic/ Lymphatic: Denies: Easy Bruising, Easy Bleeding VTE Information - Inpt Only VTE Present on Admission: No VTE Mechan Device Prophylaxis: SCD's VTE Pharm Prophylaxis ordered?: No Patient Problems: Active and Suspected Problems (Last Updated 10/14/17 @ 22:27 by Mal Gong MD) Failure to thrive (Acute) - Physical Exam General: Alert, Oriented x3, Cooperative HEENT: Atraumatic, PERRLA, EOMI, Normocephalic Neck: Supple, No JVD, Negative Carotid Bruits Lungs: Clear to auscultation, Normal air movement Cardiovascular: Regular rate, No murmurs Abdomen: Bowel Sounds Present, Soft, Non Tender Extremities: No edema, Capillary Refill Less than 3 Seconds Skin: No rashes, No breakdown Musculoskeletal: No Tenderness to Palpation of Joints or Extremities Neurological: Cranial nerves II-XII grossly intact Psych/Mental Status: Normal Affect, Appropriate Vital Signs Temp Pulse Resp BP Pulse Ox 98.5 F 105 H 22 H 98/68 96 10/29/17 16:51 10/29/17 20:56 10/29/17 20:56 10/29/17 20:56 10/29/17 20:56 Oxygen Flow Rate (L/min) 3 Oxygen Delivery Method Nasal Cannula Weight: 92.108 kg Body Mass Index (BMI) 29.9 Assessment/Plan Active and Suspected Problems (Last Updated 10/14/17 @ 22:27 by Mal Gong MD) Failure to thrive (Acute) 72 year old male w/ h/o non-small cell metastatic lung cancer, stage IV, on palliative radiation, COPD on home oxygen, CAD, chronic diastolic heart failure, and decondition readmitted for failure to thrive. 1) Failure to thrive: Pt unable to care for himself at home. Probably will need placement. Midodrine for hypotension. Supportive care. 2) Leukocytosis: Probably reactive. Will get cultures. Antibiotic if e/o sepsis. 3) H/o non-small cell metastatic lung cancer, stage IV, on palliative radiation: Outpt followup. Supportive care. 4) Prophylaxis: No chemoprophylaxis given prior brain hemorrhage and h/o brain mets.
[2017-10-29 23:59] VITALS: PULSE 89
[2017-10-30] VITALS (12 sets, daily range): BP systolic 91–106; BP diastolic 50–68; PULSE 71–89; RESP 16–20; TEMP 36.3–37.3; O2SAT 95–98
[2017-10-30 06:36] LABS: Absolute Neutrophil Count 9.1 X10^3/uL (2.0-7.7); Eosinophil# 0.04 X10^3/uL; Eosinophils% 0.4 % (0-5); Hematocrit 29.5 % (40-54); Hemoglobin 9.1 g/dl (13.0-16.5); Lymphocyte % 10.4 % (19-41); Mean Corp Hgb Conc 30.8 g/gl (32-36); Mean Corpuscular Hgb 28.8 pg (27.0-32.0); Mean Corpuscular Volume 93.4 fL (80-94); Mean Platelet Vol. 9.6 fl (6.2-12.0); Monocyte# 0.34 X10^3/uL; Monocyte% 3.2 % (0-10); Neutrophil % 85.9 % (47-70); Platelet Count 325 K/mm3 (150-450); RBC Distribution Width CV 16.4 % (11.6-14.6); Red Blood Count 3.16 M/mm3 (4.6-6.2); White Blood Count 10.6 K/mm3 (4.4-11.0)
[2017-10-30 06:37] LABS: POSITIVE COUNT NO; POSITIVE DIFFERENTIAL NO; POSITIVE MORPHOLOGY NO
[2017-10-30] MEDS: 0.9% Normal Saline 1,000 ML 75 ML IV ×2 (06:42→20:19)
[2017-10-30] MEDS: metroNIDAZOLE 500 MG Tablet PO (06:42)
[2017-10-30] MEDS: Midodrine HCl 5 MG Tablet 10 MG PO ×3 (06:42→21:37)
[2017-10-30] MEDS: Ipratropium 0.5 MG/2.5 ML SOLUTION INHALATION ×3 (06:54→18:40)
[2017-10-30 06:59] LABS: Anion Gap 3 (5-15); BUN 25 mg/dL (7-18); BUN/Creat Ratio 61.9 RATIO (10-20); Calcium,Total 9.6 mg/dL (8.5-10.1); Chloride 101 mmol/L (98-107); EST Glomerular Filtration Rate 221 mL/min (>60); Est Glom Filt Rate - Afr Amer 268 mL/min (>60); Estimated Creatinine Clearance 65.79 ml/min; Glucose 79 mg/dL (74-106); Potassium 4.6 mmol/L (3.5-5.1); Sodium Level 137 mmol/L (136-145)
[2017-10-30] MEDS: Pantoprazole Sodium 40 MG Tablet PO (10:12)
--- NOTE | 2017-10-30 16:10 | PCM.PROGNOTE ---
Patient Problems: Active and Suspected Problems (Last Updated 10/14/17 @ 22:27 by Mal Gong MD) Failure to thrive (Acute) Subjective: Patient was seen and examined today, voices no complaints except for generalized weakness. Patient was not able to tell me who he sees for oncology, I have found out that the patient is currently receiving radiation to the brain, he is due to have another treatment tomorrow. I talked to Dr. Mahajan today, he confirmed that the patient will need to be set up for radiation tomorrow again. He was admitted yesterday for generalized weakness and is unable to take care of himself at home even with assistance - Physical Exam General: Alert, Oriented x3, Cooperative, No apparent distress, Well developed HEENT: Atraumatic, PERRLA, EOMI Oral: Moist Mucosa Neck: Supple, No JVD, No Nuchal Rigidity, Trachea Midline, Thyroid Normal Size and Texture Lungs: Clear to auscultation, Normal air movement, No rhonchi, No wheeze, No rales Cardiovascular: Regular rate, Regular Rhythm, Normal S1, Normal S2, No rub noted, No Gallop Abdomen: Bowel Sounds Present, Soft, Non Tender, Non-Distended, No Hepato-splenomegaly, No hernias noted Extremities: No clubbing, No cyanosis, No edema Neurological: Cranial nerves II-XII grossly intact, Neuro grossly intact Psych/Mental Status: Appropriate, Flat Affect, Alert and oriented to time, place, person, mood and affect Vital Signs Temp Pulse Resp BP Pulse Ox 98.4 F 84 18 94/68 95 10/30/17 14:16 10/30/17 14:16 10/30/17 14:16 10/30/17 14:16 10/30/17 14:16 Oxygen Flow Rate (L/min) 3 Oxygen Delivery Method Nasal Cannula Weight: 97 kg Body Mass Index (BMI) 29.9 Intake and Output for Last 24 Hours 10/28/17 10/29/17 10/30/17 23:59 23:59 23:59 Intake Total 394 / 394 1559 / 1559 Output Total 1650 / 1650 Balance 394 / 394 -91 / -91 Laboratory Tests Past 24 Hrs 10/30/17 10/30/17 06:04 06:04 WBC 10.6 RBC 3.16 L Hgb 9.1 L Hct 29.5 L MCV 93.4 MCH 28.8 MCHC 30.8 L RDW 16.4 H RDW Differential 56.0 H Plt Count 325 MPV 9.6 Immature Gran % (Auto) 0.100 Neut % (Auto) 85.9 H Lymph % (Auto) 10.4 L [place] % (Auto) 3.2 Eos % (Auto) 0.4 Baso % (Auto) 0.0 Absolute Neuts (auto) 9.1 H Absolute Lymphs (auto) 1.10 Total Counted Not Reportable Sodium 137 Potassium 4.6 Chloride 101 Carbon Dioxide 33.0 H Anion Gap 3 L BUN 25 H Creatinine 0.40 L Estim Creat Clear Calc 65.79 Est GFR (MDRD) Af Amer 268 Est GFR (MDRD) Non-Af 221 BUN/Creatinine Ratio 61.9 H Glucose 79 Calcium 9.6 Medical Necessity - Tobacco Use Smoking Status: Former smoker Assessment/Plan Active and Suspected Problems (Last Updated 10/14/17 @ 22:27 by Mal Gong MD) Failure to thrive (Acute) #1 generalized debility secondary to metastatic non-small cell lung cancer, chronic hypoxic respiratory failure, severe COPD he will be seen again by PT and OT, he will need placement in a retirement facility, it is unknown at this time whether we have to submit another request to his insurance carrier or whether he will have to pay out of pocket. #2 metastatic non-small cell lung cancer with metastases to the brain, liver, and left eighth rib-patient will need to continue with his brain radiation tomorrow I will talk with the radiation oncologist in the morning #3 chronic hypoxic respiratory failure-patient's oxygen sat will be monitored #4 chronic obstructive pulmonary disease #5 coronary artery disease #6 pulmonary hypertension Patient is a DNR CC arrest Code Visit Inpatient E&M: 58708 Subs Hosp L2
--- NOTE | 2017-10-30 16:20 | PN_ITS ---
Patient Problems: Active and Suspected Problems (Last Updated 10/14/17 @ 22:27 by Mal Gong MD) Failure to thrive (Acute) Subjective: Patient was seen and examined today, voices no complaints except for generalized weakness. Patient was not able to tell me who he sees for oncology , I have found out that the patient is currently receiving radiation to the brain, he is due to have another treatment tomorrow. I talked to Dr. Mahajan today , he confirmed that the patient will need to be set up for radiation tomorrow again. He was admitted yesterday for generalized weakness and is unable to take care of himself at home even with assistance - Physical Exam General: Alert, Oriented x3, Cooperative, No apparent distress, Well developed HEENT: Atraumatic, PERRLA, EOMI Oral: Moist Mucosa Neck: Supple, No JVD, No Nuchal Rigidity, Trachea Midline, Thyroid Normal Size and Texture Lungs: Clear to auscultation, Normal air movement, No rhonchi, No wheeze, No rales Cardiovascular: Regular rate, Regular Rhythm, Normal S1, Normal S2, No rub noted , No Gallop Abdomen: Bowel Sounds Present, Soft, Non Tender, Non-Distended, No Hepato- splenomegaly, No hernias noted Extremities: No clubbing, No cyanosis, No edema Neurological: Cranial nerves II-XII grossly intact, Neuro grossly intact Psych/Mental Status: Appropriate, Flat Affect, Alert and oriented to time, place , person, mood and affect Vital Signs Temp Pulse Resp BP Pulse Ox 98.4 F 84 18 94/68 95 10/30/17 14:16 10/30/17 14:16 10/30/17 14:16 10/30/17 14:16 10/30/17 14:16 Oxygen Flow Rate (L/min) 3 Oxygen Delivery Method Nasal Cannula Weight: 97 kg Body Mass Index (BMI) 29.9 Intake and Output for Last 24 Hours 10/28/17 10/29/17 10/30/17 23:59 23:59 23:59 Intake Total 394 / 394 1559 / 1559 Output Total 1650 / 1650 Balance 394 / 394 -91 / -91 Laboratory Tests Past 24 Hrs 10/30/17 10/30/17 06:04 06:04 WBC 10.6 RBC 3.16 L Hgb 9.1 L Hct 29.5 L MCV 93.4 MCH 28.8 MCHC 30.8 L RDW 16.4 H RDW Differential 56.0 H Plt Count 325 MPV 9.6 Immature Gran % (Auto) 0.100 Neut % (Auto) 85.9 H Lymph % (Auto) 10.4 L [place] % (Auto) 3.2 Eos % (Auto) 0.4 Baso % (Auto) 0.0 Absolute Neuts (auto) 9.1 H Absolute Lymphs (auto) 1.10 Total Counted Not Reportable Sodium 137 Potassium 4.6 Chloride 101 Carbon Dioxide 33.0 H Anion Gap 3 L BUN 25 H Creatinine 0.40 L Estim Creat Clear Calc 65.79 Est GFR (MDRD) Af Amer 268 Est GFR (MDRD) Non-Af 221 BUN/Creatinine Ratio 61.9 H Glucose 79 Calcium 9.6 Medical Necessity - Tobacco Use Smoking Status: Former smoker Assessment/Plan Active and Suspected Problems (Last Updated 10/14/17 @ 22:27 by Mal Gong MD) Failure to thrive (Acute) #1 generalized debility secondary to metastatic non-small cell lung cancer, chronic hypoxic respiratory failure, severe COPD he will be seen again by PT and OT, he will need placement in a residential facility, it is unknown at this time whether we have to submit another request to his insurance carrier or whether he will have to pay out of pocket. #2 metastatic non-small cell lung cancer with metastases to the brain, liver, and left eighth rib-patient will need to continue with his brain radiation tomorrow I will talk with the radiation oncologist in the morning #3 chronic hypoxic respiratory failure-patient's oxygen sat will be monitored #4 chronic obstructive pulmonary disease #5 coronary artery disease #6 pulmonary hypertension Patient is a DNR CC arrest Code Visit Inpatient E&M: [id number] Subs Hosp L2
[2017-10-31] VITALS (15 sets, daily range): BP systolic 92–112; BP diastolic 52–76; PULSE 66–96; RESP 16–20; TEMP 36.2–36.6; O2SAT 93–100
[2017-10-31] MEDS: Midodrine HCl 5 MG Tablet 10 MG PO ×3 (06:22→21:47)
[2017-10-31] MEDS: Ipratropium 0.5 MG/2.5 ML SOLUTION INHALATION ×2 (06:46→12:58)
[2017-10-31] MEDS: Pantoprazole Sodium 40 MG Tablet PO (07:38)
[2017-10-31] MEDS: 0.9% Normal Saline 1,000 ML 75 ML IV ×2 (09:35→21:48)
--- NOTE | 2017-10-31 11:58 | PCM.PROGNOTE ---
Patient Problems: Active and Suspected Problems (Last Updated 10/14/17 @ 22:27 by Mal Gong MD) Failure to thrive (Acute) Subjective: Pt resting comfortably in bed. Still very weak, mildly confused. No increased SOB, wheezing, cough. No LOOMIS, dizziness, LH. Feels very unsteady on his feet with and very concerned about being safe at home. - Physical Exam General: Alert, Oriented x3, Cooperative HEENT: Atraumatic, PERRLA, EOMI, Normocephalic Neck: Supple, No JVD, Negative Carotid Bruits Lungs: Diminished, Wheezes Cardiovascular: Regular rate, No murmurs Abdomen: Bowel Sounds Present, Soft, Non Tender Extremities: No edema, Capillary Refill Less than 3 Seconds Skin: No rashes, No breakdown Musculoskeletal: No Tenderness to Palpation of Joints or Extremities Neurological: Cranial nerves II-XII grossly intact Psych/Mental Status: Normal Affect, Appropriate Vital Signs Temp Pulse Resp BP Pulse Ox 97.3 F L 66 16 112/76 100 10/31/17 07:34 10/31/17 09:39 10/31/17 07:34 10/31/17 07:34 10/31/17 07:34 Oxygen Flow Rate (L/min) 3 Oxygen Delivery Method Nasal Cannula Weight: 93.5 kg Body Mass Index (BMI) 29.9 Intake and Output for Last 24 Hours 10/29/17 10/30/17 10/31/17 23:59 23:59 23:59 Intake Total 394 / 394 2065 / 2065 1082 / 1082 Output Total 2600 / 2600 1300 / 1300 Balance 394 / 394 -535 / -535 -218 / -218 Medical Necessity - Tobacco Use Smoking Status: Former smoker Assessment/Plan Active and Suspected Problems (Last Updated 10/14/17 @ 22:27 by Mal Gong MD) Failure to thrive (Acute) 1. Debility - fall. Failed being home with home care. Needs placed. 2. 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 On decadron. 3. Metabolic encephalopathy - Confusion 2/2 #2. Suspect this will worsen with further radiation. 4. COPD - stable. Aerosols prn. With pulmonary htn. 5. Chronic hypoxic resp failure - at baseline. 6. Hx orthostatic hypotensions - continue midodrine. DVT ppx: SCDs DC planning: SNF placement This patient was seen by Kale Jiames PA-C under the supervision of Doctor Antoine.
--- NOTE | 2017-10-31 12:06 | CASEMGMT ---
RN CM Readmission Note. -Pt presented 10/29/17 to ER with inability to care for self @ home, was lightheaded, sweaty. Failure to thrive, anticipate will need placement. 10/28/17- Pt was dc'd home after treatment for syncope secondary to orthostatic hypotension. Hx of NSCLC w/mets to liver and brain. New medication, Midodrine was filled through [facility] Retail pharmacy assist. Transportation for radiation tx arranged through [facility] van and friend. Home Health through [facility] for RN/PT/OT. Pt was already on Home O2.
--- NOTE | 2017-10-31 13:22 | CASEMGMT ---
SW called [facility], message left to call the primary SW on [facility] regarding if pt is service connected and if so how much, and if he would be covered for any services through the [facility] at [facility]. OLAMIDE Lopez, TIE HACKER
--- NOTE | 2017-10-31 16:00 | CASEMGMT ---
Social Work Note SW in to see pt to discuss discharge planning. Pt was previously at [facility] and attempted to get placement at TCU but pt's insurance denied. SW introduced self and role at [facility]. Pt is alert and orientated x4. Pt states that he would like placement again at discharge. Pt gave this worker permission to call his daughter in law Lilli to ask about placement. Pt denied additional needs or concerns at this time. SW placed a call and left a message for Lilli, pt's daughter in law, at [phone]. SW asked Lilli to confirm discharge plans with this worker. This worker received a call back from pt's daughter in law Lilli stating that the plan is to try for placement again but this time in [place]. Lilli states that she would like to try placement at [facility]. SW informed Lilli that this worker will fax the referral to [facility] and that just like last time pre-cert will have to be obtained. Lilli states understanding. JUDY asked Lilli if pt were to get a denial again from insurance what would her back up plan be and Lilli states to try any facility that will accept him. SW informed Lilli that if insurance denies placement for pt at one facility they are going to deny for every facility. SW explained that since pt has a new visit this time at the hospital, pre-cert can be attempted again. Lilli states understanding. Lilli had questioned if the [facility] will pay for placement and this worker informed Lilli that this worker is unsure but can check on benefits. JUDY explained that pt could fill out Medicaid application and see if he would be approved for pending medicaid number for SNF. Lilli states that she would also be interested in having pt fill out Medicaid application to see if pt could go somewhere under Medicaid. SW informed pt that there are few facilities that accept pending medicaid and that trying to find a facility in [place] that accepts pending [facility] Medicaid could be tricky. Lilli states understanding. SW asked Lilli if pt would be transported to [facility] as he currently receives radiation treatment at facility and Lilli states that there is a radiation center that is near the [facility] that pt could receive radiation treatment from. Lilli mentioned to this worker that the last time pt was admitted she was informed that pt's illness is terminal and that Hospice may be a good idea. This worker informed Lilli that this worker is unsure about pt's illness but that this worker can inform Dr. Antoine who is following pt that Hospice may need to be consulted. Lilli states understanding. Lilli states that she would like to meet with this worker tomorrow in pt's room at 2:30. This worker should be able to meet with pt and pt's daughter in law and will plan on meeting with pt and pt's daughter in law tomorrow at 2:30 in pt's room. JUDY provided pt with Medicaid Application. Pt was soundly sleeping and Medicaid application was left in pt's room. Lilli denied additional needs or concerns at this time. JUDY faxed referral to [facility]. JUDY will continue to follow along to assist with discharge planning. Plan: Discharge to [facility] pending acceptance and pre-cert Kirti Mcghee TOOLING SPECIALIST, ELEVATOR CONSTRUCTOR ELECTRIC
--- NOTE | 2017-10-31 16:16 | CASEMGMT ---
Social Work Note SW received call from Rober with [facility] that pt is non service connected that they will not pay for SNF placement. Plan: Discharge to [facility] pending pre-cert from Gerhard Mcghee REGULATORY AFFAIRS SPECIALIST, DEMAND GENERATOR MANAGER
--- NOTE | 2017-10-31 16:19 | CASEMGMT ---
Social Work Note SW updated Dr. Antoine that pt's daughter in law had mentioned Hospice. Dr. Antoine states that pt's daughter in law is not POA and that at this time pt is not agreeable to Hospice. SW will update pt and pt's daughter in law tomorrow of this. SW will continue to follow along to assist with discharge planning. Plan: Discharge to [facility] [place] pending acceptance and pre-cert Kirti Mcghee LITIGATION SPECIALIST, AUTOMOTIVE SHOP FOREMAN
--- NOTE | 2017-10-31 17:18 | CASEMGMT ---
Social Work Note SW received message from Ann at [facility] stating that she got fax and to have this worker call her back. JUDY placed a call back to [facility] and spoke with Alhaji in admissions. Per Alhaji she received referral and is going to submit it to dietary director for review. SW updated pt's daughter in law Lilli of this. JUDY will continue to follow along to assist with discharge planning. Plan: Discharge to [facility] pending acceptance and pre-cert Kirti Mcghee RELIEF CAPTAIN, FLIGHT TEST DATA ACQUISITION TECHNICIAN
[2017-11-01] VITALS (14 sets, daily range): BP systolic 96–106; BP diastolic 56–69; PULSE 63–89; RESP 16–20; TEMP 36.4–36.7; O2SAT 96–100
[2017-11-01] MEDS: Midodrine HCl 5 MG Tablet 10 MG PO ×3 (05:23→21:01)
[2017-11-01] MEDS: Ipratropium 0.5 MG/2.5 ML SOLUTION INHALATION ×3 (06:54→19:15)
[2017-11-01] MEDS: Pantoprazole Sodium 40 MG Tablet PO (08:54)
[2017-11-01] MEDS: 0.9% Normal Saline 1,000 ML 75 ML IV (12:13)
--- NOTE | 2017-11-01 12:33 | CASEMGMT ---
Social Work Note SW received call from pt's daughter in law Lilli. SW informed Lilli that this worker hasn't heard anything back from [facility]. SW explained to Lilli that the operations director has to review referral to see if they are able to accept. Lilli states that since there is no update at this time and nothing is needed from her that she won't be coming to our appointment scheduled for this afternoon. Lilli asked this worker to help pt complete Medicaid Application. SW will follow up with pt this afternoon to provide assistance to pt for completing Medicaid Application. Plan: [facility] pending acceptance Kirti Mcghee UNIT TRUST MANAGER, RENEWABLE ENERGY TRADER
--- NOTE | 2017-11-01 13:06 | PCM.PROGNOTE ---
Patient Problems: Active and Suspected Problems (Last Updated 10/14/17 @ 22:27 by Mal Gong MD) Failure to thrive (Acute) Subjective: Pt resting comfortably in bed NAD. He feels that he is making gradual improvement. He states that the oncologist told him there is a chance that he could live 5 years or even go into remission. He wants to continue radiation. He has no fever or chills. He has no new cough or SOB. He feels that his breathing is improving. He is still very weak, was able to transfer a few steps from the bed to the chair at bedside. He does complain of a mild headache. - Physical Exam General: Alert, Oriented x3, Cooperative HEENT: Atraumatic, PERRLA, EOMI, Normocephalic Neck: Supple, No JVD, Negative Carotid Bruits Lungs: Diminished, Wheezes Cardiovascular: Regular rate, No murmurs Abdomen: Bowel Sounds Present, Soft, Non Tender Extremities: No edema, Capillary Refill Less than 3 Seconds Skin: No rashes, No breakdown Musculoskeletal: No Tenderness to Palpation of Joints or Extremities Neurological: Cranial nerves II-XII grossly intact Psych/Mental Status: Normal Affect, Appropriate, Alert and oriented to time, place, person, mood and affect Vital Signs Temp Pulse Resp BP Pulse Ox 97.6 F L 82 16 96/57 L 96 11/01/17 08:47 11/01/17 13:00 11/01/17 13:00 11/01/17 08:47 11/01/17 08:47 Oxygen Flow Rate (L/min) 3 Oxygen Delivery Method Nasal Cannula Weight: 92.6 kg Body Mass Index (BMI) 29.9 Intake and Output for Last 24 Hours 10/30/17 10/31/17 11/01/17 23:59 23:59 23:59 Intake Total 2065 / 2065 3116 / 3116 2394 / 2394 Output Total 2600 / 2600 3300 / 3300 1650 / 1650 Balance -535 / -535 -184 / -184 744 / 744 Medical Necessity - Tobacco Use Smoking Status: Former smoker Assessment/Plan Active and Suspected Problems (Last Updated 10/14/17 @ 22:27 by Mal Gong MD) Failure to thrive (Acute) 1. Debility - fall. Failed being home with home care. Needs placed. Continue PTOT. 2. 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 On decadron. No change in breathing. 3. Metabolic encephalopathy - Confusion 2/2 #2. Suspect this will worsen with further radiation. Tylenol prn for headache. 4. COPD - stable. Aerosols prn. With pulmonary htn. 5. Chronic hypoxic resp failure - at baseline. 6. Hx orthostatic hypotensions - continue midodrine. DVT ppx: SCDs DC planning: SNF placement, waiting for precert. This patient was seen by Kale Jaimes PA-C under the supervision of Doctor Antoine.
[2017-11-01] MEDS: Acetaminophen 325 MG Tablet 650 MG PO (14:25)
--- NOTE | 2017-11-01 14:52 | PCA ---
[place] office called this cheese cooker to inform that pt was scheduled for an appointment tomorrow 11.02.17, but will take pt off of office schedule due to pt still being in hospital. Primary RN notified.
--- NOTE | 2017-11-01 15:06 | NURSING ---
Pt left via wheelchair for radiation.
--- NOTE | 2017-11-01 15:12 | CASEMGMT ---
Social Work Note SW in to complete Medicaid Application with pt. SW faxed completed Medicaid Application to Tanya Fitzgerald at [facility]. Pt denied additional needs or concerns at this time. Plan: Discharge to SNF pending accepting facility Kirti BELLO, OPERATIONS OFFICER
--- NOTE | 2017-11-01 15:16 | CASEMGMT ---
Social Work Note SW placed a call to Alhaji in admissions at [facility] and left a message inquiring whether they are able to accept pt or not. SW waiting for call back from [facility]. SW will continue to follow to assist with discharge planning. Plan: [facility] pending acceptance Kirti Mcghee MSW, LIBRARY MEDIA SPECIALIST
--- NOTE | 2017-11-01 15:35 | CASEMGMT ---
Social Work Note JUDY received call from Vickie at [facility] stating that she received Medicaid Application and that she will assign a pipe fitter maintenance to review it. JUDY informed Vickie that at this time this worker is still trying to find an accepting facility but that family is wanting placement in [place]. Vickie states understanding. Plan: [facility] pending acceptance Kirti Mcghee CONCILIATION COURT JUDGE, DINING MANAGER
--- NOTE | 2017-11-01 15:36 | NURSING ---
Pt returned to room at this time from radiation.
--- NOTE | 2017-11-01 17:06 | PCA ---
TC received from Ann at [facility] stating that their facility does not have any bed availability for this pt. Ann asked to speak with SW however, this certified legal secretary specialist informed her that SW had left for the day but that this certified legal secretary specialist would leave a VM for Kirti the SW. Also updated battery charger conveyor line, Cathleen.
[2017-11-02] VITALS (9 sets, daily range): BP systolic 90–99; BP diastolic 57–62; PULSE 69–106; RESP 16–20; TEMP 36.5–37.2; O2SAT 95–100
[2017-11-02] MEDS: 0.9% Normal Saline 1,000 ML 75 ML IV (01:29)
[2017-11-02] MEDS: Midodrine HCl 5 MG Tablet 10 MG PO ×3 (05:57→21:20)
[2017-11-02] MEDS: Ipratropium 0.5 MG/2.5 ML SOLUTION INHALATION (06:59)
--- NOTE | 2017-11-02 08:28 | CASEMGMT ---
Social Work Note SW received message from Сергей, clinical secretary, that [facility]. SW will follow up with pt's daughter in law to decide what facility to try next. SW will continue to follow along to assist with discharge planning. Plan: Discharge to facility pending acceptance Kirti Mcghee POWDER WORKER TNT, TECHNICAL SERVICES REP
[2017-11-02] MEDS: Pantoprazole Sodium 40 MG Tablet PO (08:40)
--- NOTE | 2017-11-02 08:43 | CASEMGMT ---
Social Work Note JUDY received message from Alvin patient navigator confirming that pt is wanting placement at discharge. JUDY placed a call to Alvin and confirmed that pt is wanting placement at discharge but at this time, this worker has been unable to find accepting facility. JUDY informed Alvin that this worker is unsure if this worker will be able to find facility and if pt's insurance will approve as pt was just at [facility] last week and his insurance denied placement. Alvin states that she has cancelled pt's transportation to radiation for this week and next week and states that transportation has had issues with pt before in the past for him not showing for appointments. Alvin informed this worker to call her or call Scarlett at [phone] if pt will need transportation. Plan: Placement at discharge pending acceptance from facility Kirti Mcghee MSW, ADDICTIONS RECOVERY SPECIALIST
--- NOTE | 2017-11-02 10:31 | CASEMGMT ---
Social Work JUDY spoke with pt dgt in Law Reeder on phone and explained that [facility] denied pt admission. Provided names of facilities in network with insurance in [facility]. Lilli would like [facility]. Phone call to Manisha at [facility] and they do have beds available and are in network with pt insurance. Referral faxed including days of pt radiation. Manisha states she will look into facilities that could provide radiation but facility will not provide transportation. Referral faxed. JUDY met with pt in room and explained the above to him. He is agreeable with decisions that QUINTON Reeder has made. SW inquired about HCPOA and pt states that his ex , Tata Ybarra is HCPOA and he wants this to remain in place. JUDY then asked about a living will and explained what this document was. Pt states he believes he has already signed this document and has informed doctors that he does not want any tubes down my throat. SW will await return call from [facility]. Plan: [facility], pending acceptance and LEILA Elena
--- NOTE | 2017-11-02 12:29 | CASEMGMT ---
Social Work Return call received from [facility] and they are able to accept pt. Precert will need to be obtained. Phone call to pt QUINTON Reeder and informed that pt has been accepted and insurance perauth will be requested. Questions regarding medicaid eligibility process answered. JUDY spoke with Radha Chacon [facility] patient Famagator and information regarding pt radiation treatments obtained. Pt will need radiation treatments November 02,,,,,. DIL states pt could possible use [facility] ([phone]) to finish radiation treatments once at [facility]. JUDY spoke to Manisha at [facility] about this and she states pt could go to this facility if accepted by them however, [facility] will not provide transportation. QUINTON informed and is agreeable to transport pt or pay for an ambulette. Phone call to [facility] and referral made. Sarah requesting pt Plan and reports be emailed to her. Phone call to Radha Chacon requesting assist with this process. Phone call placed to pt ex / HCPOA Alma Rosa Ybarra per request of patient. With pt permission update on discharge plan provided to Alma Rosa. JUDY will follow up. LEILA Doyle
--- NOTE | 2017-11-02 13:28 | CASEMGMT ---
Social Work Return call from Pt catalina Chacon. She has spoke with Dr. Decker and he is not in favor of changing radiation locations as this will not be a smooth transition for pt. Phone call to Nona in [facility] TCU and they do have beds available and pt could go to radiation at current location via wheelchair transport and family would not have to transport. Phone call to pt QUINTON Reeder and explained that Dr. Decker feels it is in pt best interest to remain in [place] until radiation treatments are completed. Lilli voices understanding and is agreeable to TCU if insurance grants authorization with plan to eventually move pt to [facility] or [facility] after radiation and skilled stay complete. SW met with pt and explained the above. Pt is agreeable stating he would prefer to finish radiation treatments at [facility] and agreeable to TCU. Phone call to Tia at [facility] informing of above and requesting insurance preauth be rescinded and she will do this. Phone call to Nona in TCU and referral made with request to seek insurance preauthorization. Phone call to Radha Chacon and informed that preauth for TCU is being requested so pt can stay at [facility]. [facility] notified that pt will not be needing their services at this time. left with pt ex Alma Rosa and informed her of current discharge plan. Plan: TCU pending insurance preauth, continuation of radiation treatment at [facility]. LEILA Doyle
--- NOTE | 2017-11-02 13:53 | PCM.PROGNOTE ---
Patient Problems: Active and Suspected Problems (Last Updated 10/14/17 @ 22:27 by Mal Gong MD) Failure to thrive (Acute) Subjective: No acute changes. Pt remains stable and waiting for placement in skilled. - Physical Exam General: Alert, Oriented x3, Cooperative HEENT: Atraumatic, PERRLA, EOMI, Normocephalic Neck: Supple, No JVD, Negative Carotid Bruits Lungs: Diminished Cardiovascular: Regular rate, No murmurs Abdomen: Bowel Sounds Present, Soft, Non Tender Extremities: No edema, Capillary Refill Less than 3 Seconds Skin: No rashes, No breakdown Musculoskeletal: No Tenderness to Palpation of Joints or Extremities Neurological: Cranial nerves II-XII grossly intact Psych/Mental Status: Normal Affect, Appropriate, Alert and oriented to time, place, person, mood and affect Vital Signs Temp Pulse Resp BP Pulse Ox 98.0 F 106 H 20 H 90/57 L 97 11/02/17 08:25 11/02/17 11:35 11/02/17 08:25 11/02/17 08:25 11/02/17 08:25 Oxygen Flow Rate (L/min) 4 Oxygen Delivery Method Nasal Cannula Weight: 94.1 kg Body Mass Index (BMI) 29.9 Intake and Output for Last 24 Hours 10/31/17 11/01/17 11/02/17 23:59 23:59 23:59 Intake Total 3116 / 3116 2969 / 2969 2138 / 2138 Output Total 3300 / 3300 1850 / 1850 3100 / 3100 Balance -184 / -184 1119 / 1119 -962 / -962 Microbiology Past 72 Hours 10/29/17 22:00 Blood Culture - Preliminary Blood Culture (Wb) - Left Wrist No growth in 48 hours. Medical Necessity - Tobacco Use Smoking Status: Former smoker Assessment/Plan Active and Suspected Problems (Last Updated 10/14/17 @ 22:27 by Mal Gong MD) Failure to thrive (Acute) 1. Debility - fall. Failed being home with home care. Needs placed. Continue PTOT. 2. 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 On decadron. No change in breathing. 3. Metabolic encephalopathy - Confusion 2/2 #2. Suspect this will worsen with further radiation. Tylenol prn for headache. 4. COPD - stable. Aerosols prn. With pulmonary htn. 5. Chronic hypoxic resp failure - at baseline. 6. Hx orthostatic hypotensions - continue midodrine. DC fluids. DVT ppx: SCDs DC planning: has been accepted by a facility, but awaiting insurance auth. This patient was seen by Kale Jaimes PA-C under the supervision of Doctor Antoine.
[2017-11-03 02:30] VITALS: BP 98/57; PULSE 74; RESP 20; TEMP 36.7; O2SAT 99
[2017-11-03] MEDS: Midodrine HCl 5 MG Tablet 10 MG PO (05:33)
[2017-11-03 07:05] VITALS: PULSE 78; RESP 20; O2SAT 97
[2017-11-03] MEDS: Ipratropium 0.5 MG/2.5 ML SOLUTION INHALATION (07:05)
[2017-11-03 07:47] VITALS: BP 101/66; PULSE 80; RESP 18; TEMP 36.6; O2SAT 99
[2017-11-03] MEDS: Pantoprazole Sodium 40 MG Tablet PO (07:49)
--- NOTE | 2017-11-03 10:09 | PN_ITS ---
Patient Problems: Active and Suspected Problems (Last Updated 10/14/17 @ 22:27 by Mal Gong MD) Failure to thrive (Acute) Subjective: Patient seen and examined. No acute events overnight. Denies current complaints. Awaiting insurance approval for skilled placement. - Physical Exam General: Alert, Oriented x3, Cooperative HEENT: Atraumatic, PERRLA, EOMI, Normocephalic Neck: Supple, No JVD, Negative Carotid Bruits Lungs: Clear to auscultation, Diminished Abdomen: Bowel Sounds Present, Soft, Non Tender, Non-Distended Extremities: No clubbing, No cyanosis, No edema, Capillary Refill Less than 3 Seconds Skin: No rashes, No breakdown Musculoskeletal: No Tenderness to Palpation of Joints or Extremities Neurological: Cranial nerves II-XII grossly intact, Neuro grossly intact Psych/Mental Status: Normal Affect, Appropriate Vital Signs Temp Pulse Resp BP Pulse Ox 97.9 F 80 18 101/66 99 11/03/17 07:47 11/03/17 07:47 11/03/17 07:47 11/03/17 07:47 11/03/17 07:47 Oxygen Flow Rate (L/min) 2 Oxygen Delivery Method Nasal Cannula Weight: 92 kg Body Mass Index (BMI) 29.9 Intake and Output for Last 24 Hours 11/01/17 11/02/17 11/03/17 23:59 23:59 23:59 Intake Total 2969 / 2969 2498 / 2498 372 / 372 Output Total 1850 / 1850 3100 / 3100 1525 / 1525 Balance 1119 / 1119 -602 / -602 -1153 / -1153 Microbiology Past 72 Hours 10/29/17 22:00 Blood Culture - Preliminary Blood Culture (Wb) - Left Wrist No growth in 48 hours. Medical Necessity - Tobacco Use Smoking Status: Former smoker Assessment/Plan Active and Suspected Problems (Last Updated 10/14/17 @ 22:27 by Mal Gong MD) Failure to thrive (Acute) Patient is a 72-year-old male admitted 10/29/2017 due to failure to thrive. He has a past medical history of chronic hypoxic respiratory failure, chronic COPD , obesity, diastolic CHF, tobacco dependence, pulmonary hypertension, chronic left foot drop, CAD, GERD, BPH. Recent diagnosis non-small cell lung cancer with metastasis. 1. Failure to thrive, debility-recently discharge home with home health after being denied by insurance for TCU. Family unable to care for patient at home. Case management involved. Awaiting insurance approval for transitional care unit. PT/OT. 2. Non-small cell metastatic lung cancer-recently diagnosed. Metastases to liver, lungs, brain. Following with oncology. Continue brain radiation and Decadron regimen. 3. Chronic hypoxic respiratory failure with chronic COPD-on baseline oxygen. Continue albuterol DuoNeb aerosols. 4. Chronic macrocytic anemia-stable, monitor CBC. 5. Chronic diastolic CHF-no acute exacerbation. Recent echocardiogram showed an EF of 65%, severely dilated right ventricle, RVSP estimated to be 38 mmHg. 6. CAD-not on aspirin, statin. 7. GERD-continue PPI. 8. BPH-not on home regimen. 9. Obesity-encouraged diet and lifestyle modifications. DVT prophylaxis-SCDs. Pharmacologic prophylaxis contraindicated given recent hemorrhagic finding. Discharge planning: TCU pending pre-CERT. This patient was seen by ROBERT Cameron under the supervision of Dr. Antoine.
--- NOTE | 2017-11-03 10:57 | PCM.EXTCARCO ---
- Diet 10/29/17 20:49 Diet: Regular Diet Food consistency:: Regular Liquid Consistency:: Regular/Thin - Routine Orders/Code Status Enema Type: Fleetz Enema Frequency: Daily PRN Suppository Type: Dulcolax 10mg Suppository Frequency: Daily PRN O2 Liters per Minute: 2-4 O2 Frequency: PRN Keep PO Greater than or Equal to (%): 90 Routine Lab Work: CBC, BMP, - - Q Week Code Status: DNC-A - Suggestions for Active Care Change Position every (hours): 2 Times a day to sit in chair: 3 - Therapies Physical Therapy: Eval and Treat Occupational Therapy: Eval and Treat - Allergies/Procedures Done in Hospital Allergies/Adverse Reactions: Allergies No Known Allergies Allergy (Verified 11/02/17 09:21) Procedures: None - Type of Care/Length of Stay Estimated LOS: Convalescent Care Less Than 30 days Type of Care Needed: Skilled Rehab Potential: Fair Prognosis: Fair - Additional Orders/Day of Discharge H&P will serve as current which was dated: 10/29/17 Day of Discharge: 11/03/17 - Dietary and Speech Recommendations Dietitian Recommendations/Changes: Rec diet change to no added salt r/t edema. Will provide cottage cheese and yogurt w/ meals per pt preference - Follow Up Care Primary Care Physician: Donte Lea DO [Primary Care Provider] - Please follow up with your Primary Care Physician in: 1 Week Please Follow Up With: Francisco Javier Decker DO When: As scheduled
--- NOTE | 2017-11-03 11:01 | PCM.DC.SUM ---
Discharge Date and Diagnosis Date of Admission: 10/29/17 Date of Discharge: 11/03/17 - Primary Discharge Diagnosis Active and Suspected Problems (Last Updated 10/14/17 @ 22:27 by Mal Gong MD) 1. Failure to thrive, debility 2. Non-small cell metastatic lung cancer 3. Chronic hypoxic respiratory failure with chronic COPD 4. Chronic macrocytic anemia 5. Chronic diastolic CHF 6. CAD 7. GERD 8. BPH 9. Obesity - Secondary Discharge Diagnosis Chronic Problems (Last Updated 10/14/17 @ 22:27 by Mal Gong MD) Non-small cell carcinoma of right lung, stage 4 (Chronic) COPD (chronic obstructive pulmonary disease) (Chronic) 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 Diastolic CHF (Chronic) Foot drop, left (Chronic) Chronic respiratory failure (Chronic) with hypoxemima and hypercarbia Pulmonary HTN (Chronic) severe Diastolic dysfunction (Chronic) stage 1 Tricuspid regurgitation (Chronic) mild - moderate Decubitus ulcer of hip, stage 2 (Chronic) Decubitus ulcer of hip, stage 1 (Chronic) NSTEMI (non-ST elevated myocardial infarction) (Chronic) CAD (coronary artery disease) (Chronic) minimal and non-obstructive on cath 08/09/16 Hospital Course and Treatment Imaging Results: Diagnostic Data Chest X-Ray 10/29/17 21:32 IMPRESSION: There are no significant changes. Lung nodules are again seen in the right lung and there is minimal right basilar atelectasis or scarring. Electronically Signed: Kiera Walker MD at 22:40 EDT Tel Direct: [phone], Service support , Operations: None Procedures: None Summary of Care Provided: Patient is a 72-year-old male admitted 10/29/2017 due to failure to thrive. He has a past medical history of chronic hypoxic respiratory failure, chronic COPD, obesity, diastolic CHF, tobacco dependence, pulmonary hypertension, chronic left foot drop, CAD, GERD, BPH. Recent diagnosis non-small cell lung cancer with metastasis. 1. Failure to thrive, debility-recently discharge home with home health after being denied by insurance for TCU. Family unable to care for patient at home. Continue PT/PT. TCU at discharge. 2. Non-small cell metastatic lung cancer-recently diagnosed. Metastases to liver, lungs, brain. Following with oncology. Continue brain radiation and Decadron regimen. 3. Chronic hypoxic respiratory failure with chronic COPD-on baseline oxygen. Continue albuterol DuoNeb aerosols. 4. Chronic macrocytic anemia-stable, monitor CBC. 5. Chronic diastolic CHF-no acute exacerbation. Recent echocardiogram showed an EF of 65%, severely dilated right ventricle, RVSP estimated to be 38 mmHg. 6. CAD-not on aspirin, statin. 7. GERD-continue PPI. 8. BPH-not on home regimen. 9. Obesity-encouraged diet and lifestyle modifications. General: Alert, Oriented x3, Cooperative HEENT: Atraumatic, PERRLA, EOMI, Normocephalic Neck: Supple, No JVD, Negative Carotid Bruits Lungs: Clear to auscultation, Diminished Abdomen: Bowel Sounds Present, Soft, Non Tender, Non-Distended Extremities: No clubbing, No cyanosis, No edema, Capillary Refill Less than 3 Seconds Skin: No rashes, No breakdown Musculoskeletal: No Tenderness to Palpation of Joints or Extremities Neurological: Cranial nerves II-XII grossly intact, Neuro grossly intact Psych/Mental Status: Normal Affect, Appropriate Patient seen and examined prior to discharge. Physical assessment as noted above. Patient stable for discharge to transitional care unit. This patient was seen by ROBERT Cameron under the supervision of Dr. Antoine. Home Medications: Medications to take at Discharge Albuterol IH (ProAir) [Proair Hfa] 2 puff INHALATION Q4H PRN PRN #0 10/12/17 Tiotropium [place] [Spiriva 18 MCG] 1 puff INHALATION DAILY 10/12/17 Fluticasone/Salmeterol [Advair 250-50 Diskus] 1 each IH BID 10/20/17 Hydrocodone Bitart/Apap 5-325 [[place] 5/325] 1 tablet PO Q6H PRN PRN #16 tablet 10/28/17 Magnesium Oxide [Magnesium] 400 mg PO DAILY #30 tab 10/28/17 Meclizine HCl [Antivert] 12.5 mg PO 4X/DAY PRN #28 tab 10/28/17 Midodrine HCl [Proamatine] 10 mg PO TID #90 tab 10/28/17 Dexamethasone 4 mg PO BID 10/30/17 Mag Hydrox/Al Hydrox/Simeth [Mylanta II] 30 ml PO Q6H PRN PRN 10/30/17 Nicotine [Nicotine Patch] 1 patch TD DAILY 10/30/17 Pantoprazole Sodium [Protonix] 40 mg PO DAILY 10/30/17 Primary Care Physician: Donte Lea DO [Primary Care Provider] - Please follow up with your Primary Care Physician in: 1 Week Please Follow Up With: Francisco Javier Decker DO When: As scheduled Disposition: Senior Care facility Minutes spent on discharge:: 35 Patient Condition:: Stable Medical Necessity - Tobacco Use Smoking Status: Former smoker Meaningful Use Info Meaningful Use Diagnoses (Choose all that apply): None applicable
--- NOTE | 2017-11-03 11:27 | CASEMGMT ---
Social Work Note SW received call from Nona in TCU that pre-cert is obtained and pt is able to discharge today. SW updated Dr. Antoine and pt of this. Pt states understanding and denied additional needs or concerns at this time. Pt gave this worker permission to call Tata, his daughter in law Lilli and his niece Nicolette to update them that pt will be transferred to TCU. SW placed a call to Tata and updated her that pt will be going to TCU today as pre-cert has been obtained. Tata asked this worker about placement after TCU and this worker informed Tata that the SW on TCU will follow along with pt and work on discharge plans with pt once he is on TCU. Tata states understanding. JUDY placed a call to pt's daughter in law Lilli and updated her that pt will be going to TCU today. Lilli asked this worker about placement after discharged and this worker explained to Lilli that the SW on TCU will follow along with pt to assist with discharge planning and can work on placement after d/c. Lilli states understanding. JUDY placed a call to pt's niece Nicolette to update her of this as well. Plan: TCU today Kirti Mcghee IN ROOM DINING SERVER, ACCREDITATION SPECIALIST
--- NOTE | 2017-11-03 12:09 | NURSING ---
Called report to Cathy in TCU. Pt will be going to room 6. FRAMING MILL OPERATOR to transport.
--- NOTE | 2017-11-03 15:45 | CASEMGMT ---
Social Work Note SW received fax regarding pt's POA paperwork from pt's POA Alma Rosa Ybarra. Pt is currently on TCU. SW tubed POA paperwork to TCU. Kirti Mcghee MASS COMMUNICATIONS PROFESSOR, MESSENGER OFFICE
== END 2017-11-03 12:39 | disposition skilled nursing facility (03) | DRG 640 ==
LOC: ED 17:47 → MS3 20:54
PROVIDERS: Physician Assistant; Admitting Provider Internal Medicine; Emergency Provider Emergency Medicine; Family Provider Family Medicine; PCP Family Medicine; Visit Provider Internal Medicine
DX: R62.7 Adult failure to thrive (principal); G93.41 Metabolic encephalopathy; C34.90 Malignant neoplasm of unspecified part of unspecified bronchus or lung; C78.7 Secondary malignant neoplasm of liver and intrahepatic bile duct; C79.31 Secondary malignant neoplasm of brain; C79.51 Secondary malignant neoplasm of bone; J96.11 Chronic respiratory failure with hypoxia; J96.12 Chronic respiratory failure with hypercapnia; I50.32 Chronic diastolic (congestive) heart failure; J44.9 Chronic obstructive pulmonary disease, unspecified; I25.10 Atherosclerotic heart disease of native coronary artery without angina pectoris; I27.20 Pulmonary hypertension, unspecified; N40.0 Benign prostatic hyperplasia without lower urinary tract symptoms; K21.9 Gastro-esophageal reflux disease without esophagitis; M21.372 Foot drop, left foot; E66.9 Obesity, unspecified; Z68.29 Body mass index [BMI] 29.0-29.9, adult; Z99.81 Dependence on supplemental oxygen; Z79.899 Other long term (current) drug therapy; I25.2 Old myocardial infarction; Z86.73 Personal history of transient ischemic attack (TIA), and cerebral infarction without residual deficits; Z87.891 Personal history of nicotine dependence
CPT/HCPCS: 36415; 71045; 77412; 80048; 80076; 81001; 82140; 85025; 85610; 85730; 87040; 93005; 94640; 97116; 97162; 97165; 97530; 97803; 99285; J7030

== ENCOUNTER 2017-11-03 12:45 | Inpatient (IN) | payer MEDICARE, OTHER, SELFPAY ==
--- NOTE | 2017-11-03 13:18 | NURSING ---
PT ARRIVED VIA BED FROM [facility] @ [id number]
[2017-11-03 13:50] VITALS: BMI 30.1
[2017-11-03 13:53] VITALS: BMI 30.1
[2017-11-03 14:05] VITALS: BP 106/69; PULSE 106; RESP 26; TEMP 36.3; O2SAT 95
--- NOTE | 2017-11-03 14:39 | NURSING ---
PT REFUSING NICOTINE PATCH, STATES I DO NOT USE THOSE. DC'D ORDER
[2017-11-03] MEDS: Midodrine HCl 5 MG Tablet 10 MG PO ×2 (15:04→20:57)
[2017-11-03 15:44] VITALS: BP 101/70; PULSE 98; RESP 20; TEMP 36.8; O2SAT 96
--- NOTE | 2017-11-03 21:23 | PCM.HP.STD ---
Problem List (1) Weakness Status: Acute (2) Near syncope Status: Acute (3) Orthostatic hypotension Status: Acute (4) Brain metastasis Status: Chronic (5) Liver metastasis Status: Chronic (6) Hypomagnesemia Status: Chronic (7) GERD (gastroesophageal reflux disease) Status: Chronic (8) Non-small cell carcinoma of right lung, stage 4 Status: Chronic (9) Hilar mass Status: Chronic (10) COPD (chronic obstructive pulmonary disease) Status: Chronic Qualifiers: (11) Tobacco use Status: Chronic Comment: in remission - quit in May 2016 (12) Diastolic CHF Status: Chronic Qualifiers: (13) Pulmonary HTN Status: Chronic Comment: severe (14) CAD (coronary artery disease) Status: Chronic Qualifiers: Comment: minimal and non-obstructive on cath 08/09/16 History of Present Illness Date of Admission: 11/03/17 Chief Complaint: Here for rehabilitation, strengthening, prior to discharge home with family. The patient is a 72 year old Male with below past medical history significant for stage 4 lung cancer, presented to [facility] Emergency Department with weakness. 10/29/2017 EKG sinus tachycardia with premature atrial contractions, low voltage QRS. 10/29/2017 Chest X-ray right lung nodules, right basilar atelectasis/scarring. Discharged from PCU 1 day prior for hypotension, syncope, on Midrin. Lung cancer with brain mets, liver mets. Radiation for brain mets. Lightheaded, sweaty, near syncope, blood pressure 80/50. SNF denied by insurance. WBC 15.7, Hemoglobin 10, Glucose 175, BUN 36. IV fluids given. 10/30/2017 Admit to Hospital. Midodrine for hypotension. Patrick cultured. Case management for placement. Brain radiation, Decadron for brain mets. 11/03/2017 Admit to TCU for rehabilitation, strengthening, prior to discharge home with family. Brain radiation as outpatient procedure while on TCU. Past Medical History Past Medical History (Chronic Problems): Chronic Problems (Last Updated 10/14/17 @ 22:27 by Mal Gong MD) Brain metastasis (Chronic) Liver metastasis (Chronic) Hypomagnesemia (Chronic) GERD (gastroesophageal reflux disease) (Chronic) Non-small cell carcinoma of right lung, stage 4 (Chronic) Hilar mass (Chronic) COPD (chronic obstructive pulmonary disease) (Chronic) 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 Diastolic CHF (Chronic) Foot drop, left (Chronic) Chronic respiratory failure (Chronic) with hypoxemima and hypercarbia Pulmonary HTN (Chronic) severe Diastolic dysfunction (Chronic) stage 1 Tricuspid regurgitation (Chronic) mild - moderate Decubitus ulcer of hip, stage 2 (Chronic) Decubitus ulcer of hip, stage 1 (Chronic) NSTEMI (non-ST elevated myocardial infarction) (Chronic) CAD (coronary artery disease) (Chronic) minimal and non-obstructive on cath 08/09/16 Allergies No Known Allergies Allergy (Verified 11/02/17 09:21) Home Medications: Ambulatory Orders Medication Instructions Recorded Albuterol IH (ProAir) [Proair Hfa] 2 puff INHALATION Q4H PRN PRN #0 10/12/17 Tiotropium [place] [Spiriva 18 MCG] 1 puff INHALATION DAILY 10/12/17 Fluticasone/Salmeterol [Advair 1 each IH BID 10/20/17 250-50 Diskus] Hydrocodone Bitart/Apap 5-325 1 tablet PO Q6H PRN PRN #16 tablet 10/28/17 [[place] 5/325] Meclizine HCl [Antivert] 12.5 mg PO 4X/DAY PRN #28 tab 10/28/17 Dexamethasone 4 mg PO BID 10/30/17 Mag Hydrox/Al Hydrox/Simeth 30 ml PO Q6H PRN PRN 10/30/17 [Mylanta II] Pantoprazole Sodium [Protonix] 40 mg PO DAILY 10/30/17 Magnesium Oxide [Magnesium] 400 mg PO DAILY 11/03/17 Midodrine HCl [Proamatine] 10 mg PO TID 11/03/17 Surgical History: cataract Psychiatric History: No pertinent psych hx Lives: With Family - Son, Daughter in law. Smoking Status: Former smoker Tobacco Use: Non-smoker Alcohol: None Drugs: None - *Family History Maternal History Items: No pertinent history - Denies any marked paternal or maternal family history of HD, DM, Lung Disease. Paternal History Items: No pertinent history - Denies any marked paternal or maternal family history of HD, DM, Lung Disease. Review of Systems Constitutional: Reports: Weakness. Denies: Chills, Fever, Weight Change HEENT: Denies: Head Aches, Sinus Congestion, Sinus Drainage Cardiovascular: Denies: Chest Pain, Palpitations Respiratory: Denies: Cough, Shortness of breath at rest, Sputum production Gastrointestinal: Denies: Abdominal Pain, Nausea, Vomiting Genitourinary: Denies: Dysuria Musculoskeletal: Denies: Joint Pain, Joint Tenderness Skin: Denies: Rash, Wounds Neurological: Reports: - - Lightheaded.. Denies: Focal weakness, Numbness, Tingling Psychiatric: Denies: Anxiety, Depression, Homicidal Ideations, Suicidal Ideations Hematologic/ Lymphatic: Denies: Easy Bruising, Easy Bleeding VTE Information - Inpt Only VTE Present on Admission: No VTE Mechan Device Prophylaxis: Knee High KERWIN Hose VTE Pharm Prophylaxis ordered?: No Reason prophylaxis not ordered:: Medical Contraindication - Brain metastasis, previous brain hemorrhage. Patient Problems: Active and Suspected Problems (Last Updated 10/14/17 @ 22:27 by Mal Gong MD) Weakness (Acute) Near syncope (Acute) Orthostatic hypotension (Acute) - Physical Exam General: Alert, Oriented x3, Cooperative HEENT: Atraumatic, PERRLA, EOMI, Normocephalic Neck: Supple, No JVD, Negative Carotid Bruits Lungs: Normal air movement, Wheezes - Scattered. Cardiovascular: Regular rate, No murmurs Abdomen: Bowel Sounds Present, Soft, Non Tender Extremities: No edema, Capillary Refill Less than 3 Seconds Skin: No rashes, No breakdown Musculoskeletal: No Tenderness to Palpation of Joints or Extremities Neurological: Cranial nerves II-XII grossly intact Psych/Mental Status: Normal Affect, Appropriate Vital Signs Temp Pulse Resp BP Pulse Ox 98.3 F 98 20 H 101/70 96 11/03/17 15:44 11/03/17 15:44 11/03/17 15:44 11/03/17 15:44 11/03/17 15:44 Oxygen Flow Rate (L/min) 4 Oxygen Delivery Method Nasal Cannula Weight: 92.533 kg Body Mass Index (BMI) 30.1 Intake and Output for Last 24 Hours 11/01/17 11/02/17 11/03/17 23:59 23:59 23:59 Intake Total 840 / 840 Balance 840 / 840 Assessment/Plan Active and Suspected Problems (Last Updated 10/14/17 @ 22:27 by Mal Gong MD) Weakness (Acute) Near syncope (Acute) Orthostatic hypotension (Acute) 72 year old male with below past medical history significant for stage 4 lung cancer, hospitalized for debility, admitted to TCU for rehabilitation, strengthening, outpatient brain radiation, prior to discharge home with family. Debility - PT/OT. Pain - [place] 5/325MG 1 tablet Q6H PRN moderate to severe pain. Bowel - Miralax 17GM daily, Senna/colace 1 tablet BID, Dulcolax 10MG PO daily PRN. Pneumonia vaccination - Administer Prevnar 13 and/or Pneumovax 23 as necessary. DVT prophylaxis - Contraindicated due to brain mets with previous hemorrhage. COPD - Advair 250/50 1 puff BID, Spiriva 18MCG daily, Albuterol 2 puffs Q4H PRN. Lung cancer with brain mets - Dexamethasone 4MG BID, outpatient radiation therapy. GERD - Pantoprazole 40MG daily, Mylanta II 30ML Q6H PRN. Hypomagnesemia - Magnesium Oxide 400MG daily. Dizziness - Meclizine 12.5MG 4x/day.
--- NOTE | 2017-11-03 21:35 | HP.PCM_ITS ---
Problem List (1) Weakness Status: Acute (2) Near syncope Status: Acute (3) Orthostatic hypotension Status: Acute (4) Brain metastasis Status: Chronic (5) Liver metastasis Status: Chronic (6) Hypomagnesemia Status: Chronic (7) GERD (gastroesophageal reflux disease) Status: Chronic (8) Non-small cell carcinoma of right lung, stage 4 Status: Chronic (9) Hilar mass Status: Chronic (10) COPD (chronic obstructive pulmonary disease) Status: Chronic Qualifiers: (11) Tobacco use Status: Chronic Comment: in remission - quit in May 2016 (12) Diastolic CHF Status: Chronic Qualifiers: (13) Pulmonary HTN Status: Chronic Comment: severe (14) CAD (coronary artery disease) Status: Chronic Qualifiers: Comment: minimal and non-obstructive on cath 08/09/16 History of Present Illness Date of Admission: 11/03/17 Chief Complaint: Here for rehabilitation, strengthening, prior to discharge home with family. The patient is a 72 year old Male with below past medical history significant for stage 4 lung cancer, presented to [facility] Emergency Department with weakness. 10/29/2017 EKG sinus tachycardia with premature atrial contractions, low voltage QRS. 10/29/2017 Chest X-ray right lung nodules, right basilar atelectasis/scarring. Discharged from PCU 1 day prior for hypotension, syncope, on Midrin. Lung cancer with brain mets, liver mets. Radiation for brain mets. Lightheaded, sweaty, near syncope, blood pressure 80/50. SNF denied by insurance. WBC 15.7, Hemoglobin 10, Glucose 175, BUN 36. IV fluids given. 10/30/2017 Admit to Hospital. Midodrine for hypotension. Patrick cultured. Case management for placement. Brain radiation, Decadron for brain mets. 11/03/2017 Admit to TCU for rehabilitation, strengthening, prior to discharge home with family. Brain radiation as outpatient procedure while on TCU. Past Medical History Past Medical History (Chronic Problems): Chronic Problems (Last Updated 10/14/17 @ 22:27 by Mal Gong MD) Brain metastasis (Chronic) Liver metastasis (Chronic) Hypomagnesemia (Chronic) GERD (gastroesophageal reflux disease) (Chronic) Non-small cell carcinoma of right lung, stage 4 (Chronic) Hilar mass (Chronic) COPD (chronic obstructive pulmonary disease) (Chronic) 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 Diastolic CHF (Chronic) Foot drop, left (Chronic) Chronic respiratory failure (Chronic) with hypoxemima and hypercarbia Pulmonary HTN (Chronic) severe Diastolic dysfunction (Chronic) stage 1 Tricuspid regurgitation (Chronic) mild - moderate Decubitus ulcer of hip, stage 2 (Chronic) Decubitus ulcer of hip, stage 1 (Chronic) NSTEMI (non-ST elevated myocardial infarction) (Chronic) CAD (coronary artery disease) (Chronic) minimal and non-obstructive on cath 08/09/16 Allergies No Known Allergies Allergy (Verified 11/02/17 09:21) Home Medications: Ambulatory Orders Medication Instructions Recorded Albuterol IH (ProAir) [Proair Hfa] 2 puff INHALATION Q4H PRN PRN #0 10/12/17 Tiotropium [place] [Spiriva 18 MCG] 1 puff INHALATION DAILY 10/12/17 Fluticasone/Salmeterol [Advair 1 each IH BID 10/20/17 250-50 Diskus] Hydrocodone Bitart/Apap 5-325 1 tablet PO Q6H PRN PRN #16 tablet 10/28/17 [[place] 5/325] Meclizine HCl [Antivert] 12.5 mg PO 4X/DAY PRN #28 tab 10/28/17 Dexamethasone 4 mg PO BID 10/30/17 Mag Hydrox/Al Hydrox/Simeth 30 ml PO Q6H PRN PRN 10/30/17 [Mylanta II] Pantoprazole Sodium [Protonix] 40 mg PO DAILY 10/30/17 Magnesium Oxide [Magnesium] 400 mg PO DAILY 11/03/17 Midodrine HCl [Proamatine] 10 mg PO TID 11/03/17 Surgical History: cataract Psychiatric History: No pertinent psych hx Lives: With Family - Son, Daughter in law. Smoking Status: Former smoker Tobacco Use: Non-smoker Alcohol: None Drugs: None - *Family History Maternal History Items: No pertinent history - Denies any marked paternal or maternal family history of HD, DM, Lung Disease. Paternal History Items: No pertinent history - Denies any marked paternal or maternal family history of HD, DM, Lung Disease. Review of Systems Constitutional: Reports: Weakness. Denies: Chills, Fever, Weight Change HEENT: Denies: Head Aches, Sinus Congestion, Sinus Drainage Cardiovascular: Denies: Chest Pain, Palpitations Respiratory: Denies: Cough, Shortness of breath at rest, Sputum production Gastrointestinal: Denies: Abdominal Pain, Nausea, Vomiting Genitourinary: Denies: Dysuria Musculoskeletal: Denies: Joint Pain, Joint Tenderness Skin: Denies: Rash, Wounds Neurological: Reports: - - Lightheaded.. Denies: Focal weakness, Numbness, Tingling Psychiatric: Denies: Anxiety, Depression, Homicidal Ideations, Suicidal Ideations Hematologic/ Lymphatic: Denies: Easy Bruising, Easy Bleeding VTE Information - Inpt Only VTE Present on Admission: No VTE Mechan Device Prophylaxis: Knee High KERWIN Hose VTE Pharm Prophylaxis ordered?: No Reason prophylaxis not ordered:: Medical Contraindication - Brain metastasis, previous brain hemorrhage. Patient Problems: Active and Suspected Problems (Last Updated 10/14/17 @ 22:27 by Mal Gong MD) Weakness (Acute) Near syncope (Acute) Orthostatic hypotension (Acute) - Physical Exam General: Alert, Oriented x3, Cooperative HEENT: Atraumatic, PERRLA, EOMI, Normocephalic Neck: Supple, No JVD, Negative Carotid Bruits Lungs: Normal air movement, Wheezes - Scattered. Cardiovascular: Regular rate, No murmurs Abdomen: Bowel Sounds Present, Soft, Non Tender Extremities: No edema, Capillary Refill Less than 3 Seconds Skin: No rashes, No breakdown Musculoskeletal: No Tenderness to Palpation of Joints or Extremities Neurological: Cranial nerves II-XII grossly intact Psych/Mental Status: Normal Affect, Appropriate Vital Signs Temp Pulse Resp BP Pulse Ox 98.3 F 98 20 H 101/70 96 11/03/17 15:44 11/03/17 15:44 11/03/17 15:44 11/03/17 15:44 11/03/17 15:44 Oxygen Flow Rate (L/min) 4 Oxygen Delivery Method Nasal Cannula Weight: 92.533 kg Body Mass Index (BMI) 30.1 Intake and Output for Last 24 Hours 11/01/17 11/02/17 11/03/17 23:59 23:59 23:59 Intake Total 840 / 840 Balance 840 / 840 Assessment/Plan Active and Suspected Problems (Last Updated 10/14/17 @ 22:27 by Mal Gong MD) Weakness (Acute) Near syncope (Acute) Orthostatic hypotension (Acute) 72 year old male with below past medical history significant for stage 4 lung cancer, hospitalized for debility, admitted to TCU for rehabilitation, strengthening, outpatient brain radiation, prior to discharge home with family. * Debility - PT/OT. * Pain - [place] 5/325MG 1 tablet Q6H PRN moderate to severe pain. * Bowel - Miralax 17GM daily, Senna/colace 1 tablet BID, Dulcolax 10MG PO daily PRN. * Pneumonia vaccination - Administer Prevnar 13 and/or Pneumovax 23 as necessary. * DVT prophylaxis - Contraindicated due to brain mets with previous hemorrhage. * COPD - Advair 250/50 1 puff BID, Spiriva 18MCG daily, Albuterol 2 puffs Q4H PRN. * Lung cancer with brain mets - Dexamethasone 4MG BID, outpatient radiation therapy. * GERD - Pantoprazole 40MG daily, Mylanta II 30ML Q6H PRN. * Hypomagnesemia - Magnesium Oxide 400MG daily. * Dizziness - Meclizine 12.5MG 4x/day.
[2017-11-04 06:16] LABS: Anion Gap 5 (5-15); BUN 26 mg/dL (7-18); Calcium,Total 9.3 mg/dL (8.5-10.1); Chloride 98 mmol/L (98-107); Creatinine, Serum 0.46 mg/dL (0.70-1.30); EST Glomerular Filtration Rate 188 mL/min (>60); Est Glom Filt Rate - Afr Amer 228 mL/min (>60); Estimated Creatinine Clearance 65.79 ml/min; Glucose 137 mg/dL (74-106); Potassium 4.4 mmol/L (3.5-5.1); Sodium Level 137 mmol/L (136-145)
[2017-11-04 06:17] LABS: Absolute Lymphocyte Count 0.32 X10^3/ul (0.83-4.51); Hematocrit 30.8 % (40-54); Hemoglobin 9.3 g/dl (13.0-16.5); Lymphocyte # 0.32 X10^3/ul (4.0); Lymphocyte % 3.7 % (19-41); Mean Corp Hgb Conc 30.2 g/gl (32-36); Monocyte# 0.34 X10^3/uL; Monocyte% 3.9 % (0-10); Neutrophil # 8.01 X10^3/uL (2.7-7.7); Neutrophil % 92.2 % (47-70); Platelet Count 322 K/mm3 (150-450); RBC Distribution Width CV 16.2 % (11.6-14.6); RBC Distribution Width SD 54.5 fl (35.1-43.9); Red Blood Count 3.21 M/mm3 (4.6-6.2); White Blood Count 8.7 K/mm3 (4.4-11.0)
[2017-11-04 06:21] LABS: Differential Indicated SCAN CRITERIA MET; POSITIVE COUNT NO; POSITIVE DIFFERENTIAL YES; POSITIVE MORPHOLOGY NO
[2017-11-04] MEDS: HYDROcodone Bitartrate/Apap 5/325 Tablet PO (06:33)
[2017-11-04] MEDS: Midodrine HCl 5 MG Tablet 10 MG PO ×3 (06:34→20:54)
[2017-11-04] MEDS: Pantoprazole Sodium 40 MG Tablet PO (06:34)
[2017-11-04] MEDS: Magnesium Oxide 400 MG Tablet PO (06:34)
[2017-11-04] MEDS: Senna/Docusate Sodium 1 Tablet PO ×2 (06:35→17:40)
[2017-11-04] MEDS: Polyethylene Glycol 3350 17 GM PACKET PO (06:35)
[2017-11-04 07:30] VITALS: O2SAT 98
[2017-11-04 07:40] VITALS: O2SAT 96
--- NOTE | 2017-11-04 08:15 | PCM.PN.RX ---
<Kirk Kenney D - Last Filed: 11/04/17 08:15> Progress Note - Pharmacy Subjective: TCU Admission Objective: Allergies No Known Allergies Allergy (Verified 11/02/17 09:21) Home Medications Medication Instructions Recorded Albuterol IH (ProAir) [Proair Hfa] 2 puff INHALATION Q4H PRN PRN #0 10/12/17 Tiotropium [place] [Spiriva 18 MCG] 1 puff INHALATION DAILY 10/12/17 Fluticasone/Salmeterol [Advair 1 each IH BID 10/20/17 250-50 Diskus] Hydrocodone Bitart/Apap 5-325 1 tablet PO Q6H PRN PRN #16 tablet 10/28/17 [[place] 5/325] Meclizine HCl [Antivert] 12.5 mg PO 4X/DAY PRN #28 tab 10/28/17 Dexamethasone 4 mg PO BID 10/30/17 Mag Hydrox/Al Hydrox/Simeth 30 ml PO Q6H PRN PRN 10/30/17 [Mylanta II] Pantoprazole Sodium [Protonix] 40 mg PO DAILY 10/30/17 Magnesium Oxide [Magnesium] 400 mg PO DAILY 11/03/17 Midodrine HCl [Proamatine] 10 mg PO TID 11/03/17 Current Medications Generic Name Dose Route Start Last Admin Trade Name Freq PRN Reason Stop Dose Admin Hydrocodone Bitart/Acetaminophen 1 tablet 11/03/17 13:23 11/04/17 06:33 [place] 5mg-325mg PO 1 tablet Q6H PRN PRN Administration Moderate-severe pain Al Hydroxide/Mg Hydroxide 30 ml 11/03/17 13:23 Mylanta Ii PO Q6H PRN PRN INDIGESTION Albuterol Sulfate 2 puff 11/03/17 14:45 Ventolin Hfa (Sp) INHALATION Q4H PRN PRN SOB/WHEEZING Bisacodyl 10 mg 11/03/17 21:41 Dulcolax PO DAILY PRN Constipation Dexamethasone 4 mg 11/03/17 17:00 11/04/17 07:47 Decadron PO 4 mg BIDCM GIGI Administration Magnesium Oxide 400 mg 11/04/17 06:00 11/04/17 06:34 Mag-Ox 400 PO 400 mg DAILY GIGI Administration Meclizine HCl 12.5 mg 11/03/17 13:23 Antivert PO 4X/DAY PRN Vertigo Midodrine 10 mg 11/03/17 14:00 11/04/17 06:34 Proamatine PO 10 mg TID GIGI Administration Pantoprazole Sodium 40 mg 11/04/17 06:00 11/04/17 06:34 Protonix PO 40 mg DAILY GIGI Administration Polyethylene Glycol 17 gm 11/04/17 06:00 11/04/17 06:35 Miralax PO 17 gm DAILY GIGI Administration Polysaccharide Iron Complex 150 mg 11/05/17 08:00 Ferrex 150 PO DAILY GIGI Fluticasone/Salmeterol 1 puff 11/03/17 18:00 11/04/17 06:28 Advair 250/50 Mcg Diskus INHALATION 1 puff BID GIGI Administration Senna/Docusate Sodium 1 tablet 11/04/17 06:00 11/04/17 06:35 Senokot-S, [place]-Colace PO 1 tablet BID GIGI Administration Tiotropium [place] 1 puff 11/04/17 06:00 11/04/17 06:38 Spiriva 18 Mcg INHALATION 1 puff DAILY GIGI Administration Tuberculin PPD 5 tu 11/04/17 10:00 Tubersol, Aplisol, Ppd ID 11/04/17 10:01 X1 ONE Tuberculin PPD 5 tu 11/11/17 10:00 Tubersol, Aplisol, Ppd ID 11/11/17 10:01 X1 ONE Problem List (Last Updated 10/14/17 @ 22:27 by Mal Gong MD) Weakness (Acute) Near syncope (Acute) Orthostatic hypotension (Acute) Brain metastasis (Chronic) Liver metastasis (Chronic) Hypomagnesemia (Chronic) GERD (gastroesophageal reflux disease) (Chronic) Vital Signs Temp Pulse Resp BP Pulse Ox 98.3 F 98 20 H 101/70 96 11/03/17 15:44 11/03/17 15:44 11/03/17 15:44 11/03/17 15:44 11/03/17 15:44 Oxygen Flow Rate (L/min) 4 Oxygen Delivery Method Nasal Cannula Weight: 92.533 kg Body Mass Index (BMI) 30.1 Sodium 137 mmol/L (136-145) 11/04/17 05:05 Potassium 4.4 mmol/L (3.5-5.1) 11/04/17 05:05 Chloride 98 mmol/L (98-107) 11/04/17 05:05 Carbon Dioxide 34.0 mmol/L (21.0-32.0) H 11/04/17 05:05 Anion Gap 5 (5-15) 11/04/17 05:05 BUN 26 mg/dL (7-18) H 11/04/17 05:05 Creatinine 0.46 mg/dL (0.70-1.30) L 11/04/17 05:05 Est GFR (MDRD) Af Amer 228 mL/min (>60) 11/04/17 05:05 Est GFR (MDRD) Non-Af 188 mL/min (>60) 11/04/17 05:05 BUN/Creatinine Ratio 56.0 RATIO (10-20) H 11/04/17 05:05 Glucose 137 mg/dL (74-106) H 11/04/17 05:05 Assessment/Plan: 1) Pain Hydrocodone/APAP for moderate-severe pain. Continue to monitor prn medication use, daily pain scores. 2) Lung CA/Brain Mets Dexamethasone twice daily. Continue to monitor clinically. 3) Pulm Advair inh, tiotropium inh, albuterol inh as needed. Continue to monitor prn medication use, for shortness of breath. 4) Nutrition Fe, Mg. Continue to monitor clinically. 5) GI Pantoprazole daily, Maalox as needed. Continue to monitor prn medication use, for GI distress. 6) Dizziness Meclizine as needed. Continue to monitor prn medication use, for dizziness. Psychotropic Medications: None Unnecessary Medications: None Bowel Regimen: 7) Senna/s, PEG, prn bisacodyl. Continue to monitor prn medication use, for constipation/diarrhea. Date of Note:: 11/04/17 - Provider Comments Provider responsibility: Provider responsible to enter orders to implement recommendations <Jamarcus Uribe Chi - Last Filed: 11/04/17 14:18> Progress Note - Pharmacy Subjective: [] Objective: Allergies No Known Allergies Allergy (Verified 11/02/17 09:21) Home Medications Medication Instructions Recorded Albuterol IH (ProAir) [Proair Hfa] 2 puff INHALATION Q4H PRN PRN #0 10/12/17 Tiotropium [place] [Spiriva 18 MCG] 1 puff INHALATION DAILY 10/12/17 Fluticasone/Salmeterol [Advair 1 each IH BID 10/20/17 250-50 Diskus] Hydrocodone Bitart/Apap 5-325 1 tablet PO Q6H PRN PRN #16 tablet 10/28/17 [[place] 5/325] Meclizine HCl [Antivert] 12.5 mg PO 4X/DAY PRN #28 tab 10/28/17 Dexamethasone 4 mg PO BID 10/30/17 Mag Hydrox/Al Hydrox/Simeth 30 ml PO Q6H PRN PRN 10/30/17 [Mylanta II] Pantoprazole Sodium [Protonix] 40 mg PO DAILY 10/30/17 Magnesium Oxide [Magnesium] 400 mg PO DAILY 11/03/17 Midodrine HCl [Proamatine] 10 mg PO TID 11/03/17 Current Medications Generic Name Dose Route Start Last Admin Trade Name Freq PRN Reason Stop Dose Admin Hydrocodone Bitart/Acetaminophen 1 tablet 11/03/17 13:23 11/04/17 06:33 [place] 5mg-325mg PO 1 tablet Q6H PRN PRN Administration Moderate-severe pain Al Hydroxide/Mg Hydroxide 30 ml 11/03/17 13:23 Mylanta Ii PO Q6H PRN PRN INDIGESTION Albuterol Sulfate 2 puff 11/03/17 14:45 Ventolin Hfa (Sp) INHALATION Q4H PRN PRN SOB/WHEEZING Amoxicillin 500 mg 11/04/17 14:00 11/04/17 13:37 Amoxil PO 11/11/17 14:01 500 mg Q8 GIGI Administration Bisacodyl 10 mg 11/03/17 21:41 Dulcolax PO DAILY PRN Constipation Dexamethasone 4 mg 11/03/17 17:00 11/04/17 07:47 Decadron PO 4 mg BIDCM GIGI Administration Lidocaine/Diphenhydr/Alum/Mg/Simeth 15 ml 11/04/17 08:18 PO Q3H PRN PRN SORE THROAT Magnesium Oxide 400 mg 11/04/17 06:00 11/04/17 06:34 Mag-Ox 400 PO 400 mg DAILY GIGI Administration Meclizine HCl 12.5 mg 11/03/17 13:23 Antivert PO 4X/DAY PRN Vertigo Midodrine 10 mg 11/03/17 14:00 11/04/17 13:37 Proamatine PO 10 mg TID GIGI Administration Pantoprazole Sodium 40 mg 11/04/17 06:00 11/04/17 06:34 Protonix PO 40 mg DAILY GIGI Administration Polyethylene Glycol 17 gm 11/04/17 06:00 11/04/17 06:35 Miralax PO 17 gm DAILY GIGI Administration Polysaccharide Iron Complex 150 mg 11/05/17 08:00 Ferrex 150 PO DAILYCM GIGI Fluticasone/Salmeterol 1 puff 11/03/17 18:00 11/04/17 06:28 Advair 250/50 Mcg Diskus INHALATION 1 puff BID GIGI Administration Senna/Docusate Sodium 1 tablet 11/04/17 06:00 11/04/17 06:35 Senokot-S, [place]-Colace PO 1 tablet BID GIGI Administration Tiotropium [place] 1 puff 11/04/17 06:00 11/04/17 06:38 Spiriva 18 Mcg INHALATION 1 puff DAILY GIGI Administration Tuberculin PPD 5 tu 11/11/17 10:00 Tubersol, Aplisol, Ppd ID 11/11/17 10:01 X1 ONE Problem List (Last Updated 10/14/17 @ 22:27 by Mal Gong MD) Weakness (Acute) Near syncope (Acute) Orthostatic hypotension (Acute) Brain metastasis (Chronic) Liver metastasis (Chronic) Hypomagnesemia (Chronic) GERD (gastroesophageal reflux disease) (Chronic) Vital Signs Temp Pulse Resp BP Pulse Ox 98.3 F 98 20 H 101/70 96 11/03/17 15:44 11/03/17 15:44 11/03/17 15:44 11/03/17 15:44 11/04/17 07:40 Oxygen Flow Rate (L/min) 3 Oxygen Delivery Method Nasal Cannula Weight: 92.533 kg Body Mass Index (BMI) 30.1 Sodium 137 mmol/L (136-145) 11/04/17 05:05 Potassium 4.4 mmol/L (3.5-5.1) 11/04/17 05:05 Chloride 98 mmol/L (98-107) 11/04/17 05:05 Carbon Dioxide 34.0 mmol/L (21.0-32.0) H 11/04/17 05:05 Anion Gap 5 (5-15) 11/04/17 05:05 BUN 26 mg/dL (7-18) H 11/04/17 05:05 Creatinine 0.46 mg/dL (0.70-1.30) L 11/04/17 05:05 Est GFR (MDRD) Af Amer 228 mL/min (>60) 11/04/17 05:05 Est GFR (MDRD) Non-Af 188 mL/min (>60) 11/04/17 05:05 BUN/Creatinine Ratio 56.0 RATIO (10-20) H 11/04/17 05:05 Glucose 137 mg/dL (74-106) H 11/04/17 05:05 Assessment/Plan: Psychotropic Medications: Unnecessary Medications: Bowel Regimen: - Provider Comments Provider responsibility: Provider responsible to enter orders to implement recommendations Provider Comments to Recommendations by Pharmacy: Agree
--- NOTE | 2017-11-04 08:24 | PHA.CONS_ITS ---
<Kirk Kenney D - Last Filed: 11/04/17 08:15> Progress Note - Pharmacy Subjective: TCU Admission Objective: Allergies No Known Allergies Allergy (Verified 11/02/17 09:21) Home Medications Medication Instructions Recorded Albuterol IH (ProAir) [Proair Hfa] 2 puff INHALATION Q4H PRN PRN #0 10/12/17 Tiotropium [place] [Spiriva 18 MCG] 1 puff INHALATION DAILY 10/12/17 Fluticasone/Salmeterol [Advair 1 each IH BID 10/20/17 250-50 Diskus] Hydrocodone Bitart/Apap 5-325 1 tablet PO Q6H PRN PRN #16 tablet 10/28/17 [[place] 5/325] Meclizine HCl [Antivert] 12.5 mg PO 4X/DAY PRN #28 tab 10/28/17 Dexamethasone 4 mg PO BID 10/30/17 Mag Hydrox/Al Hydrox/Simeth 30 ml PO Q6H PRN PRN 10/30/17 [Mylanta II] Pantoprazole Sodium [Protonix] 40 mg PO DAILY 10/30/17 Magnesium Oxide [Magnesium] 400 mg PO DAILY 11/03/17 Midodrine HCl [Proamatine] 10 mg PO TID 11/03/17 Current Medications Generic Name Dose Route Start Last Admin Trade Name Freq PRN Reason Stop Dose Admin Hydrocodone Bitart/Acetaminophen 1 tablet 11/03/17 13:23 11/04/17 06:33 [place] 5mg-325mg PO 1 tablet Q6H PRN PRN Administration Moderate-severe pain Al Hydroxide/Mg Hydroxide 30 ml 11/03/17 13:23 Mylanta Ii PO Q6H PRN PRN INDIGESTION Albuterol Sulfate 2 puff 11/03/17 14:45 Ventolin Hfa (Sp) INHALATION Q4H PRN PRN SOB/WHEEZING Bisacodyl 10 mg 11/03/17 21:41 Dulcolax PO DAILY PRN Constipation Dexamethasone 4 mg 11/03/17 17:00 11/04/17 07:47 Decadron PO 4 mg BIDCM GIGI Administration Magnesium Oxide 400 mg 11/04/17 06:00 11/04/17 06:34 Mag-Ox 400 PO 400 mg DAILY GIGI Administration Meclizine HCl 12.5 mg 11/03/17 13:23 Antivert PO 4X/DAY PRN Vertigo Midodrine 10 mg 11/03/17 14:00 11/04/17 06:34 Proamatine PO 10 mg TID GIGI Administration Pantoprazole Sodium 40 mg 11/04/17 06:00 11/04/17 06:34 Protonix PO 40 mg DAILY GIGI Administration Polyethylene Glycol 17 gm 11/04/17 06:00 11/04/17 06:35 Miralax PO 17 gm DAILY GIGI Administration Polysaccharide Iron Complex 150 mg 11/05/17 08:00 Ferrex 150 PO DAILY GIGI Fluticasone/Salmeterol 1 puff 11/03/17 18:00 11/04/17 06:28 Advair 250/50 Mcg Diskus INHALATION 1 puff BID GIGI Administration Senna/Docusate Sodium 1 tablet 11/04/17 06:00 11/04/17 06:35 Senokot-S, [place]-Colace PO 1 tablet BID GIGI Administration Tiotropium [place] 1 puff 11/04/17 06:00 11/04/17 06:38 Spiriva 18 Mcg INHALATION 1 puff DAILY GIGI Administration Tuberculin PPD 5 tu 11/04/17 10:00 Tubersol, Aplisol, Ppd ID 11/04/17 10:01 X1 ONE Tuberculin PPD 5 tu 11/11/17 10:00 Tubersol, Aplisol, Ppd ID 11/11/17 10:01 X1 ONE Problem List (Last Updated 10/14/17 @ 22:27 by Mal Gong MD) Weakness (Acute) Near syncope (Acute) Orthostatic hypotension (Acute) Brain metastasis (Chronic) Liver metastasis (Chronic) Hypomagnesemia (Chronic) GERD (gastroesophageal reflux disease) (Chronic) Vital Signs Temp Pulse Resp BP Pulse Ox 98.3 F 98 20 H 101/70 96 11/03/17 15:44 11/03/17 15:44 11/03/17 15:44 11/03/17 15:44 11/03/17 15:44 Oxygen Flow Rate (L/min) 4 Oxygen Delivery Method Nasal Cannula Weight: 92.533 kg Body Mass Index (BMI) 30.1 Sodium 137 mmol/L (136-145) 11/04/17 05:05 Potassium 4.4 mmol/L (3.5-5.1) 11/04/17 05:05 Chloride 98 mmol/L (98-107) 11/04/17 05:05 Carbon Dioxide 34.0 mmol/L (21.0-32.0) H 11/04/17 05:05 Anion Gap 5 (5-15) 11/04/17 05:05 BUN 26 mg/dL (7-18) H 11/04/17 05:05 Creatinine 0.46 mg/dL (0.70-1.30) L 11/04/17 05:05 Est GFR (MDRD) Af Amer 228 mL/min (>60) 11/04/17 05:05 Est GFR (MDRD) Non-Af 188 mL/min (>60) 11/04/17 05:05 BUN/Creatinine Ratio 56.0 RATIO (10-20) H 11/04/17 05:05 Glucose 137 mg/dL (74-106) H 11/04/17 05:05 Assessment/Plan: 1) Pain Hydrocodone/APAP for moderate-severe pain. Continue to monitor prn medication use, daily pain scores. 2) Lung CA/Brain Mets Dexamethasone twice daily. Continue to monitor clinically. 3) Pulm Advair inh, tiotropium inh, albuterol inh as needed. Continue to monitor prn medication use, for shortness of breath. 4) Nutrition Fe, Mg. Continue to monitor clinically. 5) GI Pantoprazole daily, Maalox as needed. Continue to monitor prn medication use , for GI distress. 6) Dizziness Meclizine as needed. Continue to monitor prn medication use, for dizziness. Psychotropic Medications: None Unnecessary Medications: None Bowel Regimen: 7) Senna/s, PEG, prn bisacodyl. Continue to monitor prn medication use, for constipation/diarrhea. Date of Note:: 11/04/17 - Provider Comments Provider responsibility: Provider responsible to enter orders to implement recommendations <Jamarcus Uribe Chi - Last Filed: 11/04/17 14:18> Progress Note - Pharmacy Subjective: [] Objective: Allergies No Known Allergies Allergy (Verified 11/02/17 09:21) Home Medications Medication Instructions Recorded Albuterol IH (ProAir) [Proair Hfa] 2 puff INHALATION Q4H PRN PRN #0 10/12/17 Tiotropium [place] [Spiriva 18 MCG] 1 puff INHALATION DAILY 10/12/17 Fluticasone/Salmeterol [Advair 1 each IH BID 10/20/17 250-50 Diskus] Hydrocodone Bitart/Apap 5-325 1 tablet PO Q6H PRN PRN #16 tablet 10/28/17 [[place] 5/325] Meclizine HCl [Antivert] 12.5 mg PO 4X/DAY PRN #28 tab 10/28/17 Dexamethasone 4 mg PO BID 10/30/17 Mag Hydrox/Al Hydrox/Simeth 30 ml PO Q6H PRN PRN 10/30/17 [Mylanta II] Pantoprazole Sodium [Protonix] 40 mg PO DAILY 10/30/17 Magnesium Oxide [Magnesium] 400 mg PO DAILY 11/03/17 Midodrine HCl [Proamatine] 10 mg PO TID 11/03/17 Current Medications Generic Name Dose Route Start Last Admin Trade Name Freq PRN Reason Stop Dose Admin Hydrocodone Bitart/Acetaminophen 1 tablet 11/03/17 13:23 11/04/17 06:33 [place] 5mg-325mg PO 1 tablet Q6H PRN PRN Administration Moderate-severe pain Al Hydroxide/Mg Hydroxide 30 ml 11/03/17 13:23 Mylanta Ii PO Q6H PRN PRN INDIGESTION Albuterol Sulfate 2 puff 11/03/17 14:45 Ventolin Hfa (Sp) INHALATION Q4H PRN PRN SOB/WHEEZING Amoxicillin 500 mg 11/04/17 14:00 11/04/17 13:37 Amoxil PO 11/11/17 14:01 500 mg Q8 GIGI Administration Bisacodyl 10 mg 11/03/17 21:41 Dulcolax PO DAILY PRN Constipation Dexamethasone 4 mg 11/03/17 17:00 11/04/17 07:47 Decadron PO 4 mg BIDCM GIGI Administration Lidocaine/Diphenhydr/Alum/Mg/Simeth 15 ml 11/04/17 08:18 PO Q3H PRN PRN SORE THROAT Magnesium Oxide 400 mg 11/04/17 06:00 11/04/17 06:34 Mag-Ox 400 PO 400 mg DAILY GIGI Administration Meclizine HCl 12.5 mg 11/03/17 13:23 Antivert PO 4X/DAY PRN Vertigo Midodrine 10 mg 11/03/17 14:00 11/04/17 13:37 Proamatine PO 10 mg TID GIGI Administration Pantoprazole Sodium 40 mg 11/04/17 06:00 11/04/17 06:34 Protonix PO 40 mg DAILY GIGI Administration Polyethylene Glycol 17 gm 11/04/17 06:00 11/04/17 06:35 Miralax PO 17 gm DAILY GIGI Administration Polysaccharide Iron Complex 150 mg 11/05/17 08:00 Ferrex 150 PO DAILYCM GIGI Fluticasone/Salmeterol 1 puff 11/03/17 18:00 11/04/17 06:28 Advair 250/50 Mcg Diskus INHALATION 1 puff BID GIGI Administration Senna/Docusate Sodium 1 tablet 11/04/17 06:00 11/04/17 06:35 Senokot-S, [place]-Colace PO 1 tablet BID GIGI Administration Tiotropium [place] 1 puff 11/04/17 06:00 11/04/17 06:38 Spiriva 18 Mcg INHALATION 1 puff DAILY GIGI Administration Tuberculin PPD 5 tu 11/11/17 10:00 Tubersol, Aplisol, Ppd ID 11/11/17 10:01 X1 ONE Problem List (Last Updated 10/14/17 @ 22:27 by Mal Gong MD) Weakness (Acute) Near syncope (Acute) Orthostatic hypotension (Acute) Brain metastasis (Chronic) Liver metastasis (Chronic) Hypomagnesemia (Chronic) GERD (gastroesophageal reflux disease) (Chronic) Vital Signs Temp Pulse Resp BP Pulse Ox 98.3 F 98 20 H 101/70 96 11/03/17 15:44 11/03/17 15:44 11/03/17 15:44 11/03/17 15:44 11/04/17 07:40 Oxygen Flow Rate (L/min) 3 Oxygen Delivery Method Nasal Cannula Weight: 92.533 kg Body Mass Index (BMI) 30.1 Sodium 137 mmol/L (136-145) 11/04/17 05:05 Potassium 4.4 mmol/L (3.5-5.1) 11/04/17 05:05 Chloride 98 mmol/L (98-107) 11/04/17 05:05 Carbon Dioxide 34.0 mmol/L (21.0-32.0) H 11/04/17 05:05 Anion Gap 5 (5-15) 11/04/17 05:05 BUN 26 mg/dL (7-18) H 11/04/17 05:05 Creatinine 0.46 mg/dL (0.70-1.30) L 11/04/17 05:05 Est GFR (MDRD) Af Amer 228 mL/min (>60) 11/04/17 05:05 Est GFR (MDRD) Non-Af 188 mL/min (>60) 11/04/17 05:05 BUN/Creatinine Ratio 56.0 RATIO (10-20) H 11/04/17 05:05 Glucose 137 mg/dL (74-106) H 11/04/17 05:05 Assessment/Plan: Psychotropic Medications: Unnecessary Medications: Bowel Regimen: - Provider Comments Provider responsibility: Provider responsible to enter orders to implement recommendations Provider Comments to Recommendations by Pharmacy: Agree
--- NOTE | 2017-11-04 09:24 | NURSING ---
pt off unit for radiation at this time.
[2017-11-04] MEDS: Tuberculin,Purif.prot.deriv. 50 TU/ML Vial 5 ML ID (11:49)
[2017-11-04] MEDS: AMOXICILLIN 500 MG CAPSULE PO ×2 (13:37→20:54)
--- NOTE | 2017-11-04 15:14 | CASEMGMT ---
Social Work Assessment completed. Main contact for resident is Nancy ([email or web address]), . Resident plans to continue on the Transitional Care Unit until resident is completed with radiation treatments, radiation currently scheduled to end on 11/10/17. Collaborating with resident and Nancy. Tentative plan would be for resident to discharge to [facility] on 11/12/17 (as this is when the family is able to transport). Resident hopes to be able to transition under [employer] as skilled but aware that approval is not guaranteed. Resident completing medicaid application and Nancy has submitted application to job and family services to obtain a pending number. Support given. Will continue to follow. Will make referrals on Tuesday for [facility]. Celsa DEE, LICENSED CUSTOMS BROKER
[2017-11-04 16:00] VITALS: BP 106/57; PULSE 90; RESP 18; TEMP 36.3; O2SAT 96
[2017-11-04 21:00] VITALS: PULSE 88; RESP 16; O2SAT 91
[2017-11-05] MEDS: AMOXICILLIN 500 MG CAPSULE PO ×3 (06:14→20:46)
[2017-11-05] MEDS: Midodrine HCl 5 MG Tablet 10 MG PO ×3 (06:14→20:46)
[2017-11-05] MEDS: Magnesium Oxide 400 MG Tablet PO (06:15)
[2017-11-05] MEDS: Pantoprazole Sodium 40 MG Tablet PO (06:15)
[2017-11-05] MEDS: Iron Polysaccharide Complex 150 MG CAPSULE PO (08:34)
[2017-11-05 15:42] VITALS: BP 103/60; PULSE 98; RESP 20; TEMP 36.4; O2SAT 95
[2017-11-05] MEDS: Senna/Docusate Sodium 1 Tablet PO (17:32)
[2017-11-05 23:00] VITALS: PULSE 83; RESP 16; O2SAT 97
[2017-11-06] MEDS: Magnesium Oxide 400 MG Tablet PO (07:20)
[2017-11-06] MEDS: Midodrine HCl 5 MG Tablet 10 MG PO ×3 (07:21→20:42)
[2017-11-06] MEDS: AMOXICILLIN 500 MG CAPSULE PO ×3 (07:21→20:42)
[2017-11-06] MEDS: Pantoprazole Sodium 40 MG Tablet PO (07:21)
[2017-11-06] MEDS: Iron Polysaccharide Complex 150 MG CAPSULE PO (07:24)
[2017-11-06 08:24] VITALS: O2SAT 96
[2017-11-06 15:10] VITALS: BP 100/60; PULSE 78; RESP 20; TEMP 36.8; O2SAT 93
[2017-11-07] MEDS: Senna/Docusate Sodium 1 Tablet PO ×2 (05:45→16:51)
[2017-11-07] MEDS: Pantoprazole Sodium 40 MG Tablet PO (05:46)
[2017-11-07] MEDS: Magnesium Oxide 400 MG Tablet PO (05:46)
[2017-11-07] MEDS: Midodrine HCl 5 MG Tablet 10 MG PO ×3 (05:46→21:12)
[2017-11-07] MEDS: AMOXICILLIN 500 MG CAPSULE PO ×3 (05:46→21:02)
[2017-11-07 06:55] VITALS: O2SAT 93
[2017-11-07] MEDS: Iron Polysaccharide Complex 150 MG CAPSULE PO (08:37)
--- NOTE | 2017-11-07 14:51 | NURSING ---
Patient c/o sore mouth, BMX ineffective, Dr. Uribe made aware, NO for chloraseptic spray.
[2017-11-07 15:18] VITALS: BP 114/56; PULSE 88; RESP 18; TEMP 36.6; O2SAT 95
[2017-11-07] MEDS: Phenol/Sodium Phenolate 180ML 5 SPRAY MM ×2 (16:50→21:02)
[2017-11-07] MEDS: HYDROcodone Bitartrate/Apap 5/325 Tablet PO (16:50)
[2017-11-07 21:00] VITALS: BP 87/56; PULSE 83; RESP 16; TEMP 36.6; O2SAT 95
[2017-11-07 22:00] VITALS: BP 108/55; PULSE 84; RESP 20; O2SAT 97
--- NOTE | 2017-11-07 22:00 | NURSING ---
Dr. Uribe notified of patient's blood pressure being 86/57 before midodrine was given. No new orders given.
[2017-11-08] MEDS: Midodrine HCl 5 MG Tablet 10 MG PO ×3 (05:21→20:47)
[2017-11-08] MEDS: AMOXICILLIN 500 MG CAPSULE PO ×3 (05:22→20:46)
[2017-11-08] MEDS: Magnesium Oxide 400 MG Tablet PO (05:22)
[2017-11-08] MEDS: Pantoprazole Sodium 40 MG Tablet PO (05:22)
[2017-11-08] MEDS: Phenol/Sodium Phenolate 180ML 5 SPRAY MM ×3 (05:23→20:48)
[2017-11-08] MEDS: Iron Polysaccharide Complex 150 MG CAPSULE PO (08:10)
[2017-11-08 10:00] VITALS: PULSE 91; RESP 18; O2SAT 98
--- NOTE | 2017-11-08 15:07 | CHAPLAIN ---
Type of Pastoral Visit _x__ Initial Visit ___ Follow-up Visit ___ On-call Visit ___ General Patient Visit ___ Spiritual Assessment ___ Family Conference ___ Bereavement ___ Rapid Response ___ Code Blue ___ Other (describe below) Pastoral Care Referral From _x__ Patient ___ Family ___ Nurse ___ Physician ___ Neurosurgeon ___ Analysis Intern ___ Other (describe below) Sacrament/Intervention ___ Active listening ___ Anointing ___ Presybeterian ___ Bereavement ___ Communion ___ Naomi exploration ___ ___ Life review ___ Prayer ___ Reconciliation ___ Sacrament of Sick _x__ Supportive presence ___ Wedding ___ Other (describe below) Pastoral Comments had seen this patient on a previous admission; pt recognized this gate guard and said that he did not need anything at this time; offered support in future as desired
[2017-11-08 16:00] VITALS: BP 96/60; PULSE 91; RESP 18; TEMP 37.2; O2SAT 95
[2017-11-08] MEDS: Fluticasone/Salmeterol 232-14 Inhaler 1 PUFF IH (17:23)
[2017-11-08] MEDS: Senna/Docusate Sodium 1 Tablet PO (17:23)
[2017-11-08] MEDS: Menthol/Lanolin/Calamine/Znox 113 GM Tube 1 APPLIC TOPICAL (20:47)
[2017-11-09] MEDS: Menthol/Lanolin/Calamine/Znox 113 GM Tube 1 APPLIC TOPICAL ×2 (05:20→20:16)
[2017-11-09] MEDS: AMOXICILLIN 500 MG CAPSULE PO ×3 (05:23→20:14)
[2017-11-09] MEDS: Senna/Docusate Sodium 1 Tablet PO ×2 (05:23→17:24)
[2017-11-09] MEDS: Pantoprazole Sodium 40 MG Tablet PO (05:23)
[2017-11-09] MEDS: Magnesium Oxide 400 MG Tablet PO (05:23)
[2017-11-09] MEDS: Midodrine HCl 5 MG Tablet 10 MG PO ×3 (05:24→20:14)
[2017-11-09] MEDS: Fluticasone/Salmeterol 232-14 Inhaler 1 PUFF IH ×2 (05:26→17:24)
[2017-11-09] MEDS: Polyethylene Glycol 3350 17 GM PACKET PO (05:27)
[2017-11-09] MEDS: Phenol/Sodium Phenolate 180ML 5 SPRAY MM ×2 (05:33→11:20)
[2017-11-09] MEDS: Iron Polysaccharide Complex 150 MG CAPSULE PO (08:03)
[2017-11-09 08:56] VITALS: O2SAT 94
--- NOTE | 2017-11-09 09:30 | NURSING ---
pt off unit to radiation therapy via wc by oncology staff
--- NOTE | 2017-11-09 10:14 | CASEMGMT ---
Plan of care meeting held. Resident present as well as resident [id number], [place]. No discharge date set at this time. Resident with insurance update due on this day, 11/09/17 and is aware that continued stay approval is not guaranteed. Resident has last radiation on 11/10/17 per resident. Resident plans to transition to a SNF facility in [place], which is closer to resident family after radiation has been completed. Resident first choice would be [facility] in [place]. Current plan is to make referral to [facility] in [place] and then transition ones [facility] has approved the continued SNF care. Resident also with a pending medicaid application at [facility], in the event that [facility] does not approve. Resident second option of a facility would be [facility]. Support given[facility] reporting to be able to review clinical information. Clinical information faxed. Pending approval. Will continue to follow. Celsa DEE, REGIONAL FORESTER
--- NOTE | 2017-11-09 11:59 | NURSING ---
pt returned from oncology/radiation treatment with orders for tapering decadron, continue protonix while on decadron and start nystatin s/s for thrush. pt & daughter in law aware of all orders.
[2017-11-09] MEDS: NYSTATIN 500,000 UNIT/5 ML UDC 500000 UNIT PO ×3 (13:48→20:15)
--- NOTE | 2017-11-09 13:53 | NURSING ---
XAVIER, FROM THERAPY REPORTED PT HAS STATED SEEING MONKEYS AND A LITTLE BOY IN THE TREE. DESTINEE FRANKLIN AWARE
[2017-11-09 15:31] VITALS: BP 83/58; PULSE 90; RESP 20; TEMP 36.8; O2SAT 93
--- NOTE | 2017-11-09 15:34 | CASEMGMT ---
Insurance Clinical information faxed. Pending continued stay approval at this time. Auth#[id number] Celsa DEE, SHUTTLER CAR
--- NOTE | 2017-11-09 15:46 | CPS ---
started by nursing
[2017-11-09 15:47] VITALS: BP 90/64
[2017-11-10] MEDS: Pantoprazole Sodium 40 MG Tablet PO (06:39)
[2017-11-10] MEDS: NYSTATIN 500,000 UNIT/5 ML UDC 500000 UNIT PO ×4 (06:39→20:20)
[2017-11-10] MEDS: AMOXICILLIN 500 MG CAPSULE PO ×3 (06:39→20:17)
[2017-11-10] MEDS: Magnesium Oxide 400 MG Tablet PO (06:39)
[2017-11-10] MEDS: Midodrine HCl 5 MG Tablet 10 MG PO ×3 (06:40→20:17)
[2017-11-10] MEDS: Fluticasone/Salmeterol 232-14 Inhaler 1 PUFF IH ×2 (06:41→17:48)
[2017-11-10] MEDS: Menthol/Lanolin/Calamine/Znox 113 GM Tube 1 APPLIC TOPICAL ×2 (06:43→20:18)
[2017-11-10 07:50] VITALS: O2SAT 97
[2017-11-10] MEDS: Iron Polysaccharide Complex 150 MG CAPSULE PO (08:16)
--- NOTE | 2017-11-10 08:39 | NURSING ---
Pt with moist non productive cough, feeling weak, and have some bouts of dizziness. Lungs with rhonchi throughout, inspiratory and expiratory wheezes throughout lung bases. Pt denies any pain at this time. Terra FELIPE updated on Pt. This nurse will continue to monitor Pt closely.
[2017-11-10 10:00] VITALS: PULSE 84; RESP 20; O2SAT 92
--- NOTE | 2017-11-10 10:41 | CASEMGMT ---
Brief interview for mental status (BIMS) and resident mood interview (PHQ-9) completed on this day. BIMS score 02/25. PHQ-9 score 07/09
--- NOTE | 2017-11-10 10:46 | NURSING ---
Pt daughter in law stoped this nurse and asked if Pt could have aerosol breathing treatments, Pt had been getting them every 2 hours PRN at home to help with symptoms, and has not had much luck with inhalers. Terra FELIPE updated and will notify Dr. Uribe
--- NOTE | 2017-11-10 10:51 | CASEMGMT ---
Social Work Telephone call to [facility] Job and Family services to follow up on Medicaid pending number, voicemail left for Yanet. Celsa SMITHW, ORNAMENTAL IRONWORKER
--- NOTE | 2017-11-10 11:23 | CASEMGMT ---
Insurance Continued stay approved with next update due on 11/14/17. Auth#[id number] Celsa DEE, COIN MACHINE SUPERVISOR
--- NOTE | 2017-11-10 11:24 | CASEMGMT ---
Addendum entered by Celsa Joseph 11/10/17 11:26: Transfer to extended care form initiated. Original Note: Social Work Telephone call to [facility]. This social work coordinator communicating that continued stay has been approved. Sofya planning to begin working on obtaining pre-cert through [facility] with an anticipated transition date being 11/13/17, as this is when resident and family are wanting to transition. Resident and family aware of above information and agreeable to all discharge planning thus far. Support given. Will continue to follow. Celsa DEE, INSURANCE COUNSEL
[2017-11-10] MEDS: Meclizine 12.5 MG Tablet PO (11:41)
--- NOTE | 2017-11-10 13:25 | RAD_ITS ---
STUDY: X-RAY CHEST REASON FOR EXAM: Male, 72 years old. Cough TECHNIQUE: AP and lateral views of the chest. COMPARISON: October 29, 2017 FINDINGS: There is a right lower lobe opacity. There are bilateral stable pulmonary nodules. The lungs are hyperinflated. Normal size heart. Normal mediastinum and taran. Normal visualized pulmonary arteries. Normal visualized aortic arch and descending thoracic aorta. There are diffuse degenerative changes of the visualized thoracic spine. Normal visualized ribs, clavicles, and shoulders. There is no demonstrated abnormality of the visualized soft tissue structures of the upper abdomen. RAD/Chest PA and Lateral IMPRESSION: Right lower lobe opacity likely reflects some combination of atelectasis and/or pneumonia. 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 Hyperinflated lungs suggestive of underlying COPD. Electronically Signed: Mayelin Sexton MD at 17:35 EDT Tel , Service support ,
[2017-11-10 15:37] VITALS: BP 93/53; PULSE 84; RESP 18; TEMP 36.3; O2SAT 95
[2017-11-10] MEDS: Albuterol 2.5 MG/3 ML VIAL.NEB. INHALATION (16:11)
[2017-11-10 16:12] VITALS: PULSE 84; RESP 18; O2SAT 93
--- NOTE | 2017-11-10 18:51 | NURSING ---
Addendum entered by Stephanie Cain 11/10/17 20:42: Dr. Uribe aware. New orders entered. Original Note: Dr Uribe made aware of cxr results.
[2017-11-10] MEDS: levoFLOXacin 500 MG Tablet PO (21:42)
[2017-11-10] MEDS: Doxycycline 100 MG CAPSULE PO (21:42)
[2017-11-11] MEDS: Senna/Docusate Sodium 1 Tablet PO ×2 (05:03→17:55)
[2017-11-11] MEDS: Midodrine HCl 5 MG Tablet 10 MG PO ×3 (05:03→21:16)
[2017-11-11] MEDS: Doxycycline 100 MG CAPSULE PO ×2 (05:03→17:55)
[2017-11-11] MEDS: NYSTATIN 500,000 UNIT/5 ML UDC 500000 UNIT PO ×3 (05:03→21:16)
[2017-11-11] MEDS: levoFLOXacin 500 MG Tablet PO (05:04)
[2017-11-11] MEDS: Magnesium Oxide 400 MG Tablet PO (05:04)
[2017-11-11] MEDS: Pantoprazole Sodium 40 MG Tablet PO (05:04)
[2017-11-11] MEDS: Fluticasone/Salmeterol 232-14 Inhaler 1 PUFF IH ×2 (05:04→17:55)
[2017-11-11] MEDS: Menthol/Lanolin/Calamine/Znox 113 GM Tube 1 APPLIC TOPICAL ×2 (05:04→21:14)
[2017-11-11] MEDS: Polyethylene Glycol 3350 17 GM PACKET PO (05:04)
[2017-11-11 06:31] LABS: Anion Gap 8 (5-15); BUN 30 mg/dL (7-18); BUN/Creat Ratio 63.4 RATIO (10-20); Calcium,Total 11.8 mg/dL (8.5-10.1); Chloride 98 mmol/L (98-107); Creatinine, Serum 0.47 mg/dL (0.70-1.30); EST Glomerular Filtration Rate 184 mL/min (>60); Est Glom Filt Rate - Afr Amer 223 mL/min (>60); Estimated Creatinine Clearance 65.79 ml/min; Glucose 94 mg/dL (74-106); Potassium 4.9 mmol/L (3.5-5.1); Sodium Level 139 mmol/L (136-145)
[2017-11-11 06:36] LABS: Absolute Lymphocyte Count 0.33 X10^3/ul (0.83-4.51); Absolute Neutrophil Count 8.4 X10^3/uL (2.0-7.7); Hematocrit 32.1 % (40-54); Lymphocyte # 0.33 X10^3/ul (4.0); Lymphocyte % 3.6 % (19-41); Mean Corp Hgb Conc 31.2 g/gl (32-36); Mean Corpuscular Hgb 29.7 pg (27.0-32.0); Mean Corpuscular Volume 95.3 fL (80-94); Mean Platelet Vol. 9.7 fl (6.2-12.0); Monocyte# 0.39 X10^3/uL; Monocyte% 4.3 % (0-10); Neutrophil # 8.41 X10^3/uL (2.7-7.7); Neutrophil % 91.9 % (47-70); Platelet Count 342 K/mm3 (150-450); RBC Distribution Width CV 16.3 % (11.6-14.6); RBC Distribution Width SD 54.3 fl (35.1-43.9); Red Blood Count 3.37 M/mm3 (4.6-6.2); White Blood Count 9.2 K/mm3 (4.4-11.0)
[2017-11-11 06:37] LABS: Differential Indicated SCAN CRITERIA MET; POSITIVE COUNT NO; POSITIVE DIFFERENTIAL YES; POSITIVE MORPHOLOGY NO
[2017-11-11 06:50] LABS: Differential Comment SCANNED; Platelet Estimate SLT INC (ADEQ)
[2017-11-11 07:25] VITALS: O2SAT 95
[2017-11-11] MEDS: Iron Polysaccharide Complex 150 MG CAPSULE PO (07:42)
[2017-11-11] MEDS: Phenol/Sodium Phenolate 180ML 5 SPRAY MM (07:42)
[2017-11-11] MEDS: Tuberculin,Purif.prot.deriv. 50 TU/ML Vial 5 ML ID (09:47)
[2017-11-11 10:00] VITALS: BP 82/52; PULSE 82; RESP 18; TEMP 36.7; O2SAT 97
--- NOTE | 2017-11-11 11:19 | NURSING ---
THIS NURSE IN PT ROOM. PT COOL BUT SWEATY, FEET COLD. PT STATED HE FELT HOT. BP-82/52 MANUAL, HR-82,OXYGEN-97% 3L,T-98.0 ORAL. REPORTED TO DESTINEE GRIFFITH
--- NOTE | 2017-11-11 14:52 | CASEMGMT ---
Addendum entered by Celsa Joseph 11/11/17 15:02: Discharge information faxed to [facility]. Original Note: [facility] voicing to have obtained precert and that resident is approved for an admission of 11/13/17. Spoke with resident and resident [id number], Vivi. This social science teacher communicating above information. Resident and Vivi are agreeable to discharge plan. Vivi planning to provide transportation for resident at time of discharge. Vivi voicing to have a portable oxygen tank for resident to transition with. Resident voicing no other needs. PASRR completed in [facility]. Proposed discharge date: 11/13/17 PLAN: Discharge to [facility]. Celsa DEE, CONVERSION DEVELOPER
--- NOTE | 2017-11-11 14:56 | TREXTCAR_ITS ---
- Diet 11/03/17 13:30 Diet: Regular Diet Is pt able to select menu?: Yes - Routine Orders/Code Status Suppository Type: Dulcolax 10mg Suppository Frequency: Daily PRN [facility] Weight Bearing: Weight bearing as tolerated Extremity Affected:: Bilateral Lower Physical Therapy: Eval and Treat Occupational Therapy: Eval and Treat - Problem/Diagnosis (1) Weakness Status: Acute Current Visit: Yes (2) Near syncope Status: Acute Current Visit: Yes (3) Orthostatic hypotension Status: Acute Current Visit: Yes (4) Brain metastasis Status: Chronic Current Visit: Yes (5) Liver metastasis Status: Chronic Current Visit: Yes (6) Hypomagnesemia Status: Chronic Current Visit: Yes (7) GERD (gastroesophageal reflux disease) Status: Chronic Current Visit: Yes (8) Non-small cell carcinoma of right lung, stage 4 Status: Chronic Current Visit: No (9) Hilar mass Status: Chronic Current Visit: No (10) COPD (chronic obstructive pulmonary disease) Status: Chronic Current Visit: No (11) Tobacco use Status: Chronic Comment: in remission - quit in May 2016 Current Visit: No (12) Diastolic CHF Status: Chronic Current Visit: No (13) Pulmonary HTN Status: Chronic Comment: severe Current Visit: No (14) CAD (coronary artery disease) Status: Chronic Comment: minimal and non-obstructive on cath 08/09/16 Current Visit: No - Allergies/Procedures Done in Hospital Allergies/Adverse Reactions: Allergies No Known Allergies Allergy (Verified 11/09/17 09:07) - Type of Care/Length of Stay Estimated LOS: More Than 30 Days Type of Care Needed: Skilled Rehab Potential: Fair Prognosis: Fair - Additional Orders/Day of Discharge Day of Discharge: 11/13/17 - Dietary and Speech Recommendations Dietitian Recommendations/Changes: Will provide cottage cheese and yogurt with meals per res preference. - Follow Up Care Primary Care Physician: Donte Lea DO [Primary Care Provider] - Please follow up with your Primary Care Physician in: 1 week. Please Follow Up With: Francisco Javier Decker DO When: [phone] Please Follow Up With: Pierce Mahajan MD When: [phone]
--- NOTE | 2017-11-11 14:56 | PCM.DC.SUM ---
Discharge Date and Diagnosis - Problem List Patient Problems: Active and Suspected Problems (Last Updated 10/14/17 @ 22:27 by Mal Gong MD) Weakness (Acute) Near syncope (Acute) Orthostatic hypotension (Acute) Date of Admission: 11/03/17 Date of Discharge: 11/13/17 - Primary Discharge Diagnosis Active and Suspected Problems (Last Updated 10/14/17 @ 22:27 by Mal Gong MD) Weakness (Acute) Near syncope (Acute) Orthostatic hypotension (Acute) - Secondary Discharge Diagnosis Chronic Problems (Last Updated 10/14/17 @ 22:27 by Mal Gong MD) Brain metastasis (Chronic) Liver metastasis (Chronic) Hypomagnesemia (Chronic) GERD (gastroesophageal reflux disease) (Chronic) Non-small cell carcinoma of right lung, stage 4 (Chronic) Hilar mass (Chronic) COPD (chronic obstructive pulmonary disease) (Chronic) 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 Diastolic CHF (Chronic) Foot drop, left (Chronic) Chronic respiratory failure (Chronic) with hypoxemima and hypercarbia Pulmonary HTN (Chronic) severe Diastolic dysfunction (Chronic) stage 1 Tricuspid regurgitation (Chronic) mild - moderate Decubitus ulcer of hip, stage 2 (Chronic) Decubitus ulcer of hip, stage 1 (Chronic) NSTEMI (non-ST elevated myocardial infarction) (Chronic) CAD (coronary artery disease) (Chronic) minimal and non-obstructive on cath 08/09/16 Hospital Course and Treatment Imaging Results: 11/03/17 13:30 Diet: Regular Diet Is pt able to select menu?: Yes Clinical Impression(s) from Imaging Studies Chest X-Ray 11/10/17 13:25 IMPRESSION: Right lower lobe opacity likely reflects some combination of atelectasis and/or pneumonia. 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 Hyperinflated lungs suggestive of underlying COPD. Electronically Signed: Mayelin Sexton MD at 17:35 EDT Tel , Service support , Labs (Last 48 Hours) 11/11/17 11/11/17 05:02 05:02 WBC 9.2 RBC 3.37 L Hgb 10.0 L Hct 32.1 L MCV 95.3 H MCH 29.7 MCHC 31.2 L RDW 16.3 H RDW Differential 54.3 H Plt Count 342 MPV 9.7 Immature Gran % (Auto) 0.200 Neut % (Auto) 91.9 H Lymph % (Auto) 3.6 L [place] % (Auto) 4.3 Eos % (Auto) 0.0 Baso % (Auto) 0.0 Absolute Neuts (auto) 8.4 H Absolute Lymphs (auto) 0.33 L Total Counted Not Reportable Differential Comment SCANNED Platelet Estimate SLT INC Plt Morphology Comment COMMENT Sodium 139 Potassium 4.9 Chloride 98 Carbon Dioxide 33.0 H Anion Gap 8 BUN 30 H Creatinine 0.47 L Estim Creat Clear Calc 65.79 Est GFR (MDRD) Af Amer 223 Est GFR (MDRD) Non-Af 184 BUN/Creatinine Ratio 63.4 H Glucose 94 Calcium 11.8 H Operations: None Procedures: None Summary of Care Provided: The patient is a 72 year old Male with below past medical history significant for stage 4 lung cancer, hospitalized for debility, admitted to TCU for rehabilitation, strengthening, outpatient brain radiation, prior to discharge home with family. [facility] for Physical Therapy, Occupational Therapy. Discharge Diet: No Restrictions Discharge Activity: Return to Normal Activity, May Shower, Use Walker Weight Bearing Status: Weight bearing as tolerated Call your doctor if you observe: Fever of 101 or Higher, Inability to urinate, Inability to have a bowel movement, Shortness of breath, Chest pain, Uncontrolled pain Home Medications: Medications to take at Discharge Albuterol Aerosols [Ventolin Aerosols] 2.5 mg INHALATION Q2H PRN PRN vial.neb. 11/11/17 Bisacodyl [Dulcolax] 10 mg PO DAILY PRN tablet 11/11/17 Bmx Liquid 15 ml PO Q3H PRN PRN ml 11/11/17 Dexamethasone [Decadron] 2 mg PO DAILY@0800 #7 tab 11/11/17 Dexamethasone [Decadron] 4 mg PO DAILY@0800 #3 tab 11/11/17 Doxycycline 100 mg PO BID #16 cap 11/11/17 Fluticasone/Salmeterol [Fluticasone-Salmeterol 232-14] 1 puff IH Q12 inhaler 11/11/17 Hydrocodone Bitart/Apap 5-325 [Gilbert 5/325] 1 tab PO Q6H PRN PRN #28 tab 11/11/17 Iron Polysaccharide Complex [Ferrex 150] 150 mg PO DAILYCM capsule 11/11/17 Mag Hydrox/Al Hydrox/Simeth [Mylanta II] 30 ml PO Q6H PRN PRN udc 11/11/17 Magnesium Oxide [Mag-Ox 400] 400 mg PO DAILY tablet 11/11/17 Meclizine HCl [Antivert] 12.5 mg PO 4X/DAY PRN tablet 11/11/17 Menthol/Lanolin/Calamine/Znox [Calmoseptine Ointment] 1 applic TOPICAL 0600,2200 tube 11/11/17 Midodrine HCl [Proamatine] 10 mg PO TID tablet 11/11/17 Nystatin 500,000 unit PO 4X/DAY #140 udc 11/11/17 Pantoprazole Sodium [Protonix] 40 mg PO DAILY tablet 11/11/17 Phenol/Sodium Phenolate [Chloraseptic (BKC)] 5 spray MM Q2H PRN PRN ml 11/11/17 Polyethylene Glycol 3350 [Miralax] 17 gm PO DAILY packet 11/11/17 Senna/Docusate Sodium [Senokot-S] 1 tablet PO BID tablet 11/11/17 Tiotropium [place] [Spiriva 18 MCG] 1 puff INHALATION DAILY inhaler 11/11/17 levoFLOXacin tablet [Levaquin tablet] 500 mg PO DAILY@0600 #8 tab 11/11/17 Following Prescrptions Were Given to Patient: Hydrocodone Bitart/Apap 5-325 [Gilbert 5/325] 1 tab PO Q6H PRN PRN #28 tab PRN Reason: Moderate-severe pain Dexamethasone [Decadron] 4 mg PO DAILY@0800 #3 tab Dexamethasone [Decadron] 2 mg PO DAILY@0800 #7 tab levoFLOXacin tablet [Levaquin tablet] 500 mg PO DAILY@0600 #8 tab Doxycycline 100 mg PO BID #16 cap Nystatin 500,000 unit PO 4X/DAY #140 udc Primary Care Physician: Donte Lea DO [Primary Care Provider] - Please follow up with your Primary Care Physician in: 1 week. Please Follow Up With: Francisco Javier Decker DO When: [phone] Please Follow Up With: Pierce Mahajan MD When: [phone] Disposition: Shelter facility Minutes spent on discharge:: 35 Patient Condition:: Poor Medical Necessity - Tobacco Use Smoking Status: Former smoker Tobacco Use: Non-smoker Meaningful Use Info Meaningful Use Diagnoses (Choose all that apply): None applicable
--- NOTE | 2017-11-11 15:52 | NURSING ---
Patient having low BP's (85/52, 91/52), Dr. Uribe updated, continue to monitor.
[2017-11-11 16:00] VITALS: BP 91/52; PULSE 84; RESP 20; TEMP 36.4; O2SAT 94
[2017-11-12] MEDS: Fluticasone/Salmeterol 232-14 Inhaler 1 PUFF IH ×2 (05:40→16:51)
[2017-11-12] MEDS: Midodrine HCl 5 MG Tablet 10 MG PO ×3 (05:41→21:27)
[2017-11-12] MEDS: Menthol/Lanolin/Calamine/Znox 113 GM Tube 1 APPLIC TOPICAL ×2 (05:41→21:28)
[2017-11-12] MEDS: levoFLOXacin 500 MG Tablet PO (05:42)
[2017-11-12] MEDS: Pantoprazole Sodium 40 MG Tablet PO (05:42)
[2017-11-12] MEDS: Senna/Docusate Sodium 1 Tablet PO ×2 (05:42→16:51)
[2017-11-12] MEDS: Polyethylene Glycol 3350 17 GM PACKET PO (05:43)
[2017-11-12] MEDS: Doxycycline 100 MG CAPSULE PO ×2 (05:43→16:51)
[2017-11-12] MEDS: Magnesium Oxide 400 MG Tablet PO (05:43)
[2017-11-12] MEDS: NYSTATIN 500,000 UNIT/5 ML UDC 500000 UNIT PO (05:43)
[2017-11-12] MEDS: Iron Polysaccharide Complex 150 MG CAPSULE PO (07:55)
[2017-11-12 08:16] VITALS: PULSE 97; RESP 18; O2SAT 92
[2017-11-12] MEDS: Albuterol 2.5 MG/3 ML VIAL.NEB. INHALATION (08:16)
[2017-11-12 16:00] VITALS: BP 89/54; PULSE 86; RESP 18; TEMP 36.6; O2SAT 98
[2017-11-12 21:34] VITALS: RESP 15
[2017-11-13] MEDS: Fluticasone/Salmeterol 232-14 Inhaler 1 PUFF IH (05:28)
[2017-11-13] MEDS: Senna/Docusate Sodium 1 Tablet PO (05:28)
[2017-11-13] MEDS: Midodrine HCl 5 MG Tablet 10 MG PO ×2 (05:28→14:10)
[2017-11-13] MEDS: Pantoprazole Sodium 40 MG Tablet PO (05:28)
[2017-11-13] MEDS: levoFLOXacin 500 MG Tablet PO (05:28)
[2017-11-13] MEDS: Polyethylene Glycol 3350 17 GM PACKET PO (05:28)
[2017-11-13] MEDS: Doxycycline 100 MG CAPSULE PO (05:28)
[2017-11-13] MEDS: Menthol/Lanolin/Calamine/Znox 113 GM Tube 1 APPLIC TOPICAL (05:29)
[2017-11-13] MEDS: Magnesium Oxide 400 MG Tablet PO (05:29)
[2017-11-13 07:35] VITALS: O2SAT 92
[2017-11-13] MEDS: Iron Polysaccharide Complex 150 MG CAPSULE PO (07:43)
[2017-11-13 09:14] VITALS: PULSE 88; RESP 20; O2SAT 93
[2017-11-13 11:33] VITALS: BP 89/60; PULSE 93; RESP 20; TEMP 36.5; O2SAT 96
--- NOTE | 2017-11-13 12:07 | NURSING ---
Report called to LULÚ Cm at [facility].
--- NOTE | 2017-11-18 10:23 | MDS.RN ---
Information for the mds was obtained from review of the clinical record, interview of resident, staff, and direct observation of resident's care. Assessment entered late D/T hospital computer system down 11/14/17, and not able to assess computer system.
== END 2017-11-13 16:00 | disposition skilled nursing facility (03) | DRG 948 ==
PROVIDERS: Admitting Provider Family Medicine Geriatric Medicine; Family Provider Family Medicine; PCP Family Medicine; Visit Provider Family Medicine Geriatric Medicine
DX: R53.81 Other malaise (principal); C34.91 Malignant neoplasm of unspecified part of right bronchus or lung; C79.31 Secondary malignant neoplasm of brain; C78.7 Secondary malignant neoplasm of liver and intrahepatic bile duct; I50.32 Chronic diastolic (congestive) heart failure; J96.12 Chronic respiratory failure with hypercapnia; J96.11 Chronic respiratory failure with hypoxia; E83.42 Hypomagnesemia; K21.9 Gastro-esophageal reflux disease without esophagitis; J44.9 Chronic obstructive pulmonary disease, unspecified; I27.20 Pulmonary hypertension, unspecified; I25.10 Atherosclerotic heart disease of native coronary artery without angina pectoris; Z87.891 Personal history of nicotine dependence; I25.2 Old myocardial infarction; M21.372 Foot drop, left foot
CPT/HCPCS: 36415; 71046; 77336; 77412; 80048; 85025; 94640; 97110; 97116; 97162; 97166; 97530; 97535; 97802